=== PATIENT | female | born 1945 | race Caucasian/White ===

== ENCOUNTER 2024-04-20 15:21 | Inpatient (IN) | payer MEDICARE, SELFPAY ==
[2024-04-20] VITALS (17 sets, daily range): BP systolic 96–120; BP diastolic 48–82; PULSE 83–97; RESP 19–32; TEMP 36.6–37.1; O2SAT 93–100; BMI 29.2
--- NOTE | ~2024-04-20 | CT_ITS ---
CT chest abdomen pelvis wo con Ordering provider: Hiro English MD History: . sepsis . Comparison: None. Technique: CT chest without IV contrast. CT abdomen and pelvis without oral and IV contrast. Radiation reduction technique utilized. The DLP is 1474.4 mGy FINDINGS: The study is limited due to lack of IV contrast. CHEST: --VISUALIZED THORACIC INLET: Normal as visualized. --MEDIASTINUM: Aorta/coronary arteries: Mild atheromatous disease. Posterior bulges seen in the descending aorta pro ximal portion suggestive of bone aneurysm which measures 2.6 cm x 1.5x 3.3 cm. Heart/other: The heart is not enlarged. Trace of pericardial effusion. Lymph nodes: No mediastinal or hilar adenopathy. --LUNGS: Dependent atelectatic changes. Underlying emphysematous changes. No pulmonary nodules or mas ses. No infiltrates or effusions. No pneumothorax. --MUSCULOSKELETAL: Soft tissues: The superficial soft tissues are normal. Bones: Age appropriate degenerative changes of the spine. ABDOMEN/PELVIS: --MUSCULOSKELETAL: Bones: Age appropriate degenerative changes of the spine. Superficial soft tissues: The superficial soft tissues are normal. --UPPER ABDOMINAL ORGANS: Liver: Rounded hypodense area in the left lobe of the liver which may be a mass. Further evaluation a dvised. This area measures 3.9 x 4.3 x 5 cm. An abscess is less likely although cannot be excluded. M inimal fat stranding is seen around the area. Gallbladder: Cholelithiasis. No cholecystitis. Spleen: Normal. Stomach/duodenum: Slightly thickened wall of the stomach. Pancreas: Normal. Adrenals: Normal. Kidneys: Normal. --PELVIC ORGANS: The bladder is normal. No bladder stones. Uterus is normal. --BOWEL AND MESENTERY: Colon: Diverticulosis. Thickening in the area of the sigmoid colon is seen with fat stranding in the area. Sigmoidoscopy is advised. No evidence of appendicitis. Small Bowel: Normal. No obstruction. Peritoneum/mesentery: No free air or free fluid. No mesenteric lymphadenopathy. --RETROPERITONEUM: Mild atheromatous disease of the abdominal aorta. No retroperitoneal lymphadenop athy. IMPRESSION: CHEST: 1. 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 Further evaluation advised. 2. No acute cardiopulmonary pathology seen. ABDOMEN/PELVIS: 1. Thickened area in the sigmoid colon with surrounding fat stranding. The differential includes a m ass or diverticulitis. Sigmoidoscopy is advised. 2. Rounded hypodense area in the left lobe of the liver. This may be a mass and this likely an absce ss. Surrounding fat stranding is seen in the area. 3. Cholelithiasis. Reviewed, dictated and finalized at location A. IMPRESSION: CHEST: 1. 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 Further eval uation advised. 2. No acute cardiopulmonary pathology seen. ABDOMEN/PELVIS: 1. Thickened area in the sigmoid colon with surrounding fat stranding. The dif ferential includes a mass or diverticulitis. Sigmoidoscopy is advised. 2. Rounded hypodense area in the left lobe of the liver. This may be a mass an d this likely an abscess. Surrounding fat stranding is seen in the area. 3. Cholelithiasis.
--- NOTE | ~2024-04-20 | CT_ITS ---
EXAMINATION: CTA chest PE abdomen pel DATE: 04/28/2024 10:50 INDICATION: Shortness of breath TECHNIQUE: Computed tomography angiography (CTA) of the chest was performed with 100 mL Omnipaque-350 intravenous contrast timed to evaluate the pulmonary arteries. Coronal maximum intensity projection 3D-reconstructions were created by the technologist. Automated exposure control and iterative reconst ruction technique were employed. Exam dose: 1241.47 mGy-cm total exam DLP. COMPARISON: 04/26/2024 portable AP chest FINDINGS: The pulmonary arteries are moderately opacified without apparent embolism. There is extensive thoracic aortic and great vessel calcification as well as coronary artery calcific ation. No thoracic aortic aneurysm or dissection. No hilar or mediastinal mass lesion or lymphadenopathy. The adrenal glands are unremarkable. Discoid atelectasis or scarring at the lung bases. Lungs otherwise are clear of infiltrate or consoli dation. Prominent degenerative disc disease at C5-6 and C6-7. Diffuse idiopathic skeletal hyperostosis of the thoracic spine. IMPRESSION: No detected pulmonary emboli Reviewed, dictated and finalized at [facility]. Reviewed, dictated and finalized at location A.
--- NOTE | ~2024-04-20 | US_ITS ---
RIGHT UPPER QUADRANT ABDOMINAL ULTRASOUND (Doppler ultrasound interrogation techniques used as needed for this exam.) Ordering provider: Alycia Roth PA-C History: . elevated LFTs . Comparison: None. FINDINGS: PANCREAS: Normal echotexture and size. PORTAL VEIN: Hepatopedal flow demonstrated. LIVER: Homogeneous echotexture. Measures 16 cm. Left lateral complex mass measuring 6.4 x 4.4 x 4.6 c m. flow is noted peripherally. BILIARY DUCTS: No intra or extrahepatic biliary dilation. Common bile duct measures 4 mm in diameter which is normal for patient's age. GALLBLADDER: Small stones. No Sludge, gallbladder wall thickening or pericholecystic fluid. Negative sonographic Broussard's sign. Hypoechoic foci of the anterior wall are noted measuring 0.5 cm. FREE FLUID: None visualized within the upper abdomen. The aorta and inferior vena cava are normal. IMPRESSION: Heterogenous echogenicity of the liver suggestive of cirrhosis with a complex mass in the left latera l lobe. Further evaluation advised. Small stones with highly suggestive polyp in the anterior wall. Otherwise, normal right upper quadran t ultrasound. Reviewed, dictated and finalized at location A. IMPRESSION: Heterogenous echogenicity of the liver suggestive of cirrhosis with a complex m ass in the left lateral lobe. Further evaluation advised. Small stones with highly suggestive polyp in the anterior wall. Otherwise, norm al right upper quadrant ultrasound.
--- NOTE | ~2024-04-20 | XR_ITS ---
EXAMINATION: XR chest 2V 04/20/2024 16:03 INDICATION: Weakness PROCEDURE: AP and lateral views of the chest COMPARISON: No prior studies for comparison. FINDINGS: Right basilar atelectasis. Mildly elevated left diaphragm. The cardiomediastinal silhouette is within normal limits. There are no pleural effusions. There is no pneumothorax suspected. IMPRESSION: 1: NO ACUTE CARDIOPULMONARY DISEASE. Reviewed, dictated and finalized at location [facility].
--- NOTE | ~2024-04-20 | XR_ITS ---
EXAMINATION: XR chest 1V portable DATE: 04/22/2024 11:25 INDICATION: Shortness of breath TECHNIQUE: frontal view of the chest was obtained. COMPARISON: Chest radiograph dated 04/20/2024 FINDINGS: Unchanged elevation the left hemidiaphragm. Skinfold projects over the upper chest. No focal airspace opacities, pulmonary edema, pleural effusion or pneumothorax. Heart size is normal. Atherosclerotic aorta. Mild scattered degenerative skeletal changes in the spine and both shoulders.. IMPRESSION: 1. Unchanged elevation of the left hemidiaphragm. No other acute cardiopulmonary disease. Reviewed, dictated and finalized at location A. IMPRESSION: 1. Unchanged elevation of the left hemidiaphragm. No other acute cardiopulmonar y disease.
--- NOTE | ~2024-04-20 | XR_ITS ---
EXAMINATION: XR chest 1V portable DATE: 04/26/2024 06:17 INDICATION: Hypoxia. TECHNIQUE: A single frontal view of the chest was obtained. COMPARISON: Chest single view 04/22/2024, chest CT 04/20/2024 FINDINGS: There is a diffuse interstitial pattern in the lungs, consistent with mild pulmonary edema. There is a small left pleural effusion. No pneumothorax. The heart size is normal. IMPRESSION: 1. Mild pulmonary edema. 2. Small left pleural effusion. Reviewed, dictated and finalized at location A.
--- NOTE | ~2024-04-20 | CT_ITS ---
CT brain wo con Ordering provider: Hiro English MD History: 78 years Female with . head injury . Comparison: None. Technique: CT of the head without contrast. Radiation reduction technique utilized. DLP 605.3mGy. FINDINGS: BRAIN PARENCHYMA AND CSF SPACES: Mild leukoaraiosis and diffuse cortical atrophy. Mild atheromatous d isease. Hypodensity in the left internal capsule anterior limb is noted which may indicate an old in farct.. No midline shift, mass effect or hemorrhage. The brain parenchyma and CSF spaces are otherwi se normal. VISUALIZED PARANASAL SINUSES: Normal. MASTOIDS: Normal. BONES: Normal. SOFT TISSUES: Visualized nasopharynx is normal. Superficial soft tissues are normal. IMPRESSION: No acute intracranial hemorrhage. 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 MRI evaluation is advised. Reviewed, dictated and finalized at location A. IMPRESSION: No acute intracranial hemorrhage. Hypodensity in the left internal capsule ante rior limb which may be old infarct. MRI evaluation is advised.
--- NOTE | ~2024-04-20 | MR_ITS ---
EXAMINATION: MR brain/brain stem wo/w con DATE: 04/22/2024 07:48 INDICATION: Weakness. Assess for stroke. TECHNIQUE: Magnetic resonance imaging (MRI) of the brain and brainstem was performed without intraven ous contrast. Sequences included sagittal and axial T1-weighted SE, axial diffusion-weighted FS SE, a xial T2*-weighted GRE, axial T2-weighted FLAIR, and axial T2-weighted FSE. Postcontrast axial and cor onal T1-weighted SE was obtained. Apparent diffusion coefficient (ADC) maps were created. COMPARISON: CT dated 04/20/2024 FINDINGS: There are no areas of restricted diffusion to suggest acute infarction. No intracranial hemorrhage or abnormal intracranial mass lesion. There are scattered areas of nonspecific increased T2-weighted si gnal intensity in the cerebral white matter, predominantly involving the deep and periventricular whi te matter. There are no intraparenchymal signal abnormalities seen on the other pulse sequences. The ventricles are symmetric and normal in size. There are no abnormal extra-axial fluid collections. [place] w voids are seen in the cerebral arteries on the T2-weighted sequences consistent with their expected patency. Left vertebral artery is dominant. Visualized orbits and soft tissues are unremarkable. The re are no areas of abnormal enhancement on the post contrast images. IMPRESSION: 1. No acute intracranial process. 2. Nonspecific mild scattered white matter T2 hyperintensity which is within normal limits for age an d likely sequela of chronic small vessel ischemic disease. Reviewed, dictated and finalized at location A. IMPRESSION: 1. No acute intracranial process. 2. Nonspecific mild scattered white matter T2 hyperintensity which is within no rmal limits for age and likely sequela of chronic small vessel ischemic disease .
--- NOTE | ~2024-04-20 | MR_ITS ---
EXAMINATION: MR abdomen wo/w con DATE: 04/23/2024 09:57 INDICATION: Liver mass. TECHNIQUE: Magnetic resonance imaging (MRI) of the abdomen was performed without and with 20 mL Multi Aditya intravenous contrast. COMPARISON: Abdomen ultrasound 04/21/2024, CT 04/20/2024 FINDINGS: The liver demonstrates surface nodularity, consistent with cirrhosis. In the left hepatic lobe, there is a 5.1 cm cystic mass with hyperenhancing capsule and thick septa without washout. There are cysts in the liver measuring up to 10 mm. There are gallstones in the gallbladder, which is normal in size . The pancreas, spleen, and adrenal glands, and kidneys are normal. There are no dilated loops of bow el. There are scattered diverticula in the sigmoid colon. There is fat stranding around the sigmoid c olon with local free gas. IMPRESSION: 1. 5.1 cm cystic mass in left hepatic lobe, consistent with abscess or less likely neoplasm. 2. Cirrhosis of the liver. 3. Sigmoid diverticulitis with perforation. Reviewed, dictated and finalized at location E. IMPRESSION: 1. 5.1 cm cystic mass in left hepatic lobe, consistent with abscess or less lik lei neoplasm. 2. Cirrhosis of the liver. 3. Sigmoid diverticulitis with perforation.
--- NOTE | 2024-04-20 15:30 | ECG_ITS ---
Test Date: 2024-04-20 15:34:27 Measurements Intervals [place] Rate: 93 P: 0 [place]: 0 QRS: -32 QRSD: 118 T: 48 QT: 352 QTc: 438 Interpretive Statements Sinus rhythm MARKED LEFT AXIS DEVIATION [QRS AXIS < -30] INCOMPLETE RIGHT BUNDLE BRANCH BLOCK [90+ ms QRS DURATION, TERMINAL R IN V1/V2, 40+ ms S IN I/aVL/V4/V5/V6] No previous ECG available for comparison Electronically Signed On 04-21-2024 15:52:51 CDT by Royal Brandon M.D.
--- NOTE | 2024-04-20 16:13 | ED_ITS ---
HPI - General Adult General Chief complaint: Weakness Stated complaint: hypotensive, weakness Time Seen by Provider: 04/20/24 15:49 History of Present Illness HPI narrative: Patient is a 78-year-old female who presents ER with weakness. She sat up on the edge of the bed this morning when she got lightheaded. When she tried to stand up she felt ground striking her head on the ground. She did not lose consciousness. She reports she has been having a cough over last couple days. No urinary frequency urgency or dysuria. No known sick contacts. No additional complaints. Related Data Home Medications Medication Instructions Recorded Confirmed aspirin 81 mg tablet 81 mg PO DAILY 04/20/24 04/20/24 lorazepam 1 mg tablet 1 mg PO HS 04/20/24 04/20/24 telmisartan 40 mg tablet (Micardis) 40 mg PO DAILY 04/20/24 04/20/24 Allergies Allergy/AdvReac Type Severity Reaction Status Date / Time No Known Allergies Allergy Verified 04/20/24 22:03 Review of Systems Review of Systems: All systems reviewed & are unremarkable except as noted in HPI and below Constitutional: Constitutional: Reports chills, Reports fatigue, Denies fever(s) and Reports weakness ENT: Reports system reviewed and no additional complaints, except as documented Cardiovascular: Cardiovascular: Reports no additional cardiovascular complaints Respiratory: Respiratory: Reports cough, Denies dyspnea and Denies wheezing Gastrointestinal: Gastrointestinal: Reports no additional gastrointestinal complaints Genitourinary: Genitourinary: Reports no additional female genitourinary complaints Neurologic: Denies syncope, Denies headache(s), Denies focal weakness and Denies numbness [facility] Past Medical History Medical History (Updated 04/21/24 @ 10:37 by Hiro English MD) Anxiety Diverticulitis Hypertension Osteoarthritis Psoriasis Surgical History Surgical History (Updated 04/21/24 @ 00:01 by Alycia Roth PA-C) History of appendectomy Family History Family History Other No problems noted. Mother Congestive cardiac failure Social History Social History (Updated 04/21/24 @ 00:01 by Alycia Roth PA-C) Social History: Surrogate medical decision maker: Maribell Ramirez, daughter. Code status: Do not resuscitate. Smoking packs per day: 0.5 Smoking cigarettes per day: 10.0 Years smoked: 50 Smoking pack-years: 25.00 Smoking status: Former smoker Substance use: former Do You Feel Safe in your Home?: Yes Lack of Transportation: No Lack of Food: Never True Current Housing: I Have Housing Concerned About Future Housing: No Difficulty Paying Gas/Electric Bills: No Difficulty Paying for Meds: No Currently Unemployed: No Education: High School Diploma/GED Difficulty w/ Childcare or Family Care: No Spiritual care concerns: No Exam Narrative: GENERAL: Fatigue-appearing, well-nourished, and in no acute distress. HEAD: Normocephalic, atraumatic. ENT: Mucous membranes moist. CHEST: Clear to auscultation. No respiratory distress. HEART: Regular rate and rhythm. Normal peripheral pulses. ABDOMEN: Soft, nontender, nondistended. EXTREMITIES: Normal range of motion. No edema. SKIN: Warm, dry, no rash. NEURO: Alert and oriented x3. PSYCH: Normal mood and affect. Course Course Emergency Course: Discussed lab results with the patient. Patient receiving 30 milliliter/kilogram bolus due to high suspicion of sepsis. Patient reports she is a DNR. No source found on x-ray or urinalysis. CT with them/pelvis/ chest ordered. Admit to hospitalist service. Vital Signs Vital signs: Vital Signs Temperature 98.8 F 04/20/24 15:15 Pulse Rate 97 04/20/24 15:15 Respiratory Rate 24 H 04/20/24 15:15 Blood Pressure 109/82 04/20/24 15:15 Pulse Oximetry 94 04/20/24 15:15 Oxygen Delivery Room Air 04/20/24 15:15 Temperature 97.6 F 04/21/24 06:00 Pulse Rate 85 04/21/24 06:00 Respiratory Rate 16 04/21/24 06:00 Blood Pressure 110/63 04/21/24 06:00 Pulse Oximetry 94 04/21/24 06:00 Oxygen Delivery Room Air 04/20/24 22:10 Medical Decision Making Vital Signs Vital Signs: Vital Signs Temperature 98.8 F 04/20/24 15:15 Pulse Rate 97 04/20/24 15:15 Respiratory Rate 24 H 04/20/24 15:15 Blood Pressure 109/82 04/20/24 15:15 Pulse Oximetry 94 04/20/24 15:15 Oxygen Delivery Room Air 04/20/24 15:15 Temperature 97.6 F 04/21/24 06:00 Pulse Rate 85 04/21/24 06:00 Respiratory Rate 16 04/21/24 06:00 Blood Pressure 110/63 04/21/24 06:00 Pulse Oximetry 94 04/21/24 06:00 Oxygen Delivery Room Air 04/20/24 22:10 Lab Data 04/21/24 06:03 04/21/24 06:03 Labs: Lab Results 04/20/24 04/20/24 04/20/24 Range/Units 16:18 16:39 17:24 WBC 20.4 H (4.5-10.0) K/mm3 RBC 3.82 L (4.2-5.4) M/mm3 Hgb 11.5 L (12.0-15.0) g/dL Hct 35.5 L (37.0-47.0) % MCV 92.9 (80-100) fl MCH 30.1 (26-34) pg MCHC 32.4 (32-36) g/dl RDW 15.4 H (11.5-14.5) % Plt Count 322 (150-375) k/mm3 MPV 9.8 (7.4-10.4) fl Immature Gran % (Auto) Not Reportable Neut % (Auto) Not Reportable Lymph % (Auto) Not Reportable [place] % (Auto) Not Reportable Eos % (Auto) Not Reportable Baso % (Auto) Not Reportable Lymph # (Auto) Not Reportable [place] # (Auto) Not Reportable Eos # (Auto) Not Reportable Baso # (Auto) Not Reportable Abs Immat Gran (auto) Not Reportable Absolute Neuts (auto) Not Reportable Absolute Nucleated RBC Not Reportable Total Counted 100 Neutrophils % (Manual) 83 H (46-73) % Band Neutrophils % 1 (0-6) % Lymphocytes % (Manual) 9.0 L (18-44) % Monocytes % (Manual) 7 (3-9) % Nucleated RBC % Not Reportable Abs Neuts (Manual) 17.13 H (1.7-7.2) K/mm3 Abs Lymphs (Manual) 1.83 (1.1-4.5) K/mm3 Abs Monocytes (Manual) 1.42 H (0.1-0.90) K/mm3 Platelet Estimate Adequate (Adequate) Anisocytosis 1+ Schistocytes None seen Sodium 136 L (137-145) mmol/L Potassium 3.7 (3.4-5.0) mmol/L Chloride 100 (98-107) mmol/L Carbon Dioxide 29 (22-30) mmol/L Anion Gap 7 (4-12) mmol/L BUN 55 H (7-17) mg/dL Creatinine 2.00 H (0.7-1.0) mg/dL Estim Creat Clear Calc 22 ml/min Estimated GFR 24 L (59 - ) Glucose 118 H (65-110) mg/dL Calcium 8.7 (8.4-10.2) mg/dL Total Bilirubin 2.6 H (0.2-1.3) mg/dL AST 56 H (14-36) U/L ALT 27 (6-35) U/L Alkaline Phosphatase 124 (38-126) U/L Total Protein 8.0 (6.3-8.2) g/dL Albumin 3.8 (3.5-5.1) g/dL Urine Color Dark yellow (Yellow) Urine Appearance Cloudy H (Clear) Urine pH 5.0 (5.0-9.0) Ur Specific [place] 1.020 (1.001-1.035) Urine Protein 1+ H (Negative) mg/dL Urine Glucose (UA) Negative (Negative) mg/dL Urine Ketones Negative (Negative) mg/dL Ur Blood (Man) Negative (Negative) Urine Nitrate Negative (Negative) Urine Bilirubin 1+ H (Negative) Urine Urobilinogen 1.0 (<2.0) mg/dL Leukocyte Esterase Rfl Trace H (Negative) ELIANE/UL Urine RBC 3-5 H (0-2) /hpf Urine WBC 0-5 (0-3) /hpf Ur Squamous Epith Cells Occasional (Few) /hpf Urine Bacteria None seen /hpf Urine Casts 11-20 Hyaline Casts Present (None) /lpf Influenza A (RT-PCR) Negative (Negative) Influenza B (RT-PCR) Negative (Negative) RSV (RT-PCR) Negative (Negative) SARS-CoV-2 RNA (RT-PCR) Negative (Negative) Imaging Data Radiologist's impression: ITS Impressions Chest X-Ray 04/20/24 16:06 IMPRESSION: 1: NO ACUTE CARDIOPULMONARY DISEASE. Head CT 04/20/24 16:35 IMPRESSION: No acute intracranial hemorrhage. 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 MRI evaluation is advised. ECG Data EKG #1: ECG completion date: 04/20/24 ECG completion time: 15:34 EKG Interpretation: normal rate (93), sinus rhythm, RBBB, normal QT and left axis Discharge Plan Discharge Clinical Impression: Sepsis, Acute kidney injury Patient Disposition: Still a Patient Condition: Stable
[2024-04-20] MEDS: SODIUM CHLORIDE 0.9% IV 1,000 ML 999 ML IV CONT ×2 (16:22→16:23)
[2024-04-20] MEDS: Please add drug allergy info to patient profile. 1 EACH XX (16:23)
[2024-04-20 16:24] LABS: Hematocrit 35.5 % (37.0-47.0); Hemoglobin 11.5 g/dL (12.0-15.0); Mean Corpuscular HGB Conc 32.4 g/dl (32-36); Mean Corpuscular Hemoglobin 30.1 pg (26-34); Mean Corpuscular Volume 92.9 fl (80-100); Mean Platelet Volume 9.8 fl (7.4-10.4); Platelet Count Result 322 k/mm3 (150-375); Red Blood Count 3.82 M/mm3 (4.2-5.4); Red Cell Distribution Width 15.4 % (11.5-14.5); White Blood Count 20.4 K/mm3 (4.5-10.0)
[2024-04-20 16:36] LABS: Alanine Aminotransferase 27 U/L (6-35); Albumin Level 3.8 g/dL (3.5-5.1); Alkaline Phosphatase 124 U/L (38-126); Anion Gap 7 mmol/L (4-12); Aspartate Amino Transferase 56 U/L (14-36); Bilirubin,Total 2.6 mg/dL (0.2-1.3); Blood Urea Nitrogen 55 mg/dL (7-17); Calcium 8.7 mg/dL (8.4-10.2); Carbon Dioxide 29 mmol/L (22-30); Chloride 100 mmol/L (98-107); Estimated CRCL calculation 22 ml/min; Estimated Glomerular Filt Rate 24; Glucose 118 mg/dL (65-110); Potassium 3.7 mmol/L (3.4-5.0); Sodium 136 mmol/L (137-145)
[2024-04-20 16:53] LABS: Band Neutrophils Percent 1 % (0-6); Lymphocytes Absolute Manual 1.83 K/mm3 (1.1-4.5); Monocytes Absolute Manual 1.42 K/mm3 (0.1-0.90); Monocytes Percent Manual 7 % (3-9); Neutrophils Absolute Manual 17.13 K/mm3 (1.7-7.2); Neutrophils Percent Manual 83 % (46-73); Platelet Estimate Adequate (Adequate); Schistocytes None Seen; Total Cells Counted 100
[2024-04-20 16:54] LABS: Anisocytosis 1+
[2024-04-20 17:21] LABS: Influenza A QL RT-PCR Negative (Negative); Influenza B QL RT-PCR Negative (Negative); RSV RNA, RT-PCR Negative (Negative); SARS-CoV-2 RNA PCR Negative (Negative)
[2024-04-20 17:58] LABS: Appearance Urine Cloudy (Clear); Bacteria Urine None Seen /hpf; Bilirubin Urine 1+ (Negative); Blood Urine Negative (Negative); Color Urine Dark Yellow (Yellow); Glucose Urine UA Negative (Negative); Hyaline Casts Urine Present /lpf; Ketones Urine Negative (Negative); Leukocyte Esterase Ur Trace LEU/UL (Negative); Nitrate Urine Negative (Negative); Protein Urine 1+ mg/dL (Negative); Squamous Epithelial Cell Urine Occasional /hpf (Few); WBC Urine 0-5 /hpf (0-3)
[2024-04-20 17:59] LABS: Add Urine Microscopic? YES
[2024-04-20] MEDS: SODIUM CHLORIDE 0.9% IV 300 ML 999 ML IV CONT (18:57)
[2024-04-20 19:16] LABS: Lactic Acid Reflex 1.5 mmol/L (0.7-2.0)
--- NOTE | 2024-04-20 19:24 | PC.NURSE ---
Report received from RONDA Arzate. Assumed care of patient at this time.
--- NOTE | 2024-04-20 20:14 | PC.NURSE ---
Patient given turkey sandwich and water upon request. Patient and her family updated on waiting for room number. Call light within reach.
--- NOTE | 2024-04-20 21:32 | PC.NURSE ---
Patient had incontinent bowel movement. Patient cleaned up and changed. Patient tolerated well.
--- NOTE | 2024-04-20 21:47 | ADMGEN ---
This patient, Vero Mcknight, was admitted to [facility] Surg Room 314-02. Patient/family oriented to hospital policies and general routines including ID bracelet, bed and alarms, visiting hours, pain management, procedures, bathroom and other care routines, personal items, smoking policy, room service/diet, and visiting hours. Information on how to activate the Rapid Response Team has been discussed. Patient/Family are encouraged to report perceived risks to care and to ask questions if they do not understand what they are told or what they should do.
--- NOTE | 2024-04-20 22:04 | PC.NURSE ---
Spoke with sonNicolas and daughter Maribell in ER while awaiting room assignment. Contact information for farooq Vaughn is [phone]. She is to be primary contact. Son Nicolas Mcknight is secondary contact with phone [phone]. Also request patients primary physician receive information from hospitalization on discharge.
[2024-04-20] MEDS: SODIUM CHLORIDE 0.9% IV 1,000 ML 125 ML IV CONT (22:24)
[2024-04-20] MEDS: PIPERACILLN/TAZ 3.375GM/NS50ML 3.375 GM/50 ML BAG IVPB (22:24)
--- NOTE | 2024-04-20 23:49 | P.HP_ITS ---
H&P: HPI History of Present Illness Date/Time: 04/20/24 20:45 Chief Complaint: Weakness. Narrative: This is a pleasant 78-year-old female with history diverticulitis, arthritis, psoriasis, anxiety, and hypertension who presented to the emergency department via EMS from home for evaluation of weakness. The patient provides the following history. She has not been feeling well for a couple of days with chills, sweats, dry cough, poor appetite, nausea, and intermittent diarrhea. This morning she awoke and set the edge of the bed for a minute or 2 as usual before attempting to stand up. When she stood up she reports feeling extremely weak and lightheaded and she fell onto her side onto the carpet. There was no loss of consciousness or head trauma but she was not able to get herself up due to weakness. EMS was summoned and her blood pressures were reportedly soft on their arrival however have not been documented. She denies documented fever, headache, sinus congestion, sore throat, productive cough, shortness of breath, chest and pleuritic pain, vomiting, and dysuria. She has not noticed any blood or mucus in the stool. She lives at home with son and [id number] and neither of them have been sick. In the ED: She was afebrile on arrival. Blood pressures have been as low as 96/58 but are stable after receiving 2300 mL normal saline. Labs were significant for a WBC count of 20.4, hemoglobin 11.5, sodium 136, BUN 55, creatinine 2.00, lactic acid 1.5, total bilirubin 2.6, AST 56. She tested negative for influenza, RSV, and COVID. Head CT showed no acute intracranial findings but did note a hypodensity in the left internal capsule the anterior limb which may be old infarct. CT of the chest, abdomen, and pelvis showed a descending aortic aneurysm, cholelithiasis, hypodense area in the left lobe of the liver which may be a mass, and secondary in the sigmoid colon with surrounding fat stranding with a differential diagnosis to include mass or diverticulitis. She was given a dose of ceftriaxone and has been started on Zosyn for possible diverticulitis. Patient reports being hospitalized at [facility] in January with diverticulitis though the symptoms are not necessarily similar. She has never had a colonoscopy and she is not keen on having 1. She has lost about 40 lb in the last 3 months unintentionally. No family history of colon cancer. Review of Systems Review of Systems: 12 systems were reviewed and are negativ e except for as per HPI. [facility] Past Medical History Medical History (Updated 04/21/24 @ 00:06 by Alycia Roth PA-C) Anxiety Diverticulitis Hypertension Osteoarthritis Psoriasis Surgical History Surgical History (Updated 04/21/24 @ 00:01 by Alycia Roth PA-C) History of appendectomy Family History Family History Other No problems noted. Mother Congestive cardiac failure Social History Social History (Updated 04/21/24 @ 00:01 by Alycia Roth PA-C) Social History: Surrogate medical decision maker: Maribell Ramirez, daughter. Code status: Do not resuscitate. Smoking packs per day: 0.5 Smoking cigarettes per day: 10.0 Years smoked: 50 Smoking pack-years: 25.00 Smoking status: Former smoker Substance use: former Do You Feel Safe in your Home?: Yes Lack of Transportation: No Lack of Food: Never True Current Housing: I Have Housing Concerned About Future Housing: No Difficulty Paying Gas/Electric Bills: No Difficulty Paying for Meds: No Currently Unemployed: No Education: High School Diploma/GED Difficulty w/ Childcare or Family Care: No Spiritual care concerns: No Meds Home Medications and Allergies Home Medications Medication Instructions Recorded Confirmed Type aspirin 81 mg tablet 81 mg PO DAILY 04/20/24 04/20/24 History lorazepam 1 mg tablet 1 mg PO HS 04/20/24 04/20/24 History telmisartan 40 mg tablet (Micardis) 40 mg PO DAILY 04/20/24 04/20/24 History Allergies Allergy/AdvReac Type Severity Reaction Status Date / Time No Known Allergies Allergy Verified 04/20/24 22:03 Vital Signs Vital Signs - 24 hr 04/20/24 15:15 04/20/24 17:27 04/20/24 19:08 Temperature 98.8 F Pulse Rate 97 86 84 Respiratory Rate 24 H 27 H 29 H Blood Pressure 109/82 120/48 L 96/58 L Pulse Oximetry 94 96 94 Oxygen Delivery Room Air 04/20/24 19:01 04/20/24 19:03 04/20/24 19:15 Temperature Pulse Rate 84 84 87 Respiratory Rate 19 28 H 28 H Blood Pressure Pulse Oximetry 93 95 95 Oxygen Delivery 04/20/24 19:30 04/20/24 19:45 04/20/24 20:00 Temperature Pulse Rate 84 84 83 Respiratory Rate 26 H 28 H 28 H Blood Pressure Pulse Oximetry 95 96 96 Oxygen Delivery 04/20/24 20:15 04/20/24 20:30 04/20/24 20:45 Temperature Pulse Rate 85 86 89 Respiratory Rate 25 H 32 H 26 H Blood Pressure Pulse Oximetry 95 93 93 Oxygen Delivery 04/20/24 21:00 04/20/24 21:15 04/20/24 21:22 Temperature Pulse Rate 91 89 91 Respiratory Rate 32 H 28 H 24 H Blood Pressure Pulse Oximetry 96 93 94 Oxygen Delivery 04/20/24 22:10 04/20/24 22:00 Temperature 97.8 F Pulse Rate 89 89 Respiratory Rate 20 20 Blood Pressure 108/49 L Pulse Oximetry 100 100 Oxygen Delivery Room Air Exam Narrative: General: Moderately ill-appearing female in the semi-Evans position in bed. Weight: 90 kg. BMI: 29.3. HEENT: PERRL, EOMI. Sclera anicteric. Tacky mucous membranes. Oropharynx is clear. Neck: Supple. No JVD. Respiratory: Mild tachypnea though she is speaking in full sentences and appears in no distress. Lung sounds are a bit diminished with faint wheezes. Occasional dry cough. Cardiovascular: Regular rate and rhythm with S1-S2. Systolic murmur at the upper sternal border. Gastrointestinal: Abdomen is soft and nondistended with positive bowel sounds. Moderate tenderness to palpation throughout the lower abdomen. No guarding or rebound tenderness. Skin: Warm and dry. Extremities: No cyanosis or clubbing. Trace pretibial edema bilaterally. Radial and pedal pulses intact. Neurological: Alert. Cranial nerves 2-12 are grossly intact. No gross focal deficits to casual conversation. Psychiatric: Pleasant and cooperative with normal mood and affect. Judgment and insight intact. She is in good spirits. H&P: Results Labs Labs: Short CBC 04/20/24 Range/Units 16:18 WBC 20.4 H (4.5-10.0) K/mm3 Hgb 11.5 L (12.0-15.0) g/dL Hct 35.5 L (37.0-47.0) % Plt Count 322 (150-375) k/mm3 BMP 04/20/24 16:18 Sodium 136 L Potassium 3.7 Chloride 100 Carbon Dioxide 29 BUN 55 H Creatinine 2.00 H Glucose 118 H Calcium 8.7 Liver Function 04/20/24 Range/Units 16:18 Total Bilirubin 2.6 H (0.2-1.3) mg/dL AST 56 H (14-36) U/L ALT 27 (6-35) U/L Alkaline Phosphatase 124 (38-126) U/L Albumin 3.8 (3.5-5.1) g/dL Urine 04/20/24 Range/Units 17:24 Urine Color Dark yellow (Yellow) Urine Appearance Cloudy H (Clear) Urine pH 5.0 (5.0-9.0) Ur Specific [place] 1.020 (1.001-1.035) Urine Protein 1+ H (Negative) mg/dL Urine Glucose (UA) Negative (Negative) mg/dL Impressions Chest X-Ray 04/20/24 16:06 IMPRESSION: 1: NO ACUTE CARDIOPULMONARY DISEASE. Head CT 04/20/24 16:35 IMPRESSION: No acute intracranial hemorrhage. 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 MRI evaluation is advised. Chest/Abdomen/Pelvis CT 04/20/24 19:20 IMPRESSION: CHEST: 1. 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 Further evaluation advised. 2. No acute cardiopulmonary pathology seen. ABDOMEN/PELVIS: 1. Thickened area in the sigmoid colon with surrounding fat stranding. The differential includes a mass or diverticulitis. Sigmoidoscopy is advised. 2. Rounded hypodense area in the left lobe of the liver. This may be a mass and this likely an abscess. Surrounding fat stranding is seen in the area. 3. Cholelithiasis. Assessment and Plan Assessment and plan (1) Sepsis: Code(s): A41.9 - Sepsis, unspecified organism Status: Acute (2) Diverticulitis: Code(s): K57.92 - Diverticulitis of intestine, part unspecified, without perforation or abscess without bleeding Status: Acute (3) Acute kidney injury: Code(s): N17.9 - Acute kidney failure, unspecified Status: Acute (4) Lesion of left lobe of liver: Code(s): K76.9 - Liver disease, unspecified Status: Acute (5) Cholelithiasis: Code(s): K80.20 - Calculus of gallbladder without cholecystitis without obstruction Status: Acute (6) Normocytic anemia: Code(s): D64.9 - Anemia, unspecified Status: Acute (7) Descending aortic aneurysm: Code(s): I71.9 - Aortic aneurysm of unspecified site, without rupture Status: Acute (8) Hypertension: Code(s): I10 - Essential (primary) hypertension Status: Acute Plan The patient presented to the emergency department for evaluation of weakness and near syncope as detailed in HPI. Labs, imaging, EKG, and all reports were personally reviewed. She meets sepsis criteria on arrival with hypotension (responsive to fluid), acute kidney injury, and leukocytosis in the setting of suspected infection. Blood cultures have been obtained. Source of infection could be diverticulitis (fat stranding noted around the sigmoid colon with diverticulosis however abdominal exam is equivocal), liver abscess given hypodensity in the left lobe of the liver on CT, versus other. She has cholelithiasis but no findings of cholecystitis were noted on imaging and right upper quadrant exam is benign. Continue empiric Zosyn. Blood cultures have been obtained. At this time she has a presumed acute kidney injury and cannot receive IV contrast. Repeat renal function in a.m. and if there is improvement a CT of the abdomen with contrast would be appropriate or could consider MRI to further characterize this area. This could be an abscess given suspected GI infection however cannot rule out malignancy; there is thickening of the sigmoid colon and she has had a 40 lb weight loss. As above, she is not keen on a colonoscopy but may consider a sigmoidoscopy. Kidney injury is likely due to a combination of hypoperfusion from hypotension, hypovolemia from poor oral intake, possible ATN from sepsis, in addition to ARB use. All medications will be renally dosed and nephrotoxic agents will be avoided. Continue judicious IV fluid rehydration overnight. If no improvement with IV fluids alone, a further workup can be pursued. Monitor I/O and daily weights. Check iron studies as well as B12, folate, and stool for occult blood for evaluation of anemia. Antihypertensives currently on hold. She will need to be followed as an outpatient for the descending aortic aneurysm noted on CT scan. The rest of her home medications will be reviewed and resumed as appropriate. Findings and treatment plan were discussed with the patient. Questions were solicited and answered to sati sfaction. The patient's medical management will be taken over by the hospitalist team in a.m. Quality VTE Prophylaxis VTE prophylaxis: pharmacologic ordered The patient has been admitted under observation status. Hospitalist MIPS Advance Care Plan I have confirmed that the patient's Advanced Care Plan is present, code status is documented, or surrogate decision maker is listed in patient medical record.: Yes Medication Reconciliation I have utilized all available resources to obtain, update and review the patients current medications (includes all prescriptions, OTC, herbals, cannabis, and nutritional supplements).: Yes
[2024-04-21 02:16] LABS: Iron 18 ug/dL (37-170)
[2024-04-21 02:26] LABS: Percent Iron Saturation 9 % (20-50); TOTAL IRON BINDING CAPACITY 191 ug/dL (261-462)
[2024-04-21 02:49] LABS: Thyroid Stimulating Hormone Reflex 0.983 uIU/mL (0.465-4.68)
[2024-04-21 04:32] LABS: Folic Acid 16.8 ng/mL (2.76->20)
[2024-04-21] MEDS: PIPERACILLIN/TAZ 2.25G/NS 50ML 2.25 GM/50 ML BAG IVPB ×4 (04:52→23:32)
[2024-04-21 06:00] VITALS: BP 110/63; PULSE 85; RESP 16; TEMP 36.4; O2SAT 94
[2024-04-21 07:11] LABS: Alanine Aminotransferase 24 U/L (6-35); Albumin Level 3.4 g/dL (3.5-5.1); Alkaline Phosphatase 133 U/L (38-126); Anion Gap 9 mmol/L (4-12); Aspartate Amino Transferase 62 U/L (14-36); Bilirubin,Total 1.3 mg/dL (0.2-1.3); Blood Urea Nitrogen 42 mg/dL (7-17); Calcium 8.1 mg/dL (8.4-10.2); Carbon Dioxide 23 mmol/L (22-30); Chloride 109 mmol/L (98-107); Estimated CRCL calculation 39 ml/min; Estimated Glomerular Filt Rate 40; Glucose 136 mg/dL (65-110); Magnesium 2.6 mg/dL (1.6-2.3); Potassium 3.5 mmol/L (3.4-5.0); Sodium 141 mmol/L (137-145)
[2024-04-21 07:12] LABS: Basophils Absolute Auto 0.1 K/mm3 (0.0-0.1); Basophils Percent Auto 0.3 % (0.2-1.2); Eosinophils Percent Auto 0.1 % (0-4.4); Hematocrit 35.8 % (37.0-47.0); Hemoglobin 11.1 g/dL (12.0-15.0); Immature Granulocyte Absolute 0.16 K/mm3 (0.00-0.031); Immature Granulocyte Percent A 0.8 % (0-0.5); Lymphocytes Absolute Auto 1.76 K/mm3 (0.9-3.2); Lymphocytes Percent Auto 9.3 % (18.3-44.2); Mean Corpuscular Hemoglobin 29.6 pg (26-34); Mean Corpuscular Volume 95.5 fl (80-100); Mean Platelet Volume 10.5 fl (7.4-10.4); Monocytes Percent Auto 10.6 % (2.6-8.5); Neutrophils Percent Auto 78.9 % (45.5-73.1); Platelet Count Result 317 k/mm3 (150-375); Red Blood Count 3.75 M/mm3 (4.2-5.4); Red Cell Distribution Width 15.3 % (11.5-14.5)
[2024-04-21] MEDS: HYDROcodone/acetaminophen (*CRX) 5-325 MG TABLET 1 TAB PO (08:17)
[2024-04-21] MEDS: ASPIRIN 81 MG CHEWABLE TABLET PO (08:17)
[2024-04-21] MEDS: ENOXAPARIN 40 MG/0.4 ML SYRINGE SUB-Q (08:18)
[2024-04-21] MEDS: SODIUM CHLORIDE 0.9% IV 1,000 ML 90 ML IV CONT ×2 (08:24→20:38)
--- NOTE | 2024-04-21 13:36 | PM.IMPN ---
Progress Note: A&P Assessment and Plan (1) Diverticulitis: Code(s): K57.92 - Diverticulitis of intestine, part unspecified, without perforation or abscess without bleeding Status: Acute Assessment and Plan: CT of the abdomen/pelvis/chest negative for any acute cardiopulmonary disease, showed thickened area in the sigmoid colon with surrounding fat stranding which could be a mass or diverticulitis, rounded hypodense area in the left lobe of the liver. Ultrasound of the abdomen is still pending Started on Zosyn and Rocephin GI consult (2) Acute kidney injury: Code(s): N17.9 - Acute kidney failure, unspecified Status: Acute Assessment and Plan: Initial creatinine 2.0 now down to 1.3 Unsure of patient's baseline Continue to trend (3) Lesion of left lobe of liver: Code(s): K76.9 - Liver disease, unspecified Status: Acute Assessment and Plan: CT of the abdomen/pelvis/chest showing rounded hypodense area in the left lobe of the liver Ultrasound of the abdomen is still pending GI consulted (4) Cholelithiasis: Code(s): K80.20 - Calculus of gallbladder without cholecystitis without obstruction Status: Acute Assessment and Plan: Noted on CT of the abdomen/pelvis/chest (5) Normocytic anemia: Code(s): D64.9 - Anemia, unspecified Status: Acute Assessment and Plan: Hemoglobin 11.5, iron 18, total iron binding capacity 191, ferritin 337 (6) Descending aortic aneurysm: Code(s): I71.9 - Aortic aneurysm of unspecified site, without rupture Status: Acute Assessment and Plan: Noted on CT, will need follow-up on an outpatient basis Time Spent With Patient Time with patient: Greater than 35 minutes Subjective Date/time seen: 04/21/24 13:36 Interval history: This is a 78-year-old female who came in on 04/20/2024 weakness. Workup in the hospital included chest x-ray which was negative. 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 Chest abdomen pelvis CT shown descending aortic aneurysm which measures 1.5x 2.7x 3.3 cm, thickened area in the sigmoid colon with surrounding fat stranding, rounded hypodense area in the left lobe of the liver that may represent a or an abscess, cholelithiasis. Initial labs shown a white blood cell count of 20.4, hemoglobin 11.5, sodium 136, creatinine 2.0, EGFR 24, iron 18, total iron binding capacity 191, ferritin 337, total bili 2.6, AST 56, vitamin B12 897, folate 16.8, TSH 0.983. UA was obtained which showed 1+ urine protein, +urine bili, trace leukocytes, 3 to urine RBC. Respiratory panel was negative for influenza a and B, RSV, COVID. Blood cultures were obtained and are pending. Patient was given 2 L of normal saline, and started on Rocephin and Zosyn while in the ED. On examination today patient is alert and oriented x3. Patient denies and fever, chills, nausea, vomiting, diarrhea, abdominal pain, or shortness of breath. MRI of the brain and brain stem ordered. GI consulted. Ultrasound of abdomen pending. Review of Systems Review of Systems: 12 systems were reviewed and are negative except for as per HPI. All systems reviewed & are unremarkable except as noted in HPI and below Constitutional: Constitutional: Reports as per HPI and Reports no additional constitutional complaints Eyes: Eyes: Reports as per HPI and Reports no additional eye complaints ENT: Reports system reviewed and no additional complaints, except as documented and Reports as per HPI Cardiovascular: Cardiovascular: Reports as per HPI and Reports no additional cardiovascular complaints Respiratory: Respiratory: Reports as per HPI and Reports no additional respiratory complaints Gastrointestinal: Gastrointestinal: Reports as per HPI and Reports no additional gastrointestinal complaints Genitourinary: Genitourinary: Reports no additional female genitourinary complaints and Reports as per HPI Musculoskeletal: Musculoskeletal: Reports no additional musculoskeletal complaints and Reports as per HPI Integumentary/Breasts: Skin/Breast: Reports system reviewed and no additional complaints, except as docu and Reports as per HPI Neurologic: Reports system reviewed and no additional complaints, except as documented and Reports as per HPI Psychiatric: Psychiatric: Reports no additional psychiatric complaints and Reports as per HPI Exam Narrative: General: In no acute distress, well nourished Head: atraumatic, no encephalopathy Eyes: EOMI, PERRLA, sclera clear ENT: moist mucous membranes, nasal passages clear Neck: supple, no JVD, no adenopathy, trachea midline Cardiac: Normal S1 and S2. Murmur noted, No gallops or friction rubs, peripheral pulses intact. Respiratory: Lungs clear to auscultation, no adventitious lung sounds, currently on room air Gastrointestinal: soft, non-distended, non-tender, normoactive bowel sounds. : voiding without difficulty. Extremities: moves all extremities well, no edema, good ROM, strength 5/5 Skin: clean, dry, intact. No wounds or lesions. Neuro: Alert and oriented x4, cranial nerves intact, no neuro deficits. Psych: normal mood, normal affect, interactive Objective Data Vital Signs Vital Signs: Vital Signs - 24 hr 04/20/24 15:15 04/20/24 17:27 04/20/24 19:08 Temperature 98.8 F Pulse Rate 97 86 84 Respiratory Rate 24 H 27 H 29 H Blood Pressure 109/82 120/48 L 96/58 L Pulse Oximetry 94 96 94 Oxygen Delivery Room Air 04/20/24 19:01 04/20/24 19:03 04/20/24 19:15 Temperature Pulse Rate 84 84 87 Respiratory Rate 19 28 H 28 H Blood Pressure Pulse Oximetry 93 95 95 Oxygen Delivery 04/20/24 19:30 04/20/24 19:45 04/20/24 20:00 Temperature Pulse Rate 84 84 83 Respiratory Rate 26 H 28 H 28 H Blood Pressure Pulse Oximetry 95 96 96 Oxygen Delivery 04/20/24 20:15 04/20/24 20:30 04/20/24 20:45 Temperature Pulse Rate 85 86 89 Respiratory Rate 25 H 32 H 26 H Blood Pressure Pulse Oximetry 95 93 93 Oxygen Delivery 04/20/24 21:00 04/20/24 21:15 04/20/24 21:22 Temperature Pulse Rate 91 89 91 Respiratory Rate 32 H 28 H 24 H Blood Pressure Pulse Oximetry 96 93 94 Oxygen Delivery 04/20/24 22:10 04/20/24 22:00 04/21/24 06:00 Temperature 97.8 F 97.6 F Pulse Rate 89 89 85 Respiratory Rate 20 20 16 Blood Pressure 108/49 L 110/63 Pulse Oximetry 100 100 94 Oxygen Delivery Room Air 04/21/24 08:15 Temperature Pulse Rate Respiratory Rate Blood Pressure Pulse Oximetry Oxygen Delivery Room Air Intake/Output Intake/Output: Intake & Output 04/18/24 04/19/24 04/20/24 04/21/24 23:59 23:59 23:59 23:59 Intake Total 2350 1840.0 Output Total 400 0 Balance 1950 1840.0 Meds/Results Medications: Active Medications Generic Name Dose Route Start Last Admin Trade Name Freq PRN Reason Stop Dose Admin Acetaminophen 650 mg 04/20/24 18:33 Acetaminophen 325 Mg Tablet PO Q4H PRN Mild Pain (1-3) or Fever Hydrocodone Bitart/Acetaminophen 1 tab 04/20/24 18:33 04/21/24 08:17 Hydrocodone/Acetaminophen (*Crx) 5-325 Mg Tablet PO 1 tab Q4H PRN Administration Pain Rated 4-6 Aspirin 81 mg 04/21/24 09:00 04/21/24 08:17 Aspirin 81 Mg Chewable Tablet PO 81 mg DAILY FELIBERTO Administration Enoxaparin Sodium 40 mg 04/21/24 09:00 04/21/24 08:18 Enoxaparin 40 Mg/0.4 Ml Syringe SUB-Q 40 mg DAILY FELIBERTO Administration Sodium Chloride 1,000 mls @ 90 mls/hr 04/20/24 18:35 04/21/24 08:24 Normal Saline Iv IV CONT 90 mls/hr .Q11H7M FELIBERTO Administration Piperacillin Sod/Tazobactam Sod 2.25 gm in 50 mls @ 100 mls/hr 04/21/24 05:00 04/21/24 12:04 Zosyn 2.25 Gm/Ns 50 Ml IVPB 100 mls/hr Q6HR FELIBERTO Administration Lorazepam 1 mg 04/21/24 21:00 Lorazepam (*Crx) 1 Mg Tablet PO HS FELIBERTO Ondansetron HCl 4 mg 04/20/24 18:33 Ondansetron Inj 4 Mg/2 Ml Vial IV PUSH Q4H PRN Nausea Radiology Results: ITS Impressions Chest X-Ray 04/20/24 16:06 IMPRESSION: 1: NO ACUTE CARDIOPULMONARY DISEASE. Head CT 04/20/24 16:35 IMPRESSION: No acute intracranial hemorrhage. 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 MRI evaluation is advised. Chest/Abdomen/Pelvis CT 04/20/24 19:20 IMPRESSION: CHEST: 1. 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 Further evaluation advised. 2. No acute cardiopulmonary pathology seen. ABDOMEN/PELVIS: 1. Thickened area in the sigmoid colon with surrounding fat stranding. The differential includes a mass or diverticulitis. Sigmoidoscopy is advised. 2. Rounded hypodense area in the left lobe of the liver. This may be a mass and this likely an abscess. Surrounding fat stranding is seen in the area. 3. Cholelithiasis. Labs Labs: Laboratory Results - last 24 hr 04/20/24 04/20/24 04/20/24 16:18 16:39 17:24 WBC 20.4 H RBC 3.82 L Hgb 11.5 L Hct 35.5 L MCV 92.9 MCH 30.1 MCHC 32.4 RDW 15.4 H Plt Count 322 MPV 9.8 Immature Gran % (Auto) Not Reportable Neut % (Auto) Not Reportable Lymph % (Auto) Not Reportable [place] % (Auto) Not Reportable Eos % (Auto) Not Reportable Baso % (Auto) Not Reportable Lymph # (Auto) Not Reportable [place]do # (Auto) Not Reportable Eos # (Auto) Not Reportable Baso # (Auto) Not Reportable Abs Immat Gran (auto) Not Reportable Absolute Neuts (auto) Not Reportable Absolute Nucleated RBC Not Reportable Total Counted 100 Neutrophils % (Manual) 83 H Band Neutrophils % 1 Lymphocytes % (Manual) 9.0 L Monocytes % (Manual) 7 Nucleated RBC % Not Reportable Abs Neuts (Manual) 17.13 H Abs Lymphs (Manual) 1.83 Abs Monocytes (Manual) 1.42 H Platelet Estimate Adequate Anisocytosis 1+ Schistocytes None seen Sodium 136 L Potassium 3.7 Chloride 100 Carbon Dioxide 29 Anion Gap 7 BUN 55 H Creatinine 2.00 H Estim Creat Clear Calc 22 Estimated GFR 24 L Glucose 118 H Lactic Acid Calcium 8.7 Magnesium Iron TIBC % Saturation Ferritin Total Bilirubin 2.6 H AST 56 H ALT 27 Alkaline Phosphatase 124 Total Protein 8.0 Albumin 3.8 Vitamin B12 Folate TSH (Reflex) Urine Color Dark yellow Urine Appearance Cloudy H Urine pH 5.0 Ur Specific [place] 1.020 Urine Protein 1+ H Urine Glucose (UA) Negative Urine Ketones Negative Ur Blood (Man) Negative Urine Nitrate Negative Urine Bilirubin 1+ H Urine Urobilinogen 1.0 Leukocyte Esterase Rfl Trace H Urine RBC 3-5 H Urine WBC 0-5 Ur Squamous Epith Cells Occasional Urine Bacteria None seen Urine Casts 11-20 Hyaline Casts Present Influenza A (RT-PCR) Negative Influenza B (RT-PCR) Negative RSV (RT-PCR) Negative SARS-CoV-2 RNA (RT-PCR) Negative 04/20/24 04/21/24 04/21/24 18:54 00:58 00:59 WBC RBC Hgb Hct MCV MCH MCHC RDW Plt Count MPV Immature Gran % (Auto) Neut % (Auto) Lymph % (Auto) [place] % (Auto) Eos % (Auto) Baso % (Auto) Lymph # (Auto) [place] # (Auto) Eos # (Auto) Baso # (Auto) Abs Immat Gran (auto) Absolute Neuts (auto) Absolute Nucleated RBC Total Counted Neutrophils % (Manual) Band Neutrophils % Lymphocytes % (Manual) Monocytes % (Manual) Nucleated RBC % Abs Neuts (Manual) Abs Lymphs (Manual) Abs Monocytes (Manual) Platelet Estimate Anisocytosis Schistocytes Sodium Potassium Chloride Carbon Dioxide Anion Gap BUN Creatinine Estim Creat Clear Calc Estimated GFR Glucose Lactic Acid 1.5 Calcium Magnesium Iron 18 L TIBC 191 L % Saturation 9 L Ferritin 337.00 H Total Bilirubin AST ALT Alkaline Phosphatase Total Protein Albumin Vitamin B12 897.0 Folate 16.8 TSH (Reflex) 0.983 Urine Color Urine Appearance Urine pH Ur Specific [place] Urine Protein Urine Glucose (UA) Urine Ketones Ur Blood (Man) Urine Nitrate Urine Bilirubin Urine Urobilinogen Leukocyte Esterase Rfl Urine RBC Urine WBC Ur Squamous Epith Cells Urine Bacteria Urine Casts Hyaline Casts Influenza A (RT-PCR) Influenza B (RT-PCR) RSV (RT-PCR) SARS-CoV-2 RNA (RT-PCR) 04/21/24 06:03 WBC 19.0 H RBC 3.75 L Hgb 11.1 L Hct 35.8 L MCV 95.5 MCH 29.6 MCHC 31.0 L RDW 15.3 H Plt Count 317 MPV 10.5 H Immature Gran % (Auto) 0.8 H Neut % (Auto) 78.9 H Lymph % (Auto) 9.3 L Wal[place] % (Auto) 10.6 H Eos % (Auto) 0.1 Baso % (Auto) 0.3 Lymph # (Auto) 1.76 [place] # (Auto) 2.0 H Eos # (Auto) 0.0 Baso # (Auto) 0.1 Abs Immat Gran (auto) 0.16 H Absolute Neuts (auto) 15.0 H Absolute Nucleated RBC 0.000 Total Counted Neutrophils % (Manual) Band Neutrophils % Lymphocytes % (Manual) Monocytes % (Manual) Nucleated RBC % 0.0 Abs Neuts (Manual) Abs Lymphs (Manual) Abs Monocytes (Manual) Platelet Estimate Anisocytosis Schistocytes Sodium 141 Potassium 3.5 Chloride 109 H Carbon Dioxide 23 Anion Gap 9 BUN 42 H D Creatinine 1.30 H Estim Creat Clear Calc 39 Estimated GFR 40 L Glucose 136 H Lactic Acid Calcium 8.1 L Magnesium 2.6 H Iron TIBC % Saturation Ferritin Total Bilirubin 1.3 AST 62 H ALT 24 Alkaline Phosphatase 133 H Total Protein 7.0 Albumin 3.4 L Vitamin B12 Folate TSH (Reflex) Urine Color Urine Appearance Urine pH Ur Specific [place] Urine Protein Urine Glucose (UA) Urine Ketones Ur Blood (Man) Urine Nitrate Urine Bilirubin Urine Urobilinogen Leukocyte Esterase Rfl Urine RBC Urine WBC Ur Squamous Epith Cells Urine Bacteria Urine Casts Hyaline Casts Influenza A (RT-PCR) Influenza B (RT-PCR) RSV (RT-PCR) SARS-CoV-2 RNA (RT-PCR) Quality VTE Prophylaxis VTE prophylaxis: pharmacologic ordered Hospitalist [facility] Advance Care Plan I have confirmed that the patient's Advanced Care Plan is present, code status is documented, or surrogate decision maker is listed in patient medical record.: Yes Medication Reconciliation I have utilized all available resources to obtain, update and review the patients current medications (includes all prescriptions, OTC, herbals, cannabis, and nutritional supplements).: Yes
[2024-04-21 14:00] VITALS: BP 116/64; PULSE 80; RESP 16; TEMP 37; O2SAT 94
[2024-04-21 20:00] VITALS: BP 116/64; PULSE 80; RESP 16; TEMP 37; O2SAT 94
[2024-04-21] MEDS: LORazepam (*CRX) 1 MG TABLET PO (20:36)
[2024-04-21 20:52] VITALS: BP 98/52; PULSE 82; RESP 16; TEMP 37.1; O2SAT 95
[2024-04-22 06:00] VITALS: BP 99/66; PULSE 63; RESP 16; TEMP 36.9; O2SAT 92
[2024-04-22] MEDS: PIPERACILLIN/TAZ 2.25G/NS 50ML 2.25 GM/50 ML BAG IVPB ×3 (06:20→18:48)
[2024-04-22] MEDS: ENOXAPARIN 40 MG/0.4 ML SYRINGE SUB-Q (09:36)
[2024-04-22] MEDS: ASPIRIN 81 MG CHEWABLE TABLET PO (09:36)
--- NOTE | 2024-04-22 11:03 | P.PNIM_ITS ---
Progress Note: A&P Assessment and Plan (1) Diverticulitis: Code(s): K57.92 - Diverticulitis of intestine, part unspecified, without perforation or abscess without bleeding Status: Acute Assessment and Plan: 04/21/24: * CT of the abdomen/pelvis/chest negative for any acute cardiopulmonary disease, showed thickened area in the sigmoid colon with surrounding fat stranding which could be a mass or diverticulitis, rounded hypodense area in the left lobe of the liver. * Ultrasound of the abdomen is still pending * Started on Zosyn and Rocephin * GI consult 04/22/24: * Continue Zosyn * Ultrasound of the shown heterogenerous echogenicity of the liver suggestive of cirrhosis with a complex mass in the left lateral lobe, small stones with high suggestive polyp in the anterior wall. * GI consulted * Plan for MRI the abdomen * Additional hepatic labs pending (2) Acute kidney injury: Code(s): N17.9 - Acute kidney failure, unspecified Status: Acute Assessment and Plan: 04/21/24: * Initial creatinine 2.0 now down to 1.3 * Unsure of patient's baseline * Continue to trend 04/22/24: * Creatinine down to baseline 1.0 * Continue to trend (3) Lesion of left lobe of liver: Code(s): K76.9 - Liver disease, unspecified Status: Acute Assessment and Plan: 04/21/24: * CT of the abdomen/pelvis/chest showing rounded hypodense area in the left lobe of the liver * Ultrasound of the abdomen is still pending * GI consulted 04/22/24: * Ultrasound of the abdomen showing in is echogenicity of the liver suggestive of cirrhosis with a complex mass in the left lateral lobe couple small stones with highly suggestive polyp in the anterior wall * GI following * Plan for MRI of the liver * Hepatic workup pending (4) Cholelithiasis: Code(s): K80.20 - Calculus of gallbladder without cholecystitis without obstruction Status: Acute Assessment and Plan: 04/21/24: * Noted on CT of the abdomen/pelvis/chest 04/22/24: * No change (5) Normocytic anemia: Code(s): D64.9 - Anemia, unspecified Status: Acute Assessment and Plan: 04/21/24: * Hemoglobin 11.5, iron 18, total iron binding capacity 191, ferritin 337 04/22/24: * Hemoglobin 10.2 * Will start ferrous sulfate (6) Descending aortic aneurysm: Code(s): I71.9 - Aortic aneurysm of unspecified site, without rupture Status: Acute Assessment and Plan: 04/21/24: * Noted on CT, will need follow-up on an outpatient basis 04/22/24: * No change Time Spent With Patient Time with patient: 25 - 35 minutes Subjective Date/time seen: 04/22/24 11:03 Interval history: 04/21/24: This is a 78-year-old female who came in on 04/20/2024 weakness. Workup in the hospital included chest x-ray which was negative. 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 Chest abdomen pelvis CT shown descending aortic aneurysm which measures 1.5x 2.7x 3.3 cm, thickened area in the sigmoid colon with surrounding fat stranding, rounded hypodense area in the left lobe of the liver that may represent a or an abscess, cholelithiasis. Initial labs shown a white blood cell count of 20.4, hemoglobin 11.5, sodium 136, creatinine 2.0, EGFR 24, iron 18, total iron binding capacity 191, ferritin 337, total bili 2.6, AST 56, vitamin B12 897, folate 16.8, TSH 0.983. UA was obtained which showed 1+ urine protein, +urine bili, trace leukocytes, 3 to urine RBC. Respiratory panel was negative for influenza a and B, RSV, COVID. Blood cultures were obtained and are pending. Patient was given 2 L of normal saline, and started on Rocephin and Zosyn while in the ED. On examination today patient is alert and oriented x3. Patient denies and fever, chills, nausea, vomiting, diarrhea, abdominal pain, or shortness of breath. MRI of the brain and brain stem ordered. GI consulted. Ultrasound of abdomen pending. 04/22/24: Patient denies any new complaints today. Blood cultures are showing no growth on preliminary read. Labs today show white blood cell count of 14.1, hemoglobin 10.2, creatinine 1.0, EGFR 54, AST 51, ALT 23. MRI of the brain was negative for any acute intracranial process, showed age-related changes only. Abdomen ultrasound shown hetero generous echogenicity of the the liver suggestive of cirrhosis with a complex mass in the left lateral lobe, small stones with high suggestive polyp in the anterior wall. Plan for MRI of the abdomen per GI. Review of Systems Review of Systems: 12 systems were reviewed and are negativ e except for as per HPI. All systems reviewed & are unremarkable except as noted in HPI and below Constitutional: Constitutional: Reports as per HPI and Reports no additional constitutional complaints Eyes: Eyes: Reports as per HPI and Reports no additional eye complaints ENT: Reports system reviewed and no additional complaints, except as documented and Reports as per HPI Cardiovascular: Cardiovascular: Reports as per HPI and Reports no additional cardiovascular complaints Respiratory: Respiratory: Reports as per HPI and Reports no additional respiratory complaints Gastrointestinal: Gastrointestinal: Reports as per HPI and Reports no additional gastrointestinal complaints Genitourinary: Genitourinary: Reports no additional female genitourinary complaints and Reports as per HPI Musculoskeletal: Musculoskeletal: Reports no additional musculoskeletal complaints and Reports as per HPI Integumentary/Breasts: Skin/Breast: Reports system reviewed and no additional complaints, except as docu and Reports as per HPI Neurologic: Reports system reviewed and no additional complaints, except as documented and Reports as per HPI Psychiatric: Psychiatric: Reports no additional psychiatric complaints and Reports as per HPI Exam Narrative: General: In no acute distress, well nourished Head: atraumatic, no encephalopathy Eyes: EOMI, PERRLA, sclera clear ENT: moist mucous membranes, nasal passages clear Neck: supple, no JVD, no adenopathy, trachea midline Cardiac: Normal S1 and S2. Murmur noted, No gallops or friction rubs, peripheral pulses intact. Respiratory: Lungs clear to auscultation, no adventitious lung sounds, currently on room air Gastrointestinal: soft, non-distended, non-tender, normoactive bowel sounds. : voiding without difficulty. Extremities: moves all extremities well, no edema, good ROM, strength 5/5 Skin: clean, dry, intact. No wounds or lesions. Neuro: Alert and oriented x4, cranial nerves intact, no neuro deficits. Psych: normal mood, normal affect, interactive Objective Data Vital Signs Vital Signs: Vital Signs - 24 hr 04/21/24 14:00 04/21/24 20:00 04/21/24 20:00 Temperature 98.6 F 98.6 F Pulse Rate 80 80 80 Respiratory Rate 16 16 16 Blood Pressure 116/64 116/64 Pulse Oximetry 94 94 94 Oxygen Delivery Room Air 04/21/24 20:52 04/22/24 06:00 Temperature 98.8 F 98.5 F Pulse Rate 82 63 Respiratory Rate 16 16 Blood Pressure 98/52 L 99/66 L Pulse Oximetry 95 92 Oxygen Delivery Intake/Output Intake/Output: Intake & Output 04/19/24 04/20/24 04/21/24 04/22/24 23:59 23:59 23:59 23:59 Intake Total 2350 3730.0 436 Output Total 400 200 500 Balance 1950 3530.0 -64 Meds/Results Medications: Active Medications Generic Name Dose Route Start Last Admin Trade Name Freq PRN Reason Stop Dose Admin Acetaminophen 650 mg 04/20/24 18:33 Acetaminophen 325 Mg Tablet PO Q4H PRN Mild Pain (1-3) or Fever Hydrocodone Bitart/Acetaminophen 1 tab 04/20/24 18:33 04/21/24 08:17 Hydrocodone/Acetaminophen (*Crx) 5-325 Mg Tablet PO 1 tab Q4H PRN Administration Pain Rated 4-6 Aspirin 81 mg 04/21/24 09:00 04/22/24 09:36 Aspirin 81 Mg Chewable Tablet PO 81 mg DAILY FELIBERTO Administration Enoxaparin Sodium 40 mg 04/21/24 09:00 04/22/24 09:36 Enoxaparin 40 Mg/0.4 Ml Syringe SUB-Q 40 mg DAILY FELIBERTO Administration Sodium Chloride 1,000 mls @ 90 mls/hr 04/20/24 18:35 04/21/24 20:38 Normal Saline Iv IV CONT 90 mls/hr .Q11H7M FELIBERTO Administration Piperacillin Sod/Tazobactam Sod 2.25 gm in 50 mls @ 100 mls/hr 04/21/24 05:00 04/22/24 06:20 Zosyn 2.25 Gm/Ns 50 Ml IVPB 100 mls/hr Q6HR FELIBERTO Administration Lorazepam 1 mg 04/21/24 21:00 04/21/24 20:36 Lorazepam (*Crx) 1 Mg Tablet PO 1 mg HS FELIBERTO Administration Ondansetron HCl 4 mg 04/20/24 18:33 Ondansetron Inj 4 Mg/2 Ml Vial IV PUSH Q4H PRN Nausea Telmisartan 40 mg 04/23/24 09:00 Telmisartan 40 Mg Tablet PO DAILY FEILBERTO Radiology Results: ITS Impressions Chest X-Ray 04/20/24 16:06 IMPRESSION: 1: NO ACUTE CARDIOPULMONARY DISEASE. Head CT 04/20/24 16:35 IMPRESSION: No acute intracranial hemorrhage. 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 MRI evaluation is advised. Chest/Abdomen/Pelvis CT 04/20/24 19:20 IMPRESSION: CHEST: 1. 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 Further evaluation advised. 2. No acute cardiopulmonary pathology seen. ABDOMEN/PELVIS: 1. Thickened area in the sigmoid colon with surrounding fat stranding. The differential includes a mass or diverticulitis. Sigmoidoscopy is advised. 2. Rounded hypodense area in the left lobe of the liver. This may be a mass and this likely an abscess. Surrounding fat stranding is seen in the area. 3. Cholelithiasis. Abdomen Ultrasound 04/21/24 17:28 IMPRESSION: Heterogenous echogenicity of the liver suggestive of cirrhosis with a complex mass in the left lateral lobe. Further evaluation advised. Small stones with highly suggestive polyp in the anterior wall. Otherwise, normal right upper quadrant ultrasound. Brain MRI 04/22/24 08:04 IMPRESSION: 1. No acute intracranial process. 2. Nonspecific mild scattered white matter T2 hyperintensity which is within normal limits for age and likely sequela of chronic small vessel ischemic disease. Quality VTE Prophylaxis VTE prophylaxis: pharmacologic ordered Hospitalist MIPS Advance Care Plan I have confirmed that the patient's Advanced Care Plan is present, code status is documented, or surrogate decision maker is listed in patient medical record.: Yes Medication Reconciliation I have utilized all available resources to obtain, update and review the patients current medications (includes all prescriptions, OTC, herbals, cannabis, and nutritional supplements).: Yes
[2024-04-22 11:18] VITALS: BP 107/57; PULSE 82; RESP 18; TEMP 36.4; O2SAT 97
[2024-04-22 11:19] VITALS: BP 116/63; PULSE 81; O2SAT 98
[2024-04-22 11:21] LABS: Basophils Absolute Auto 0.1 K/mm3 (0.0-0.1); Basophils Percent Auto 0.4 % (0.2-1.2); Eosinophils Absolute Auto 0.1 K/mm3 (0-0.3); Eosinophils Percent Auto 0.7 % (0-4.4); Hematocrit 33.1 % (37.0-47.0); Hemoglobin 10.2 g/dL (12.0-15.0); Immature Granulocyte Absolute 0.12 K/mm3 (0.00-0.031); Immature Granulocyte Percent A 0.9 % (0-0.5); Lymphocytes Absolute Auto 1.22 K/mm3 (0.9-3.2); Lymphocytes Percent Auto 8.7 % (18.3-44.2); Mean Corpuscular HGB Conc 30.8 g/dl (32-36); Mean Corpuscular Hemoglobin 29.7 pg (26-34); Mean Corpuscular Volume 96.5 fl (80-100); Mean Platelet Volume 10.3 fl (7.4-10.4); Monocytes Absolute Auto 1.4 K/mm3 (0.1-0.6); Monocytes Percent Auto 9.6 % (2.6-8.5); Neutrophils Absolute Auto 11.2 K/mm3 (1.3-6.7); Neutrophils Percent Auto 79.7 % (45.5-73.1); Platelet Count Result 312 k/mm3 (150-375); Red Blood Count 3.43 M/mm3 (4.2-5.4); Red Cell Distribution Width 15.3 % (11.5-14.5); White Blood Count 14.1 K/mm3 (4.5-10.0)
[2024-04-22 11:32] LABS: Alanine Aminotransferase 23 U/L (6-35); Alkaline Phosphatase 116 U/L (38-126); Anion Gap 4 mmol/L (4-12); Aspartate Amino Transferase 51 U/L (14-36); Bilirubin,Total 0.9 mg/dL (0.2-1.3); Blood Urea Nitrogen 24 mg/dL (7-17); Calcium 8.4 mg/dL (8.4-10.2); Carbon Dioxide 27 mmol/L (22-30); Chloride 109 mmol/L (98-107); Estimated CRCL calculation 49 ml/min; Estimated Glomerular Filt Rate 54; Glucose 144 mg/dL (65-110); Potassium 3.6 mmol/L (3.4-5.0); Sodium 140 mmol/L (137-145)
--- NOTE | 2024-04-22 12:23 | P.CONGI_ITS ---
Assessment and Plan Assessment and plan (1) Sepsis: Code(s): A41.9 - Sepsis, unspecified organism Status: Acute Assessment and Plan: possible diverticulitis, started on abx and already feeling better (2) Diverticulitis: Code(s): K57.92 - Diverticulitis of intestine, part unspecified, without perforation or abscess without bleeding Status: Acute Assessment and Plan: most likely diverticulitis but can not rule out malignancy, she never had colonoscopy I recommend her to get a colonoscopy but she refuses, she says that has made up her mind and never will get a colonoscopy even if we think that she could have colon cancer (3) Lesion of left lobe of liver: Code(s): K76.9 - Liver disease, unspecified Status: Acute Assessment and Plan: will get AFP, CEA (tumor markers) noted that she may have cirrhosis- will get MRI abdomen to get a better look at lesion (4) Acute kidney injury: Code(s): N17.9 - Acute kidney failure, unspecified Status: Acute Assessment and Plan: treated and better (5) Cirrhosis: Code(s): K74.60 - Unspecified cirrhosis of liver Status: Acute Assessment and Plan: new diagnosis, denies previous liver disease, no alcohol use will complete work up GI Consult Note Consult date/time: 04/22/24 12:23 Reason for consult: diverticulitis, nausea, weight loss, liver lesion HPI: Vero Mcknight is a 78 year old female with history of psoriasis, anxiety, and hypertension who came to ER with. She says that last couple of days prior to admission was experiencing chills, sweats, poor appetite. Day of ad mission she was extremely weak after getting up, lightheaded and she fell onto her side onto the carpet, denies head trauma but she was not able to get herself up due to weakness. EMS on arrival noted low BP. She has been nauseous for over 2 months with poor appetite, no denies any abdominal pain but not feeling like eating and lost more than 30 lb. She never had scopes. ED evaluation WBC count of 20.4, hemoglobin 11.5, sodium 136, BUN 55, creatinine 2.00, lactic acid 1.5, total bilirubin 2.6, AST 56. She tested negative for influenza, RSV, and COVID. Head CT showed no acute intracranial findings but did note a hypodensity in the left internal capsule the anterior limb which may be old infarct. CT of the chest, abdomen, and pelvis showed a descending aortic aneurysm, cholelithiasis, hypodense area in the left lobe of the liver which may be a mass, and secondary in the sigmoid colon with surrounding fat stranding with a differential diagnosis to include mass or diverticulitis. Admitted with diagnosis of sepsis, possible diverticulitis, given abx. She is feeling better now. Denies change of bowel habits. Review of Systems Constitutional: Constitutional: Reports chills and Reports weakness Eyes: Eyes: Denies blurry vision ENT: Reports Normal hearing present Cardiovascular: Cardiovascular: Denies chest pain Respiratory: Respiratory: Denies cough Gastrointestinal: Gastrointestinal: Reports nausea Genitourinary: Genitourinary: Denies dysuria Musculoskeletal: Musculoskeletal: Denies neck pain Integumentary/Breasts: Skin/Breast: Denies rash Neurologic: Denies Abnormal speech present Psychiatric: Psychiatric: Denies behavioral changes [facility] Past Medical History Medical History (Updated 04/22/24 @ 12:32 by Skip Gillette MD) Anxiety Cirrhosis Diverticulitis Hypertension Osteoarthritis Psoriasis Surgical History Surgical History (Updated 04/21/24 @ 00:01 by Alycia Roth PA-C) History of appendectomy Family History Family History Other No problems noted. Mother Congestive cardiac failure Social History Social History (Updated 04/21/24 @ 00:01 by Alycia Roth PA-C) Social History: Surrogate medical decision maker: Maribell Ramirez, daughter. Code status: Do not resuscitate. Smoking packs per day: 0.5 Smoking cigarettes per day: 10.0 Years smoked: 50 Smoking pack-years: 25.00 Smoking status: Former smoker Substance use: former Do You Feel Safe in your Home?: Yes Lack of Transportation: No Lack of Food: Never True Current Housing: I Have Housing Concerned About Future Housing: No Difficulty Paying Gas/Electric Bills: No Difficulty Paying for Meds: No Currently Unemployed: No Education: High School Diploma/GED Difficulty w/ Childcare or Family Care: No Spiritual care concerns: No Meds Home Medications and Allergies Home Medications Medication Instructions Recorded Confirmed Type aspirin 81 mg tablet 81 mg PO DAILY 04/20/24 04/20/24 History lorazepam 1 mg tablet 1 mg PO HS 04/20/24 04/20/24 History telmisartan 40 mg tablet (Micardis) 40 mg PO DAILY 04/20/24 04/20/24 History Allergies Allergy/AdvReac Type Severity Reaction Status Date / Time No Known Allergies Allergy Verified 04/20/24 22:03 Vital Signs Vital Signs - 24 hr 04/21/24 14:00 04/21/24 20:00 04/21/24 20:00 Temperature 98.6 F 98.6 F Pulse Rate 80 80 80 Respiratory Rate 16 16 16 Blood Pressure 116/64 116/64 Pulse Oximetry 94 94 94 Oxygen Delivery Room Air 04/21/24 20:52 04/22/24 06:00 04/22/24 11:18 Temperature 98.8 F 98.5 F 97.6 F Pulse Rate 82 63 82 Respiratory Rate 16 16 18 Blood Pressure 98/52 L 99/66 L 107/57 L Pulse Oximetry 95 92 97 Oxygen Delivery 04/22/24 11:19 Temperature Pulse Rate 81 Respiratory Rate Blood Pressure 116/63 Pulse Oximetry 98 Oxygen Delivery Exam Const: General: comfortable and no acute distress HENMT: Face/Nose/Sinus: Normal nares present Eyes: General: appearance normal, both eyes and all related structures Neck: Neck: supple Resp: Auscultation: clear to auscultation bilaterally Cardio: Rate: regular rate Rhythm: regular rhythm GI: Inspection: non-distended GI Palp: Yes Soft to palpation and No Tenderness to palpation present (GI) Auscultation: normal bowel sounds Skin: General skin exam: normal color Neuro: Speech: normal speech Motor exam (neuro): 5/5 motor strength present throughout Extrem: General: normal to inspection Psych: Mental Status: mental status grossly normal Results Labs 04/22/24 11:02 04/22/24 11:02 Labs: Short CBC 04/22/24 Range/Units 11:02 WBC 14.1 H (4.5-10.0) K/mm3 Hgb 10.2 L (12.0-15.0) g/dL Hct 33.1 L (37.0-47.0) % Plt Count 312 (150-375) k/mm3 [facility] 04/22/24 11:02 Sodium 140 Potassium 3.6 Chloride 109 H Carbon Dioxide 27 BUN 24 H D Creatinine 1.00 Glucose 144 H Calcium 8.4 Liver Function 04/22/24 Range/Units 11:02 Total Bilirubin 0.9 (0.2-1.3) mg/dL AST 51 H (14-36) U/L ALT 23 (6-35) U/L Alkaline Phosphatase 116 (38-126) U/L Albumin 3.0 L (3.5-5.1) g/dL
[2024-04-22 14:00] VITALS: BP 122/62; PULSE 89; RESP 18; TEMP 36.5; O2SAT 97
[2024-04-22] MEDS: HYDROcodone/acetaminophen (*CRX) 5-325 MG TABLET 1 TAB PO (18:53)
[2024-04-22] MEDS: ONDANSETRON INJ 4 MG/2 ML VIAL IV PUSH (18:53)
[2024-04-22 20:04] LABS: IFOB Positive Control Positive; Immunochemical Fecal Occult Bl Positive (N)
[2024-04-22] MEDS: LORazepam (*CRX) 1 MG TABLET PO (20:45)
[2024-04-22 20:50] VITALS: RESP 16; O2SAT 90
[2024-04-22 21:53] VITALS: BP 119/64; PULSE 107; RESP 16; TEMP 36.6; O2SAT 90
[2024-04-22] MEDS: SODIUM CHLORIDE 0.9% IV 1,000 ML 90 ML IV CONT (22:23)
[2024-04-23] MEDS: PIPERACILLIN/TAZ 2.25G/NS 50ML 2.25 GM/50 ML BAG IVPB ×3 (00:08→12:42)
[2024-04-23 05:32] VITALS: BP 106/58; PULSE 76; RESP 16; TEMP 35.9; O2SAT 90
[2024-04-23 06:30] LABS: Basophils Absolute Auto 0.1 K/mm3 (0.0-0.1); Basophils Percent Auto 0.6 % (0.2-1.2); Eosinophils Absolute Auto 0.3 K/mm3 (0-0.3); Eosinophils Percent Auto 2.4 % (0-4.4); Hematocrit 35.4 % (37.0-47.0); Hemoglobin 9.9 g/dL (12.0-15.0); Immature Granulocyte Absolute 0.12 K/mm3 (0.00-0.031); Lymphocytes Absolute Auto 1.81 K/mm3 (0.9-3.2); Lymphocytes Percent Auto 15.6 % (18.3-44.2); Mean Corpuscular Hemoglobin 29.6 pg (26-34); Mean Platelet Volume 9.9 fl (7.4-10.4); Monocytes Absolute Auto 1.1 K/mm3 (0.1-0.6); Monocytes Percent Auto 9.6 % (2.6-8.5); Neutrophils Absolute Auto 8.2 K/mm3 (1.3-6.7); Neutrophils Percent Auto 70.8 % (45.5-73.1); Platelet Count Result 313 k/mm3 (150-375); Red Blood Count 3.34 M/mm3 (4.2-5.4); Red Cell Distribution Width 15.2 % (11.5-14.5); White Blood Count 11.6 K/mm3 (4.5-10.0)
[2024-04-23 06:44] LABS: Alanine Aminotransferase 24 U/L (6-35); Albumin Level 2.8 g/dL (3.5-5.1); Alkaline Phosphatase 123 U/L (38-126); Anion Gap 4 mmol/L (4-12); Aspartate Amino Transferase 50 U/L (14-36); Bilirubin,Total 0.8 mg/dL (0.2-1.3); Blood Urea Nitrogen 20 mg/dL (7-17); Calcium 8.4 mg/dL (8.4-10.2); Carbon Dioxide 24 mmol/L (22-30); Chloride 113 mmol/L (98-107); Estimated CRCL calculation 61 ml/min; Estimated Glomerular Filt Rate > 60; Glucose 90 mg/dL (65-110); Potassium 4.4 mmol/L (3.4-5.0); Sodium 141 mmol/L (137-145)
[2024-04-23 07:12] LABS: Carcinoembryonic Antigen 5.7 ng/mL (0.0-3.0)
[2024-04-23 07:21] LABS: Hypochromasia 1+; Macrocytosis 1+ (NORMAL); Platelet Estimate Adequate (Adequate); Schistocytes None Seen
[2024-04-23 07:35] LABS: Hepatitis B Surface Antigen Negative (Negative)
[2024-04-23 07:41] LABS: HAV RESULT Negative (Negative); Hepatitis B Core IgM Result Negative (Negative)
[2024-04-23 07:52] LABS: Hepatitis C Virus Antibody Negative (Negative)
[2024-04-23 08:00] VITALS: BP 109/60; PULSE 87; RESP 17; TEMP 36; O2SAT 99
[2024-04-23] MEDS: SODIUM CHLORIDE 0.9% IV 1,000 ML 90 ML IV CONT (09:30)
[2024-04-23] MEDS: ASPIRIN 81 MG CHEWABLE TABLET PO (10:20)
[2024-04-23] MEDS: FERROUS SULFATE 325 MG TABLET DR PO (10:21)
[2024-04-23] MEDS: TELMISARTAN 40 MG TABLET PO (10:21)
[2024-04-23] MEDS: ENOXAPARIN 40 MG/0.4 ML SYRINGE SUB-Q (10:24)
[2024-04-23 14:24] VITALS: BP 108/53; PULSE 80; RESP 17; TEMP 36.1; O2SAT 99
[2024-04-23 14:25] VITALS: BP 113/53; PULSE 85; RESP 17; TEMP 36.1; O2SAT 99
--- NOTE | 2024-04-23 15:38 | P.PNIM_ITS ---
Progress Note: A&P Assessment and Plan (1) Diverticulitis: Code(s): K57.92 - Diverticulitis of intestine, part unspecified, without perforation or abscess without bleeding Status: Acute Assessment and Plan: 04/21/24: * CT of the abdomen/pelvis/chest negative for any acute cardiopulmonary disease, showed thickened area in the sigmoid colon with surrounding fat stranding which could be a mass or diverticulitis, rounded hypodense area in the left lobe of the liver. * Ultrasound of the abdomen is still pending * Started on Zosyn and Rocephin * GI consult 04/22/24: * Continue Zosyn * Ultrasound of the shown heterogenerous echogenicity of the liver suggestive of cirrhosis with a complex mass in the left lateral lobe, small stones with high suggestive polyp in the anterior wall. * GI consulted * Plan for MRI the abdomen * Additional hepatic labs pending 04/23/24: * Continue with current treatment plan * MRI of the abdomen 5.1 cm cystic mass in left hepatic lobe, consistent with abscess or less likely neoplasm, cirrhosis of the liver, sigmoid diverticulitis with perforation * GI following (2) Acute kidney injury: Code(s): N17.9 - Acute kidney failure, unspecified Status: Acute Assessment and Plan: 04/21/24: * Initial creatinine 2.0 now down to 1.3 * Unsure of patient's baseline * Continue to trend 04/22/24: * Creatinine down to baseline 1.0 * Continue to trend 04/23/24: * resolved (3) Lesion of left lobe of liver: Code(s): K76.9 - Liver disease, unspecified Status: Acute Assessment and Plan: 04/21/24: * CT of the abdomen/pelvis/chest showing rounded hypodense area in the left lobe of the liver * Ultrasound of the abdomen is still pending * GI consulted 04/22/24: * Ultrasound of the abdomen showing in is echogenicity of the liver suggestive of cirrhosis with a complex mass in the left lateral lobe couple small stones with highly suggestive polyp in the anterior wall * GI following * Plan for MRI of the liver * Hepatic workup pending 04/23/24: * MRI of the abdomen showing 5.1 cm cystic mass in left hepatic lobe, consistent with abscess or less likely neoplasm, cirrhosis of the liver, sigmoid diverticulitis with perforation. * GI following (4) Cholelithiasis: Code(s): K80.20 - Calculus of gallbladder without cholecystitis without obstruction Status: Acute Assessment and Plan: 04/21/24: * Noted on CT of the abdomen/pelvis/chest 04/22/24: * No change (5) Normocytic anemia: Code(s): D64.9 - Anemia, unspecified Status: Acute Assessment and Plan: 04/21/24: * Hemoglobin 11.5, iron 18, total iron binding capacity 191, ferritin 337 04/22/24: * Hemoglobin 10.2 * Will start ferrous sulfate 04/23/24: * Hgb 9.9 * No change to current treatment plan (6) Descending aortic aneurysm: Code(s): I71.9 - Aortic aneurysm of unspecified site, without rupture Status: Acute Assessment and Plan: 04/21/24: * Noted on CT, will need follow-up on an outpatient basis 04/22/24: * No change Time Spent With Patient Time with patient: Greater than 35 minutes Subjective Date/time seen: 04/23/24 15:38 Interval history: 04/21/24: This is a 78-year-old female who came in on 04/20/2024 weakness. Workup in the hospital included chest x-ray which was negative. 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 Chest abdomen pelvis CT shown descending aortic aneurysm which measures 1.5x 2.7x 3.3 cm, thickened area in the sigmoid colon with surrounding fat stranding, rounded hypodense area in the left lobe of the liver that may represent a or an abscess, cholelithiasis. Initial labs shown a white blood cell count of 20.4, hemoglobin 11.5, sodium 136, creatinine 2.0, EGFR 24, iron 18, total iron binding capacity 191, ferritin 337, total bili 2.6, AST 56, vitamin B12 897, folate 16.8, TSH 0.983. UA was obtained which showed 1+ urine protein, +urine bili, trace leukocytes, 3 to urine RBC. Respiratory panel was negative for influenza a and B, RSV, COVID. Blood cultures were obtained and are pending. Patient was given 2 L of normal saline, and started on Rocephin and Zosyn while in the ED. On examination today patient is alert and oriented x3. Patient denies and fever, chills, nausea, vomiting, diarrhea, abdominal pain, or shortness of breath. MRI of the brain and brain stem ordered. GI consulted. Ultrasound of abdomen pending. 04/22/24: Patient denies any new complaints today. Blood cultures are showing no growth on preliminary read. Labs today show white blood cell count of 14.1, hemoglobin 10.2, creatinine 1.0, EGFR 54, AST 51, ALT 23. MRI of the brain was negative for any acute intracranial process, showed age-related changes only. Abdomen ultrasound shown hetero generous echogenicity of the the liver suggestive of cirrhosis with a complex mass in the left lateral lobe, small stones with high suggestive polyp in the anterior wall. Plan for MRI of the abdomen per GI. 04/23/24: Patient denies any new complaints today. Labs today revealed 11.6, Hgb 9.9, AST 50, Carcinoebryonic Ag 5.7, hepatitis panel negative. MRI of the abdomen showing 5.1 cm cystic mass in left hepatic lobe, consistent with abscess or neoplasm, cirrhosis of the liver, sigmoid diverticulitis with perforation. Continue antibiotics. GI following and will await recommendations Review of Systems Review of Systems: 12 systems were reviewed and are negativ e except for as per HPI. All systems reviewed & are unremarkable except as noted in HPI and below Constitutional: Constitutional: Reports as per HPI and Reports no additional constitutional complaints Eyes: Eyes: Reports as per HPI and Reports no additional eye complaints ENT: Reports system reviewed and no additional complaints, except as documented and Reports as per HPI Cardiovascular: Cardiovascular: Reports as per HPI and Reports no additional cardiovascular complaints Respiratory: Respiratory: Reports as per HPI and Reports no additional respiratory complaints Gastrointestinal: Gastrointestinal: Reports as per HPI and Reports no additional gastrointestinal complaints Genitourinary: Genitourinary: Reports no additional female genitourinary complaints and Reports as per HPI Musculoskeletal: Musculoskeletal: Reports no additional musculoskeletal complaints and Reports as per HPI Integumentary/Breasts: Skin/Breast: Reports system reviewed and no additional complaints, except as docu and Reports as per HPI Neurologic: Reports system reviewed and no additional complaints, except as documented and Reports as per HPI Psychiatric: Psychiatric: Reports no additional psychiatric complaints and Reports as per HPI Exam Narrative: General: In no acute distress, well nourished Head: atraumatic, no encephalopathy Eyes: EOMI, PERRLA, sclera clear ENT: moist mucous membranes, nasal passages clear Neck: supple, no JVD, no adenopathy, trachea midline Cardiac: Normal S1 and S2. Murmur noted, No gallops or friction rubs, peripheral pulses intact. Respiratory: Lungs clear to auscultation, no adventitious lung sounds, currently on room air Gastrointestinal: soft, non-distended, non-tender, normoactive bowel sounds. : voiding without difficulty. Extremities: moves all extremities well, no edema, good ROM, strength 5/5 Skin: clean, dry, intact. No wounds or lesions. Neuro: Alert and oriented x4, cranial nerves intact, no neuro deficits. Psych: normal mood, normal affect, interactive Objective Data Vital Signs Vital Signs: Vital Signs - 24 hr 04/22/24 21:53 04/22/24 20:50 04/23/24 05:32 Temperature 97.9 F 96.7 F L Pulse Rate 107 H 76 Respiratory Rate 16 16 16 Blood Pressure 119/64 106/58 L Pulse Oximetry 90 90 90 Oxygen Delivery Room Air 04/23/24 08:31 04/23/24 11:20 04/23/24 08:00 Temperature 96.8 F L Pulse Rate 87 Respiratory Rate 17 Blood Pressure 109/60 Pulse Oximetry 99 Oxygen Delivery Room Air Room Air 04/23/24 14:24 04/23/24 14:25 Temperature 96.9 F L 97.0 F L Pulse Rate 80 85 Respiratory Rate 17 17 Blood Pressure 108/53 L 113/53 L Pulse Oximetry 99 99 Oxygen Delivery Intake/Output Intake/Output: Intake & Output 04/20/24 04/21/24 04/22/24 04/23/24 23:59 23:59 23:59 23:59 Intake Total 2350 3730.0 3326 250 Output Total 363 532 4181 175 Balance 1950 3530.0 2126 75 Meds/Results Medications: Active Medications Generic Name Dose Route Start Last Admin Trade Name Freq PRN Reason Stop Dose Admin Acetaminophen 650 mg 04/20/24 18:33 Acetaminophen 325 Mg Tablet PO Q4H PRN Mild Pain (1-3) or Fever Hydrocodone Bitart/Acetaminophen 1 tab 04/20/24 18:33 04/22/24 18:53 Hydrocodone/Acetaminophen (*Crx) 5-325 Mg Tablet PO 1 tab Q4H PRN Administration Pain Rated 4-6 Aspirin 81 mg 04/21/24 09:00 04/23/24 10:20 Aspirin 81 Mg Chewable Tablet PO 81 mg DAILY FELIBERTO Administration Enoxaparin Sodium 40 mg 04/21/24 09:00 04/23/24 10:24 Enoxaparin 40 Mg/0.4 Ml Syringe SUB-Q 40 mg DAILY FELIBERTO Administration Ferrous Sulfate 325 mg 04/23/24 09:00 04/23/24 10:21 Ferrous Sulfate [address] PO 325 mg DAILY FELIEBRTO Administration Sodium Chloride 1,000 mls @ 90 mls/hr 04/20/24 18:35 04/22/24 22:23 Normal Saline Iv IV CONT 90 mls/hr .Q11H7M FELIBERTO Administration Piperacillin Sod/Tazobactam Sod 4.5 gm in 100 mls @ 200 mls/hr 04/23/24 18:00 Zosyn 4.5 Gm/Ns 100 Ml IVPB Q6HR FELIBERTO Lorazepam 1 mg 04/21/24 21:00 04/22/24 20:45 Lorazepam (*Crx) 1 Mg Tablet PO 1 mg HS FELIBERTO Administration Ondansetron HCl 4 mg 04/20/24 18:33 04/22/24 18:53 Ondansetron Inj 4 Mg/2 Ml Vial IV PUSH 4 mg Q4H PRN Administration Nausea Telmisartan 40 mg 04/23/24 09:00 04/23/24 10:21 Telmisartan 40 Mg Tablet PO 40 mg DAILY FELIBERTO Administration Radiology Results: ITS Impressions Head CT 04/20/24 16:35 IMPRESSION: No acute intracranial hemorrhage. Hypodensity in the left internal capsule a nterior limb which may be old infarct. MRI evaluation is advised. Chest/Abdomen/Pelvis CT 04/20/24 19:20 IMPRESSION: CHEST: 1. 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 Further evaluation advised. 2. No acute cardiopulmonary pathology seen. ABDOMEN/PELVIS: 1. Thickened area in the sigmoid colon with surrounding fat stranding. The differential includes a mass or diverticulitis. Sigmoidoscopy is advised. 2. Rounded hypodense area in the left lobe of the liver. This may be a mass and this likely an abscess. Surrounding fat stranding is seen in the area. 3. Cholelithiasis. Abdomen Ultrasound 04/21/24 17:28 IMPRESSION: Heterogenous echogenicity of the liver suggestive of cirrhosis with a complex mass in the left lateral lobe. Further evaluation advised. Small stones with highly suggestive polyp in the anterior wall. Otherwise, normal right upper quadrant ultrasound. Brain MRI 04/22/24 08:04 IMPRESSION: 1. No acute intracranial process. 2. Nonspecific mild scattered white matter T2 hyperintensity which is within normal limits for age and likely sequela of chronic small vessel ischemic disease. Chest X-Ray 04/22/24 11:53 IMPRESSION: 1. Unchanged elevation of the left hemidiaphragm. No other acute cardiopulmonary disease. Abdomen MRI 04/23/24 10:08 IMPRESSION: 1. 5.1 cm cystic mass in left hepatic lobe, consistent with abscess or less likely neoplasm. 2. Cirrhosis of the liver. 3. Sigmoid diverticulitis with perforation. Labs Labs: Laboratory Results - last 24 hr 04/22/24 04/23/24 04/23/24 18:52 06:05 06:06 WBC RBC Hgb Hct MCV MCH MCHC RDW Plt Count MPV Immature Gran % (Auto) Neut % (Auto) Lymph % (Auto) [place] % (Auto) Eos % (Auto) Baso % (Auto) Lymph # (Auto) [place] # (Auto) Eos # (Auto) Baso # (Auto) Abs Immat Gran (auto) Absolute Neuts (auto) Absolute Nucleated RBC Nucleated RBC % Platelet Estimate Hypochromasia Macrocytosis Schistocytes Sodium 141 Potassium 4.4 Chloride 113 H Carbon Dioxide 24 Anion Gap 4 BUN 20 H Creatinine 0.80 Estim Creat Clear Calc 61 Estimated GFR > 60 Glucose 90 Calcium 8.4 Total Bilirubin 0.8 AST 50 H ALT 24 Alkaline Phosphatase 123 Total Protein 6.0 L Albumin 2.8 L Carcinoembryonic Ag Stl Occult Blood (IFOB) Positive H Hepatitis A IgM Ab Negative Hep Bs Antigen Negative Hep B Core IgM Ab Negative Hepatitis C Ab Screen Negative 04/23/24 06:07 WBC 11.6 H RBC 3.34 L Hgb 9.9 L Hct 35.4 L MCV 106.0 H D MCH 29.6 MCHC 28.0 L RDW 15.2 H Plt Count 313 MPV 9.9 Immature Gran % (Auto) 1.0 H Neut % (Auto) 70.8 Lymph % (Auto) 15.6 L [place] % (Auto) 9.6 H Eos % (Auto) 2.4 Baso % (Auto) 0.6 Lymph # (Auto) 1.81 [place] # (Auto) 1.1 H Eos # (Auto) 0.3 Baso # (Auto) 0.1 Abs Immat Gran (auto) 0.12 H Absolute Neuts (auto) 8.2 H Absolute Nucleated RBC 0.000 Nucleated RBC % 0.0 Platelet Estimate Adequate Hypochromasia 1+ Macrocytosis 1+ Schistocytes None seen Sodium Potassium Chloride Carbon Dioxide Anion Gap BUN Creatinine Estim Creat Clear Calc Estimated GFR Glucose Calcium Total Bilirubin AST ALT Alkaline Phosphatase Total Protein Albumin Carcinoembryonic Ag 5.7 H Stl Occult Blood (IFOB) Hepatitis A IgM Ab Hep Bs Antigen Hep B Core IgM Ab Hepatitis C Ab Screen Quality VTE Prophylaxis VTE prophylaxis: pharmacologic ordered
--- NOTE | 2024-04-23 15:58 | PM.CNGS ---
Assessment and Plan Assessment and plan (1) Perforation of sigmoid colon due to diverticulitis: Code(s): K57.20 - Diverticulitis of large intestine with perforation and abscess without bleeding Status: Acute Assessment and Plan: Initial CT on admission showed diverticulitis versus sigmoid colon mass, no evidence of perforation. Abdominal MRI today showed diverticulitis with localized perforation. She is having no abdominal pain and her abdominal exam is completely benign. WBC trending down from 20,000 to 11,000. No indication for surgical management at this time. Continue IV antibiotics. Okay to continue a low fiber diet. Patient still refusing colonoscopy, discussed elevated CEA level and possibility of colon cancer with patient and she still refuses. She is going to have a conversation with her family regarding her wishes. (2) Liver abscess: Code(s): K75.0 - Abscess of liver Status: Acute Assessment and Plan: Abdominal MRI suggests abscess and less likely neoplasm. She is asymptomatic, abd exam benign. Continue IV antibiotics. May need an extended course of antibiotics to treat the liver abscess. (3) Cirrhosis: Code(s): K74.60 - Unspecified cirrhosis of liver Status: Acute Assessment and Plan: Increases risks for surgery. (4) Descending aortic aneurysm: Code(s): I71.9 - Aortic aneurysm of unspecified site, without rupture Status: Acute (5) Cholelithiasis: Code(s): K80.20 - Calculus of gallbladder without cholecystitis without obstruction Status: Acute Assessment and Plan: Incidentally noted on imaging. No evidence of cholecystitis. Asymptomatic. Continue to monitor. Plan I have discussed the patient's case and plan of care with Dr. Tillman. Thank you for allowing us to see the patient in consultation and we will continue to follow along with you. History of Present Illness Consult details Consult date: 04/23/24 Reason for consult: other (Perforated diverticulitis) Requesting physician: Skip Gillette MD Narrative: This is a 78-year-old woman with a history of diverticulitis, arthritis, psoriasis, anxiety, and hypertension who presented to the ER 3 days ago for evaluation of weakness. She had been reporting chills, sweats, dry cough, poor appetite, nausea, and intermittent diarrhea. Labs [place] [address], BUN 55, creatinine 2.0, lactic acid 1.5, total bilirubin 2.6, AST 56. CT scan of the chest, abdomen, and pelvis showed a descending aortic aneurysm, cholelithiasis, possible liver mass, wall thickening of the sigmoid colon with surrounding fat stranding consistent with mass or diverticulitis. She was admitted and started on renally dosed IV Zosyn. Her white blood cell count has been trending down to 11,000 today. Creatinine normalized. GI was consulted and ordered MRI of the abdomen to look at the liver lesion. Patient refusing colonoscopy. CEA ordered and slightly high at 5.7. Abdominal MRI today showed 5.1 cm cystic mass in the left hepatic lobe, consistent with abscess or less likely neoplasm, liver cirrhosis, and sigmoid diverticulitis with localized perforation. She is now seen on the medical floor. Review of Systems Review of Systems: All systems reviewed & are unremarkable except as noted in HPI and below PMFSH Past Medical History Medical History Anxiety Cirrhosis Diverticulitis Hypertension Osteoarthritis Psoriasis Surgical History Surgical History History of appendectomy Family History Family History Other No problems noted. Mother Congestive cardiac failure Social History Social History Social History: Surrogate medical decision maker: Maribell Ramirez, daughter. Code status: Do not resuscitate. Smoking packs per day: 0.5 Smoking cigarettes per day: 10.0 Years smoked: 50 Smoking pack-years: 25.00 Smoking status: Former smoker Substance use: former Do You Feel Safe in your Home?: Yes Lack of Transportation: No Lack of Food: Never True Current Housing: I Have Housing Concerned About Future Housing: No Difficulty Paying Gas/Electric Bills: No Difficulty Paying for Meds: No Currently Unemployed: No Education: High School Diploma/GED Difficulty w/ Childcare or Family Care: No Spiritual care concerns: No Meds Home Medications and Allergies Home Medications Medication Instructions Recorded Confirmed Type aspirin 81 mg tablet 81 mg PO DAILY 04/20/24 04/20/24 History lorazepam 1 mg tablet 1 mg PO HS 04/20/24 04/20/24 History telmisartan 40 mg tablet (Micardis) 40 mg PO DAILY 04/20/24 04/20/24 History Allergies Allergy/AdvReac Type Severity Reaction Status Date / Time No Known Allergies Allergy Verified 04/20/24 22:03 Vital Signs Vital Signs - 24 hr 04/22/24 21:53 04/22/24 20:50 04/23/24 05:32 Temperature 97.9 F 96.7 F L Pulse Rate 107 H 76 Respiratory Rate 16 16 16 Blood Pressure 119/64 106/58 L Pulse Oximetry 90 90 90 Oxygen Delivery Room Air 04/23/24 08:31 04/23/24 11:20 04/23/24 08:00 Temperature 96.8 F L Pulse Rate 87 Respiratory Rate 17 Blood Pressure 109/60 Pulse Oximetry 99 Oxygen Delivery Room Air Room Air 04/23/24 14:24 04/23/24 14:25 Temperature 96.9 F L 97.0 F L Pulse Rate 80 85 Respiratory Rate 17 17 Blood Pressure 108/53 L 113/53 L Pulse Oximetry 99 99 Oxygen Delivery Exam Const: General: comfortable and no acute distress Orientation/consciousness: patient oriented x3 HENMT: Head: normocephalic and atraumatic Ears: hearing grossly normal bilaterally Mouth: Yes moist mucous membranes Eyes: General: appearance normal, both eyes and all related structures Pupils: Equal, round and reactive pupils present Neck: Neck: normal visual inspection and full ROM Resp: Effort & Inspection: no respiratory distress Auscultation: clear to auscultation bilaterally Cardio: Rate: regular rate Rhythm: regular rhythm Heart sounds: S1 normal heart sound present and S2 normal heart sound present Peripheral pulses: Peripheral pulses 2+ throughout GI: Inspection: non-distended GI Palp: Yes Soft to palpation, No Tenderness to palpation present (GI), No Guarding due to palpation present (GI), Yes No hepatosplenomegaly present and No Rebound tenderness present Percussion: Yes normal to percussion Auscultation: normal bowel sounds Skin: General skin exam: normal color Neuro: General: moves all extremities and no focal motor deficits Speech: normal speech Motor exam (neuro): 5/5 motor strength present throughout Extrem: General: normal to inspection and no edema Psych: Mental Status: mental status grossly normal Attitude: cooperative Insight: Good insight present (Psych) Judgement: Good judgement present (Psych) Results Labs 04/23/24 06:07 04/23/24 06:05 Labs: Abnormal lab results 04/22/24 04/23/24 04/23/24 Range/Units 18:52 06:05 06:07 WBC 11.6 H (4.5-10.0) K/mm3 RBC 3.34 L (4.2-5.4) M/mm3 Hgb 9.9 L (12.0-15.0) g/dL Hct 35.4 L (37.0-47.0) % MCV 106.0 H D (80-100) fl MCHC 28.0 L (32-36) g/dl RDW 15.2 H (11.5-14.5) % Immature Gran % (Auto) 1.0 H (0-0.5) % Lymph % (Auto) 15.6 L (18.3-44.2) % [place] % (Auto) 9.6 H (2.6-8.5) % [place] # (Auto) 1.1 H (0.1-0.6) K/mm3 Abs Immat Gran (auto) 0.12 H (0.00-0.031) K/mm3 Absolute Neuts (auto) 8.2 H (1.3-6.7) K/mm3 Chloride 113 H (98-107) mmol/L BUN 20 H (7-17) mg/dL AST 50 H (14-36) U/L Total Protein 6.0 L (6.3-8.2) g/dL Albumin 2.8 L (3.5-5.1) g/dL Carcinoembryonic Ag 5.7 H (0.0-3.0) ng/mL Stl Occult Blood (IFOB) Positive H (N) Diabetes panel 04/23/24 Range/Units 06:05 Sodium 141 (137-145) mmol/L Potassium 4.4 (3.4-5.0) mmol/L Chloride 113 H (98-107) mmol/L Carbon Dioxide 24 (22-30) mmol/L BUN 20 H (7-17) mg/dL Creatinine 0.80 (0.7-1.0) mg/dL Glucose 90 (65-110) mg/dL Calcium 8.4 (8.4-10.2) mg/dL AST 50 H (14-36) U/L ALT 24 (6-35) U/L Alkaline Phosphatase 123 (38-126) U/L Total Protein 6.0 L (6.3-8.2) g/dL Albumin 2.8 L (3.5-5.1) g/dL Calcium panel 04/23/24 Range/Units 06:05 Calcium 8.4 (8.4-10.2) mg/dL Albumin 2.8 L (3.5-5.1) g/dL Pituitary panel 04/23/24 Range/Units 06:05 Sodium 141 (137-145) mmol/L Potassium 4.4 (3.4-5.0) mmol/L Chloride 113 H (98-107) mmol/L Carbon Dioxide 24 (22-30) mmol/L BUN 20 H (7-17) mg/dL Creatinine 0.80 (0.7-1.0) mg/dL Glucose 90 (65-110) mg/dL Calcium 8.4 (8.4-10.2) mg/dL Adrenal panel 04/23/24 Range/Units 06:05 Sodium 141 (137-145) mmol/L Potassium 4.4 (3.4-5.0) mmol/L Chloride 113 H (98-107) mmol/L Carbon Dioxide 24 (22-30) mmol/L BUN 20 H (7-17) mg/dL Creatinine 0.80 (0.7-1.0) mg/dL Glucose 90 (65-110) mg/dL Calcium 8.4 (8.4-10.2) mg/dL Total Bilirubin 0.8 (0.2-1.3) mg/dL AST 50 H (14-36) U/L ALT 24 (6-35) U/L Alkaline Phosphatase 123 (38-126) U/L Total Protein 6.0 L (6.3-8.2) g/dL Albumin 2.8 L (3.5-5.1) g/dL All other labs normal. Imaging Additional studies: ITS Impressions Chest X-Ray 04/20/24 16:06 IMPRESSION: 1: NO ACUTE CARDIOPULMONARY DISEASE. Head CT 04/20/24 16:35 IMPRESSION: No acute intracranial hemorrhage. 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 MRI evaluation is advised. Chest/Abdomen/Pelvis CT 04/20/24 19:20 IMPRESSION: CHEST: 1. 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 Further evaluation advised. 2. No acute cardiopulmonary pathology seen. ABDOMEN/PELVIS: 1. Thickened area in the sigmoid colon with surrounding fat stranding. The differential includes a mass or diverticulitis. Sigmoidoscopy is advised. 2. Rounded hypodense area in the left lobe of the liver. This may be a mass and this likely an abscess. Surrounding fat stranding is seen in the area. 3. Cholelithiasis. Abdomen Ultrasound 04/21/24 17:28 IMPRESSION: Heterogenous echogenicity of the liver suggestive of cirrhosis with a complex mass in the left lateral lobe. Further evaluation advised. Small stones with highly suggestive polyp in the anterior wall. Otherwise, normal right upper quadrant ultrasound. Brain MRI 04/22/24 08:04 IMPRESSION: 1. No acute intracranial process. 2. Nonspecific mild scattered white matter T2 hyperintensity which is within normal limits for age and likely sequela of chronic small vessel ischemic disease. Chest X-Ray 04/22/24 11:53 IMPRESSION: 1. Unchanged elevation of the left hemidiaphragm. No other acute cardiopulmonary disease. Abdomen MRI 04/23/24 10:08 IMPRESSION: 1. 5.1 cm cystic mass in left hepatic lobe, consistent with abscess or less likely neoplasm. 2. Cirrhosis of the liver. 3. Sigmoid diverticulitis with perforation.
--- NOTE | 2024-04-23 17:21 | WPDGIPROGNO ---
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 I told her that given size may need to ask IR if they can drain it but she still wants to think about it, will wait on her decision (2) Perforation of sigmoid colon due to diverticulitis: Code(s): K57.20 - Diverticulitis of large intestine with perforation and abscess without bleeding Status: Acute Assessment and Plan: MRI abdomen reviewed, surgery on board thus far is responding to iv abx she is also refusion colonoscopy- I recommend to get one in 4-6 weeks after resolution of active infection so we can rule out malignancy but she is against it (3) Cirrhosis: Code(s): K74.60 - Unspecified cirrhosis of liver Status: Acute Assessment and Plan: new diagnosis work up in progress (4) Acute kidney injury: Code(s): N17.9 - Acute kidney failure, unspecified Status: Acute (5) Normocytic anemia: Code(s): D64.9 - Anemia, unspecified Status: Acute (6) Sepsis: Code(s): A41.9 - Sepsis, unspecified organism Status: Acute Assessment and Plan: improved Subjective Date/time seen: 04/23/24 17:21 Interval history: no abdominal pain, she is feeling better today Review of Systems Review of Systems: All systems reviewed & are unremarkable except as noted in HPI and below Exam Const: General: comfortable and no acute distress Orientation/consciousness: patient oriented x3 HENMT: Head: normocephalic and atraumatic Ears: hearing grossly normal bilaterally Eyes: General: appearance normal, both eyes and all related structures Neck: Neck: normal visual inspection and full ROM Resp: Effort & Inspection: no respiratory distress Auscultation: clear to auscultation bilaterally Cardio: Rate: regular rate Rhythm: regular rhythm GI: Inspection: non-distended GI Palp: Yes Soft to palpation, No Tenderness to palpation present (GI), No Guarding due to palpation present (GI), Yes No hepatosplenomegaly present and No Rebound tenderness present Auscultation: normal bowel sounds Skin: General skin exam: normal color Neuro: General: moves all extremities and no focal motor deficits Speech: normal speech Motor exam (neuro): 5/5 motor strength present throughout Extrem: General: normal to inspection and no edema Psych: Mental Status: mental status grossly normal Attitude: cooperative Insight: Good insight present (Psych) Judgement: Good judgement present (Psych) Objective Data Vital Signs Vital Signs: Vital Signs - 24 hr 04/22/24 21:53 04/22/24 20:50 04/23/24 05:32 Temperature 97.9 F 96.7 F L Pulse Rate 107 H 76 Respiratory Rate 16 16 16 Blood Pressure 119/64 106/58 L Pulse Oximetry 90 90 90 Oxygen Delivery Room Air 04/23/24 08:31 04/23/24 11:20 04/23/24 08:00 Temperature 96.8 F L Pulse Rate 87 Respiratory Rate 17 Blood Pressure 109/60 Pulse Oximetry 99 Oxygen Delivery Room Air Room Air 04/23/24 14:24 04/23/24 14:25 Temperature 96.9 F L 97.0 F L Pulse Rate 80 85 Respiratory Rate 17 17 Blood Pressure 108/53 L 113/53 L Pulse Oximetry 99 99 Oxygen Delivery Intake/Output Intake/Output: Intake & Output 04/20/24 04/21/24 04/22/24 04/23/24 23:59 23:59 23:59 23:59 Intake Total 2350 3730.0 3326 610 Output Total 034 977 4994 175 Balance 1950 3530.0 2126 435 Meds/Results Medications: Active Medications Generic Name Dose Route Start Last Admin Trade Name Freq PRN Reason Stop Dose Admin Acetaminophen 650 mg 04/20/24 18:33 Acetaminophen 325 Mg Tablet PO Q4H PRN Mild Pain (1-3) or Fever Hydrocodone Bitart/Acetaminophen 1 tab 04/20/24 18:33 04/22/24 18:53 Hydrocodone/Acetaminophen (*Crx) 5-325 Mg Tablet PO 1 tab Q4H PRN Administration Pain Rated 4-6 Aspirin 81 mg 04/21/24 09:00 04/23/24 10:20 Aspirin 81 Mg Chewable Tablet PO 81 mg DAILY FELIBERTO Administration Enoxaparin Sodium 40 mg 04/21/24 09:00 04/23/24 10:24 Enoxaparin 40 Mg/0.4 Ml Syringe SUB-Q 40 mg DAILY FELIBERTO Administration Ferrous Sulfate 325 mg 04/23/24 09:00 04/23/24 10:21 Ferrous Sulfate [address] PO 325 mg DAILY FELIBERTO Administration Sodium Chloride 1,000 mls @ 90 mls/hr 04/20/24 18:35 04/22/24 22:23 Normal Saline Iv IV CONT 90 mls/hr .Q11H7M FELIBERTO Administration Piperacillin Sod/Tazobactam Sod 4.5 gm in 100 mls @ 200 mls/hr 04/23/24 18:00 Zosyn 4.5 Gm/Ns 100 Ml IVPB Q6HR FELIBERTO Lorazepam 1 mg 04/21/24 21:00 04/22/24 20:45 Lorazepam (*Crx) 1 Mg Tablet PO 1 mg HS FELIBERTO Administration Ondansetron HCl 4 mg 04/20/24 18:33 04/22/24 18:53 Ondansetron Inj 4 Mg/2 Ml Vial IV PUSH 4 mg Q4H PRN Administration Nausea Telmisartan 40 mg 04/23/24 09:00 04/23/24 10:21 Telmisartan 40 Mg Tablet PO 40 mg DAILY FELIBERTO Administration Radiology Results: ITS Impressions Head CT 04/20/24 16:35 IMPRESSION: No acute intracranial hemorrhage. 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 MRI evaluation is advised. Chest/Abdomen/Pelvis CT 04/20/24 19:20 IMPRESSION: CHEST: 1. 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 Further evaluation advised. 2. No acute cardiopulmonary pathology seen. ABDOMEN/PELVIS: 1. Thickened area in the sigmoid colon with surrounding fat stranding. The differential includes a mass or diverticulitis. Sigmoidoscopy is advised. 2. Rounded hypodense area in the left lobe of the liver. This may be a mass and this likely an abscess. Surrounding fat stranding is seen in the area. 3. Cholelithiasis. Abdomen Ultrasound 04/21/24 17:28 IMPRESSION: Heterogenous echogenicity of the liver suggestive of cirrhosis with a complex mass in the left lateral lobe. Further evaluation advised. Small stones with highly suggestive polyp in the anterior wall. Otherwise, normal right upper quadrant ultrasound. Brain MRI 04/22/24 08:04 IMPRESSION: 1. No acute intracranial process. 2. Nonspecific mild scattered white matter T2 hyperintensity which is within normal limits for age and likely sequela of chronic small vessel ischemic disease. Chest X-Ray 04/22/24 11:53 IMPRESSION: 1. Unchanged elevation of the left hemidiaphragm. No other acute cardiopulmonary disease. Abdomen MRI 04/23/24 10:08 IMPRESSION: 1. 5.1 cm cystic mass in left hepatic lobe, consistent with abscess or less likely neoplasm. 2. Cirrhosis of the liver. 3. Sigmoid diverticulitis with perforation. Labs Labs: Laboratory Results - last 24 hr 04/22/24 04/23/24 04/23/24 18:52 06:05 06:06 WBC RBC Hgb Hct MCV MCH MCHC RDW Plt Count MPV Immature Gran % (Auto) Neut % (Auto) Lymph % (Auto) [place] % (Auto) Eos % (Auto) Baso % (Auto) Lymph # (Auto) [place] # (Auto) Eos # (Auto) Baso # (Auto) Abs Immat Gran (auto) Absolute Neuts (auto) Absolute Nucleated RBC Nucleated RBC % Platelet Estimate Hypochromasia Macrocytosis Schistocytes Sodium 141 Potassium 4.4 Chloride 113 H Carbon Dioxide 24 Anion Gap 4 BUN 20 H Creatinine 0.80 Estim Creat Clear Calc 61 Estimated GFR > 60 Glucose 90 Calcium 8.4 Total Bilirubin 0.8 AST 50 H ALT 24 Alkaline Phosphatase 123 Total Protein 6.0 L Albumin 2.8 L Carcinoembryonic Ag Stl Occult Blood (IFOB) Positive H Hepatitis A IgM Ab Negative Hep Bs Antigen Negative Hep B Core IgM Ab Negative Hepatitis C Ab Screen Negative 04/23/24 06:07 WBC 11.6 H RBC 3.34 L Hgb 9.9 L Hct 35.4 L MCV 106.0 H D MCH 29.6 MCHC 28.0 L RDW 15.2 H Plt Count 313 MPV 9.9 Immature Gran % (Auto) 1.0 H Neut % (Auto) 70.8 Lymph % (Auto) 15.6 L [place] % (Auto) 9.6 H Eos % (Auto) 2.4 Baso % (Auto) 0.6 Lymph # (Auto) 1.81 [place] # (Auto) 1.1 H Eos # (Auto) 0.3 Baso # (Auto) 0.1 Abs Immat Gran (auto) 0.12 H Absolute Neuts (auto) 8.2 H Absolute Nucleated RBC 0.000 Nucleated RBC % 0.0 Platelet Estimate Adequate Hypochromasia 1+ Macrocytosis 1+ Schistocytes None seen Sodium Potassium Chloride Carbon Dioxide Anion Gap BUN Creatinine Estim Creat Clear Calc Estimated GFR Glucose Calcium Total Bilirubin AST ALT Alkaline Phosphatase Total Protein Albumin Carcinoembryonic Ag 5.7 H Stl Occult Blood (IFOB) Hepatitis A IgM Ab Hep Bs Antigen Hep B Core IgM Ab Hepatitis C Ab Screen
[2024-04-23] MEDS: PIPERACILLIN/TAZ 4.5G/NS 100ML 4.5 GM/100 ML BAG IVPB ×2 (17:24→23:18)
[2024-04-23] MEDS: HYDROcodone/acetaminophen (*CRX) 5-325 MG TABLET 1 TAB PO (17:26)
[2024-04-23 20:00] VITALS: PULSE 85; RESP 17; O2SAT 99
[2024-04-23] MEDS: LORazepam (*CRX) 1 MG TABLET PO (20:47)
[2024-04-23 21:53] VITALS: BP 108/56; PULSE 74; RESP 14; TEMP 37.1; O2SAT 92
[2024-04-24] VITALS (7 sets, daily range): BP systolic 110–157; BP diastolic 59–79; PULSE 72–85; RESP 14–22; TEMP 36.1–36.8; O2SAT 94–98
[2024-04-24] MEDS: SODIUM CHLORIDE 0.9% IV 1,000 ML 90 ML IV CONT (05:48)
[2024-04-24] MEDS: PIPERACILLIN/TAZ 4.5G/NS 100ML 4.5 GM/100 ML BAG IVPB ×2 (05:50→12:16)
[2024-04-24] MEDS: HYDROcodone/acetaminophen (*CRX) 5-325 MG TABLET 1 TAB PO ×2 (05:51→13:25)
[2024-04-24 06:37] LABS: Basophils Absolute Auto 0.1 K/mm3 (0.0-0.1); Basophils Percent Auto 0.7 % (0.2-1.2); Eosinophils Absolute Auto 0.4 K/mm3 (0-0.3); Eosinophils Percent Auto 3.3 % (0-4.4); Hematocrit 33.2 % (37.0-47.0); Hemoglobin 10.1 g/dL (12.0-15.0); Immature Granulocyte Absolute 0.15 K/mm3 (0.00-0.031); Immature Granulocyte Percent A 1.2 % (0-0.5); Lymphocytes Absolute Auto 1.87 K/mm3 (0.9-3.2); Lymphocytes Percent Auto 15.4 % (18.3-44.2); Mean Corpuscular HGB Conc 30.4 g/dl (32-36); Mean Corpuscular Hemoglobin 29.7 pg (26-34); Mean Corpuscular Volume 97.6 fl (80-100); Mean Platelet Volume 9.8 fl (7.4-10.4); Monocytes Absolute Auto 1.2 K/mm3 (0.1-0.6); Monocytes Percent Auto 9.9 % (2.6-8.5); Neutrophils Absolute Auto 8.4 K/mm3 (1.3-6.7); Neutrophils Percent Auto 69.5 % (45.5-73.1); Platelet Count Result 323 k/mm3 (150-375); Red Cell Distribution Width 15.1 % (11.5-14.5); White Blood Count 12.1 K/mm3 (4.5-10.0)
[2024-04-24 07:05] LABS: Alanine Aminotransferase 24 U/L (6-35); Albumin Level 2.9 g/dL (3.5-5.1); Alkaline Phosphatase 127 U/L (38-126); Anion Gap 4 mmol/L (4-12); Aspartate Amino Transferase 51 U/L (14-36); Bilirubin,Total 0.8 mg/dL (0.2-1.3); Blood Urea Nitrogen 14 mg/dL (7-17); Calcium 8.6 mg/dL (8.4-10.2); Carbon Dioxide 25 mmol/L (22-30); Chloride 112 mmol/L (98-107); Estimated CRCL calculation 62 ml/min; Estimated Glomerular Filt Rate > 60; Glucose 83 mg/dL (65-110); Sodium 141 mmol/L (137-145)
[2024-04-24] MEDS: ENOXAPARIN 40 MG/0.4 ML SYRINGE SUB-Q (08:41)
--- NOTE | 2024-04-24 09:49 | PM.PNGS ---
Progress Note: A&P Assessment and Plan (1) Perforation of sigmoid colon due to diverticulitis: Code(s): K57.20 - Diverticulitis of large intestine with perforation and abscess without bleeding Status: Acute Assessment and Plan: Clinically improving with antibiotics. No abdominal pain, abd exam benign. Will advance her diet to low fiber. Continue antibiotics (2) Liver abscess: Code(s): K75.0 - Abscess of liver Status: Acute Assessment and Plan: Asymptomatic, abd exam benign Continue antibiotics. May eventually need an extended course of oral antibiotics on discharge. (3) Cirrhosis: Code(s): K74.60 - Unspecified cirrhosis of liver Status: Acute Plan I have discussed the patient's case and plan of care with Dr. Tillman. Subjective Subjective Date/Time Seen: 04/24/24 09:49 Interval history: No changes overnight. Patient is hungry and wishes to eat. She is currently NPO after GI backed off her diet. Still not having any abdominal pain, nausea, or vomiting. She had a bowel movement yesterday evening that was normal. No bloody stools. No other complaints at this time. Exam Const: General: comfortable and no acute distress Orientation/consciousness: patient oriented x3 GI: Inspection: non-distended GI Palp: Yes Soft to palpation, No Tenderness to palpation present (GI), No Guarding due to palpation present (GI) and No Rebound tenderness present Auscultation: normal bowel sounds Objective Data Vital Signs Vital Signs: Vital Signs - 24 hr 04/23/24 11:20 04/23/24 14:24 04/23/24 14:25 Temperature 96.9 F L 97.0 F L Pulse Rate 80 85 Respiratory Rate 17 17 Blood Pressure 108/53 L 113/53 L Pulse Oximetry 99 99 Oxygen Delivery Room Air Fraction of Inspired Oxygen 04/23/24 20:00 04/23/24 21:53 04/24/24 04:59 Temperature 98.7 F 98.2 F Pulse Rate 85 74 77 Respiratory Rate 17 14 14 Blood Pressure 108/56 L 110/59 L Pulse Oximetry 99 92 94 Oxygen Delivery Room Air Fraction of Inspired Oxygen 04/24/24 08:17 04/24/24 08:00 04/24/24 08:33 Temperature 97.1 F L Pulse Rate 72 Respiratory Rate 22 H Blood Pressure 112/61 111/66 Pulse Oximetry 95 94 Oxygen Delivery Room Air Fraction of Inspired Oxygen 04/24/24 08:33 Temperature Pulse Rate Respiratory Rate Blood Pressure 119/67 Pulse Oximetry Oxygen Delivery Fraction of Inspired Oxygen Intake/Output Intake/Output: Intake & Output 04/21/24 04/22/24 04/23/24 04/24/24 23:59 23:59 23:59 23:59 Intake Total 3730.0 3326 2860 275 Output Total 200 1200 175 300 Balance 3530.0 2126 2685 -25 Meds/Results Medications: Active Medications Generic Name Dose Route Start Last Admin Trade Name Freq PRN Reason Stop Dose Admin Acetaminophen 650 mg 04/20/24 18:33 Acetaminophen 325 Mg Tablet PO Q4H PRN Mild Pain (1-3) or Fever Hydrocodone Bitart/Acetaminophen 1 tab 04/20/24 18:33 04/24/24 05:51 Hydrocodone/Acetaminophen (*Crx) 5-325 Mg Tablet PO 1 tab Q4H PRN Administration Pain Rated 4-6 Aspirin 81 mg 04/21/24 09:00 04/23/24 10:20 Aspirin 81 Mg Chewable Tablet PO 81 mg DAILY FELIBERTO Administration Enoxaparin Sodium 40 mg 04/21/24 09:00 04/24/24 08:41 Enoxaparin 40 Mg/0.4 Ml Syringe SUB-Q 40 mg DAILY FELIBERTO Administration Ferrous Sulfate 325 mg 04/23/24 09:00 04/23/24 10:21 Ferrous Sulfate [address] PO 325 mg DAILY FELIBERTO Administration Sodium Chloride 1,000 mls @ 90 mls/hr 04/20/24 18:35 04/24/24 05:48 Normal Saline Iv IV CONT 90 mls/hr .Q11H7M FELIBERTO Administration Piperacillin Sod/Tazobactam Sod 4.5 gm in 100 mls @ 200 mls/hr 04/23/24 18:00 04/24/24 05:50 Zosyn 4.5 Gm/Ns 100 Ml IVPB 200 mls/hr Q6HR FELIBERTO Administration Lorazepam 1 mg 04/21/24 21:00 04/23/24 20:47 Lorazepam (*Crx) 1 Mg Tablet PO 1 mg HS FELIBERTO Administration Ondansetron HCl 4 mg 04/20/24 18:33 04/22/24 18:53 Ondansetron Inj 4 Mg/2 Ml Vial IV PUSH 4 mg Q4H PRN Administration Nausea Telmisartan 40 mg 04/23/24 09:00 04/23/24 10:21 Telmisartan 40 Mg Tablet PO 40 mg DAILY FELIBERTO Administration Radiology Results: ITS Impressions Head CT 04/20/24 16:35 IMPRESSION: No acute intracranial hemorrhage. 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 MRI evaluation is advised. Chest/Abdomen/Pelvis CT 04/20/24 19:20 IMPRESSION: CHEST: 1. 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 Further evaluation advised. 2. No acute cardiopulmonary pathology seen. ABDOMEN/PELVIS: 1. Thickened area in the sigmoid colon with surrounding fat stranding. The differential includes a mass or diverticulitis. Sigmoidoscopy is advised. 2. Rounded hypodense area in the left lobe of the liver. This may be a mass and this likely an abscess. Surrounding fat stranding is seen in the area. 3. Cholelithiasis. Abdomen Ultrasound 04/21/24 17:28 IMPRESSION: Heterogenous echogenicity of the liver suggestive of cirrhosis with a complex mass in the left lateral lobe. Further evaluation advised. Small stones with highly suggestive polyp in the anterior wall. Otherwise, normal right upper quadrant ultrasound. Brain MRI 04/22/24 08:04 IMPRESSION: 1. No acute intracranial process. 2. Nonspecific mild scattered white matter T2 hyperintensity which is within normal limits for age and likely sequela of chronic small vessel ischemic disease. Chest X-Ray 04/22/24 11:53 IMPRESSION: 1. Unchanged elevation of the left hemidiaphragm. No other acute cardiopulmonary disease. Abdomen MRI 04/23/24 10:08 IMPRESSION: 1. 5.1 cm cystic mass in left hepatic lobe, consistent with abscess or less likely neoplasm. 2. Cirrhosis of the liver. 3. Sigmoid diverticulitis with perforation. Labs Labs: Laboratory Results - last 24 hr 04/24/24 06:23 WBC 12.1 H RBC 3.40 L Hgb 10.1 L Hct 33.2 L MCV 97.6 D MCH 29.7 MCHC 30.4 L RDW 15.1 H Plt Count 323 MPV 9.8 Immature Gran % (Auto) 1.2 H Neut % (Auto) 69.5 Lymph % (Auto) 15.4 L [place] % (Auto) 9.9 H Eos % (Auto) 3.3 Baso % (Auto) 0.7 Lymph # (Auto) 1.87 [place] # (Auto) 1.2 H Eos # (Auto) 0.4 H Baso # (Auto) 0.1 Abs Immat Gran (auto) 0.15 H Absolute Neuts (auto) 8.4 H Absolute Nucleated RBC 0.000 Nucleated RBC % 0.0 Sodium 141 Potassium 4.0 Chloride 112 H Carbon Dioxide 25 Anion Gap 4 BUN 14 D Creatinine 0.80 Estim Creat Clear Calc 62 Estimated GFR > 60 Glucose 83 Calcium 8.6 Total Bilirubin 0.8 AST 51 H ALT 24 Alkaline Phosphatase 127 H Total Protein 6.0 L Albumin 2.9 L
--- NOTE | 2024-04-24 14:50 | PCPTNOTE ---
PT attempted to see patient 2x today. Patient declined PT in A.M. stating she would like to eat before activity. Patient declined PT this afternoon stating she was feeling very tired after sitting up in the chair for several hours. PT will continue to follow per plan of care.
--- NOTE | 2024-04-24 15:24 | P.PNIM_ITS ---
Progress Note: A&P Assessment and Plan (1) Diverticulitis: Code(s): K57.92 - Diverticulitis of intestine, part unspecified, without perforation or abscess without bleeding Status: Acute Assessment and Plan: 04/21/24: * CT of the abdomen/pelvis/chest negative for any acute cardiopulmonary disease, showed thickened area in the sigmoid colon with surrounding fat stranding which could be a mass or diverticulitis, rounded hypodense area in the left lobe of the liver. * Ultrasound of the abdomen is still pending * Started on Zosyn and Rocephin * GI consult 04/22/24: * Continue Zosyn * Ultrasound of the shown heterogenerous echogenicity of the liver suggestive of cirrhosis with a complex mass in the left lateral lobe, small stones with high suggestive polyp in the anterior wall. * GI consulted * Plan for MRI the abdomen * Additional hepatic labs pending 04/23/24: * Continue with current treatment plan * MRI of the abdomen 5.1 cm cystic mass in left hepatic lobe, consistent with abscess or less likely neoplasm, cirrhosis of the liver, sigmoid diverticulitis with perforation * GI following 04/24/24: * Continue current treatment plan (2) Acute kidney injury: Code(s): N17.9 - Acute kidney failure, unspecified Status: Acute Assessment and Plan: 04/21/24: * Initial creatinine 2.0 now down to 1.3 * Unsure of patient's baseline * Continue to trend 04/22/24: * Creatinine down to baseline 1.0 * Continue to trend 04/23/24: * resolved (3) Lesion of left lobe of liver: Code(s): K76.9 - Liver disease, unspecified Status: Acute Assessment and Plan: 04/21/24: * CT of the abdomen/pelvis/chest showing rounded hypodense area in the left lobe of the liver * Ultrasound of the abdomen is still pending * GI consulted 04/22/24: * Ultrasound of the abdomen showing in is echogenicity of the liver suggestive of cirrhosis with a complex mass in the left lateral lobe couple small stones with highly suggestive polyp in the anterior wall * GI following * Plan for MRI of the liver * Hepatic workup pending 04/23/24: * MRI of the abdomen showing 5.1 cm cystic mass in left hepatic lobe, consistent with abscess or less likely neoplasm, cirrhosis of the liver, sigmoid diverticulitis with perforation. * GI following 04/24/24: * general surgery seen patient today and is recommending nonsurgical treatment with long course of antibiotic * will switch Zosyn to Augmentin and Flagyl p.o. today. We could not do Cipro due to her Aortic aneurysm. * General surgery recommends 5-6 weeks of antibiotics for both the liver abscess and diverticulitis. * GI following (4) Cholelithiasis: Code(s): K80.20 - Calculus of gallbladder without cholecystitis without obstruction Status: Acute Assessment and Plan: 04/21/24: * Noted on CT of the abdomen/pelvis/chest 04/22/24: * No change (5) Normocytic anemia: Code(s): D64.9 - Anemia, unspecified Status: Acute Assessment and Plan: 04/21/24: * Hemoglobin 11.5, iron 18, total iron binding capacity 191, ferritin 337 04/22/24: * Hemoglobin 10.2 * Will start ferrous sulfate 04/23/24: * Hgb 9.9 * No change to current treatment plan 04/24/24: * essentially stable * no change to current treatment plan (6) Descending aortic aneurysm: Code(s): I71.9 - Aortic aneurysm of unspecified site, without rupture Status: Acute Assessment and Plan: 04/21/24: * Noted on CT, will need follow-up on an outpatient basis 04/22/24: * No change Time Spent With Patient Time with patient: 25 - 35 minutes Subjective Date/time seen: 04/24/24 15:24 Interval history: 04/21/24: This is a 78-year-old female who came in on 04/20/2024 weakness. Workup in the hospital included chest x-ray which was negative. 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 Chest abdomen pelvis CT shown descending aortic aneurysm which measures 1.5x 2.7x 3.3 cm, thickened area in the sigmoid colon with surrounding fat stranding, rounded hypodense area in the left lobe of the liver that may represent a or an abscess, cholelithiasis. Initial labs shown a white blood cell count of 20.4, hemoglobin 11.5, sodium 136, creatinine 2.0, EGFR 24, iron 18, total iron binding capacity 191, ferritin 337, total bili 2.6, AST 56, vitamin B12 897, folate 16.8, TSH 0.983. UA was obtained which showed 1+ urine protein, +urine bili, trace leukocytes, 3 to urine RBC. Respiratory panel was negative for influenza a and B, RSV, COVID. Blood cultures were obtained and are pending. Patient was given 2 L of normal saline, and started on Rocephin and Zosyn while in the ED. On examination today patient is alert and oriented x3. Patient denies and fever, chills, nausea, vomiting, diarrhea, abdominal pain, or shortness of breath. MRI of the brain and brain stem ordered. GI consulted. Ultrasound of abdomen pending. 04/22/24: Patient denies any new complaints today. Blood cultures are showing no growth on preliminary read. Labs today show white blood cell count of 14.1, hemoglobin 10.2, creatinine 1.0, EGFR 54, AST 51, ALT 23. MRI of the brain was negative for any acute intracranial process, showed age-related changes only. Abdomen ultrasound shown hetero generous echogenicity of the the liver suggestive of cirrhosis with a complex mass in the left lateral lobe, small stones with high suggestive polyp in the anterior wall. Plan for MRI of the abdomen per GI. 04/23/24: Patient denies any new complaints today. Labs today revealed 11.6, Hgb 9.9, AST 50, Carcinoebryonic Ag 5.7, hepatitis panel negative. MRI of the abdomen showing 5.1 cm cystic mass in left hepatic lobe, consistent with abscess or neoplasm, cirrhosis of the liver, sigmoid diverticulitis with perforation. Continue antibiotics. GI following and will await recommendations. 04/24/24: Patient denies any new complaints today. labs today show a white blood cell count of 12.1, hemoglobin 10.1, AST 51, alk-phos 127, albumin 2.9. General surgery seen patient today and is recommending treatment with antibiotics for right now as she is improving and her abdominal exam is negative. General surgery suggests 5-6 week course of antibiotics. Review of Systems Review of Systems: 12 systems were reviewed and are negativ e except for as per HPI. All systems reviewed & are unremarkable except as noted in HPI and below Constitutional: Constitutional: Reports as per HPI and Reports no additional constitutional complaints Eyes: Eyes: Reports as per HPI and Reports no additional eye complaints ENT: Reports system reviewed and no additional complaints, except as documented and Reports as per HPI Cardiovascular: Cardiovascular: Reports as per HPI and Reports no additional cardiovascular complaints Respiratory: Respiratory: Reports as per HPI and Reports no additional respiratory complaints Gastrointestinal: Gastrointestinal: Reports as per HPI and Reports no additional gastrointestinal complaints Genitourinary: Genitourinary: Reports no additional female genitourinary complaints and Reports as per HPI Musculoskeletal: Musculoskeletal: Reports no additional musculoskeletal complaints and Reports as per HPI Integumentary/Breasts: Skin/Breast: Reports system reviewed and no additional complaints, except as docu and Reports as per HPI Neurologic: Reports system reviewed and no additional complaints, except as documented and Reports as per HPI Psychiatric: Psychiatric: Reports no additional psychiatric complaints and Reports as per HPI Exam Narrative: General: In no acute distress, well nourished Head: atraumatic, no encephalopathy Eyes: EOMI, PERRLA, sclera clear ENT: moist mucous membranes, nasal passages clear Neck: supple, no JVD, no adenopathy, trachea midline Cardiac: Normal S1 and S2. Murmur noted, No gallops or friction rubs, peripheral pulses intact. Respiratory: Lungs clear to auscultation, no adventitious lung sounds, currently on room air Gastrointestinal: soft, non-distended, non-tender, normoactive bowel sounds. : voiding without difficulty. Extremities: moves all extremities well, no edema, good ROM, strength 5/5 Skin: clean, dry, intact. No wounds or lesions. Neuro: Alert and oriented x4, cranial nerves intact, no neuro deficits. Psych: normal mood, normal affect, interactive Objective Data Vital Signs Vital Signs: Vital Signs - 24 hr 04/23/24 20:00 04/23/24 21:53 04/24/24 04:59 Temperature 98.7 F 98.2 F Pulse Rate 85 74 77 Respiratory Rate 17 14 14 Blood Pressure 108/56 L 110/59 L Pulse Oximetry 99 92 94 Oxygen Delivery Room Air Fraction of Inspired Oxygen 04/24/24 08:17 04/24/24 08:00 04/24/24 08:33 Temperature 97.1 F L Pulse Rate 72 Respiratory Rate 22 H Blood Pressure 112/61 111/66 Pulse Oximetry 95 94 Oxygen Delivery Room Air Fraction of Inspired Oxygen 04/24/24 08:33 04/24/24 08:30 04/24/24 13:48 Temperature 96.9 F L Pulse Rate 85 Respiratory Rate 20 Blood Pressure 119/67 126/60 Pulse Oximetry 98 Oxygen Delivery Room Air Fraction of Inspired Oxygen 21 Intake/Output Intake/Output: Intake & Output 04/21/24 04/22/24 04/23/24 04/24/24 23:59 23:59 23:59 23:59 Intake Total 3730.0 3326 2860 375 Output Total 200 1200 175 300 Balance 3530.0 2126 2685 75 Meds/Results Medications: Active Medications Generic Name Dose Route Start Last Admin Trade Name Freq PRN Reason Stop Dose Admin Acetaminophen 650 mg 04/20/24 18:33 Acetaminophen 325 Mg Tablet PO Q4H PRN Mild Pain (1-3) or Fever Hydrocodone Bitart/Acetaminophen 1 tab 04/20/24 18:33 04/24/24 13:25 Hydrocodone/Acetaminophen (*Crx) 5-325 Mg Tablet PO 1 tab Q4H PRN Administration Pain Rated 4-6 Aspirin 81 mg 04/21/24 09:00 04/24/24 10:00 Aspirin 81 Mg Chewable Tablet PO Not Given DAILY FELIBERTO Enoxaparin Sodium 40 mg 04/21/24 09:00 04/24/24 08:41 Enoxaparin 40 Mg/0.4 Ml Syringe SUB-Q 40 mg DAILY FELIBERTO Administration Ferrous Sulfate 325 mg 04/23/24 09:00 04/24/24 10:00 Ferrous Sulfate [address] PO Not Given DAILY FELIBERTO Sodium Chloride 1,000 mls @ 90 mls/hr 04/20/24 18:35 04/24/24 05:48 Normal Saline Iv IV CONT 90 mls/hr .Q11H7M FELIBERTO Administration Piperacillin Sod/Tazobactam Sod 4.5 gm in 100 mls @ 200 mls/hr 04/23/24 18:00 04/24/24 12:16 Zosyn 4.5 Gm/Ns 100 Ml IVPB 200 mls/hr Q6HR FELIBERTO Administration Lorazepam 1 mg 04/21/24 21:00 04/23/24 20:47 Lorazepam (*Crx) 1 Mg Tablet PO 1 mg HS FELIBERTO Administration Ondansetron HCl 4 mg 04/20/24 18:33 04/22/24 18:53 Ondansetron Inj 4 Mg/2 Ml Vial IV PUSH 4 mg Q4H PRN Administration Nausea Telmisartan 40 mg 04/23/24 09:00 04/24/24 10:01 Telmisartan 40 Mg Tablet PO Not Given DAILY FELIBERTO Radiology Results: ITS Impressions Head CT 04/20/24 16:35 IMPRESSION: No acute intracranial hemorrhage. 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 MRI evaluation is advised. Chest/Abdomen/Pelvis CT 04/20/24 19:20 IMPRESSION: CHEST: 1. 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 Further evaluation advised. 2. No acute cardiopulmonary pathology seen. ABDOMEN/PELVIS: 1. Thickened area in the sigmoid colon with surrounding fat stranding. The differential includes a mass or diverticulitis. Sigmoidoscopy is advised. 2. Rounded hypodense area in the left lobe of the liver. This may be a mass and this likely an abscess. Surrounding fat stranding is seen in the area. 3. Cholelithiasis. Abdomen Ultrasound 04/21/24 17:28 IMPRESSION: Heterogenous echogenicity of the liver suggestive of cirrhosis with a complex mass in the left lateral lobe. Further evaluation advised. Small stones with highly suggestive polyp in the anterior wall. Otherwise, normal right upper quadrant ultrasound. Brain MRI 04/22/24 08:04 IMPRESSION: 1. No acute intracranial process. 2. Nonspecific mild scattered white matter T2 hyperintensity which is within normal limits for age and likely sequela of chronic small vessel ischemic disease. Chest X-Ray 04/22/24 11:53 IMPRESSION: 1. Unchanged elevation of the left hemidiaphragm. No other acute cardiopulmonary disease. Abdomen MRI 04/23/24 10:08 IMPRESSION: 1. 5.1 cm cystic mass in left hepatic lobe, consistent with abscess or less likely neoplasm. 2. Cirrhosis of the liver. 3. Sigmoid diverticulitis with perforation. Labs Labs: Laboratory Results - last 24 hr 04/24/24 06:23 WBC 12.1 H RBC 3.40 L Hgb 10.1 L Hct 33.2 L MCV 97.6 D MCH 29.7 MCHC 30.4 L RDW 15.1 H Plt Count 323 MPV 9.8 Immature Gran % (Auto) 1.2 H Neut % (Auto) 69.5 Lymph % (Auto) 15.4 L [place] % (Auto) 9.9 H Eos % (Auto) 3.3 Baso % (Auto) 0.7 Lymph # (Auto) 1.87 [place] # (Auto) 1.2 H Eos # (Auto) 0.4 H Baso # (Auto) 0.1 Abs Immat Gran (auto) 0.15 H Absolute Neuts (auto) 8.4 H Absolute Nucleated RBC 0.000 Nucleated RBC % 0.0 Sodium 141 Potassium 4.0 Chloride 112 H Carbon Dioxide 25 Anion Gap 4 BUN 14 D Creatinine 0.80 Estim Creat Clear Calc 62 Estimated GFR > 60 Glucose 83 Calcium 8.6 Total Bilirubin 0.8 AST 51 H ALT 24 Alkaline Phosphatase 127 H Total Protein 6.0 L Albumin 2.9 L Quality VTE Prophylaxis VTE prophylaxis: pharmacologic ordered Hospitalist [facility] Advance Care Plan I have confirmed that the patient's Advanced Care Plan is present, code status is documented, or surrogate decision maker is listed in patient medical record.: Yes Medication Reconciliation I have utilized all available resources to obtain, update and review the patients current medications (includes all prescriptions, OTC, herbals, cannabis, and nutritional supplements).: Yes
--- NOTE | 2024-04-24 17:40 | WPDGIPROGNO ---
Progress Note: A&P Assessment and Plan (1) Liver abscess: Code(s): K75.0 - Abscess of liver Status: Acute Assessment and Plan: on iv abx and she is responding, no more pain and tolerating diet without any problem will need 4 weeks of abx, patient does not want IR to attempt drain of liver abscess I recommend to repeat MRI liver in 4 weeks to document healing of both diverticulitis and abscess she is still refusing colonoscopy as outpatient (2) Perforation of sigmoid colon due to diverticulitis: Code(s): K57.20 - Diverticulitis of large intestine with perforation and abscess without bleeding Status: Acute Assessment and Plan: surgery on board and diet was advanced, still no pain and doing well thus far is responding to iv abx she is also refusion colonoscopy- I recommend to get one in 4-6 weeks after resolution of active infection so we can rule out malignancy but she is against it (3) Cirrhosis: Code(s): K74.60 - Unspecified cirrhosis of liver Status: Acute Assessment and Plan: new diagnosis work up in progress (4) Acute kidney injury: Code(s): N17.9 - Acute kidney failure, unspecified Status: Acute (5) Normocytic anemia: Code(s): D64.9 - Anemia, unspecified Status: Acute (6) Sepsis: Code(s): A41.9 - Sepsis, unspecified organism Status: Acute Assessment and Plan: improved Subjective Date/time seen: 04/24/24 17:40 Interval history: no pain and actually doing much better, also she started eating again without any problem. Review of Systems Review of Systems: All systems reviewed & are unremarkable except as noted in HPI and below Exam Const: General: comfortable and no acute distress Orientation/consciousness: patient oriented x3 HENMT: Face/Nose/Sinus: Normal nares present Eyes: Sclera: sclerae normal Neck: Neck: supple Resp: Effort & Inspection: normal respiratory effort Cardio: Rate: regular rate GI: Inspection: non-distended GI Palp: Yes Soft to palpation, No Tenderness to palpation present (GI), No Guarding due to palpation present (GI) and No Rebound tenderness present Auscultation: normal bowel sounds Skin: General skin exam: normal color Neuro: Speech: normal speech Motor exam (neuro): 5/5 motor strength present throughout Extrem: General: normal to inspection Psych: Mental Status: mental status grossly normal Objective Data Vital Signs Vital Signs: Vital Signs - 24 hr 04/23/24 20:00 04/23/24 21:53 04/24/24 04:59 Temperature 98.7 F 98.2 F Pulse Rate 85 74 77 Respiratory Rate 17 14 14 Blood Pressure 108/56 L 110/59 L Pulse Oximetry 99 92 94 Oxygen Delivery Room Air Fraction of Inspired Oxygen 04/24/24 08:17 04/24/24 08:00 04/24/24 08:33 Temperature 97.1 F L Pulse Rate 72 Respiratory Rate 22 H Blood Pressure 112/61 111/66 Pulse Oximetry 95 94 Oxygen Delivery Room Air Fraction of Inspired Oxygen 21 04/24/24 08:33 04/24/24 08:30 04/24/24 13:48 Temperature 96.9 F L Pulse Rate 85 Respiratory Rate 20 Blood Pressure 119/67 126/60 Pulse Oximetry 98 Oxygen Delivery Room Air Fraction of Inspired Oxygen 21 Intake/Output Intake/Output: Intake & Output 04/21/24 04/22/24 04/23/24 04/24/24 23:59 23:59 23:59 23:59 Intake Total 3730.0 3326 2860 1261 Output Total 200 1200 175 300 Balance 3530.0 2126 2685 961 Meds/Results Medications: Active Medications Generic Name Dose Route Start Last Admin Trade Name Freq PRN Reason Stop Dose Admin Acetaminophen 650 mg 04/20/24 18:33 Acetaminophen 325 Mg Tablet PO Q4H PRN Mild Pain (1-3) or Fever Hydrocodone Bitart/Acetaminophen 1 tab 04/20/24 18:33 04/24/24 13:25 Hydrocodone/Acetaminophen (*Crx) 5-325 Mg Tablet PO 1 tab Q4H PRN Administration Pain Rated 4-6 Amoxicillin/Clavulanate Potassium 1 tablet 04/24/24 21:00 Amoxicillin/Clavulanate K 875-125 Mg Tab PO Q12HR [facility] Aspirin 81 mg 04/21/24 09:00 04/24/24 10:00 Aspirin 81 Mg Chewable Tablet PO Not Given DAILY FELIBERTO Enoxaparin Sodium 40 mg 04/21/24 09:00 04/24/24 08:41 Enoxaparin 40 Mg/0.4 Ml Syringe SUB-Q 40 mg DAILY FELIBERTO Administration Ferrous Sulfate 325 mg 04/23/24 09:00 04/24/24 10:00 Ferrous Sulfate [address] PO Not Given DAILY FELIBERTO Lorazepam 1 mg 04/21/24 21:00 04/23/24 20:47 Lorazepam (*Crx) 1 Mg Tablet PO 1 mg HS FELIBERTO Administration Metronidazole 500 mg 04/24/24 22:00 Metronidazole 500 Mg Tablet PO Q8HR FELIBERTO Ondansetron HCl 4 mg 04/20/24 18:33 04/22/24 18:53 Ondansetron Inj 4 Mg/2 Ml Vial IV PUSH 4 mg Q4H PRN Administration Nausea Telmisartan 40 mg 04/23/24 09:00 04/24/24 10:01 Telmisartan 40 Mg Tablet PO Not Given DAILY [facility] Radiology Results: ITS Impressions Head CT 04/20/24 16:35 IMPRESSION: No acute intracranial hemorrhage. 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 MRI evaluation is advised. Chest/Abdomen/Pelvis CT 04/20/24 19:20 IMPRESSION: CHEST: 1. 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 Further evaluation advised. 2. No acute cardiopulmonary pathology seen. ABDOMEN/PELVIS: 1. Thickened area in the sigmoid colon with surrounding fat stranding. The differential includes a mass or diverticulitis. Sigmoidoscopy is advised. 2. Rounded hypodense area in the left lobe of the liver. This may be a mass and this likely an abscess. Surrounding fat stranding is seen in the area. 3. Cholelithiasis. Abdomen Ultrasound 04/21/24 17:28 IMPRESSION: Heterogenous echogenicity of the liver suggestive of cirrhosis with a complex mass in the left lateral lobe. Further evaluation advised. Small stones with highly suggestive polyp in the anterior wall. Otherwise, normal right upper quadrant ultrasound. Brain MRI 04/22/24 08:04 IMPRESSION: 1. No acute intracranial process. 2. Nonspecific mild scattered white matter T2 hyperintensity which is within normal limits for age and likely sequela of chronic small vessel ischemic disease. Chest X-Ray 04/22/24 11:53 IMPRESSION: 1. Unchanged elevation of the left hemidiaphragm. No other acute cardiopulmonary disease. Abdomen MRI 04/23/24 10:08 IMPRESSION: 1. 5.1 cm cystic mass in left hepatic lobe, consistent with abscess or less likely neoplasm. 2. Cirrhosis of the liver. 3. Sigmoid diverticulitis with perforation. Labs Labs: Laboratory Results - last 24 hr 04/24/24 06:23 WBC 12.1 H RBC 3.40 L Hgb 10.1 L Hct 33.2 L MCV 97.6 D MCH 29.7 MCHC 30.4 L RDW 15.1 H Plt Count 323 MPV 9.8 Immature Gran % (Auto) 1.2 H Neut % (Auto) 69.5 Lymph % (Auto) 15.4 L [place] % (Auto) 9.9 H Eos % (Auto) 3.3 Baso % (Auto) 0.7 Lymph # (Auto) 1.87 [place] # (Auto) 1.2 H Eos # (Auto) 0.4 H Baso # (Auto) 0.1 Abs Immat Gran (auto) 0.15 H Absolute Neuts (auto) 8.4 H Absolute Nucleated RBC 0.000 Nucleated RBC % 0.0 Sodium 141 Potassium 4.0 Chloride 112 H Carbon Dioxide 25 Anion Gap 4 BUN 14 D Creatinine 0.80 Estim Creat Clear Calc 62 Estimated GFR > 60 Glucose 83 Calcium 8.6 Total Bilirubin 0.8 AST 51 H ALT 24 Alkaline Phosphatase 127 H Total Protein 6.0 L Albumin 2.9 L
[2024-04-24] MEDS: metroNIDAZOLE 500 MG TABLET PO (21:12)
[2024-04-24] MEDS: AMOXICILLIN/CLAVULANATE K 875-125 MG TAB 1 TABLET PO (21:12)
[2024-04-24] MEDS: LORazepam (*CRX) 1 MG TABLET PO (21:12)
[2024-04-25] MEDS: metroNIDAZOLE 500 MG TABLET PO ×3 (05:22→21:34)
[2024-04-25 06:00] VITALS: BP 113/56; PULSE 83; RESP 15; TEMP 36.7; O2SAT 94
[2024-04-25 06:19] LABS: Basophils Absolute Auto 0.1 K/mm3 (0.0-0.1); Basophils Percent Auto 0.4 % (0.2-1.2); Eosinophils Absolute Auto 0.1 K/mm3 (0-0.3); Eosinophils Percent Auto 0.9 % (0-4.4); Hematocrit 31.2 % (37.0-47.0); Hemoglobin 9.5 g/dL (12.0-15.0); Immature Granulocyte Absolute 0.18 K/mm3 (0.00-0.031); Immature Granulocyte Percent A 1.4 % (0-0.5); Lymphocytes Absolute Auto 1.76 K/mm3 (0.9-3.2); Mean Corpuscular HGB Conc 30.4 g/dl (32-36); Mean Corpuscular Hemoglobin 29.4 pg (26-34); Mean Corpuscular Volume 96.6 fl (80-100); Mean Platelet Volume 9.6 fl (7.4-10.4); Monocytes Absolute Auto 1.3 K/mm3 (0.1-0.6); Monocytes Percent Auto 10.1 % (2.6-8.5); Neutrophils Absolute Auto 9.2 K/mm3 (1.3-6.7); Neutrophils Percent Auto 73.2 % (45.5-73.1); Platelet Count Result 357 k/mm3 (150-375); Red Blood Count 3.23 M/mm3 (4.2-5.4); Red Cell Distribution Width 15.3 % (11.5-14.5); White Blood Count 12.5 K/mm3 (4.5-10.0)
[2024-04-25 06:35] LABS: Alanine Aminotransferase 22 U/L (6-35); Albumin Level 2.7 g/dL (3.5-5.1); Alkaline Phosphatase 136 U/L (38-126); Anion Gap 5 mmol/L (4-12); Aspartate Amino Transferase 41 U/L (14-36); Bilirubin,Total 0.7 mg/dL (0.2-1.3); Blood Urea Nitrogen 11 mg/dL (7-17); Calcium 8.5 mg/dL (8.4-10.2); Carbon Dioxide 25 mmol/L (22-30); Chloride 109 mmol/L (98-107); Estimated CRCL calculation 70 ml/min; Estimated Glomerular Filt Rate > 60; Glucose 122 mg/dL (65-110); Potassium 3.7 mmol/L (3.4-5.0); Sodium 139 mmol/L (137-145)
--- NOTE | 2024-04-25 08:26 | P.PNGS_ITS ---
Progress Note: A&P Assessment and Plan (1) Liver abscess: Code(s): K75.0 - Abscess of liver Status: Acute Assessment and Plan: exam benign, no acute surgical intervention at this point, cont abx x 4 wks, ok to dc on low fiber diet and abx, f/u 2 wks, repeat imaging after completion of abx course (2) Perforation of sigmoid colon due to diverticulitis: Code(s): K57.20 - Diverticulitis of large intestine with perforation and abscess without bleeding Status: Acute Assessment and Plan: see above Subjective Subjective Date/Time Seen: 04/25/24 08:26 Interval history: resting comfortably this am, keisha low fiber diet, no c/o Review of Systems Review of Systems: All systems reviewed & are unremarkable except as noted in HPI and below Exam Const: General: cooperative, comfortable and no acute distress Resp: Auscultation: clear to auscultation bilaterally Cardio: Rate: regular rate Rhythm: regular rhythm GI: Inspection: normal to inspection and non-distended GI Palp: No abdominal tenderness and Yes Soft to palpation Objective Data Vital Signs Vital Signs: Vital Signs - 24 hr 04/24/24 08:33 04/24/24 08:33 04/24/24 08:30 Temperature Pulse Rate Respiratory Rate Blood Pressure 111/66 119/67 Pulse Oximetry Oxygen Delivery Room Air Fraction of Inspired Oxygen 04/24/24 13:48 04/24/24 20:00 04/24/24 22:00 Temperature 36.1 C L 36.8 C Pulse Rate 85 85 85 Respiratory Rate 20 20 15 Blood Pressure 126/60 157/79 H Pulse Oximetry 98 98 98 Oxygen Delivery Room Air Fraction of Inspired Oxygen 04/25/24 06:00 Temperature 36.7 C Pulse Rate 83 Respiratory Rate 15 Blood Pressure 113/56 L Pulse Oximetry 94 Oxygen Delivery Fraction of Inspired Oxygen Intake/Output Intake/Output: Intake & Output 04/22/24 04/23/24 04/24/24 04/25/24 23:59 23:59 23:59 23:59 Intake Total 3326 2860 1261 175 Output Total 1200 175 300 150 Balance 4454 5650 961 25 Meds/Results Medications: Active Medications Generic Name Dose Route Start Last Admin Trade Name Freq PRN Reason Stop Dose Admin Acetaminophen 650 mg 04/20/24 18:33 Acetaminophen 325 Mg Tablet PO Q4H PRN Mild Pain (1-3) or Fever Hydrocodone Bitart/Acetaminophen 1 tab 04/20/24 18:33 04/24/24 13:25 Hydrocodone/Acetaminophen (*Crx) 5-325 Mg Tablet PO 1 tab Q4H PRN Administration Pain Rated 4-6 Amoxicillin/Clavulanate Potassium 1 tablet 04/24/24 21:00 04/24/24 21:12 Amoxicillin/Clavulanate K 875-125 Mg Tab PO 1 tablet Q12HR FELIBERTO Administration Aspirin 81 mg 04/21/24 09:00 04/24/24 10:00 Aspirin 81 Mg Chewable Tablet PO Not Given DAILY FELIBERTO Enoxaparin Sodium 40 mg 04/21/24 09:00 04/24/24 08:41 Enoxaparin 40 Mg/0.4 Ml Syringe SUB-Q 40 mg DAILY FELIBERTO Administration Ferrous Sulfate 325 mg 04/23/24 09:00 04/24/24 10:00 Ferrous Sulfate [address] PO Not Given DAILY [facility] Lorazepam 1 mg 04/21/24 21:00 04/24/24 21:12 Lorazepam (*Crx) 1 Mg Tablet PO 1 mg HS FELIBERTO Administration Metronidazole 500 mg 04/24/24 22:00 04/25/24 05:22 Metronidazole 500 Mg Tablet PO 500 mg Q8HR FELIBERTO Administration Ondansetron HCl 4 mg 04/20/24 18:33 04/22/24 18:53 Ondansetron Inj 4 Mg/2 Ml Vial IV PUSH 4 mg Q4H PRN Administration Nausea Telmisartan 40 mg 04/23/24 09:00 04/24/24 10:01 Telmisartan 40 Mg Tablet PO Not Given DAILY [facility] Radiology Results: ITS Impressions Head CT 04/20/24 16:35 IMPRESSION: No acute intracranial hemorrhage. 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 MRI evaluation is advised. Chest/Abdomen/Pelvis CT 04/20/24 19:20 IMPRESSION: CHEST: 1. 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 Further evaluation advised. 2. No acute cardiopulmonary pathology seen. ABDOMEN/PELVIS: 1. Thickened area in the sigmoid colon with surrounding fat stranding. The differential includes a mass or diverticulitis. Sigmoidoscopy is advised. 2. Rounded hypodense area in the left lobe of the liver. This may be a mass and this likely an abscess. Surrounding fat stranding is seen in the area. 3. Cholelithiasis. Abdomen Ultrasound 04/21/24 17:28 IMPRESSION: Heterogenous echogenicity of the liver suggestive of cirrhosis with a complex mass in the left lateral lobe. Further evaluation advised. Small stones with highly suggestive polyp in the anterior wall. Otherwise, normal right upper quadrant ultrasound. Brain MRI 04/22/24 08:04 IMPRESSION: 1. No acute intracranial process. 2. Nonspecific mild scattered white matter T2 hyperintensity which is within normal limits for age and likely sequela of chronic small vessel ischemic disease. Chest X-Ray 04/22/24 11:53 IMPRESSION: 1. Unchanged elevation of the left hemidiaphragm. No other acute cardiopulmonary disease. Abdomen MRI 04/23/24 10:08 IMPRESSION: 1. 5.1 cm cystic mass in left hepatic lobe, consistent with abscess or less likely neoplasm. 2. Cirrhosis of the liver. 3. Sigmoid diverticulitis with perforation. Labs Labs: Laboratory Results - last 24 hr 04/25/24 06:05 WBC 12.5 H RBC 3.23 L Hgb 9.5 L Hct 31.2 L MCV 96.6 MCH 29.4 MCHC 30.4 L RDW 15.3 H Plt Count 357 MPV 9.6 Immature Gran % (Auto) 1.4 H Neut % (Auto) 73.2 H Lymph % (Auto) 14.0 L [place] % (Auto) 10.1 H Eos % (Auto) 0.9 Baso % (Auto) 0.4 Lymph # (Auto) 1.76 [place] # (Auto) 1.3 H Eos # (Auto) 0.1 Baso # (Auto) 0.1 Abs Immat Gran (auto) 0.18 H Absolute Neuts (auto) 9.2 H Absolute Nucleated RBC 0.000 Nucleated RBC % 0.0 Sodium 139 Potassium 3.7 Chloride 109 H Carbon Dioxide 25 Anion Gap 5 BUN 11 Creatinine 0.70 Estim Creat Clear Calc 70 Estimated GFR > 60 Glucose 122 H Calcium 8.5 Total Bilirubin 0.7 AST 41 H ALT 22 Alkaline Phosphatase 136 H Total Protein 6.0 L Albumin 2.7 L
[2024-04-25] MEDS: TELMISARTAN 40 MG TABLET PO (09:32)
[2024-04-25] MEDS: ASPIRIN 81 MG CHEWABLE TABLET PO (09:32)
[2024-04-25] MEDS: FERROUS SULFATE 325 MG TABLET DR PO (09:32)
[2024-04-25] MEDS: AMOXICILLIN/CLAVULANATE K 875-125 MG TAB 1 TABLET PO ×2 (09:32→21:34)
--- NOTE | 2024-04-25 10:15 | PCPTNOTE ---
Patient refused PT at this time stating I am too tired at the moment. Maybe I can do it later. Educated patient on the importance of participating in PT to improve strength and endurance. PT will continue to follow per plan of care.
[2024-04-25 10:39] LABS: Ceruloplasmin 42 mg/dL (14-48)
[2024-04-25 11:23] LABS: Alpha Fetoprotein Tumor Marker 1.1 ng/mL
[2024-04-25] MEDS: ENOXAPARIN 40 MG/0.4 ML SYRINGE SUB-Q (12:00)
[2024-04-25 14:00] VITALS: BP 118/63; PULSE 79; RESP 14; TEMP 36.5; O2SAT 95
[2024-04-25 14:05] VITALS: BP 127/64
--- NOTE | 2024-04-25 14:08 | P.PNIM_ITS ---
Progress Note: A&P Assessment and Plan (1) Diverticulitis: Code(s): K57.92 - Diverticulitis of intestine, part unspecified, without perforation or abscess without bleeding Status: Acute Assessment and Plan: 04/21/24: * CT of the abdomen/pelvis/chest negative for any acute cardiopulmonary disease, showed thickened area in the sigmoid colon with surrounding fat stranding which could be a mass or diverticulitis, rounded hypodense area in the left lobe of the liver. * Ultrasound of the abdomen is still pending * Started on Zosyn and Rocephin * GI consult 04/22/24: * Continue Zosyn * Ultrasound of the shown heterogenerous echogenicity of the liver suggestive of cirrhosis with a complex mass in the left lateral lobe, small stones with high suggestive polyp in the anterior wall. * GI consulted * Plan for MRI the abdomen * Additional hepatic labs pending 04/23/24: * Continue with current treatment plan * MRI of the abdomen 5.1 cm cystic mass in left hepatic lobe, consistent with abscess or less likely neoplasm, cirrhosis of the liver, sigmoid diverticulitis with perforation * GI following 04/24/24: * Continue current treatment plan 04/25: Patient cleared by surgery for discharge, remains hospitalized due to dyspnea with labored breathing. Will leave with 4 weeks of oral antibiotics, hopefully tomorrow. (2) Acute kidney injury: Code(s): N17.9 - Acute kidney failure, unspecified Status: Acute Assessment and Plan: 04/21/24: * Initial creatinine 2.0 now down to 1.3 * Unsure of patient's baseline * Continue to trend 04/22/24: * Creatinine down to baseline 1.0 * Continue to trend 04/23/24: * resolved (3) Lesion of left lobe of liver: Code(s): K76.9 - Liver disease, unspecified Status: Acute Assessment and Plan: 04/21/24: * CT of the abdomen/pelvis/chest showing rounded hypodense area in the left lobe of the liver * Ultrasound of the abdomen is still pending * GI consulted 04/22/24: * Ultrasound of the abdomen showing in is echogenicity of the liver suggestive of cirrhosis with a complex mass in the left lateral lobe couple small stones with highly suggestive polyp in the anterior wall * GI following * Plan for MRI of the liver * Hepatic workup pending 04/23/24: * MRI of the abdomen showing 5.1 cm cystic mass in left hepatic lobe, consistent with abscess or less likely neoplasm, cirrhosis of the liver, sigmoid diverticulitis with perforation. * GI following 04/24/24: * general surgery seen patient today and is recommending nonsurgical treatment with long course of antibiotic * will switch Zosyn to Augmentin and Flagyl p.o. today. We could not do Cipro due to her Aortic aneurysm. * General surgery recommends 5-6 weeks of antibiotics for both the liver abscess and diverticulitis. * GI following 04/25: Patient cleared by surgery for discharge, remains hospitalized due to dyspnea with labored breathing. Will leave with 4 weeks of oral antibiotics, hopefully tomorrow. (4) Cholelithiasis: Code(s): K80.20 - Calculus of gallbladder without cholecystitis without obstruction Status: Acute Assessment and Plan: 04/21/24: * Noted on CT of the abdomen/pelvis/chest 04/22/24: * No change (5) Normocytic anemia: Code(s): D64.9 - Anemia, unspecified Status: Acute Assessment and Plan: 04/21/24: * Hemoglobin 11.5, iron 18, total iron binding capacity 191, ferritin 337 04/22/24: * Hemoglobin 10.2 * Will start ferrous sulfate 04/23/24: * Hgb 9.9 * No change to current treatment plan 04/24/24: * essentially stable * no change to current treatment plan (6) Descending aortic aneurysm: Code(s): I71.9 - Aortic aneurysm of unspecified site, without rupture Status: Acute Assessment and Plan: 04/21/24: * Noted on CT, will need follow-up on an outpatient basis 04/22/24: * No change Time Spent With Patient Time with patient: Greater than 35 minutes Subjective Date/time seen: 04/25/24 14:08 Interval history: Patient is tolerating a diet well. She had a significant coughing fit earlier today and feels a little dyspneic. Lungs are clear but she is using some accessory muscles with mildly labored breathing on room air. Saturations are normal. Recent chest x-ray is normal. No fevers. Nontender abdomen. Loose stools with incontinence. Review of Systems Review of Systems: All systems reviewed & are unremarkable except as noted in HPI and below Exam Narrative: General: Mild labored breathing, awake alert Head: atraumatic, no encephalopathy Eyes: EOMI, PERRLA, sclera clear ENT: moist mucous membranes, nasal passages clear Neck: supple, no JVD, no adenopathy, trachea midline Cardiac: Normal S1 and S2. Murmur noted, No gallops or friction rubs, peripheral pulses intact. Respiratory: Lungs clear to auscultation, no adventitious lung sounds, currently on room air Gastrointestinal: soft, non-distended, non-tender, normoactive bowel sounds. Extremities: moves all extremities well, no edema, good ROM, strength 5/5 Skin: clean, dry, intact. No wounds or lesions. Neuro: Alert and oriented x4, cranial nerves intact, no neuro deficits. Psych: normal mood, normal affect, interactive Objective Data Vital Signs Vital Signs: Vital Signs - 24 hr 04/24/24 20:00 04/24/24 22:00 04/25/24 06:00 Temperature 36.8 C 36.7 C Pulse Rate 85 85 83 Respiratory Rate 20 15 15 Blood Pressure 157/79 H 113/56 L Pulse Oximetry 98 98 94 Oxygen Delivery Room Air Fraction of Inspired Oxygen 21 Intake/Output Intake/Output: Intake & Output 04/22/24 04/23/24 04/24/24 04/25/24 23:59 23:59 23:59 23:59 Intake Total 3326 2860 1261 651 Output Total 1200 175 300 150 Balance 2126 2685 961 501 Meds/Results Medications: Active Medications Generic Name Dose Route Start Last Admin Trade Name Freq PRN Reason Stop Dose Admin Acetaminophen 650 mg 04/20/24 18:33 Acetaminophen 325 Mg Tablet PO Q4H PRN Mild Pain (1-3) or Fever Hydrocodone Bitart/Acetaminophen 1 tab 04/20/24 18:33 04/24/24 13:25 Hydrocodone/Acetaminophen (*Crx) 5-325 Mg Tablet PO 1 tab Q4H PRN Administration Pain Rated 4-6 Amoxicillin/Clavulanate Potassium 1 tablet 04/24/24 21:00 04/25/24 09:32 Amoxicillin/Clavulanate K 875-125 Mg Tab PO 1 tablet Q12HR FELIBERTO Administration Aspirin 81 mg 04/21/24 09:00 04/25/24 09:32 Aspirin 81 Mg Chewable Tablet PO 81 mg DAILY FELIBERTO Administration Enoxaparin Sodium 40 mg 04/21/24 09:00 04/24/24 08:41 Enoxaparin 40 Mg/0.4 Ml Syringe SUB-Q 40 mg DAILY FELIBERTO Administration Ferrous Sulfate 325 mg 04/23/24 09:00 04/25/24 09:32 Ferrous Sulfate [address] PO 325 mg DAILY FELIBERTO Administration Lorazepam 1 mg 04/21/24 21:00 04/24/24 21:12 Lorazepam (*Crx) 1 Mg Tablet PO 1 mg HS FELIBERTO Administration Metronidazole 500 mg 04/24/24 22:00 04/25/24 05:22 Metronidazole 500 Mg Tablet PO 500 mg Q8HR FELIBERTO Administration Ondansetron HCl 4 mg 04/20/24 18:33 04/22/24 18:53 Ondansetron Inj 4 Mg/2 Ml Vial IV PUSH 4 mg Q4H PRN Administration Nausea Telmisartan 40 mg 04/23/24 09:00 04/25/24 09:32 Telmisartan 40 Mg Tablet PO 40 mg DAILY FELIBERTO Administration Radiology Results: ITS Impressions Head CT 04/20/24 16:35 IMPRESSION: No acute intracranial hemorrhage. 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 MRI evaluation is advised. Chest/Abdomen/Pelvis CT 04/20/24 19:20 IMPRESSION: CHEST: 1. 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 Further evaluation advised. 2. No acute cardiopulmonary pathology seen. ABDOMEN/PELVIS: 1. Thickened area in the sigmoid colon with surrounding fat stranding. The differential includes a mass or diverticulitis. Sigmoidoscopy is advised. 2. Rounded hypodense area in the left lobe of the liver. This may be a mass and this likely an abscess. Surrounding fat stranding is seen in the area. 3. Cholelithiasis. Abdomen Ultrasound 04/21/24 17:28 IMPRESSION: Heterogenous echogenicity of the liver suggestive of cirrhosis with a complex mass in the left lateral lobe. Further evaluation advised. Small stones with highly suggestive polyp in the anterior wall. Otherwise, normal right upper quadrant ultrasound. Brain MRI 04/22/24 08:04 IMPRESSION: 1. No acute intracranial process. 2. Nonspecific mild scattered white matter T2 hyperintensity which is within normal limits for age and likely sequela of chronic small vessel ischemic disease. Chest X-Ray 04/22/24 11:53 IMPRESSION: 1. Unchanged elevation of the left hemidiaphragm. No other acute cardiopulmonary disease. Abdomen MRI 04/23/24 10:08 IMPRESSION: 1. 5.1 cm cystic mass in left hepatic lobe, consistent with abscess or less likely neoplasm. 2. Cirrhosis of the liver. 3. Sigmoid diverticulitis with perforation. Labs Labs: Laboratory Results - last 24 hr 04/23/24 04/25/24 06:07 06:05 WBC 12.5 H RBC 3.23 L Hgb 9.5 L Hct 31.2 L MCV 96.6 MCH 29.4 MCHC 30.4 L RDW 15.3 H Plt Count 357 MPV 9.6 Immature Gran % (Auto) 1.4 H Neut % (Auto) 73.2 H Lymph % (Auto) 14.0 L [place] % (Auto) 10.1 H Eos % (Auto) 0.9 Baso % (Auto) 0.4 Lymph # (Auto) 1.76 [place] # (Auto) 1.3 H Eos # (Auto) 0.1 Baso # (Auto) 0.1 Abs Immat Gran (auto) 0.18 H Absolute Neuts (auto) 9.2 H Absolute Nucleated RBC 0.000 Nucleated RBC % 0.0 Sodium 139 Potassium 3.7 Chloride 109 H Carbon Dioxide 25 Anion Gap 5 BUN 11 Creatinine 0.70 Estim Creat Clear Calc 70 Estimated GFR > 60 Glucose 122 H Calcium 8.5 Total Bilirubin 0.7 AST 41 H ALT 22 Alkaline Phosphatase 136 H Total Protein 6.0 L Albumin 2.7 L Ceruloplasmin 42 Alpha Fetoprotein 1.1 Pulse Oximetry SpO2 results: 94-98% on room air Attestation: I personally reviewed and interpreted this pulse oximetry as follows: Interpretation: No need for supplemental oxygenation at this time Quality VTE Prophylaxis VTE prophylaxis: pharmacologic ordered Hospitalist [facility] Advance Care Plan I have confirmed that the patient's Advanced Care Plan is present, code status is documented, or surrogate decision maker is listed in patient medical record.: Yes Medication Reconciliation I have utilized all available resources to obtain, update and review the patients current medications (includes all prescriptions, OTC, herbals, cannabis, and nutritional supplements).: Yes
[2024-04-25 14:10] VITALS: BP 126/58
--- NOTE | 2024-04-25 14:54 | PCPTNOTE ---
Patient refused treatment this session stating she was still too tired and just wants to get a good rest and sleep. PT will continue to follow patient per plan of care.
--- NOTE | 2024-04-25 18:41 | P.PNGI_ITS ---
Progress Note: A&P Assessment and Plan (1) Liver abscess: Code(s): K75.0 - Abscess of liver Status: Acute Assessment and Plan: on iv abx and she is responding, no more pain and tolerating diet without any problem will need at least 4 weeks of abx, patient does not want IR to attempt drain of liver abscess I recommend to repeat MRI liver in 4 weeks to document healing of both diverticulitis and abscess she is still refusing colonoscopy as outpatient will follow as needed (2) Perforation of sigmoid colon due to diverticulitis: Code(s): K57.20 - Diverticulitis of large intestine with perforation and abscess without bleeding Status: Acute Assessment and Plan: surgery on board and diet was advanced, still no pain and doing well thus far is responding to iv abx she is also refusion colonoscopy- I recommend to get one in 4-6 weeks after resolution of active infection so we can rule out malignancy but she is against it (3) Cirrhosis: Code(s): K74.60 - Unspecified cirrhosis of liver Status: Acute Assessment and Plan: new diagnosis work up in progress she can follow-up in office after discharge (4) Normocytic anemia: Code(s): D64.9 - Anemia, unspecified Status: Acute (5) Sepsis: Code(s): A41.9 - Sepsis, unspecified organism Status: Acute Assessment and Plan: improved Subjective Date/time seen: 04/25/24 18:41 Interval history: no pain and eating Review of Systems Review of Systems: All systems reviewed & are unremarkable except as noted in HPI and below Exam Const: General: comfortable and no acute distress Orientation/consciousness: patient oriented x3 HENMT: Face/Nose/Sinus: Normal nares present Eyes: Sclera: sclerae normal Neck: Neck: supple Resp: Effort & Inspection: normal respiratory effort Cardio: Rate: regular rate GI: Inspection: non-distended GI Palp: Yes Soft to palpation, No Tenderness to palpation present (GI), No Guarding due to palpation present (GI) and No Rebound tenderness present Auscultation: normal bowel sounds Skin: General skin exam: normal color Neuro: Speech: normal speech Motor exam (neuro): 5/5 motor strength present throughout Extrem: General: normal to inspection Psych: Mental Status: mental status grossly normal Objective Data Vital Signs Vital Signs: Vital Signs - 24 hr 04/24/24 20:00 04/24/24 22:00 04/25/24 06:00 Temperature 98.3 F 98.1 F Pulse Rate 85 85 83 Respiratory Rate 20 15 15 Blood Pressure 157/79 H 113/56 L Pulse Oximetry 98 98 94 Oxygen Delivery Room Air Fraction of Inspired Oxygen 21 04/25/24 14:00 04/25/24 14:00 04/25/24 14:05 Temperature 97.7 F Pulse Rate 79 Respiratory Rate 14 Blood Pressure 118/63 118/63 127/64 Pulse Oximetry 95 Oxygen Delivery Fraction of Inspired Oxygen 04/25/24 14:10 04/25/24 08:00 Temperature Pulse Rate Respiratory Rate Blood Pressure 126/58 L Pulse Oximetry Oxygen Delivery Room Air Fraction of Inspired Oxygen 21 Intake/Output Intake/Output: Intake & Output 04/22/24 04/23/24 04/24/24 04/25/24 23:59 23:59 23:59 23:59 Intake Total 3326 2860 1261 771 Output Total 1200 175 300 450 Balance 2126 2685 961 321 Meds/Results Medications: Active Medications Generic Name Dose Route Start Last Admin Trade Name Freq PRN Reason Stop Dose Admin Acetaminophen 650 mg 04/20/24 18:33 Acetaminophen 325 Mg Tablet PO Q4H PRN Mild Pain (1-3) or Fever Hydrocodone Bitart/Acetaminophen 1 tab 04/20/24 18:33 04/24/24 13:25 Hydrocodone/Acetaminophen (*Crx) 5-325 Mg Tablet PO 1 tab Q4H PRN Administration Pain Rated 4-6 Amoxicillin/Clavulanate Potassium 1 tablet 04/24/24 21:00 04/25/24 09:32 Amoxicillin/Clavulanate K 875-125 Mg Tab PO 1 tablet Q12HR FELIBERTO Administration Aspirin 81 mg 04/21/24 09:00 04/25/24 09:32 Aspirin 81 Mg Chewable Tablet PO 81 mg DAILY FELIBERTO Administration Enoxaparin Sodium 40 mg 04/21/24 09:00 04/25/24 12:00 Enoxaparin 40 Mg/0.4 Ml Syringe SUB-Q 40 mg DAILY FELIBERTO Administration Ferrous Sulfate 325 mg 04/23/24 09:00 04/25/24 09:32 Ferrous Sulfate [address] PO 325 mg DAILY FELIBERTO Administration Lorazepam 1 mg 04/21/24 21:00 04/24/24 21:12 Lorazepam (*Crx) 1 Mg Tablet PO 1 mg HS FELIBERTO Administration Metronidazole 500 mg 04/24/24 22:00 04/25/24 15:24 Metronidazole 500 Mg Tablet PO 500 mg Q8HR FELIBERTO Administration Ondansetron HCl 4 mg 04/20/24 18:33 04/22/24 18:53 Ondansetron Inj 4 Mg/2 Ml Vial IV PUSH 4 mg Q4H PRN Administration Nausea Telmisartan 40 mg 04/23/24 09:00 04/25/24 09:32 Telmisartan 40 Mg Tablet PO 40 mg DAILY FELIBERTO Administration Radiology Results: ITS Impressions Head CT 04/20/24 16:35 IMPRESSION: No acute intracranial hemorrhage. 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 MRI evaluation is advised. Chest/Abdomen/Pelvis CT 04/20/24 19:20 IMPRESSION: CHEST: 1. 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 Further evaluation advised. 2. No acute cardiopulmonary pathology seen. ABDOMEN/PELVIS: 1. Thickened area in the sigmoid colon with surrounding fat stranding. The differential includes a mass or diverticulitis. Sigmoidoscopy is advised. 2. Rounded hypodense area in the left lobe of the liver. This may be a mass and this likely an abscess. Surrounding fat stranding is seen in the area. 3. Cholelithiasis. Abdomen Ultrasound 04/21/24 17:28 IMPRESSION: Heterogenous echogenicity of the liver suggestive of cirrhosis with a complex mass in the left lateral lobe. Further evaluation advised. Small stones with highly suggestive polyp in the anterior wall. Otherwise, normal right upper quadrant ultrasound. Brain MRI 04/22/24 08:04 IMPRESSION: 1. No acute intracranial process. 2. Nonspecific mild scattered white matter T2 hyperintensity which is within normal limits for age and likely sequela of chronic small vessel ischemic disease. Chest X-Ray 04/22/24 11:53 IMPRESSION: 1. Unchanged elevation of the left hemidiaphragm. No other acute cardiopulmonary disease. Abdomen MRI 04/23/24 10:08 IMPRESSION: 1. 5.1 cm cystic mass in left hepatic lobe, consistent with abscess or less likely neoplasm. 2. Cirrhosis of the liver. 3. Sigmoid diverticulitis with perforation. Labs Labs: Laboratory Results - last 24 hr 04/23/24 04/25/24 06:07 06:05 WBC 12.5 H RBC 3.23 L Hgb 9.5 L Hct 31.2 L MCV 96.6 MCH 29.4 MCHC 30.4 L RDW 15.3 H Plt Count 357 MPV 9.6 Immature Gran % (Auto) 1.4 H Neut % (Auto) 73.2 H Lymph % (Auto) 14.0 L [place] % (Auto) 10.1 H Eos % (Auto) 0.9 Baso % (Auto) 0.4 Lymph # (Auto) 1.76 [place] # (Auto) 1.3 H Eos # (Auto) 0.1 Baso # (Auto) 0.1 Abs Immat Gran (auto) 0.18 H Absolute Neuts (auto) 9.2 H Absolute Nucleated RBC 0.000 Nucleated RBC % 0.0 Sodium 139 Potassium 3.7 Chloride 109 H Carbon Dioxide 25 Anion Gap 5 BUN 11 Creatinine 0.70 Estim Creat Clear Calc 70 Estimated GFR > 60 Glucose 122 H Calcium 8.5 Total Bilirubin 0.7 AST 41 H ALT 22 Alkaline Phosphatase 136 H Total Protein 6.0 L Albumin 2.7 L Ceruloplasmin 42 Alpha Fetoprotein 1.1
[2024-04-25 20:06] VITALS: BP 133/61; PULSE 90; RESP 20; TEMP 37.6; O2SAT 96
[2024-04-25] MEDS: LORazepam (*CRX) 1 MG TABLET PO (21:34)
[2024-04-26] VITALS (14 sets, daily range): BP systolic 106–116; BP diastolic 56–62; PULSE 67–122; RESP 18–26; TEMP 36.2–37.5; O2SAT 88–97
--- NOTE | 2024-04-26 | ECHO_ITS ---
Patient Info Name: Vero Mcknight Age: 78 years : 1945 Gender: Female Ht: 69 in Wt: 208 lbs BSA: 2.17 m2 HR: 95 bpm BP: 109 / 57 mmHg Heart Rhythm: Atrial Fibrillation Technical Quality: Fair Exam Date: 04/26/2024 8:32 AM Exam Location: Echo Lab Patient Status: Inpatient Admit Date: 04/22/2024 Staff Ordering Physician: Lynn Patel DO Cloth Baler: Skylar Ma RDCS Attending Provider: Frida Bui APRN Referring Physician: Amanda HERNANDEZ; Exam Type: CA echo doppler color flow Study Info Indications - murmur, hypoxia Complete two-dimensional, color flow and Doppler transthoracic echocardiogram is performed. Summary 1. Complete two-dimensional, color flow and Doppler transthoracic echocardiogram is performed. 2. Left ventricular chamber dimension is normal. 3. Left ventricular systolic function is hyperdynamic, estimated at >70%. 4. The left ventricular diastolic function is abnormal. 5. E/e' 13 is mildly elevated. 6. Atrial fibrillation. 7. Left atrial chamber dimension is moderately enlarged. 8. There is severe aortic valve sclerosis. 9. There is moderate aortic valve stenosis with a peak velocity of 307 cm/s, mean gradient of 18 mmHg, and aortic valve area of 1.0 cm2. 10. The mitral valve has severely calcified annulus. 11. No pulmonary hypertension, estimated pulmonary arterial systolic pressure is 35 mmHg. Left Ventricle E/e' 13 is mildly elevated. Atrial fibrillation. Left ventricular chamber dimension is normal. Left ventricular systolic function is hyperdynamic, estimated at >70%. The left ventricular diastolic function is abnormal. Right Ventricle Right ventricular systolic function is normal and with normal TAPSE 1.9 cm. Right ventricular chamber dimension is normal. Left Atria Left atrial chamber dimension is moderately enlarged. Right Atria Right atrial chamber dimension is normal. Aortic Valve The aortic valve is trileaflet. There is severe aortic valve sclerosis. There is moderate aortic valve stenosis with a peak velocity of 307 cm/s, mean gradient of 18 mmHg, and aortic valve area of 1.0 cm2. There is no aortic valve regurgitation. Pulmonic Valve There is no pulmonic regurgitation. Mitral Valve The mitral valve has severely calcified annulus. There is no mitral valve stenosis. There is no mitral valve regurgitation. Tricuspid Valve There is no tricuspid valve regurgitation. No pulmonary hypertension, estimated pulmonary arterial systolic pressure is 35 mmHg. Pericardium/Pleural There is no pericardial effusion. Inferior Vena Cava Normal inferior vena cava with >50% collapse upon inspiration consistent with normal right atrial pressure, 5 mmHg. Aorta The aortic root size at the sinus of Valsalva is normal. Left Ventricular Outflow Tract Name Value Normal LVOT 2D LVOT Diameter 2.0 cm LVOT Doppler LVOT Peak Gradient 3 mmHg LVOT Mean Gradient 2 mmHg LVOT VTI 17 cm LVOT VTI/AV VTI Ratio 0.3 LVOT Stroke Volume 55 ml LVOT CO 5.1 l/min LVOT CI 2.4 l/min/m2 Pulmonic Valve Name Value Normal RVOT Doppler RVOT Peak Gradient 2 mmHg PV Doppler PV Peak Gradient 9 mmHg Mitral Valve Name Value Normal MV Doppler MV Decel Emanuel 937 cm/s2 MV PHT 35 ms MV Area (PHT) 6.4 cm2 4.0-5.0 MV Diastolic Function MV E Peak Velocity 112 cm/s MV A Peak Velocity 3 cm/s MV E/A 35.6 MV Decel Time 119 ms MV Annular TDI MV E/e' (Septal) 14.9 <=8.0 MV E/e' (Lateral) 11.3 <=8.0 MV E/e' (Average) 13.1 Tricuspid Valve Name Value Normal TV Regurgitation Doppler TR Peak Velocity 276 cm/s TR Peak Gradient 28 mmHg Estimated PAP/RSVP RA Pressure 5 mmHg <=5 PA Systolic Pressure 35 mmHg <36 RV Systolic Pressure 35 mmHg <36 Aortic Valve Name Value Normal AV Doppler AV Peak Velocity 307 cm/s AV Peak Gradient 34 mmHg AV Mean Gradient 18 mmHg AV VTI 58 cm AV Area (Cont Eq VTI) 1.0 cm2 >=3.0 AV Area (Cont Eq Raul) 1.0 cm2 AV Regurgitation 2D LVOT Area 3.2 cm2 Ventricles Name Value Normal LV Dimensions 2D/MM LVOT Diameter 2.0 cm LV Fractional Shortening/Ejection Fraction 2D/MM LV Diastolic Volume (4C MOD) 31 ml LV EF (4C MOD) 54 % LV Diastolic Volume (2C MOD) 15 ml LV EF (2C MOD) 59 % LV Diastolic Volume (BP MOD) 21 ml 46-106 LV Diastolic Volume Index (BP MOD) 10 ml/m2 29-61 LV Systolic Volume (BP MOD) 10 ml 14-42 LV Systolic Volume Index (BP MOD) 5 ml/m2 8-24 LV EF (BP MOD) 54 % 54-74 LV Diastolic Length (4C) 6.3 cm LV Systolic Length (4C) 5.8 cm LV Stroke Volume (4C MOD) 16 ml Atria Name Value Normal LA Dimensions LA Volume (4C A-L) 82 ml LA Volume (BP A-L) 80 ml RA Dimensions RA Area (4C) 14.4 cm2 <=18.0 Report Signatures
--- NOTE | 2024-04-26 06:21 | P.PNCROSS_ITS ---
Event Note Event Note Event Note: Nursing staff called as patient acute development of shortness of breath and di fficulty breathing. Patient's pulse ox was in the upper 80s. She was placed on 2.5 L nasal cannula. On exam she had crackles at the bases bilaterally with mild tachypnea. He had 1 to 2+ pitting edema of the lower extremities up through the knees. Her abdomen was benign soft with normoactive bowel sounds. She had no evidence of JVD but did have a murmur heard best at left upper sternal border. She denies any known history of CHF. However she is approximately 8 L fluid positive since admission. Her supplemental IV fluids were discontinued yesterday. Stat chest x-ray personally reviewed and interpreted by myself with radiologic interpretation pending demonstrated pulmonary edema her may be a small effusion. The patient reports that she feels more comfortable on oxygen. I suspect the patient likely has some diastolic heart failure or heart failure due to valvular disease. Will obtain BNP with a.m. labs and will place patient on telemetry and check echocardiogram to further evaluate cardiac structure and function. 30 minute spent in critical care activities. Due to a high probability of clinically significant, life threatening deterioration, the patient required my highest level of preparedness to intervene emergently and I personally spent this critical care time directly and personally managing the patient. This critical care time included obtaining a history; examining the patient; pulse oximetry; ordering and review of studies; arranging urgent treatment with development of a management plan; evaluation of patient's response to treatment; frequent reassessment; and discussions with other providers. It was exclusive of separately billable procedures and treating other patients and teaching time. Please see Assessment and Plan section and the rest of the note for further information on patient assessment and treatment.
[2024-04-26] MEDS: metroNIDAZOLE 500 MG TABLET PO ×3 (06:50→20:33)
[2024-04-26 07:15] LABS: Basophils Absolute Auto 0.1 K/mm3 (0.0-0.1); Basophils Percent Auto 0.4 % (0.2-1.2); Eosinophils Absolute Auto 0.2 K/mm3 (0-0.3); Eosinophils Percent Auto 1.6 % (0-4.4); Hematocrit 30.5 % (37.0-47.0); Hemoglobin 9.6 g/dL (12.0-15.0); Immature Granulocyte Absolute 0.22 K/mm3 (0.00-0.031); Immature Granulocyte Percent A 1.7 % (0-0.5); Lymphocytes Absolute Auto 1.44 K/mm3 (0.9-3.2); Lymphocytes Percent Auto 11.2 % (18.3-44.2); Mean Corpuscular HGB Conc 31.5 g/dl (32-36); Mean Corpuscular Hemoglobin 29.6 pg (26-34); Mean Corpuscular Volume 94.1 fl (80-100); Mean Platelet Volume 9.5 fl (7.4-10.4); Monocytes Absolute Auto 1.1 K/mm3 (0.1-0.6); Monocytes Percent Auto 8.9 % (2.6-8.5); Neutrophils Absolute Auto 9.8 K/mm3 (1.3-6.7); Neutrophils Percent Auto 76.2 % (45.5-73.1); Platelet Count Result 354 k/mm3 (150-375); Red Blood Count 3.24 M/mm3 (4.2-5.4); White Blood Count 12.8 K/mm3 (4.5-10.0)
[2024-04-26 07:32] LABS: Alanine Aminotransferase 17 U/L (6-35); Albumin Level 2.6 g/dL (3.5-5.1); Alkaline Phosphatase 138 U/L (38-126); Anion Gap 2 mmol/L (4-12); Aspartate Amino Transferase 39 U/L (14-36); Bilirubin,Total 0.5 mg/dL (0.2-1.3); Blood Urea Nitrogen 8 mg/dL (7-17); Calcium 8.1 mg/dL (8.4-10.2); Carbon Dioxide 30 mmol/L (22-30); Chloride 108 mmol/L (98-107); Estimated CRCL calculation 80 ml/min; Estimated Glomerular Filt Rate > 60; Glucose 101 mg/dL (65-110); Sodium 140 mmol/L (137-145)
[2024-04-26 07:35] LABS: NT Pro B Type Natriuretic Pept 6450 pg/mL (19.9-100)
--- NOTE | 2024-04-26 08:22 | P.PNIM_ITS ---
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 No prior history of CHF but patient appears to be fluid overloaded Will need discussion patient regarding anticoagulation RVR improved in the afternoon without specific treatment but remains atrial fibrillation in the 80s at 4:00 p.m.. 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 No prior history of CHF but patient appears to be fluid overloaded echocardiogram with hyperdynamic LVEF greater than 70%, grade 1 diastolic dysfunction with E/e' 13 (3) Perforation of sigmoid colon due to diverticulitis: Code(s): K57.20 - Diverticulitis of large intestine with perforation and abscess without bleeding Status: Acute Assessment and Plan: 04/26: on oral antibiotics which will need to be continued for 4 weeks after discharge (4) Lesion of left lobe of liver: Code(s): K76.9 - Liver disease, unspecified Status: Acute Assessment and Plan: 04/21/24: * CT of the abdomen/pelvis/chest showing rounded hypodense area in the left lobe of the liver * Ultrasound of the abdomen is still pending * GI consulted 04/22/24: * Ultrasound of the abdomen showing in is echogenicity of the liver suggestive of cirrhosis with a complex mass in the left lateral lobe couple small stones with highly suggestive polyp in the anterior wall * GI following * Plan for MRI of the liver * Hepatic workup pending 04/23/24: * MRI of the abdomen showing 5.1 cm cystic mass in left hepatic lobe, consistent with abscess or less likely neoplasm, cirrhosis of the liver, sigmoid diverticulitis with perforation. * GI following 04/24/24: * general surgery seen patient today and is recommending nonsurgical treatment with long course of antibiotic * will switch Zosyn to Augmentin and Flagyl p.o. today. We could not do Cipro due to her Aortic aneurysm. * General surgery recommends 5-6 weeks of antibiotics for both the liver abscess and diverticulitis. * GI following 04/25: Patient cleared by surgery for discharge, remains hospitalized due to dyspnea with labored breathing. Will leave with 4 weeks of oral antibiotics, hopefully tomorrow. 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 No prior history of CHF but patient appears to be fluid overloaded (5) Normocytic anemia: Code(s): D64.9 - Anemia, unspecified Status: Acute Assessment and Plan: 04/21/24: * Hemoglobin 11.5, iron 18, total iron binding capacity 191, ferritin 337 04/22/24: * Hemoglobin 10.2 * Will start ferrous sulfate 04/23/24: * Hgb 9.9 * No change to current treatment plan 04/24/24: * essentially stable * no change to current treatment plan (6) Descending aortic aneurysm: Code(s): I71.9 - Aortic aneurysm of unspecified site, without rupture Status: Acute Assessment and Plan: 04/21/24: * Noted on CT, will need follow-up on an outpatient basis 04/22/24: * No change (7) Acute kidney injury: Code(s): N17.9 - Acute kidney failure, unspecified Status: Resolved Assessment and Plan: 04/21/24: * Initial creatinine 2.0 now down to 1.3 * Unsure of patient's baseline * Continue to trend 04/22/24: * Creatinine down to baseline 1.0 * Continue to trend 04/23/24: * resolved Time Spent With Patient Time with patient: Greater than 35 minutes Subjective Date/time seen: 04/26/24 08:22 Interval history: Patient had worsened dyspnea this upon awakening, desaturation noted. Chest x- ray obtained showing pulmonary edema small pleural effusion. Overnight provider evaluated patient and initiated IV Lasix, ordered echocardiogram, place patient on telemetry monitoring. Dyspnea and work of breathing improved slightly with supplemental oxygen IV Lasix. No history of CHF or atrial fibrillation. Confirmed patient's code status is DNR. No nausea or vomiting. No abdominal pain/tenderness. Decreased urine output reported. Review of Systems Review of Systems: All systems reviewed & are unremarkable except as noted in HPI and below Exam Narrative: GENERAL: Awake alert mild to moderate respiratory distress on supplemental oxygen by nasal cannu HEAD: Normocephalic, atraumatic. ENT:? Mucous membranes moist. CHEST: crackles and rales noted, some accessory muscle use mild tachypnea noted HEART: tachycardic rate with irregularly irregular rhythm. ? Normal peripheral pulses. atrial fibrillation with rapid ventricular response rate of 124 on telemetry monitoring per my interpretation ABDOMEN: Soft, nontender, nondistended. EXTREMITIES: Normal range of motion. 2+ lower extremity SKIN: Warm dry normal color NEURO: Alert and oriented x3. PSYCH: Normal mood and affect Objective Data Vital Signs Vital Signs: Vital Signs - 24 hr 04/25/24 14:00 04/25/24 14:00 04/25/24 14:05 Temperature 36.5 C Pulse Rate 79 Respiratory Rate 14 Blood Pressure 118/63 118/63 127/64 Pulse Oximetry 95 Oxygen Delivery Oxygen Flow Rate 04/25/24 14:10 04/25/24 20:06 04/25/24 20:00 Temperature 37.6 C H Pulse Rate 90 Respiratory Rate 20 Blood Pressure 126/58 L 133/61 Pulse Oximetry 96 Oxygen Delivery Room Air Oxygen Flow Rate 04/26/24 04:45 04/26/24 04:46 04/26/24 05:48 Temperature 37.5 C Pulse Rate 87 95 Respiratory Rate 26 H 20 Blood Pressure 109/57 L Pulse Oximetry 89 L 88 L 95 Oxygen Delivery Nasal Cannula Nasal Cannula Oxygen Flow Rate 2 2.5 Intake/Output Intake/Output: Intake & Output 04/23/24 04/24/24 04/25/24 04/26/24 23:59 23:59 23:59 23:59 Intake Total 2860 1261 771 200 Output Total 175 300 450 300 Balance 2685 961 321 -100 Meds/Results Medications: Active Medications Generic Name Dose Route Start Last Admin Trade Name Freq PRN Reason Stop Dose Admin Acetaminophen 650 mg 04/20/24 18:33 Acetaminophen 325 Mg Tablet PO Q4H PRN Mild Pain (1-3) or Fever Hydrocodone Bitart/Acetaminophen 1 tab 04/20/24 18:33 04/24/24 13:25 Hydrocodone/Acetaminophen (*Crx) 5-325 Mg Tablet PO 1 tab Q4H PRN Administration Pain Rated 4-6 Amoxicillin/Clavulanate Potassium 1 tablet 04/24/24 21:00 04/25/24 21:34 Amoxicillin/Clavulanate K 875-125 Mg Tab PO 1 tablet Q12HR FELIBERTO Administration Aspirin 81 mg 04/21/24 09:00 04/25/24 09:32 Aspirin 81 Mg Chewable Tablet PO 81 mg DAILY FELIBERTO Administration Enoxaparin Sodium 40 mg 04/21/24 09:00 04/25/24 12:00 Enoxaparin 40 Mg/0.4 Ml Syringe SUB-Q 40 mg DAILY FELIBERTO Administration Ferrous Sulfate 325 mg 04/23/24 09:00 04/25/24 09:32 Ferrous Sulfate [address] PO 325 mg DAILY FELIBERTO Administration Lorazepam 1 mg 04/21/24 21:00 04/25/24 21:34 Lorazepam (*Crx) 1 Mg Tablet PO 1 mg HS FELIBERTO Administration Metronidazole 500 mg 04/24/24 22:00 04/26/24 06:50 Metronidazole 500 Mg Tablet PO 500 mg Q8HR FELIBERTO Administration Ondansetron HCl 4 mg 04/20/24 18:33 04/22/24 18:53 Ondansetron Inj 4 Mg/2 Ml Vial IV PUSH 4 mg Q4H PRN Administration Nausea Perflutren Lipid Microsphere 0 ml 04/26/24 07:10 Perflutren Lipid Microspheres 1.5 Ml Vial Diluted To 10 Ml Total Volume IV PUSH 04/29/24 07:11 ONCE PRN adequate visualization Protocol Telmisartan 40 mg 04/23/24 09:00 04/25/24 09:32 Telmisartan 40 Mg Tablet PO 40 mg DAILY FELIBERTO Administration Radiology Results: ITS Impressions Head CT 04/20/24 16:35 IMPRESSION: No acute intracranial hemorrhage. Hypodensity in the left internal capsule ante rior limb which may be old infarct. MRI evaluation is advised. Chest/Abdomen/Pelvis CT 04/20/24 19:20 IMPRESSION: CHEST: 1. 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 Further evaluation advised. 2. No acute cardiopulmonary pathology seen. ABDOMEN/PELVIS: 1. Thickened area in the sigmoid colon with surrounding fat stranding. The differential includes a mass or diverticulitis. Sigmoidoscopy is advised. 2. Rounded hypodense area in the left lobe of the liver. This may be a mass and this likely an abscess. Surrounding fat stranding is seen in the area. 3. Cholelithiasis. Abdomen Ultrasound 04/21/24 17:28 IMPRESSION: Heterogenous echogenicity of the liver suggestive of cirrhosis with a complex mass in the left lateral lobe. Further evaluation advised. Small stones with highly suggestive polyp in the anterior wall. Otherwise, normal right upper quadrant ultrasound. Brain MRI 04/22/24 08:04 IMPRESSION: 1. No acute intracranial process. 2. Nonspecific mild scattered white matter T2 hyperintensity which is within normal limits for age and likely sequela of chronic small vessel ischemic disease. Abdomen MRI 04/23/24 10:08 IMPRESSION: 1. 5.1 cm cystic mass in left hepatic lobe, consistent with abscess or less likely neoplasm. 2. Cirrhosis of the liver. 3. Sigmoid diverticulitis with perforation. Chest X-Ray 04/26/24 06:31 IMPRESSION: 1. Mild pulmonary edema. 2. Small left pleural effusion. Labs Labs: Laboratory Results - last 24 hr 04/23/24 04/26/24 06:07 06:46 WBC 12.8 H RBC 3.24 L Hgb 9.6 L Hct 30.5 L MCV 94.1 MCH 29.6 MCHC 31.5 L RDW 15.0 H Plt Count 354 MPV 9.5 Immature Gran % (Auto) 1.7 H Neut % (Auto) 76.2 H Lymph % (Auto) 11.2 L Liberty % (Auto) 8.9 H Eos % (Auto) 1.6 Baso % (Auto) 0.4 Lymph # (Auto) 1.44 [place] # (Auto) 1.1 H Eos # (Auto) 0.2 Baso # (Auto) 0.1 Abs Immat Gran (auto) 0.22 H Absolute Neuts (auto) 9.8 H Absolute Nucleated RBC 0.000 Nucleated RBC % 0.0 Sodium 140 Potassium 3.0 L Chloride 108 H Carbon Dioxide 30 Anion Gap 2 L BUN 8 Creatinine 0.60 L Estim Creat Clear Calc 80 Estimated GFR > 60 Glucose 101 Calcium 8.1 L Total Bilirubin 0.5 AST 39 H ALT 17 Alkaline Phosphatase 138 H NT-Pro-B Natriuret Pep 6450 H Total Protein 6.0 L Albumin 2.6 L Ceruloplasmin 42 Alpha Fetoprotein 1.1 Imaging Radiologist's impression: Exam Type: CA echo doppler color flow Study Info Indications - murmur, hypoxia Complete two-dimensional, color flow and Doppler transthoracic echocardiogram is performed. Summary 1. Complete two-dimensional, color flow and Doppler transthoracic echocardiogram is performed. 2. Left ventricular chamber dimension is normal. 3. Left ventricular systolic function is hyperdynamic, estimated at >70%. 4. The left ventricular diastolic function is abnormal. 5. E/e' 13 is mildly elevated. 6. Atrial fibrillation. 7. Left atrial chamber dimension is moderately enlarged. 8. There is severe aortic valve sclerosis. 9. There is moderate aortic valve stenosis with a peak velocity of 307 cm/s, mean gradient of 18 mmHg, and aortic valve area of 1.0 cm2. 10. The mitral valve has severely calcified annulus. 11. No pulmonary hypertension, estimated pulmonary arterial systolic pressure is 35 mmHg. Left Ventricle E/e' 13 is mildly elevated. Atrial fibrillation. Left ventricular chamber dimension is normal. Left ventricular systolic function is hyperdynamic, estimated at >70%. The left ventricular diastolic function is abnormal. Right Ventricle Right ventricular systolic function is normal and with normal TAPSE 1.9 cm. Right ventricular chamber dimension is normal. Left Atria Left atrial chamber dimension is moderately enlarged. Right Atria Right atrial chamber dimension is normal. Aortic Valve The aortic valve is trileaflet. There is severe aortic valve sclerosis. There is moderate aortic valve stenosis with a peak velocity of 307 cm/s, mean gradient of 18 mmHg, and aortic valve area of 1.0 cm2. There is no aortic valve regurgitation. Pulmonic Valve There is no pulmonic regurgitation. Mitral Valve The mitral valve has severely calcified annulus. There is no mitral valve stenosis. There is no mitral valve regurgitation. Tricuspid Valve There is no tricuspid valve regurgitation. No pulmonary hypertension, estimated pulmonary arterial systolic pressure is 35 mmHg. Pericardium/Pleural There is no pericardial effusion. Inferior Vena Cava Normal inferior vena cava with >50% collapse upon inspiration consistent with normal right atrial pressure, 5 mmHg. Aorta The aortic root size at the sinus of Valsalva is normal. Pulse Oximetry SpO2 results: 88% on room air, 96-97% 3 liters/minute Attestation: I personally reviewed and interpreted this pulse oximetry as follows: Interpretation: titrate as tolerated but patient continues to need supplemental oxygen at this time Quality VTE Prophylaxis VTE prophylaxis: pharmacologic ordered Hospitalist MIPS Advance Care Plan I have confirmed that the patient's Advanced Care Plan is present, code status is documented, or surrogate decision maker is listed in patient medical record.: Yes Medication Reconciliation I have utilized all available resources to obtain, update and review the patients current medications (includes all prescriptions, OTC, herbals, cannabis, and nutritional supplements).: Yes
[2024-04-26] MEDS: FUROSEMIDE INJ 40 MG/4 ML VIAL IV PUSH (08:25)
[2024-04-26] MEDS: AMOXICILLIN/CLAVULANATE K 875-125 MG TAB 1 TABLET PO ×2 (08:30→20:33)
[2024-04-26] MEDS: TELMISARTAN 40 MG TABLET PO (08:30)
[2024-04-26] MEDS: ASPIRIN 81 MG CHEWABLE TABLET PO (08:30)
[2024-04-26] MEDS: FERROUS SULFATE 325 MG TABLET DR PO (08:30)
--- NOTE | 2024-04-26 08:33 | PM.PNGS ---
Progress Note: A&P Assessment and Plan (1) Perforation of sigmoid colon due to diverticulitis: Code(s): K57.20 - Diverticulitis of large intestine with perforation and abscess without bleeding Status: Acute Assessment and Plan: exam benign, cont low fiber diet and abx, will need extended course of abx given liver abscess c repeat imaging once completed, no acute surgical issues, will s/o, call c ?s, issues, f/u as outpt after abx and imaging (2) Liver abscess: Code(s): K75.0 - Abscess of liver Status: Acute Assessment and Plan: see above Subjective Subjective Date/Time Seen: 04/26/24 08:33 Interval history: worsening dyspnea overnight likely secondary to fluid overload, no abd pain, keisha diet Review of Systems Review of Systems: All systems reviewed & are unremarkable except as noted in HPI and below Exam Const: General: cooperative, comfortable, no acute distress and ill appearing Resp: Auscultation: crackles and diminished lung sounds Cardio: Rate: regular rate Rhythm: regular rhythm GI: Inspection: normal to inspection and non-distended GI Palp: No abdominal tenderness and Yes Soft to palpation Objective Data Vital Signs Vital Signs: Vital Signs - 24 hr 04/25/24 14:00 04/25/24 14:00 04/25/24 14:05 Temperature 36.5 C Pulse Rate 79 Respiratory Rate 14 Blood Pressure 118/63 118/63 127/64 Pulse Oximetry 95 Oxygen Delivery Oxygen Flow Rate 04/25/24 14:10 04/25/24 20:06 04/25/24 20:00 Temperature 37.6 C H Pulse Rate 90 Respiratory Rate 20 Blood Pressure 126/58 L 133/61 Pulse Oximetry 96 Oxygen Delivery Room Air Oxygen Flow Rate 04/26/24 04:45 04/26/24 04:46 04/26/24 05:48 Temperature 37.5 C Pulse Rate 87 95 Respiratory Rate 26 H 20 Blood Pressure 109/57 L Pulse Oximetry 89 L 88 L 95 Oxygen Delivery Nasal Cannula Nasal Cannula Oxygen Flow Rate 2 2.5 Intake/Output Intake/Output: Intake & Output 04/23/24 04/24/24 04/25/24 04/26/24 23:59 23:59 23:59 23:59 Intake Total 2860 1261 771 200 Output Total 175 300 450 300 Balance 2685 961 321 -100 Meds/Results Medications: Active Medications Generic Name Dose Route Start Last Admin Trade Name Freq PRN Reason Stop Dose Admin Acetaminophen 650 mg 04/20/24 18:33 Acetaminophen 325 Mg Tablet PO Q4H PRN Mild Pain (1-3) or Fever Hydrocodone Bitart/Acetaminophen 1 tab 04/20/24 18:33 04/24/24 13:25 Hydrocodone/Acetaminophen (*Crx) 5-325 Mg Tablet PO 1 tab Q4H PRN Administration Pain Rated 4-6 Amoxicillin/Clavulanate Potassium 1 tablet 04/24/24 21:00 04/26/24 08:30 Amoxicillin/Clavulanate K 875-125 Mg Tab PO 1 tablet Q12HR FELIBERTO Administration Aspirin 81 mg 04/21/24 09:00 04/26/24 08:30 Aspirin 81 Mg Chewable Tablet PO 81 mg DAILY FELIBERTO Administration Enoxaparin Sodium 40 mg 04/21/24 09:00 04/25/24 12:00 Enoxaparin 40 Mg/0.4 Ml Syringe SUB-Q 40 mg DAILY FELIBERTO Administration Ferrous Sulfate 325 mg 04/23/24 09:00 04/26/24 08:30 Ferrous Sulfate [address] PO 325 mg DAILY FELIBERTO Administration Lorazepam 1 mg 04/21/24 21:00 04/25/24 21:34 Lorazepam (*Crx) 1 Mg Tablet PO 1 mg HS FELIBERTO Administration Metronidazole 500 mg 04/24/24 22:00 04/26/24 06:50 Metronidazole 500 Mg Tablet PO 500 mg Q8HR FELIBERTO Administration Ondansetron HCl 4 mg 04/20/24 18:33 04/22/24 18:53 Ondansetron Inj 4 Mg/2 Ml Vial IV PUSH 4 mg Q4H PRN Administration Nausea Perflutren Lipid Microsphere 0 ml 04/26/24 07:10 Perflutren Lipid Microspheres 1.5 Ml Vial Diluted To 10 Ml Total Volume IV PUSH 04/29/24 07:11 ONCE PRN adequate visualization Protocol Telmisartan 40 mg 04/23/24 09:00 04/26/24 08:30 Telmisartan 40 Mg Tablet PO 40 mg DAILY FELIBERTO Administration Radiology Results: ITS Impressions Head CT 04/20/24 16:35 IMPRESSION: No acute intracranial hemorrhage. 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 MRI evaluation is advised. Chest/Abdomen/Pelvis CT 04/20/24 19:20 IMPRESSION: CHEST: 1. 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 Further evaluation advised. 2. No acute cardiopulmonary pathology seen. ABDOMEN/PELVIS: 1. Thickened area in the sigmoid colon with surrounding fat stranding. The differential includes a mass or diverticulitis. Sigmoidoscopy is advised. 2. Rounded hypodense area in the left lobe of the liver. This may be a mass and this likely an abscess. Surrounding fat stranding is seen in the area. 3. Cholelithiasis. Abdomen Ultrasound 04/21/24 17:28 IMPRESSION: Heterogenous echogenicity of the liver suggestive of cirrhosis with a complex mass in the left lateral lobe. Further evaluation advised. Small stones with highly suggestive polyp in the anterior wall. Otherwise, normal right upper quadrant ultrasound. Brain MRI 04/22/24 08:04 IMPRESSION: 1. No acute intracranial process. 2. Nonspecific mild scattered white matter T2 hyperintensity which is within normal limits for age and likely sequela of chronic small vessel ischemic disease. Abdomen MRI 04/23/24 10:08 IMPRESSION: 1. 5.1 cm cystic mass in left hepatic lobe, consistent with abscess or less likely neoplasm. 2. Cirrhosis of the liver. 3. Sigmoid diverticulitis with perforation. Chest X-Ray 04/26/24 06:31 IMPRESSION: 1. Mild pulmonary edema. 2. Small left pleural effusion. Labs Labs: Laboratory Results - last 24 hr 04/23/24 04/26/24 06:07 06:46 WBC 12.8 H RBC 3.24 L Hgb 9.6 L Hct 30.5 L MCV 94.1 MCH 29.6 MCHC 31.5 L RDW 15.0 H Plt Count 354 MPV 9.5 Immature Gran % (Auto) 1.7 H Neut % (Auto) 76.2 H Lymph % (Auto) 11.2 L [place] % (Auto) 8.9 H Eos % (Auto) 1.6 Baso % (Auto) 0.4 Lymph # (Auto) 1.44 [place] # (Auto) 1.1 H Eos # (Auto) 0.2 Baso # (Auto) 0.1 Abs Immat Gran (auto) 0.22 H Absolute Neuts (auto) 9.8 H Absolute Nucleated RBC 0.000 Nucleated RBC % 0.0 Sodium 140 Potassium 3.0 L Chloride 108 H Carbon Dioxide 30 Anion Gap 2 L BUN 8 Creatinine 0.60 L Estim Creat Clear Calc 80 Estimated GFR > 60 Glucose 101 Calcium 8.1 L Total Bilirubin 0.5 AST 39 H ALT 17 Alkaline Phosphatase 138 H NT-Pro-B Natriuret Pep 6450 H Total Protein 6.0 L Albumin 2.6 L Ceruloplasmin 42 Alpha Fetoprotein 1.1
[2024-04-26] MEDS: ENOXAPARIN 40 MG/0.4 ML SYRINGE SUB-Q (08:35)
--- NOTE | 2024-04-26 08:35 | PCPTNOTE ---
Attempted to see patient for Physical Therapy this AM, however RN stated that patient is having an ECHO right now.
[2024-04-26] MEDS: POTASSIUM CHLORIDE 20 MEQ ER TABLET 60 MEQ PO (08:36)
[2024-04-26] MEDS: POTASSIUM CHLORIDE 20 MEQ ER TABLET 40 MEQ PO (17:23)
[2024-04-26] MEDS: FUROSEMIDE INJ 40 MG/4 ML VIAL 20 MG IV PUSH (17:24)
[2024-04-26] MEDS: LORazepam (*CRX) 1 MG TABLET PO (20:33)
[2024-04-27] VITALS (12 sets, daily range): BP systolic 110–137; BP diastolic 51–75; PULSE 80–130; RESP 18–20; TEMP 35.6–36.6; O2SAT 93–95
[2024-04-27] MEDS: metroNIDAZOLE 500 MG TABLET PO ×3 (06:10→21:19)
[2024-04-27 06:33] LABS: Basophils Absolute Auto 0.1 K/mm3 (0.0-0.1); Basophils Percent Auto 0.5 % (0.2-1.2); Eosinophils Absolute Auto 0.3 K/mm3 (0-0.3); Eosinophils Percent Auto 2.6 % (0-4.4); Hematocrit 33.6 % (37.0-47.0); Hemoglobin 10.3 g/dL (12.0-15.0); Immature Granulocyte Absolute 0.16 K/mm3 (0.00-0.031); Immature Granulocyte Percent A 1.3 % (0-0.5); Lymphocytes Absolute Auto 1.53 K/mm3 (0.9-3.2); Lymphocytes Percent Auto 12.3 % (18.3-44.2); Mean Corpuscular HGB Conc 30.7 g/dl (32-36); Mean Corpuscular Volume 94.6 fl (80-100); Mean Platelet Volume 9.4 fl (7.4-10.4); Monocytes Absolute Auto 1.1 K/mm3 (0.1-0.6); Monocytes Percent Auto 9.2 % (2.6-8.5); Neutrophils Absolute Auto 9.2 K/mm3 (1.3-6.7); Neutrophils Percent Auto 74.1 % (45.5-73.1); Platelet Count Result 396 k/mm3 (150-375); Red Blood Count 3.55 M/mm3 (4.2-5.4); Red Cell Distribution Width 15.1 % (11.5-14.5); White Blood Count 12.4 K/mm3 (4.5-10.0)
[2024-04-27 06:38] LABS: Alanine Aminotransferase 17 U/L (6-35); Albumin Level 2.9 g/dL (3.5-5.1); Alkaline Phosphatase 129 U/L (38-126); Anion Gap 1 mmol/L (4-12); Aspartate Amino Transferase 31 U/L (14-36); Bilirubin,Total 0.7 mg/dL (0.2-1.3); Blood Urea Nitrogen 10 mg/dL (7-17); Calcium 8.7 mg/dL (8.4-10.2); Carbon Dioxide 36 mmol/L (22-30); Chloride 104 mmol/L (98-107); Estimated CRCL calculation 69 ml/min; Estimated Glomerular Filt Rate > 60; Glucose 91 mg/dL (65-110); Potassium 3.7 mmol/L (3.4-5.0); Sodium 141 mmol/L (137-145)
[2024-04-27] MEDS: FERROUS SULFATE 325 MG TABLET DR PO (08:19)
[2024-04-27] MEDS: ASPIRIN 81 MG CHEWABLE TABLET PO (08:19)
[2024-04-27] MEDS: AMOXICILLIN/CLAVULANATE K 875-125 MG TAB 1 TABLET PO ×2 (08:19→21:19)
[2024-04-27] MEDS: TELMISARTAN 40 MG TABLET PO (08:19)
[2024-04-27] MEDS: ENOXAPARIN 40 MG/0.4 ML SYRINGE SUB-Q (08:20)
[2024-04-27] MEDS: FUROSEMIDE INJ 40 MG/4 ML VIAL IV PUSH (08:20)
--- NOTE | 2024-04-27 11:06 | PM.IMPN ---
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 No prior history of CHF but patient appears to be fluid overloaded Will need discussion patient regarding anticoagulation RVR improved in the afternoon without specific treatment but remains atrial fibrillation in the 80s at 4:00 p.m. 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 No prior history of CHF but patient appears to be fluid overloaded echocardiogram with hyperdynamic LVEF greater than 70%, grade 1 diastolic dysfunction with E/e' 13 04/27: improving respiratory function with diuresis scheduled cardiology follow-up with [facility] Cardiology on May 24 (3) Perforation of sigmoid colon due to diverticulitis: Code(s): K57.20 - Diverticulitis of large intestine with perforation and abscess without bleeding Status: Acute Assessment and Plan: 04/26: on oral antibiotics which will need to be continued for 4 weeks after discharge (4) Lesion of left lobe of liver: Code(s): K76.9 - Liver disease, unspecified Status: Acute Assessment and Plan: 04/21/24: CT of the abdomen/pelvis/chest showing rounded hypodense area in the left lobe of the liver Ultrasound of the abdomen is still pending GI consulted 04/22/24: Ultrasound of the abdomen showing in is echogenicity of the liver suggestive of cirrhosis with a complex mass in the left lateral lobe couple small stones with highly suggestive polyp in the anterior wall GI following Plan for MRI of the liver Hepatic workup pending 04/23/24: MRI of the abdomen showing 5.1 cm cystic mass in left hepatic lobe, consistent with abscess or less likely neoplasm, cirrhosis of the liver, sigmoid diverticulitis with perforation. GI following 04/24/24: general surgery seen patient today and is recommending nonsurgical treatment with long course of antibiotic will switch Zosyn to Augmentin and Flagyl p.o. today. We could not do Cipro due to her Aortic aneurysm. General surgery recommends 5-6 weeks of antibiotics for both the liver abscess and diverticulitis. GI following 04/25: Patient cleared by surgery for discharge, remains hospitalized due to dyspnea with labored breathing. Will leave with 4 weeks of oral antibiotics, hopefully tomorrow. 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 No prior history of CHF but patient appears to be fluid overloaded (5) Normocytic anemia: Code(s): D64.9 - Anemia, unspecified Status: Acute Assessment and Plan: 04/21/24: Hemoglobin 11.5, iron 18, total iron binding capacity 191, ferritin 337 04/22/24: Hemoglobin 10.2 Will start ferrous sulfate 04/23/24: Hgb 9.9 No change to current treatment plan 04/24/24: essentially stable no change to current treatment plan (6) Descending aortic aneurysm: Code(s): I71.9 - Aortic aneurysm of unspecified site, without rupture Status: Acute Assessment and Plan: 04/21/24: Noted on CT, will need follow-up on an outpatient basis 04/22/24: No change (7) Acute kidney injury: Code(s): N17.9 - Acute kidney failure, unspecified Status: Resolved Assessment and Plan: 04/21/24: Initial creatinine 2.0 now down to 1.3 Unsure of patient's baseline Continue to trend 04/22/24: Creatinine down to baseline 1.0 Continue to trend 04/23/24: resolved Time Spent With Patient Time: 45 minutes spent at bedside educating on risks and benefits anticoagulation in the setting of atrial fibrillation, explaining congestive heart failure. An additional 25 minutes spent arranging follow-up with [facility] Cardiology and approximately 15 minutes documenting care. Time with patient: Greater than 35 minutes Subjective Date/time seen: 04/27/24 11:06 Interval history: Patient reports that she is breathing easier today. She has been receiving IV diuresis since yesterday. Patient denies fever chills. She denies abdominal pain. She still has a few scattered crackles and mild tachypnea times. She has also experienced AFib with rapid ventricular response. Will initiate diltiazem for rate control. Discussed patient's high risk for blood clots will initiate Eliquis after explaining risks and benefits of such. Chads Vasc score 5. Patient wants to establish with cardiology at this facility for follow-up. I spoke with Dr. Cardozo and an appointment is now scheduled for May 24 3:45 p.m. and patient be notified appointment. Discussed that patient may be better served SNF/swing bed upon discharge and she is adamantly refusing. She wants to go home with home health. Will continue diuresis and re-evaluate tomorrow for stability. Expect discharge in 1-2 days. Review of Systems Review of Systems: All systems reviewed & are unremarkable except as noted in HPI and below Exam Narrative: GENERAL: Awake alert mild tachypnea nonlabored respirations on room air HEAD: Normocephalic, atraumatic. ENT:? Mucous membranes moist. CHEST: scattered basilar crackles, no accessory muscle use mild tachypnea HEART: tachycardic rate with irregularly irregular rhythm. ? Normal peripheral pulses. atrial fibrillation with rapid ventricular response rate of 130 on telemetry monitoring per my interpretation, heart rates documented as 80 earlier in the day and later in the afternoon ABDOMEN: Soft, nontender, nondistended. EXTREMITIES: Normal range of motion. 1-2+ lower extremity edema SKIN: Warm dry normal color NEURO: Alert and oriented x3. PSYCH: Normal mood and affect Objective Data Vital Signs Vital Signs: Vital Signs - 24 hr 04/26/24 14:00 04/26/24 12:00 04/26/24 14:00 Temperature 36.2 C L Pulse Rate 88 122 H Respiratory Rate 18 Blood Pressure 115/62 Pulse Oximetry 96 96 Oxygen Delivery Nasal Cannula Oxygen Flow Rate 2 Fraction of Inspired Oxygen 04/26/24 16:00 04/26/24 17:45 04/26/24 18:10 Temperature Pulse Rate 88 Respiratory Rate Blood Pressure Pulse Oximetry 97 97 Oxygen Delivery Nasal Cannula Room Air Oxygen Flow Rate 1 Fraction of Inspired Oxygen 04/26/24 19:43 04/26/24 21:10 04/26/24 21:29 Temperature 36.3 C L Pulse Rate 88 79 Respiratory Rate 18 26 H Blood Pressure 106/58 L Pulse Oximetry 97 94 94 Oxygen Delivery Room Air Room Air Oxygen Flow Rate Fraction of Inspired Oxygen 04/26/24 20:00 04/27/24 00:00 04/27/24 04:25 Temperature 35.9 C L Pulse Rate 74 83 81 Respiratory Rate 20 Blood Pressure 123/63 Pulse Oximetry 93 Oxygen Delivery Oxygen Flow Rate Fraction of Inspired Oxygen 04/27/24 04:00 04/27/24 08:00 04/27/24 08:16 Temperature 35.6 C L Pulse Rate 80 82 Respiratory Rate 18 Blood Pressure 133/75 133/64 Pulse Oximetry 94 Oxygen Delivery Oxygen Flow Rate Fraction of Inspired Oxygen 04/27/24 08:16 04/27/24 09:51 Temperature Pulse Rate 81 Respiratory Rate Blood Pressure 137/73 Pulse Oximetry Oxygen Delivery Oxygen Flow Rate Fraction of Inspired Oxygen Intake/Output Intake/Output: Intake & Output 04/24/24 04/25/24 04/26/24 04/27/24 23:59 23:59 23:59 23:59 Intake Total 1261 771 674 320 Output Total 857 663 3456 1650 Balance [facility] [phone] Meds/Results Medications: Active Medications Generic Name Dose Route Start Last Admin Trade Name Freq PRN Reason Stop Dose Admin Acetaminophen 650 mg 04/20/24 18:33 Acetaminophen 325 Mg Tablet PO Q4H PRN Mild Pain (1-3) or Fever Hydrocodone Bitart/Acetaminophen 1 tab 04/20/24 18:33 04/24/24 13:25 Hydrocodone/Acetaminophen (*Crx) 5-325 Mg Tablet PO 1 tab Q4H PRN Administration Pain Rated 4-6 Amoxicillin/Clavulanate Potassium 1 tablet 04/24/24 21:00 04/27/24 08:19 Amoxicillin/Clavulanate K 875-125 Mg Tab PO 1 tablet Q12HR FELIBERTO Administration Apixaban 5 mg 04/27/24 11:00 Apixaban 5 Mg Tablet PO Q12HR FELIBERTO Aspirin 81 mg 04/21/24 09:00 04/27/24 08:19 Aspirin 81 Mg Chewable Tablet PO 81 mg DAILY FELIBERTO Administration Diltiazem HCl 30 mg 04/27/24 12:00 Diltiazem Hcl 30 Mg Tablet PO Q6HR [facility] Ferrous Sulfate 325 mg 04/23/24 09:00 04/27/24 08:19 Ferrous Sulfate [address] PO 325 mg DAILY FELIBERTO Administration Furosemide 40 mg 04/27/24 09:00 04/27/24 08:20 Furosemide Inj 40 Mg/4 Ml Vial IV PUSH 40 mg DAILY FELIBERTO Administration Lorazepam 1 mg 04/21/24 21:00 04/26/24 20:33 Lorazepam (*Crx) 1 Mg Tablet PO 1 mg HS FELIBERTO Administration Metronidazole 500 mg 04/24/24 22:00 04/27/24 06:10 Metronidazole 500 Mg Tablet PO 500 mg Q8HR FELIBERTO Administration Ondansetron HCl 4 mg 04/20/24 18:33 04/22/24 18:53 Ondansetron Inj 4 Mg/2 Ml Vial IV PUSH 4 mg Q4H PRN Administration Nausea Perflutren Lipid Microsphere 0 ml 04/26/24 07:10 Perflutren Lipid Microspheres 1.5 Ml Vial Diluted To 10 Ml Total Volume IV PUSH 04/29/24 07:11 ONCE PRN adequate visualization Protocol Telmisartan 40 mg 04/23/24 09:00 04/27/24 08:19 Telmisartan 40 Mg Tablet PO 40 mg DAILY FELIBERTO Administration Radiology Results: ITS Impressions Head CT 04/20/24 16:35 IMPRESSION: No acute intracranial hemorrhage. 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 MRI evaluation is advised. Chest/Abdomen/Pelvis CT 04/20/24 19:20 IMPRESSION: CHEST: 1. 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 Further evaluation advised. 2. No acute cardiopulmonary pathology seen. ABDOMEN/PELVIS: 1. Thickened area in the sigmoid colon with surrounding fat stranding. The differential includes a mass or diverticulitis. Sigmoidoscopy is advised. 2. Rounded hypodense area in the left lobe of the liver. This may be a mass and this likely an abscess. Surrounding fat stranding is seen in the area. 3. Cholelithiasis. Abdomen Ultrasound 04/21/24 17:28 IMPRESSION: Heterogenous echogenicity of the liver suggestive of cirrhosis with a complex mass in the left lateral lobe. Further evaluation advised. Small stones with highly suggestive polyp in the anterior wall. Otherwise, normal right upper quadrant ultrasound. Brain MRI 04/22/24 08:04 IMPRESSION: 1. No acute intracranial process. 2. Nonspecific mild scattered white matter T2 hyperintensity which is within normal limits for age and likely sequela of chronic small vessel ischemic disease. Abdomen MRI 04/23/24 10:08 IMPRESSION: 1. 5.1 cm cystic mass in left hepatic lobe, consistent with abscess or less likely neoplasm. 2. Cirrhosis of the liver. 3. Sigmoid diverticulitis with perforation. Chest X-Ray 04/26/24 06:31 IMPRESSION: 1. Mild pulmonary edema. 2. Small left pleural effusion. Labs Labs: Laboratory Results - last 24 hr 04/27/24 05:57 WBC 12.4 H RBC 3.55 L Hgb 10.3 L Hct 33.6 L MCV 94.6 MCH 29.0 MCHC 30.7 L RDW 15.1 H Plt Count 396 H MPV 9.4 Immature Gran % (Auto) 1.3 H Neut % (Auto) 74.1 H Lymph % (Auto) 12.3 L [place] % (Auto) 9.2 H Eos % (Auto) 2.6 Baso % (Auto) 0.5 Lymph # (Auto) 1.53 [place] # (Auto) 1.1 H Eos # (Auto) 0.3 Baso # (Auto) 0.1 Abs Immat Gran (auto) 0.16 H Absolute Neuts (auto) 9.2 H Absolute Nucleated RBC 0.000 Nucleated RBC % 0.0 Sodium 141 Potassium 3.7 Chloride 104 Carbon Dioxide 36 H Anion Gap 1 L BUN 10 Creatinine 0.70 Estim Creat Clear Calc 69 Estimated GFR > 60 Glucose 91 Calcium 8.7 Total Bilirubin 0.7 AST 31 ALT 17 Alkaline Phosphatase 129 H Total Protein 6.0 L Albumin 2.9 L Pulse Oximetry SpO2 results: 93-95% room air Attestation: I personally reviewed and interpreted this pulse oximetry as follows: Interpretation: no need for supplemental oxygenation at this time Quality VTE Prophylaxis VTE prophylaxis: pharmacologic ordered Hospitalist [facility] Advance Care Plan I have confirmed that the patient's Advanced Care Plan is present, code status is documented, or surrogate decision maker is listed in patient medical record.: Yes Medication Reconciliation I have utilized all available resources to obtain, update and review the patients current medications (includes all prescriptions, OTC, herbals, cannabis, and nutritional supplements).: Yes
[2024-04-27] MEDS: APIXABAN 5 MG TABLET PO ×2 (11:17→21:19)
[2024-04-27] MEDS: dilTIAZem HCL 30 MG TABLET PO ×3 (11:17→23:52)
[2024-04-27] MEDS: POTASSIUM CHLORIDE 20 MEQ ER TABLET 40 MEQ PO (11:18)
[2024-04-27 11:27] LABS: Magnesium 1.8 mg/dL (1.6-2.3)
[2024-04-27] MEDS: MAGNESIUM SULF 2 GM/WATER 50ML 2 GM/50 ML BAG IVPB (11:47)
--- NOTE | 2024-04-27 14:47 | PCPTNOTE ---
Pt respectfully decline PT today stating I'M not up for it today I was up before daylight . AKS
[2024-04-27] MEDS: LORazepam (*CRX) 1 MG TABLET PO (21:19)
[2024-04-28] VITALS (9 sets, daily range): BP systolic 114–125; BP diastolic 54–65; PULSE 74–86; RESP 18–20; TEMP 36.4–36.8; O2SAT 91–95
[2024-04-28 05:38] LABS: Basophils Absolute Auto 0.1 K/mm3 (0.0-0.1); Basophils Percent Auto 0.4 % (0.2-1.2); Eosinophils Absolute Auto 0.3 K/mm3 (0-0.3); Eosinophils Percent Auto 2.2 % (0-4.4); Hematocrit 34.8 % (37.0-47.0); Immature Granulocyte Absolute 0.19 K/mm3 (0.00-0.031); Immature Granulocyte Percent A 1.3 % (0-0.5); Lymphocytes Absolute Auto 2.46 K/mm3 (0.9-3.2); Lymphocytes Percent Auto 17.5 % (18.3-44.2); Mean Corpuscular HGB Conc 31.6 g/dl (32-36); Mean Corpuscular Hemoglobin 29.3 pg (26-34); Mean Corpuscular Volume 92.6 fl (80-100); Mean Platelet Volume 9.4 fl (7.4-10.4); Monocytes Absolute Auto 1.2 K/mm3 (0.1-0.6); Monocytes Percent Auto 8.4 % (2.6-8.5); Neutrophils Absolute Auto 9.9 K/mm3 (1.3-6.7); Neutrophils Percent Auto 70.2 % (45.5-73.1); Nucleated Red Blood Cells Perc 0.1 % (0.0-0.2); Platelet Count Result 444 k/mm3 (150-375); Red Blood Count 3.76 M/mm3 (4.2-5.4); Red Cell Distribution Width 15.4 % (11.5-14.5); White Blood Count 14.1 K/mm3 (4.5-10.0)
[2024-04-28 05:47] LABS: Alanine Aminotransferase 15 U/L (6-35); Alkaline Phosphatase 142 U/L (38-126); Anion Gap 2 mmol/L (4-12); Aspartate Amino Transferase 28 U/L (14-36); Bilirubin,Total 0.6 mg/dL (0.2-1.3); Blood Urea Nitrogen 13 mg/dL (7-17); Calcium 8.8 mg/dL (8.4-10.2); Carbon Dioxide 36 mmol/L (22-30); Chloride 101 mmol/L (98-107); Estimated CRCL calculation 69 ml/min; Estimated Glomerular Filt Rate > 60; Glucose 111 mg/dL (65-110); Sodium 139 mmol/L (137-145)
[2024-04-28] MEDS: dilTIAZem HCL 30 MG TABLET PO (06:09)
[2024-04-28] MEDS: metroNIDAZOLE 500 MG TABLET PO ×3 (06:09→21:17)
[2024-04-28 06:11] LABS: Atypical Lymphocytes Present; Platelet Estimate Increased (Adequate); Schistocytes None Seen
[2024-04-28] MEDS: APIXABAN 5 MG TABLET PO ×2 (08:45→21:16)
[2024-04-28] MEDS: AMOXICILLIN/CLAVULANATE K 875-125 MG TAB 1 TABLET PO ×2 (08:45→21:17)
[2024-04-28] MEDS: FERROUS SULFATE 325 MG TABLET DR PO (08:45)
[2024-04-28] MEDS: FUROSEMIDE INJ 40 MG/4 ML VIAL IV PUSH (08:45)
[2024-04-28] MEDS: TELMISARTAN 40 MG TABLET PO (08:45)
[2024-04-28] MEDS: ASPIRIN 81 MG CHEWABLE TABLET PO (08:45)
[2024-04-28] MEDS: dilTIAZem HCL CD 120 MG CAP.24HR PO (09:32)
--- NOTE | 2024-04-28 10:08 | P.PNIM_ITS ---
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 No prior history of CHF but patient appears to be fluid overloaded Will need discussion patient regarding anticoagulation RVR improved in the afternoon without specific treatment but remains atrial fibrillation in the 80s at 4:00 p.m. 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 No prior history of CHF but patient appears to be fluid overloaded echocardiogram with hyperdynamic LVEF greater than 70%, grade 1 diastolic dysfunction with E/e' 13 04/27: improving respiratory function with diuresis scheduled cardiology follow-up with [facility] Cardiology on May 2404/28: Diuretics effective, will change to oral (3) Perforation of sigmoid colon due to diverticulitis: Code(s): K57.20 - Diverticulitis of large intestine with perforation and abscess without bleeding Status: Acute Assessment and Plan: 04/26: on oral antibiotics which will need to be continued for 4 weeks after discharge (4) Lesion of left lobe of liver: Code(s): K76.9 - Liver disease, unspecified Status: Acute Assessment and Plan: 04/21/24: * CT of the abdomen/pelvis/chest showing rounded hypodense area in the left lobe of the liver * Ultrasound of the abdomen is still pending * GI consulted 04/22/24: * Ultrasound of the abdomen showing in is echogenicity of the liver suggestive of cirrhosis with a complex mass in the left lateral lobe couple small stones with highly suggestive polyp in the anterior wall * GI following * Plan for MRI of the liver * Hepatic workup pending 04/23/24: * MRI of the abdomen showing 5.1 cm cystic mass in left hepatic lobe, consistent with abscess or less likely neoplasm, cirrhosis of the liver, sigmoid diverticulitis with perforation. * GI following 04/24/24: * general surgery seen patient today and is recommending nonsurgical treatment with long course of antibiotic * will switch Zosyn to Augmentin and Flagyl p.o. today. We could not do Cipro due to her Aortic aneurysm. * General surgery recommends 5-6 weeks of antibiotics for both the liver abscess and diverticulitis. * GI following 04/25: Patient cleared by surgery for discharge, remains hospitalized due to dyspnea with labored breathing. Will leave with 4 weeks of oral antibiotics, hopefully tomorrow. 04/26: feed management advisor patient had labored breathing and desaturation and atrial fibrillation with rapid ventricular response. No prior history of CHF but patient appears to be fluid overloaded (5) Normocytic anemia: Code(s): D64.9 - Anemia, unspecified Status: Acute Assessment and Plan: 04/21/24: * Hemoglobin 11.5, iron 18, total iron binding capacity 191, ferritin 337 04/22/24: * Hemoglobin 10.2 * Will start ferrous sulfate 04/23/24: * Hgb 9.9 * No change to current treatment plan 04/24/24: * essentially stable * no change to current treatment plan (6) Descending aortic aneurysm: Code(s): I71.9 - Aortic aneurysm of unspecified site, without rupture Status: Acute Assessment and Plan: 04/21/24: * Noted on CT, will need follow-up on an outpatient basis 04/22/24: * No change (7) Acute kidney injury: Code(s): N17.9 - Acute kidney failure, unspecified Status: Resolved Assessment and Plan: 04/21/24: * Initial creatinine 2.0 now down to 1.3 * Unsure of patient's baseline * Continue to trend 04/22/24: * Creatinine down to baseline 1.0 * Continue to trend 04/23/24: * resolved Time Spent With Patient Time with patient: Greater than 35 minutes Subjective Date/time seen: 04/28/24 10:08 Interval history: WBC slightly rising. Ordered CT chest/abd/pelvis to r/o PE and check on diverticulitis/liver lesion. Radiology report only reports on CTA chest, no read on abd/pelvis portion. Additionally, unable to pull up images to compare myself. Patient feels much improved. She is not dyspneic, no fever/chills, no abd pain, no nausea/vomiting. Leg swelling and lung crackles vastly improved. Review of Systems Review of Systems: All systems reviewed & are unremarkable except as noted in HPI and below Exam Narrative: GENERAL: Awake alert, nonlabored respirations on room air HEAD: Normocephalic, atraumatic. ENT:? Mucous membranes moist. CHEST: clear to auscultation, no accessory muscle use HEART: regular rate, regular rhythm. ? Normal peripheral pulses. sinus rate 84 on telemetry monitoring per my interpretation ABDOMEN: Soft, nontender, nondistended. EXTREMITIES: Normal range of motion. 1-2+ lower extremity edema SKIN: Warm dry normal color NEURO: Alert and oriented x3. PSYCH: Normal mood and affect Objective Data Vital Signs Vital Signs: Vital Signs - 24 hr 04/27/24 13:54 04/27/24 13:00 04/27/24 17:00 Temperature 35.6 C L Pulse Rate 90 130 H 90 Respiratory Rate 18 Blood Pressure 110/59 L Pulse Oximetry 95 04/27/24 16:00 04/27/24 22:00 04/27/24 21:00 Temperature 36.6 C Pulse Rate 84 84 89 Respiratory Rate 20 Blood Pressure 121/51 L Pulse Oximetry 93 04/28/24 01:00 04/28/24 05:00 04/28/24 06:00 Temperature 36.8 C Pulse Rate 80 77 77 Respiratory Rate 20 Blood Pressure 125/65 Pulse Oximetry 91 Intake/Output Intake/Output: Intake & Output 04/25/24 04/26/24 04/27/24 04/28/24 23:59 23:59 23:59 23:59 Intake Total 771 674 680 980 Output Total 111 1850 5206 3136 Balance 321 -2376 -970 -170 Meds/Results Medications: Active Medications Generic Name Dose Route Start Last Admin Trade Name Freq PRN Reason Stop Dose Admin Acetaminophen 650 mg 04/20/24 18:33 Acetaminophen 325 Mg Tablet PO Q4H PRN Mild Pain (1-3) or Fever Hydrocodone Bitart/Acetaminophen 1 tab 04/20/24 18:33 04/24/24 13:25 Hydrocodone/Acetaminophen (*Crx) 5-325 Mg Tablet PO 1 tab Q4H PRN Administration Pain Rated 4-6 Amoxicillin/Clavulanate Potassium 1 tablet 04/24/24 21:00 04/28/24 08:45 Amoxicillin/Clavulanate K 875-125 Mg Tab PO 1 tablet Q12HR FELIBERTO Administration Apixaban 5 mg 04/27/24 11:00 04/28/24 08:45 Apixaban 5 Mg Tablet PO 5 mg Q12HR FELIBERTO Administration Aspirin 81 mg 04/21/24 09:00 04/28/24 08:45 Aspirin 81 Mg Chewable Tablet PO 81 mg DAILY FELIBERTO Administration Diltiazem HCl 120 mg 04/28/24 09:00 04/28/24 09:32 Diltiazem Hcl Cd 120 Mg Cap.24hr PO 120 mg QAM FELIBERTO Administration Ferrous Sulfate 325 mg 04/23/24 09:00 04/28/24 08:45 Ferrous Sulfate [address] PO 325 mg DAILY FELIBERTO Administration Furosemide 40 mg 04/27/24 09:00 04/28/24 08:45 Furosemide Inj 40 Mg/4 Ml Vial IV PUSH 40 mg DAILY FELIBERTO Administration Lorazepam 1 mg 04/21/24 21:00 04/27/24 21:19 Lorazepam (*Crx) 1 Mg Tablet PO 1 mg HS FELIBERTO Administration Metronidazole 500 mg 04/24/24 22:00 04/28/24 06:09 Metronidazole 500 Mg Tablet PO 500 mg Q8HR FELIBERTO Administration Ondansetron HCl 4 mg 04/20/24 18:33 04/22/24 18:53 Ondansetron Inj 4 Mg/2 Ml Vial IV PUSH 4 mg Q4H PRN Administration Nausea Telmisartan 40 mg 04/23/24 09:00 04/28/24 08:45 Telmisartan 40 Mg Tablet PO 40 mg DAILY FELIBERTO Administration Radiology Results: ITS Impressions Head CT 04/20/24 16:35 IMPRESSION: No acute intracranial hemorrhage. 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 MRI evaluation is advised. Chest/Abdomen/Pelvis CT 04/20/24 19:20 IMPRESSION: CHEST: 1. 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 Further evaluation advised. 2. No acute cardiopulmonary pathology seen. ABDOMEN/PELVIS: 1. Thickened area in the sigmoid colon with surrounding fat stranding. The differential includes a mass or diverticulitis. Sigmoidoscopy is advised. 2. Rounded hypodense area in the left lobe of the liver. This may be a mass and this likely an abscess. Surrounding fat stranding is seen in the area. 3. Cholelithiasis. Abdomen Ultrasound 04/21/24 17:28 IMPRESSION: Heterogenous echogenicity of the liver suggestive of cirrhosis with a complex mass in the left lateral lobe. Further evaluation advised. Small stones with highly suggestive polyp in the anterior wall. Otherwise, normal right upper quadrant ultrasound. Brain MRI 04/22/24 08:04 IMPRESSION: 1. No acute intracranial process. 2. Nonspecific mild scattered white matter T2 hyperintensity which is within normal limits for age and likely sequela of chronic small vessel ischemic disease. Abdomen MRI 04/23/24 10:08 IMPRESSION: 1. 5.1 cm cystic mass in left hepatic lobe, consistent with abscess or less likely neoplasm. 2. Cirrhosis of the liver. 3. Sigmoid diverticulitis with perforation. Chest X-Ray 04/26/24 06:31 IMPRESSION: 1. Mild pulmonary edema. 2. Small left pleural effusion. Labs Labs: Laboratory Results - last 24 hr 04/27/24 04/28/24 05:57 05:18 WBC 14.1 H RBC 3.76 L Hgb 11.0 L Hct 34.8 L MCV 92.6 MCH 29.3 MCHC 31.6 L RDW 15.4 H Plt Count 444 H MPV 9.4 Immature Gran % (Auto) 1.3 H Neut % (Auto) 70.2 Lymph % (Auto) 17.5 L Mobile % (Auto) 8.4 Eos % (Auto) 2.2 Baso % (Auto) 0.4 Lymph # (Auto) 2.46 Mobile # (Auto) 1.2 H Eos # (Auto) 0.3 Baso # (Auto) 0.1 Abs Immat Gran (auto) 0.19 H Absolute Neuts (auto) 9.9 H Absolute Nucleated RBC 0.020 H Nucleated RBC % 0.1 Atypical Lymphocytes Present Platelet Estimate Increased Schistocytes None seen Sodium 139 Potassium 4.0 Chloride 101 Carbon Dioxide 36 H Anion Gap 2 L BUN 13 Creatinine 0.70 Estim Creat Clear Calc 69 Estimated GFR > 60 Glucose 111 H Calcium 8.8 Magnesium 1.8 2.0 Total Bilirubin 0.6 AST 28 ALT 15 Alkaline Phosphatase 142 H Total Protein 7.0 Albumin 3.0 L Imaging Radiologist's impression: EXAMINATION: CTA chest PE abdomen pel DATE: 04/28/2024 10:50 INDICATION: Shortness of breath TECHNIQUE: Computed tomography angiography (CTA) of the chest was performed with 100 mL Omnipaque-350 intravenous contrast timed to evaluate the pulmonary arteries. Coronal maximum intensity projection 3D-reconstructions were created by the technologist. Automated exposure control and iterative reconstruction technique were employed. Exam dose: 1241.47 mGy-cm total exam DLP. COMPARISON: 04/26/2024 portable AP chest FINDINGS: The pulmonary arteries are moderately opacified without apparent embolism. There is extensive thoracic aortic and great vessel calcification as well as coronary artery calcification. No thoracic aortic aneurysm or dissection. No hilar or mediastinal mass lesion or lymphadenopathy. The adrenal glands are unremarkable. Discoid atelectasis or scarring at the lung bases. Lungs otherwise are clear of infiltrate or consolidation. Prominent degenerative disc disease at C5-6 and C6-7. Diffuse idiopathic skeletal hyperostosis of the thoracic spine. IMPRESSION: No detected pulmonary emboli Reviewed, dictated and finalized at [facility]. Reviewed, dictated and finalized at [facility]. Pulse Oximetry SpO2 results: 91-95% on room air Attestation: I personally reviewed and interpreted this pulse oximetry as follows: Interpretation: no need for supplemental oxygenation at this time Quality VTE Prophylaxis VTE prophylaxis: pharmacologic ordered Hospitalist MIPS Advance Care Plan I have confirmed that the patient's Advanced Care Plan is present, code status is documented, or surrogate decision maker is listed in patient medical record.: Yes Medication Reconciliation I have utilized all available resources to obtain, update and review the patients current medications (includes all prescriptions, OTC, herbals, cannabis, and nutritional supplements).: Yes
[2024-04-28] MEDS: LORazepam (*CRX) 1 MG TABLET PO (21:17)
[2024-04-29] VITALS: PULSE 75
[2024-04-29 04:00] VITALS: PULSE 77
[2024-04-29 04:50] VITALS: BP 109/65; PULSE 75; RESP 18; TEMP 36.5; O2SAT 91
[2024-04-29] MEDS: metroNIDAZOLE 500 MG TABLET PO ×2 (05:53→13:17)
[2024-04-29 06:16] LABS: Basophils Absolute Auto 0.1 K/mm3 (0.0-0.1); Basophils Percent Auto 0.6 % (0.2-1.2); Eosinophils Absolute Auto 0.4 K/mm3 (0-0.3); Eosinophils Percent Auto 2.6 % (0-4.4); Hematocrit 35.7 % (37.0-47.0); Hemoglobin 11.1 g/dL (12.0-15.0); Immature Granulocyte Absolute 0.23 K/mm3 (0.00-0.031); Immature Granulocyte Percent A 1.7 % (0-0.5); Lymphocytes Percent Auto 19.4 % (18.3-44.2); Mean Corpuscular HGB Conc 31.1 g/dl (32-36); Mean Corpuscular Hemoglobin 29.1 pg (26-34); Mean Corpuscular Volume 93.5 fl (80-100); Mean Platelet Volume 9.5 fl (7.4-10.4); Monocytes Absolute Auto 1.2 K/mm3 (0.1-0.6); Monocytes Percent Auto 8.8 % (2.6-8.5); Neutrophils Absolute Auto 9.3 K/mm3 (1.3-6.7); Neutrophils Percent Auto 66.9 % (45.5-73.1); Platelet Count Result 449 k/mm3 (150-375); Red Blood Count 3.82 M/mm3 (4.2-5.4); Red Cell Distribution Width 15.8 % (11.5-14.5); White Blood Count 13.9 K/mm3 (4.5-10.0)
[2024-04-29 07:32] LABS: Alanine Aminotransferase 13 U/L (6-35); Albumin Level 3.1 g/dL (3.5-5.1); Alkaline Phosphatase 128 U/L (38-126); Anion Gap 4 mmol/L (4-12); Aspartate Amino Transferase 27 U/L (14-36); Bilirubin,Total 0.6 mg/dL (0.2-1.3); Blood Urea Nitrogen 14 mg/dL (7-17); Calcium 8.9 mg/dL (8.4-10.2); Carbon Dioxide 34 mmol/L (22-30); Chloride 100 mmol/L (98-107); Estimated CRCL calculation 60 ml/min; Estimated Glomerular Filt Rate > 60; Glucose 103 mg/dL (65-110); Potassium 3.5 mmol/L (3.4-5.0); Sodium 138 mmol/L (137-145)
[2024-04-29 08:00] VITALS: PULSE 77
[2024-04-29] MEDS: AMOXICILLIN/CLAVULANATE K 875-125 MG TAB 1 TABLET PO (08:34)
[2024-04-29] MEDS: FERROUS SULFATE 325 MG TABLET DR PO (08:34)
[2024-04-29] MEDS: TELMISARTAN 40 MG TABLET PO (08:34)
[2024-04-29] MEDS: FUROSEMIDE INJ 40 MG/4 ML VIAL IV PUSH (08:34)
[2024-04-29] MEDS: APIXABAN 5 MG TABLET PO (08:34)
[2024-04-29] MEDS: ASPIRIN 81 MG CHEWABLE TABLET PO (08:34)
[2024-04-29] MEDS: dilTIAZem HCL CD 120 MG CAP.24HR PO (08:34)
[2024-04-29 12:00] VITALS: PULSE 89
--- NOTE | 2024-04-29 13:25 | P.DS_ITS ---
DS: Admitting Diagnosis Discharge Date 04/29/2024 Admitting Diagnosis Sepsis, diverticulitis, LUCRETIA, lesion of left lobe of liver, cholelithiasis, normocytic anemia, descending aortic aneurysm, HTN DS: Discharge Diagnosis Discharge Diagnosis (1) Paroxysmal atrial fibrillation with RVR: Code(s): I48.0 - Paroxysmal atrial fibrillation Status: Acute (2) Acute heart failure with preserved ejection fraction (HFpEF): Code(s): I50.31 - Acute diastolic (congestive) heart failure Status: Acute (3) Perforation of sigmoid colon due to diverticulitis: Code(s): K57.20 - Diverticulitis of large intestine with perforation and abscess without bleeding Status: Acute (4) Lesion of left lobe of liver: Code(s): K76.9 - Liver disease, unspecified Status: Acute (5) Normocytic anemia: Code(s): D64.9 - Anemia, unspecified Status: Acute (6) Descending aortic aneurysm: Code(s): I71.9 - Aortic aneurysm of unspecified site, without rupture Status: Acute (7) Acute kidney injury: Code(s): N17.9 - Acute kidney failure, unspecified Status: Resolved DS: Summary Hospital Course Hospital Course: This is a 78 year old female patient admitted with diverticulitis and sepsis as well as liver lesion thought to be an abscess. Patient declined drainage of abscess or biopsy of lesion. She was evaluated by surgery and non-surgical approach deemed favorable. Due to abscess without source control, patient will need extended ABX coverage. Prior to discharge patient noted to have developed paroxysmal atrial fibrillation and new onset HFpEF. She was started on an ticoagulation and diuretics which were continued upon discharge. Patient would have benefited from SNF but would only agree to home health for PT/OT. Status at Discharge Cognitive/behavioral status at discharge: Awake, alert, oriented and pleasant Functional status at discharge: uses cane/walker Overall status at discharge: patient is progressing back to baseline Time Spent with Patient Time attestation: Total time spent providing and/or coordinating discharge services: 50 minutes Time spent: Greater than 30 minutes Exam Narrative: GENERAL: Awake alert, nonlabored respirations on room air HEAD: Normocephalic, atraumatic. ENT:? Mucous membranes moist. CHEST: clear to auscultation, no accessory muscle use HEART: regular rate, regular rhythm. ? Normal peripheral pulses. ABDOMEN: Soft, nontender, nondistended. EXTREMITIES: Normal range of motion. 1-2+ lower extremity edema SKIN: Warm dry normal color NEURO: Alert and oriented x3. PSYCH: Normal mood and affect DS: Data Data Completed and Pending Labs on day of discharge: Labs from last 24 hours 04/29/24 05:36 WBC 13.9 H RBC 3.82 L Hgb 11.1 L Hct 35.7 L MCV 93.5 MCH 29.1 MCHC 31.1 L RDW 15.8 H Plt Count 449 H MPV 9.5 Immature Gran % (Auto) 1.7 H Neut % (Auto) 66.9 Lymph % (Auto) 19.4 Gilchrist % (Auto) 8.8 H Eos % (Auto) 2.6 Baso % (Auto) 0.6 Lymph # (Auto) 2.70 Gilchrist # (Auto) 1.2 H Eos # (Auto) 0.4 H Baso # (Auto) 0.1 Abs Immat Gran (auto) 0.23 H Absolute Neuts (auto) 9.3 H Absolute Nucleated RBC 0.000 Nucleated RBC % 0.0 Sodium 138 Potassium 3.5 Chloride 100 Carbon Dioxide 34 H Anion Gap 4 BUN 14 Creatinine 0.80 Estim Creat Clear Calc 60 Estimated GFR > 60 Glucose 103 Calcium 8.9 Magnesium 2.0 Total Bilirubin 0.6 AST 27 ALT 13 Alkaline Phosphatase 128 H Total Protein 7.0 Albumin 3.1 L Discharge Plan Discharge Attending physician on discharge: Rafal Butcher Consulting providers: Skip Gillette; Aysha Tillman; Royal Iglesias; Moy Quevedo; Melo Ribera; Clarence Will; Alycia Roth Rafe M.; Logan Storey; Lynn Patel; Reyes White V.; Angela Jansen Discharging Clinician: Logan Santana Anticipated Discharge Date/Time: 04/29/24 13:03 Patient Disposition: Home Health Service Activity: as tolerated Diet: low sodium and low fiber Discharge Instructions: Care Coordination: [facility] [phone] has been arranged for physical and occupational therapy. They will call you regarding your first visit. Low salt diet, low fiber diet. Start new medications: Eliquis, diltiazem, iron, furosemide, and antibiotics Make surgery follow up in 4-6 weeks--you will need to schedule this appointment. Get MRI repeated in 4 weeks after finishing antibiotic prescriptions, an order for this is in the discharge packet. Cardiology appointment scheduled on May 24 at 3:45 pm at [facility] Cardiology on first floor of [facility] Building, Hospital Entrance 1. Patient Instructions: Antibiotic Form, Apixaban (By mouth), Pain Management in Older Adults (DC), Low Fiber Diet (DC), Low-Sodium Diet (DC) Stand Alone Forms: General Discharge Information Follow-up/Referrals: Aysha Tillman MD [Physician] - 6 Weeks Yordan Cardozo MD [Physician] - 05/24/24 3:45 pm Discharge Medications: New diltiazem HCl 120 mg Capsule,Extended Release 24 Hr 120 mg PO QAM Qty: 30 0RF ferrous sulfate 325 mg (65 mg iron) Tablet,Delayed Release (Dr/Ec) 325 mg PO DAILY Qty: 30 0RF metronidazole 500 mg Tablet 500 mg PO Q8HR 28 Days Qty: 84 0RF amoxicillin-pot clavulanate 875-125 mg tablet 1 tablet PO Q12H 28 Days Qty: 56 0RF Eliquis 5 mg tablet 5 mg PO Q12H Qty: 60 0RF furosemide 40 mg tablet 40 mg PO DAILY Qty: 30 0RF Continued aspirin 81 mg Tablet 81 mg PO DAILY lorazepam 1 mg tablet 1 mg PO HS Changed telmisartan [Micardis] 40 mg Tablet 20 mg PO DAILY Qty: 30 0RF Other Ambulatory Orders: MR abdomen wo/w con (Routine) Timeframe: 4 Weeks Location: Determined by Patient Ordered By: Logan Santana Date of admission: 04/22/24 13:17 Primary Care Provider: Debra,Aleksandr Admitting Provider: Abimael Goldman Attending physician on admission: Frida Bui Condition: Improved Quality VTE Prophylaxis VTE prophylaxis: pharmacologic ordered Hospitalist MIPS Heart Failure (Exclusion) Patient has history of Heart Transplant or Left Ventricular Assistive Device?: No IF YES, STOP HERE Heart Failure (Qualifier) Patient has current or prior documentation of LVEF less than or equal to 40%, or mod/servere depressed LVSF?: No IF NO, STOP HERE
[2024-04-29 14:00] VITALS: BP 104/71; PULSE 88; RESP 18; TEMP 36.3; O2SAT 94
[2024-04-30 08:08] LABS: Actin Antibody (IgG) <20 U (<20)
[2024-05-01 09:08] LABS: Mitochondrial (M2) Ab (IgG) <20.0 U
[2024-05-01 22:59] LABS: LKM 1 Antibody <=20.0 U (<=20.0)
--- NOTE | 2024-05-07 10:22 | PC.NURSE ---
Received call from pt. stating she can't take the metronidazole. It makes her very sick. I spoke to STAN Villalpando and he said she can take just the Augmentin. Returned call to pt to stop Metronidazole and to cont Augmentin. Pt states thanks and understanding.
== END 2024-04-29 16:09 | disposition home health service (06) | DRG 391 ==
LOC: ANHED 17:00 → ANH3MEDSUR 21:11
PROVIDERS: Internal Medicine; Internal Medicine Gastroenterology; Nurse Practitioner; Physician Assistant; Admitting Provider Internal Medicine; Emergency Provider Emergency Medicine; PCP Internal Medicine; Visit Provider Nurse Practitioner Acute Care
DX: K57.20 Diverticulitis of large intestine with perforation and abscess without bleeding (principal); I50.31 Acute diastolic (congestive) heart failure; K75.0 Abscess of liver; N17.0 Acute kidney failure with tubular necrosis; I48.0 Paroxysmal atrial fibrillation; K80.20 Calculus of gallbladder without cholecystitis without obstruction; M19.90 Unspecified osteoarthritis, unspecified site; I10 Essential (primary) hypertension; L40.9 Psoriasis, unspecified; F41.9 Anxiety disorder, unspecified; K74.60 Unspecified cirrhosis of liver; D64.9 Anemia, unspecified; I71.9 Aortic aneurysm of unspecified site, without rupture; Z66 Do not resuscitate; Z90.49 Acquired absence of other specified parts of digestive tract; Z87.891 Personal history of nicotine dependence
CPT/HCPCS: 36415; 70450; 70553; 71045; 71046; 71250; 71275; 74176; 74177; 74183; 76705; 80053; 80074; 81001; 82104; 82105; 82274; 82378; 82390; 82607; 82728; 82746; 83520; 83540; 83550; 83605; 83735; 83880; 84443; 85025; 86364; 86376; 87040; 87637; 93005; 93306; 96374; 96375; 97110; 97161; 97165; 97530; 97535; 99285; A9270; A9577; G0378; J0696; J1650; J1940; J2405; J2543; J3475; J7030; J7040; Q9967

== ENCOUNTER 2024-06-01 14:56 | Outpatient (CLI) | payer MEDICARE, SELFPAY ==
--- NOTE | ~2024-06-01 | MR_ITS ---
EXAMINATION: MR abdomen wo/w con DATE: 06/01/2024 16:04 INDICATION: Abscess of liver. TECHNIQUE: Magnetic resonance imaging (MRI) of the abdomen was performed without and with 17 mL Multi Aditya intravenous contrast. COMPARISON: Abdomen MRI 04/23/2024, CT 04/28/2024 FINDINGS: The liver demonstrates surface nodularity, consistent with cirrhosis. In the left hepatic lobe, there is a 2.5 cm mass of mildly increased T2-weighted signal intensity with decrease in size from 5.1 cm on 04/23/24. There are cysts in the liver measuring up to 12 mm. There is cystic thickening of the wal l of the fundus of the gallbladder, consistent with adenomyomatosis. Cholelithiasis is noted. The spl een is normal. There is pancreas divisum. There is a 5 mm cystic lesion of the pancreas, likely benig n. There is a diverticulum of the second portion of the duodenum. The adrenal glands and kidneys are normal. There is diverticulosis of the colon. There is wall thickening of the sigmoid colon. There is fat stranding around the sigmoid colon. There are no dilated loops of bowel. There are no pathologic ally enlarged lymph nodes. There is no free intraperitoneal fluid. There is a portacaval shunt from t he splenic vein to a left pelvic pain. IMPRESSION: 1. 2.5 cm mass of left hepatic lobe with decrease in size from 5.1 cm on 04/23/2024, consistent with f ocal infectious hepatitis with resolved abscess. 2. Partially visualized sigmoid diverticulitis. 3. Cirrhosis of the liver with portal venous hypertension. Reviewed, dictated and finalized at [facility]. IMPRESSION: 1. 2.5 cm mass of left hepatic lobe with decrease in size from 5.1 cm on 024, consistent with focal infectious hepatitis with resolved abscess. 2. Partially visualized sigmoid diverticulitis. 3. Cirrhosis of the liver with portal venous hypertension.
== END 2024-06-01 14:57 | disposition home or self-care (01) ==
PROVIDERS: PCP Internal Medicine; Visit Provider Nurse Practitioner
DX: K75.0 Abscess of liver (principal); K57.20 Diverticulitis of large intestine with perforation and abscess without bleeding; K74.60 Unspecified cirrhosis of liver; K76.6 Portal hypertension
CPT/HCPCS: 74183; A9577

== ENCOUNTER 2024-08-17 02:34 | Inpatient (IN) | payer MEDICARE, SELFPAY ==
[2024-08-17] VITALS (24 sets, daily range): BP systolic 85–118; BP diastolic 42–65; PULSE 66–101; RESP 15–20; TEMP 36.4–36.9; O2SAT 89–100; BMI 27.0
--- NOTE | ~2024-08-17 | MR_ITS ---
EXAMINATION: MR thoracic spine wo con DATE: 08/19/2024 15:50 INDICATION: New onset of back pain TECHNIQUE: Magnetic resonance imaging (MRI) of the thoracic spine was performed without intravenous c ontrast. COMPARISON: CTPA abdomen pelvis 04/28/2024 FINDINGS: Mild motion artifact present. Vertebral body hemangioma in T8. The cord is normal in signal and calib er. No suspicious focal or diffuse marrow signal. Conus terminates at T12-L1. No significant scoliosi s. Exaggerated thoracic kyphosis. Vertebral bodies are aligned. Vertebral body heights are maintained . Multilevel mild loss of disc height and hydration. Multilevel marginal osteophytosis including mult iple small anterolateral bridging osteophytes in the mid and lower thoracic spine. Mild facet arthrop athy at C2-3, T10-11 and T11-12. IMPRESSION: Multilevel mild degenerative disc disease. Multilevel facet arthropathy. No severe central canal or n eural foraminal narrowing. Reviewed, dictated and finalized at location K. IMPRESSION: Multilevel mild degenerative disc disease. Multilevel facet arthropathy. No sev ere central canal or neural foraminal narrowing.
--- NOTE | ~2024-08-17 | CT_ITS ---
CT angiogram of the abdomen/pelvis and lower extremities Clinical history left lower extremity pain, history of aneurysm TECHNIQUE: Following intravenous administration of 100 cc of Omnipaque 350 contrast material, axial i maging of the abdomen, pelvis, and lower extremities was performed. 3-D reconstructed images were per formed. Dose reduction technique was used on this scan by utilizing automated exposure control and it erative reconstruction technique. The dose-length product (DLP) was 1512.35 mGy-cm. COMPARISON: 04/28/2024 Findings: There is atelectatic change at the right lung base. There is elevation/eventration of left hemidiaphragm. There is a nodular contour of the liver without focal mass or biliary dilatation. Gallstones are pres ent. Spleen, pancreas, adrenal glands, and kidneys are unremarkable. There are atherosclerotic calcif ications of aorta, without douglas aortic aneurysm. There are also atherosclerotic calcifications of th e iliac vessels. No lymphadenopathy. There is mild wall thickening of sigmoid colon with underlying diverticular disease and mild pericolo ramesh inflammatory change. There is a decreased extraluminal collection, compatible with chronic absces s or chronic contained perforation, measuring approximately 3 cm in maximum diameter (axial image 119 for example). No bowel obstruction. Tiny fat-containing umbilical hernia present. Urinary bladder unremarkable. No adnexal mass evident. No ascites. Left common femoral artery, superficial femoral artery, profunda femoral artery, and popliteal artery are patent. There is mild atherosclerotic calcification of the left external iliac/common femoral ar alejo. No large vessel occlusion or significant stenosis of these vessels is present. Left popliteal t rifurcation is unremarkable. Left posterior tibial, anterior tibial, and peroneal arteries are patent , without significant atherosclerotic change. No evidence of occlusion or definite focal stenosis in these vessels. No distinct soft tissue abnormality seen in the left lower extremity. Right common femoral artery, superficial femoral artery, profunda femoral artery, and popliteal arter y are patent. No large vessel occlusion or stenosis of these vessels. Right popliteal trifurcation is unremarkable. Right posterior tibial, anterior tibial, and peroneal arteries are patent, without occ lusion or focal high-grade stenosis identified. No distinct soft tissue abnormality seen in the right lower extremity. IMPRESSION: No aortic aneurysm. Atherosclerotic calcifications of the aorta and iliac vessels are present. No large vessel occlusion or significant stenosis in the lower extremity arterial vasculature. Minima l atherosclerotic calcifications. Mild acute sigmoid diverticulitis with 3 cm chronic pericolonic abscess or contained perforation, whi ch is decreased in size from prior exam. Reviewed, dictated and finalized at location M. IMPRESSION: No aortic aneurysm. Atherosclerotic calcifications of the aorta and iliac vesse ls are present. No large vessel occlusion or significant stenosis in the lower extremity arteri al vasculature. Minimal atherosclerotic calcifications. Mild acute sigmoid diverticulitis with 3 cm chronic pericolonic abscess or cont ained perforation, which is decreased in size from prior exam.
--- NOTE | ~2024-08-17 | MR_ITS ---
EXAMINATION: MR cervical spine wo con DATE: 08/19/2024 15:50 INDICATION: New onset back pain TECHNIQUE: Magnetic resonance imaging (MRI) of the cervical spine was performed without intravenous c ontrast. Sequences included sagittal T2-weighted FSE, sagittal T2-weighted FS FSE, sagittal T1-weight ed FSE, axial MERGE, and axial T2-weighted FSE. COMPARISON: None FINDINGS: Craniocervical association and atlantoaxial joint are intact. Normal alignment. Moderate de generative change at the atlantodental interval. Chronic mild multilevel height loss and anterior wed ge deformity. Disc space narrowing and loss of hydration at all levels. Mild T2 hyperintensity in the cord spanning C2-3 through C6-7. Normal cervicomedulary junction. The following disc levels are spec ifically discussed: C2-C3: The disc does not extend beyond the endplate margin. There is mild uncovertebral joint osteoar thritis. There is mild right and moderate left facet joint osteoarthritis. There is no neural foramin al stenosis. There is mild central canal stenosis. C3-C4: The disc does not extend beyond the endplate margin. There is mild bilateral uncovertebral kati nt osteoarthritis. There is mild bilateral facet joint osteoarthritis. There is mild right and modera te left neural foraminal stenosis. There is mild central canal stenosis. C4-C5: Mild diffuse bulge. There is moderate bilateral uncovertebral joint osteoarthritis. There is m oderate bilateral facet joint osteoarthritis. There is moderate bilateral neural foraminal stenosis. There is moderate central canal stenosis. C5-C6: Mild diffuse bulge. There is moderate bilateral uncovertebral joint osteoarthritis. There is m ild right and moderate left facet joint osteoarthritis. There is mild bilateral neural foraminal sten osis. There is mild central canal stenosis. C6-C7: Moderate diffuse bulge. There is severe right and moderate left uncovertebral joint osteoarthr itis. There is moderate bilateral facet joint osteoarthritis. There is severe right and moderate left neural foraminal stenosis. There is mild central canal stenosis. C7-T1: The disc does not extend beyond the endplate margin. There is no uncovertebral joint osteoarth ritis. There is mild bilateral facet joint osteoarthritis. There is no neural foraminal stenosis. The re is no central canal stenosis. IMPRESSION: Multilevel degenerative disc disease, severe at C3-4 through C6-7. Moderate central canal stenosis at C4-5 secondary to degenerative disc, uncovertebral joint, and face t changes. Lesser degrees of canal stenosis present at multiple additional levels. Mild cord hyperintensity spanning C2-3 through C6-7, likely representing mild compressive myelopathy. Severe right neural foraminal narrowing at C6-7 secondary to degenerative changes. Lesser degrees of neural foraminal narrowing present at multiple additional levels. Reviewed, dictated and finalized at location K. IMPRESSION: Multilevel degenerative disc disease, severe at C3-4 through C6-7. Moderate central canal stenosis at C4-5 secondary to degenerative disc, uncover tebral joint, and facet changes. Lesser degrees of canal stenosis present at mu ltiple additional levels. Mild cord hyperintensity spanning C2-3 through C6-7, likely representing mild c ompressive myelopathy. Severe right neural foraminal narrowing at C6-7 secondary to degenerative carter es. Lesser degrees of neural foraminal narrowing present at multiple additional levels.
--- NOTE | ~2024-08-17 | MR_ITS ---
EXAMINATION: MR lumbar spine wo/w con DATE: 08/19/2024 15:47 INDICATION: New onset of back pain . TECHNIQUE: Magnetic resonance imaging (MRI) of the lumbar spine was performed with 8 mL MultiHance in travenous contrast. Sequences included sagittal T2-weighted FSE, sagittal T2-weighted FS FSE, sagitta l T1-weighted FSE, and axial T2-weighted FSE. Postcontrast sequences included sagittal and axial T1 F SE fat sat. COMPARISON: CTA abdomen aorta runoff 08/17/2024; CTPA abdomen pelvis 04/28/2024 FINDINGS: The last fully formed and hydrated disc is designated L5-S1. Mild endplate edema and enhanc ement, disc space enhancement, and early erosive appearing changes in the anterolateral aspect of the L4 inferior endplate and L5 superior endplate. Mild abnormal enhancement extends along the left para spinal soft tissues at this level into and along the left psoas muscle, which is contiguous with the sigmoid pericolonic abscess/abscesses anterior to the left psoas in the most inferior images. Conus t erminates at T12-L1. Multilevel loss of disc height and hydration, most pronounced at L4-5 and L5-S1. The following disc levels are specifically discussed: T11-T12: Mild bulge. There is no facet joint osteoarthritis. There is no neural foraminal stenosis. T here is no central canal stenosis. T12-L1: The disc does not extend beyond the endplate margin. There is mild facet joint osteoarthritis . There is no neural foraminal stenosis. There is no central canal stenosis. L1-L2: The disc does not extend beyond the endplate margin. There is mild facet joint osteoarthritis. There is no neural foraminal stenosis. There is no central canal stenosis. L2-L3: Mild diffuse bulge. There is severe facet joint osteoarthritis. There is no neural foraminal s tenosis. There is no central canal stenosis. L3-L4: Moderate diffuse bulge. There is severe facet joint osteoarthritis. There is mild bilateral ne ural foraminal stenosis. There is mild central canal stenosis. L4-L5: Moderate diffuse bulge. Posterior disc rent. 6 mm left foraminal protrusion. There is moderate facet joint osteoarthritis. There is moderate left and mild right neural foraminal stenosis. There i s moderate central canal stenosis. L5-S1: Moderate diffuse bulge. Posterior disc rent. There is moderate bilateral facet joint osteoarth ritis. There is moderate bilateral neural foraminal stenosis. There is no central canal stenosis. IMPRESSION: Findings concerning for early discitis/osteomyelitis involving L4-5, probably originating originating in the sigmoid pericolonic abscess/abscesses and tracking along the left psoas muscle. Psoas phlegmo n is suspected. No definite psoas abscess. Multilevel degenerative disc disease, severe at L4-5 and L5-S1. 6 mm left foraminal L4-5 disc protrusion. Multilevel facet arthropathy, severe at L2-3 and L3-4. Moderate central canal stenosis at L4-5 secondary to degenerative disc facet and ligamentum flavum ch anges. Moderate left L4-5 and bilateral L5-S1 neural foraminal narrowing. Results relating to the possibility of osteomyelitis/discitis reported telephonically to Ema olivera RN by Dr. Cadena at 7:57 PM on 08/19/2024. Reviewed, dictated and finalized at location K. IMPRESSION: Findings concerning for early discitis/osteomyelitis involving L4-5, probably o riginating originating in the sigmoid pericolonic abscess/abscesses and trackin g along the left psoas muscle. Psoas phlegmon is suspected. No definite psoas a bscess. Multilevel degenerative disc disease, severe at L4-5 and L5-S1. 6 mm left foraminal L4-5 disc protrusion. Multilevel facet arthropathy, severe at L2-3 and L3-4. Moderate central canal stenosis at L4-5 secondary to degenerative disc facet an claudine segura
--- NOTE | 2024-08-17 03:07 | ED.BACK ---
HPI - Back Pain/Injury General Chief Complaint: Back Pain/Injury <Robbie Broderick MD - Last Filed: 08/17/24 07:00> Stated Complaint: LL Back pain to L leg, hx sciatica <Robbie Broderick MD - Last Filed: 08/17/24 07:00> Time Seen by Provider: 08/17/24 02:41 <Robbie Broderick MD - Last Filed: 08/17/24 07:00> History of Present Illness HPI Narrative: 78-year-old female with a past medical history significant for paroxysmal AFib, have path, recent admission to the hospital for perforated diverticulitis. She has a known AAA. Presents to the emergency room today with a chief complaint of sciatica. She states that she is having left-sided low back pain radiating down the back of her leg and going all way to her toes. She states it feels similar to her sciatic pain she has been having difficulty ambulating over last few days. She denies any trauma, injuries or illnesses. She states that she woke up and had pain in her left back going down the left leg. Denies any abdominal pain, chest pain, nausea, vomiting, weakness or fatigue. No falls or recent trauma. She is presenting with her son who provides collateral formation. Patient has been doing well since her recent hospitalization and complete her antibiotic course and is recovering nicely from her diverticulitis. Has yet to follow up outpatient with PCP. <Robbie Broderick MD - Last Filed: 08/17/24 07:00> Related Data Home Medications: Home Medications Medication Instructions Recorded Confirmed aspirin 81 mg tablet 81 mg PO DAILY 04/20/24 04/20/24 lorazepam 1 mg tablet 1 mg PO HS 04/20/24 04/20/24 <Robbie Broderick MD - Last Filed: 08/17/24 07:00> Allergies/Adverse Reactions: Allergies Allergy/AdvReac Type Severity Reaction Status Date / Time No Known Allergies Allergy Verified 04/20/24 22:03 <Robbie Broderick MD - Last Filed: 08/17/24 07:00> Review of Systems Review of Systems: As reviewed above in HPI <Robbie Broderick MD - Last Filed: 08/17/24 07:00> PMFSH Past Medical History Medical History: Medical History Anxiety Cirrhosis Diverticulitis Hypertension Osteoarthritis Psoriasis <Robbie Broderick MD - Last Filed: 08/17/24 07:00> Surgical History Surgical History: Surgical History History of appendectomy <Robbie Broderick MD - Last Filed: 08/17/24 07:00> Family History Family History: Family History Other No problems noted. Mother Congestive cardiac failure <Robbie Broderick MD - Last Filed: 08/17/24 07:00> Social History Social History: Social History Social History: Surrogate medical decision maker: Maribell Ramirez, daughter. Code status: Do not resuscitate. Smoking packs per day: 0.5 Smoking cigarettes per day: 10.0 Years smoked: 50 Smoking pack-years: 25.00 Smoking status: Former smoker Substance use: former Do You Feel Safe in your Home?: Yes Lack of Transportation: No Lack of Food: Never True Current Housing: I Have Housing Concerned About Future Housing: No Difficulty Paying Gas/Electric Bills: No Difficulty Paying for Meds: No Currently Unemployed: No Education: High School Diploma/GED Difficulty w/ Childcare or Family Care: No Spiritual care concerns: No <Robbie Broderick MD - Last Filed: 08/17/24 07:00> Exam Narrative: GENERAL: [Well-appearing, well-nourished, and in no acute distress.] HEAD: [Normocephalic, atraumatic.] EYES: [PERRLA and EOMI.] ENT: Nares clear, no rhinorrhea or epistaxis. Mucous membranes moist. NECK: Supple. CHEST: [Clear to auscultation. No respiratory distress.] HEART
[2024-08-17 03:19] LABS: Basophils Percent Auto 0.2 % (0.2-1.2); Eosinophils Percent Auto 0.1 % (0-4.4); Hematocrit 24.6 % (37.0-47.0); Hemoglobin 7.4 g/dL (12.0-15.0); Immature Granulocyte Absolute 0.05 K/mm3 (0.00-0.031); Immature Granulocyte Percent A 0.6 % (0-0.5); Lymphocytes Absolute Auto 1.08 K/mm3 (0.9-3.2); Mean Corpuscular HGB Conc 30.1 g/dl (32-36); Mean Corpuscular Hemoglobin 30.2 pg (26-34); Mean Corpuscular Volume 100.4 fl (80-100); Monocytes Absolute Auto 0.9 K/mm3 (0.1-0.6); Monocytes Percent Auto 9.9 % (2.6-8.5); Neutrophils Percent Auto 77.2 % (45.5-73.1); Platelet Count Result 314 k/mm3 (150-375); Red Blood Count 2.45 M/mm3 (4.2-5.4); Red Cell Distribution Width 14.1 % (11.5-14.5)
[2024-08-17] MEDS: LACTATED RINGERS 1,000 ML 999 ML IV CONT ×2 (03:21→05:47)
[2024-08-17] MEDS: HYDROmorphone HCL INJ (*CRX) 1 MG/ML SYR IV PUSH (03:22)
[2024-08-17 03:28] LABS: Alanine Aminotransferase 14 U/L (6-35); Albumin Level 3.3 g/dL (3.5-5.1); Alkaline Phosphatase 95 U/L (38-126); Anion Gap 6 mmol/L (4-12); Aspartate Amino Transferase 28 U/L (14-36); Bilirubin,Total 0.5 mg/dL (0.2-1.3); Blood Urea Nitrogen 36 mg/dL (7-17); Calcium 8.5 mg/dL (8.4-10.2); Carbon Dioxide 30 mmol/L (22-30); Chloride 103 mmol/L (98-107); Estimated CRCL calculation 27 ml/min; Estimated Glomerular Filt Rate 31; Glucose 134 mg/dL (65-110); Potassium 4.1 mmol/L (3.4-5.0); Sodium 139 mmol/L (137-145)
[2024-08-17 03:30] LABS: Partial Thromboplastin Time 38.3 Seconds (22.3-36.8); Prothrombin Time 22.9 Seconds (11.1-14.7)
[2024-08-17] MEDS: MORPHINE SULFATE (*CRX) 4 MG/ML INJ 2 MG IV PUSH (08:27)
--- NOTE | 2024-08-17 08:35 | PC.NURSE ---
PT DECLINES SECOND SET OF BLOOD CULTURES. DR MCWILLIAMS AWARE AND AGREES.
[2024-08-17] MEDS: PIPERACILLN/TAZ 3.375GM/NS50ML 3.375 GM/50 ML BAG IVPB (08:40)
[2024-08-17 08:53] LABS: Lactic Acid Reflex 1.1 mmol/L (0.7-2.0)
--- NOTE | 2024-08-17 09:20 | PC.NURSE ---
received report from RONDA Nettles at [id number]
--- NOTE | 2024-08-17 09:57 | ADMGEN ---
This patient, Vero Mcknight, was admitted to IMU Room 201-01 @ 0922. Patient/family oriented to hospital policies and general routines including ID bracelet, bed and alarms, visiting hours, pain management, procedures, bathroom and other care routines, personal items, smoking policy, room service/diet, and visiting hours. Information on how to activate the Rapid Response Team has been discussed. Patient/Family are encouraged to report perceived risks to care and to ask questions if they do not understand what they are told or what they should do.
--- NOTE | 2024-08-17 13:05 | PM.IMHP ---
H&P: HPI History of Present Illness Date/Time: 08/17/24 13:30 Chief Complaint: Left lower back pain. Narrative: This is a pleasant 78-year-old female with history of perforated diverticulitis, hypertension, paroxysmal atrial fibrillation on Eliquis, diastolic dysfunction, aortic valve stenosis, chronic anemia, cirrhosis, sciatica, arthritis, psoriasis, and anxiety who presented to the emergency department via EMS from home for evaluation of left lower back pain. She was admitted to the hospital in mid April with sigmoid diverticulitis with perforation for which she completed an extended course of antibiotics and reports feeling pretty well in that regard. Over the last 3 days she has developed pain in the left lower back radiating into the hip and at times down the left leg. This pain is exactly like that she experiences with sciatica. Due to ongoing pain she came in today for evaluation. She was found to have a drop in hemoglobin with further questioning admits to intermittent episodes of blood in her stool though she cannot say whether not they are dark stools or bright red blood. She denies fever, chills, sweats, chest pain, pleuritic pain, shortness of breath, abdominal pain, nausea, vomiting, diarrhea, and constipation. She also denies falls, near falls, lower extremity numbness, saddle anesthesia, urine retention, and bowel incontinence. In the ED: Blood pressures have been as low as 85/55. She has been afebrile since arrival. Labs were significant for a WBC count 9.0, hemoglobin 7.4, hematocrit 24.6%, INR 2.0, PT 22.9, PTT 38.3, BUN 36, creatinine 1.60. Aorta with runoff CTA showed no evidence of aortic aneurysm, significant stenosis, or large vessel occlusion but did show mild acute sigmoid diverticulitis with 3 cm chronic pericolonic abscess or contained perforation which has decreased in size from prior exam. She received 2 L lactated Ringer's with improvement her blood pressures and she is being admitted in this setting. While on the floor she reiterated her DNR/DNI status. She is needing opioids to control her pain and we discussed that her blood pressure could drop even farther with these medications and were not recommended. She understands that her condition may deteriorate and she reiterates that she does not want heroic measures such as central line, visual pressures, intubation, CPR, or even surgery. Depending on her course would consider palliative care. Review of Systems Review of Systems: 12 systems were reviewed and are negative except for as per HPI. [facility] Past Medical History Medical History Anxiety Chronic anticoagulation Cirrhosis Diastolic dysfunction Diverticulitis Hypertension Osteoarthritis Paroxysmal atrial fibrillation Psoriasis Surgical History Surgical History History of appendectomy Family History Family History Other No problems noted. Mother Congestive cardiac failure Social History Social History Social History: Surrogate medical decision maker: Maribell Ramirez, daughter. Code status: Do not resuscitate. Smoking packs per day: 0.5 Smoking cigarettes per day: 10.0 Years smoked: 50 Smoking pack-years: 25.00 Smoking status: Never smoker Alcohol intake: never Substance use: never Substance use type: does not use Do You Feel Safe in your Home?: Yes Lack of Transportation: No Lack of Food: Never True Current Housing: I Do Not Have Housing Concerned About Future Housing: No Difficulty Paying Gas/Electric Bills: No Difficulty Paying for Meds: No Currently Unemployed: No Education: High School Diploma/GED Difficulty w/ Childcare or Family Care: No Spiritual care concerns: No Meds Home Medications and Allergies Home
[2024-08-17 14:16] LABS: Hematocrit 24.8 % (37.0-47.0); Hemoglobin 7.7 g/dL (12.0-15.0)
--- NOTE | 2024-08-17 14:49 | WPDGICN ---
Assessment and Plan Assessment and plan (1) Left low back pain: Code(s): M54.50 - Low back pain, unspecified Status: Acute (2) History of diverticulitis: Code(s): Z87.19 - Personal history of other diseases of the digestive system Status: Acute (3) Anemia: Code(s): D64.9 - Anemia, unspecified Status: Acute Plan The patient has chronic sciatica, which is currently her main complaint. She also has significant anemia, which has not been fully investigated. The patient has adamantly refused endoscopic procedures and has stated clearly that she does not want intravenous central lines, intubation, or invasive procedures. Her recent CT scan of the abdomen shows residual diverticulitis with a resolving small abscess, but she is currently afebrile and her abdominal exam is nontender. These findings may indicate improvement from her previous acute event, and antibiotic treatment may not be necessary at this time. We are willing to re-evaluate the patient if she changes her mind or, in consultation with her family, agrees to undergo endoscopic studies to investigate her severe anemial GI Consult Note Consult date/time: 08/17/24 14:49 Reason for consult: back pain HPI: This is a 78-year-old patient with a past history significant for atrial fibrillation, and recently admitted to hospital for a complicated diverticulitis after which she did well with conservative treatment. Her main complaint is sciatica for which she decided to go to the emergency room today. This pain has been limiting her physical activity and ambulation. She denies abdominal pain, nausea, vomiting or diarrhea. During her ER visit she was noticed to have anemia, with a hemoglobin of 7.4 and her blood pressure was 95/65 mmHg. She received intravenous fluids in the emergency room after she was stabilized and subsequently admitted. Of note, in April this year an abdominal MRI from 04/28/2023 for showed a cirrhotic liver with evidence of portal hypertension and a possible mass compatible with liver abscess which was decreased in size compared to previous examination. This was presumably due to a complicated diverticulitis. Review of Systems Review of Systems: All systems reviewed & are unremarkable except as noted in HPI and below Cardiovascular: Cardiovascular: Reports as per HPI and Reports no additional cardiovascular complaints Respiratory: Respiratory: Reports no additional respiratory complaints Gastrointestinal: Gastrointestinal: Reports no additional gastrointestinal complaints, Denies abdominal pain, Denies melena and Denies bloating PMFSH Past Medical History Medical History (Updated 08/17/24 @ 15:01 by Jose Mena MD) Anxiety Chronic anticoagulation Cirrhosis Diastolic dysfunction Diverticulitis Hypertension Osteoarthritis Paroxysmal atrial fibrillation Psoriasis Surgical History Surgical History History of appendectomy Family History Family History Other No problems noted. Mother Congestive cardiac failure Social History Social History Social History: Surrogate medical decision maker: Maribell Ramirez, daughter. Code status: Do not resuscitate. Smoking packs per day: 0.5 Smoking cigarettes per day: 10.0 Years smoked: 50 Smoking pack-years: 25.00 Smoking status: Never smoker Alcohol intake: never Substance use: never Substance use type: does not use Do You Feel Safe in your Home?: Yes Lack of Transportation: No Lack of Food: Never True Current Housing: I Do Not Have Housing Concerned About Future Housing: No Difficulty Paying Gas/Electric Bills: No Difficulty Paying for Meds: No Currently Unemployed: No Education: High School Diploma/GED Difficulty w/ Childcare or Family Care:
[2024-08-17] MEDS: SODIUM CHLORIDE 0.9% IV 1,000 ML 80 ML IV CONT (14:52)
[2024-08-17] MEDS: PIPERACILLIN/TAZ 2.25G/NS 50ML 2.25 GM/50 ML BAG IVPB ×2 (14:53→20:20)
[2024-08-17] MEDS: HYDROmorphone HCL INJ (*CRX) 1 MG/ML SYR 0.5 MG IV PUSH ×2 (18:08→21:36)
[2024-08-17] MEDS: LORazepam (*CRX) 1 MG TABLET PO (20:20)
[2024-08-18] VITALS (19 sets, daily range): BP systolic 91–125; BP diastolic 42–65; PULSE 73–101; RESP 16–18; TEMP 36.7–37.3; O2SAT 96–100
[2024-08-18] MEDS: HYDROmorphone HCL INJ (*CRX) 1 MG/ML SYR 0.5 MG IV PUSH ×3 (01:53→17:43)
[2024-08-18] MEDS: PIPERACILLIN/TAZ 2.25G/NS 50ML 2.25 GM/50 ML BAG IVPB ×3 (03:22→20:30)
[2024-08-18] MEDS: SODIUM CHLORIDE 0.9% IV 1,000 ML 80 ML IV CONT ×2 (04:31→17:39)
[2024-08-18 04:37] LABS: Hematocrit 24.9 % (37.0-47.0); Hemoglobin 7.6 g/dL (12.0-15.0); Mean Corpuscular HGB Conc 30.5 g/dl (32-36); Mean Corpuscular Volume 98.4 fl (80-100); Mean Platelet Volume 9.2 fl (7.4-10.4); Platelet Count Result 278 k/mm3 (150-375); Red Blood Count 2.53 M/mm3 (4.2-5.4); Red Cell Distribution Width 15.5 % (11.5-14.5); White Blood Count 10.5 K/mm3 (4.5-10.0)
[2024-08-18 04:53] LABS: Anion Gap 3 mmol/L (4-12); Blood Urea Nitrogen 19 mg/dL (7-17); Calcium 8.4 mg/dL (8.4-10.2); Carbon Dioxide 30 mmol/L (22-30); Chloride 106 mmol/L (98-107); Estimated CRCL calculation 36 ml/min; Estimated Glomerular Filt Rate 43; Glucose 91 mg/dL (65-110); Magnesium 2.3 mg/dL (1.6-2.3); Potassium 4.9 mmol/L (3.4-5.0); Sodium 139 mmol/L (137-145)
[2024-08-18 04:54] LABS: INR 1.4; Prothrombin Time 17.4 Seconds (11.1-14.7)
--- NOTE | 2024-08-18 12:49 | PM.CNGS ---
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 The patient reports this is very typical of her sciatic pain. The patient had been admitted in the past for complicated diverticulitis with abscess and imaging in the emergency department does show continued diverticulitis with smaller abscess this time. Of note, the patient denies any abdominal pain. She reports that she has been tolerating a diet and having largely normal bowel function. Review of Systems Review of Systems: All systems reviewed & are unremarkable except as noted in HPI and below PMFSH Past Medical History Medical History Anxiety Chronic anticoagulation Cirrhosis Diastolic dysfunction Diverticulitis Hypertension Osteoarthritis Paroxysmal atrial fibrillation Psoriasis Surgical History Surgical History History of appendectomy Family History Family History Other No problems noted. Mother Congestive cardiac failure Social History Social History Social History: Surrogate medical decision maker: Maribell Ramirez, daughter. Code status: Do not resuscitate. Smoking packs per day: 0.5 Smoking cigarettes per day: 10.0 Years smoked: 50 Smoking pack-years: 25.00 Smoking status: Never smoker Alcohol intake: never Substance use: never Substance use type: does not use Do You Feel Safe in your Home?: Yes Lack of Transportation: No Lack of Food: Never True Current Housing: I Do Not Have Housing Concerned About Future Housing: No Difficulty Paying Gas/Electric Bills: No Difficulty Paying for Meds: No Currently Unemployed: No Education: High School Diploma/GED Difficulty w/ Childcare or Family Care: No Spiritual care concerns: No Meds Home Medications and Allergies Home Medications Medication Instructions Recorded Confirmed Type aspirin 81 mg tablet 81 mg PO DAILY 04/20/24 08/17/24 History lorazepam 1 mg tablet 1 mg PO HS 04/20/24 08/17/24 History diltiazem HCl 120 mg capsule,24 120 mg PO QAM #30 caps 04/29/24 08/17/24 Rx hr,extended release furosemide 40 mg tablet 40 mg PO DAILY #30 tabs 04/29/24 08/17/24 Rx telmisartan 40 mg tablet (Micardis) 20 mg PO DAILY #30 tabs 04/29/24 08/17/24 Rx apixaban 5 mg tablet (Eliquis) 5 mg PO BID 08/17/24 08/17/24 History atorvastatin 40 mg tablet 40 mg PO DAILY 08/17/24 08/17/24 History diclofenac sodium 75 mg 75 mg PO DAILY 08/17/24 08/17/24 History tablet,delayed release Allergies Allergy/AdvReac Type Severity Reaction Status Date / Time No Known Allergies Allergy Verified 04/20/24 22:03 Vital Signs Vital Signs - 24 hr 08/17/24 14:00 08/17/24 15:48 08/17/24 16:00 Temperature 36.4 C Pulse Rate 85 74 74 Respiratory Rate 18 Blood Pressure 104/54 L Pulse Oximetry 98 Oxygen Delivery Fraction of Inspired Oxygen 08/17
--- NOTE | 2024-08-18 14:26 | PM.IMPN ---
Progress Note: A&P Assessment and Plan (1) Left sided sciatica: Code(s): M54.32 - Sciatica, left side Status: Acute (2) Acute on chronic anemia: Code(s): D64.9 - Anemia, unspecified Status: Acute (3) Diverticulitis: Code(s): K57.92 - Diverticulitis of intestine, part unspecified, without perforation or abscess without bleeding Status: Acute (4) Blood in stool: Code(s): K92.1 - Melena Status: Acute (5) Diastolic dysfunction: Code(s): I51.89 - Other ill-defined heart diseases Status: Acute (6) Paroxysmal atrial fibrillation: Code(s): I48.0 - Paroxysmal atrial fibrillation Status: Acute (7) Chronic anticoagulation: Code(s): Z79.01 - senior care (current) use of anticoagulants Status: Acute Plan The patient presented to the emergency department for evaluation of left low back pain radiating into the hip as detailed in HPI. Labs, imaging, EKG, and all reports were personally reviewed. CT scan continues to show evidence of diverticulitis with either perforation or contained abscess and she was started on Zosyn in the ED which will be continued pending surgery input. However her pain seems to be stemming from sciatica. Analgesics are available as needed; avoid NSAIDs given worsening anemia. She will need physical therapy once feeling better. Hemoglobin dropped is presumably due to GI loss given reports of intermittent blood in stool. Hold apixaban and consult GI for recommendations however patient may decline. Her home medications will be reviewed and resumed as appropriate. Findings and treatment plan were discussed with the patient. Questions were solicited and answered to satisfaction. The patient's medical management will be taken over by the hospitalist team in a.m. 08/18: -CT scan shows evidence of diverticulitis with a perforation or contained abscess. -continue Zosyn -as per GI the diverticulitis has been in resolving and suggest antibiotic may not be necessary at this time. -surgery has been consulted. Currently medical management. Okay to resume anticoagulation. -encouraged to low-fiber diet and out of bed Subjective Date/time seen: 08/18/24 14:26 Interval history: Patient does not want any aggressive treatment or measures but okay with continuing the antibiotic. Review of Systems Review of Systems: 12 systems were reviewed and are negative except for as per HPI. Exam Narrative: General: Chronically ill-appearing female supine in bed in moderate pain. Weight: 82.1 kg. BMI: 27.1 HEENT: PERRL, EOMI. Sclera anicteric. Tacky mucous membranes. Delete that. Neck: Supple. Respiratory: Respirations are nonlabored and she is speaking in full sentences. Lungs are clear to auscultation. Cardiovascular: Regular rate and rhythm with S1-S2. Systolic murmur at the upper sternal border. Gastrointestinal: Abdomen is soft and nondistended with positive bowel sounds. Very mild tenderness to deep palpation the left lower quadrant. No guarding or rebound tenderness. No CVA tenderness. Musculoskeletal: Tenderness to palpation over the paraspinous muscles in the left lumbar region which she states reproduces pain down the left glute and into the thigh. She has difficulties lifting the leg off of the bed due to significant reproducible pain. Strength seems to be intact and comparable to that of the right leg. Extremities: No cyanosis, clubbing, or significant edema. Radial and pedal pulses intact. Neurological: Alert. Cranial nerves 2-12 are grossly intact. No gross focal deficits to casual conversation. Psychiatric: Pleasant and cooperative with normal mood and affect. Judgment and insight intact. Objective Data Vital Signs Vital Signs: Vital Signs - 24 hr 08/17/24 15:48 08/17/24 16:00 08/17/24 16:00 Temperature 97.6 F Pulse Rate 74 74 73 Respiratory Rate 18 Blood Pressure 104/54 L Pulse Oximetry 98 Oxygen Delivery [facility]
[2024-08-18] MEDS: APIXABAN 5 MG TABLET PO (17:39)
[2024-08-18] MEDS: LORazepam (*CRX) 1 MG TABLET PO (20:29)
[2024-08-19] VITALS (15 sets, daily range): BP systolic 100–135; BP diastolic 52–71; PULSE 72–91; RESP 16–24; TEMP 36.7–37; O2SAT 94–100
[2024-08-19] MEDS: PIPERACILLIN/TAZ 2.25G/NS 50ML 2.25 GM/50 ML BAG IVPB ×4 (03:00→20:37)
[2024-08-19 05:25] LABS: Hemoglobin 8.2 g/dL (12.0-15.0); Mean Corpuscular HGB Conc 30.4 g/dl (32-36); Mean Corpuscular Hemoglobin 29.7 pg (26-34); Mean Corpuscular Volume 97.8 fl (80-100); Mean Platelet Volume 9.5 fl (7.4-10.4); Platelet Count Result 307 k/mm3 (150-375); Red Blood Count 2.76 M/mm3 (4.2-5.4); Red Cell Distribution Width 14.8 % (11.5-14.5); White Blood Count 8.9 K/mm3 (4.5-10.0)
[2024-08-19 05:54] LABS: Alanine Aminotransferase 13 U/L (6-35); Albumin Level 2.8 g/dL (3.5-5.1); Alkaline Phosphatase 95 U/L (38-126); Anion Gap 7 mmol/L (4-12); Aspartate Amino Transferase 28 U/L (14-36); Bilirubin,Total 0.7 mg/dL (0.2-1.3); Blood Urea Nitrogen 13 mg/dL (7-17); Calcium 8.4 mg/dL (8.4-10.2); Carbon Dioxide 25 mmol/L (22-30); Chloride 105 mmol/L (98-107); Estimated CRCL calculation 49 ml/min; Estimated Glomerular Filt Rate 54; Glucose 88 mg/dL (65-110); Potassium 4.1 mmol/L (3.4-5.0); Sodium 137 mmol/L (137-145)
[2024-08-19] MEDS: SODIUM CHLORIDE 0.9% IV 1,000 ML 80 ML IV CONT ×2 (07:23→20:40)
[2024-08-19] MEDS: HYDROmorphone HCL INJ (*CRX) 1 MG/ML SYR 0.5 MG IV PUSH ×3 (09:23→20:40)
[2024-08-19] MEDS: APIXABAN 5 MG TABLET PO ×2 (09:24→20:37)
[2024-08-19] MEDS: dilTIAZem HCL CD 120 MG CAP.24HR PO (09:24)
--- NOTE | 2024-08-19 09:35 | PM.PNGS ---
Progress Note: A&P Assessment and Plan (1) Diverticulitis of intestine with abscess: Code(s): K57.80 - Diverticulitis of intestine, part unspecified, with perforation and abscess without bleeding Status: Acute Assessment and Plan: exam benign, cont diet and abx, no acute surgical issues, will s/o, call c ?s, issues Subjective Subjective Date/Time Seen: 08/19/24 09:35 Interval history: still c back pain, no abd pain, keisha diet, +bowel fxn Review of Systems Review of Systems: All systems reviewed & are unremarkable except as noted in HPI and below Exam Const: General: cooperative, comfortable and no acute distress Resp: Auscultation: diminished lung sounds Cardio: Rate: regular rate Rhythm: regular rhythm GI: Inspection: normal to inspection and non-distended GI Palp: Yes abdominal tenderness, Yes Soft to palpation, No Guarding due to palpation present (GI) and No Rigid due to palpation Objective Data Vital Signs Vital Signs: Vital Signs - 24 hr 08/18/24 10:00 08/18/24 11:29 08/18/24 12:00 Temperature 36.8 C Pulse Rate 88 95 101 H Respiratory Rate 16 Blood Pressure 113/55 L Pulse Oximetry 100 Oxygen Delivery 08/18/24 15:39 08/18/24 15:47 08/18/24 14:00 Temperature 36.8 C Pulse Rate 87 88 Respiratory Rate 16 Blood Pressure 96/42 L 99/47 L Pulse Oximetry 97 Oxygen Delivery 08/18/24 16:00 08/18/24 18:00 08/18/24 19:02 Temperature 37.3 C Pulse Rate 88 82 83 Respiratory Rate 16 Blood Pressure 91/49 L Pulse Oximetry 96 Oxygen Delivery 08/18/24 19:02 08/18/24 20:00 08/18/24 20:00 Temperature Pulse Rate 75 Respiratory Rate Blood Pressure 96/51 L Pulse Oximetry Oxygen Delivery Room Air 08/18/24 22:00 08/18/24 23:51 08/19/24 00:00 Temperature 36.8 C Pulse Rate 76 80 75 Respiratory Rate 18 Blood Pressure 119/56 L Pulse Oximetry 97 Oxygen Delivery 08/19/24 00:00 08/19/24 02:00 08/19/24 04:00 Temperature 36.8 C Pulse Rate 76 79 Respiratory Rate 18 Blood Pressure 132/68 Pulse Oximetry 99 Oxygen Delivery Room Air 08/19/24 04:00 08/19/24 04:00 08/19/24 06:00 Temperature Pulse Rate 80 76 Respiratory Rate Blood Pressure Pulse Oximetry Oxygen Delivery Room Air 08/19/24 07:53 Temperature 36.9 C Pulse Rate 79 Respiratory Rate 24 H Blood Pressure 135/65 Pulse Oximetry 98 Oxygen Delivery Intake/Output Intake/Output: Intake & Output 08/16/24 08/17/24 08/18/24 08/19/24 23:59 23:59 23:59 23:59 Intake Total 2890 3330 1460 Output Total 1050 1325 450 Balance 1840 2005 1010 Meds/Results Medications: Active Medications Generic Name Dose Route Start Last Admin Trade Name Freq PRN Reason Stop Dose Admin Apixaban 5 mg 08/18/24 17:00 08/19/24 09:24 Apixaban 5 Mg Tablet PO 5 mg BID FELIBERTO Administration Diltiazem HCl 120 mg 08/19/24 09:00 08/19/24 09:24 Diltiazem Hcl Cd 120 Mg Cap.24hr PO 120 mg QAM FELIBERTO Administration Hydromorphone HCl 0.5 mg 08/17/24 14:28 08/19/24 09:23 Hydromorphone Hcl Inj (*Crx) 1 Mg/Ml Syr IV PUSH 0.5 mg Q3H PRN Administration Pain Rated 7-10 Sodium Chloride 1,000 mls @ 80 mls/hr 08/17/24 14:30 08/19/24 07:23 Normal Saline Iv IV CONT 80 mls/hr .[id number] FELIBERTO Administration Piperacillin Sod/Tazobactam Sod 2.25 gm in 50 mls @ 100 mls/hr 08/17/24 21:00 08/19/24 09:24 Zosyn 2.25 Gm/Ns 50 Ml IVPB 100 mls/hr Q6H FELIBERTO Administration Lorazepam 1 mg 08/17/24 21:00 08/18/24 20:29 Lorazepam (*Crx) 1 Mg Tablet PO 1 mg HS FELIBERTO Administration Radiology Results: ITS Impressions Aorta w/Runoff CTA 08/17/24 07:56 IMPRESSION: No aortic aneurysm. Atherosclerotic calcifications of the aorta and iliac vessels are present. No large vessel occlusion or significant stenosis in the lower extremity arterial vasculature. Minimal atherosclerotic calcifications. Mild acute
--- NOTE | 2024-08-19 10:09 | PM.IMPN ---
Progress Note: A&P Assessment and Plan (1) Left sided sciatica: Code(s): M54.32 - Sciatica, left side Status: Acute (2) Acute on chronic anemia: Code(s): D64.9 - Anemia, unspecified Status: Acute (3) Diverticulitis: Code(s): K57.92 - Diverticulitis of intestine, part unspecified, without perforation or abscess without bleeding Status: Acute (4) Blood in stool: Code(s): K92.1 - Melena Status: Acute (5) Diastolic dysfunction: Code(s): I51.89 - Other ill-defined heart diseases Status: Acute (6) Paroxysmal atrial fibrillation: Code(s): I48.0 - Paroxysmal atrial fibrillation Status: Acute (7) Chronic anticoagulation: Code(s): Z79.01 - group home (current) use of anticoagulants Status: Acute Plan The patient presented to the emergency department for evaluation of left low back pain radiating into the hip as detailed in HPI. Labs, imaging, EKG, and all reports were personally reviewed. CT scan continues to show evidence of diverticulitis with either perforation or contained abscess and she was started on Zosyn in the ED which will be continued pending surgery input. However her pain seems to be stemming from sciatica. Analgesics are available as needed; avoid NSAIDs given worsening anemia. She will need physical therapy once feeling better. Hemoglobin dropped is presumably due to GI loss given reports of intermittent blood in stool. Hold apixaban and consult GI for recommendations however patient may decline. Her home medications will be reviewed and resumed as appropriate. Findings and treatment plan were discussed with the patient. Questions were solicited and answered to satisfaction. The patient's medical management will be taken over by the hospitalist team in a.m. 08/19: -CT scan shows evidence of diverticulitis with a perforation or contained abscess. -continue Zosyn -as per GI the diverticulitis has been in resolving and suggest antibiotic may not be necessary at this time. -surgery has been consulted. Currently medical management. Okay to resume anticoagulation. -Complains of new onset of back pain prior to admission to the hospital -No fall reported -Order MRI spine. -encouraged to low-fiber diet and out of bed Subjective Date/time seen: 08/19/24 10:09 Interval history: In regards to diverticulitis of the intestine with perforation and abscess without bleeding no surgical intervention, managed by antibiotic. Project Management Advisor suggest it is a resolving small abscess with her currently afebrile and normal exam nontender an suggest no necessary of antibiotic. In regards to anemia patient does not want any acute intervention including endoscopy. Patient complains of new onset of back pain prior to admission to the hospital. Ordered MRI of spine. Spoke with the daughter who was concerned about the back pain and updated all the current events. Review of Systems Review of Systems: 12 systems were reviewed and are negative except for as per HPI. All systems reviewed & are unremarkable except as noted in HPI and below Cardiovascular: Cardiovascular: Reports as per HPI and Reports no additional cardiovascular complaints Respiratory: Respiratory: Reports no additional respiratory complaints Gastrointestinal: Gastrointestinal: Reports no additional gastrointestinal complaints, Denies abdominal pain, Denies melena and Denies bloating Exam Narrative: General: Chronically ill-appearing female supine in bed in moderate pain. Weight: 82.1 kg. BMI: 27.1 HEENT: PERRL, EOMI. Sclera anicteric. Tacky mucous membranes. Delete that. Neck: Supple. Respiratory: Respirations are nonlabored and she is speaking in full sentences. Lungs are clear to auscultation. Cardiovascular: Regular rate and rhythm with S1-S2. Systolic murmur at the upper sternal border. Gastrointestinal: Abdomen is soft and nondistended with positive bowel sounds. Very mild t
[2024-08-19] MEDS: LORazepam (*CRX) 1 MG TABLET PO (20:37)
[2024-08-19 20:50] LABS: Glucose Point of Care 117 mg/dl (65-105)
[2024-08-20] VITALS (15 sets, daily range): BP systolic 109–122; BP diastolic 47–62; PULSE 66–92; RESP 18; TEMP 36.7–36.9; O2SAT 96–100
[2024-08-20] MEDS: PIPERACILLIN/TAZ 2.25G/NS 50ML 2.25 GM/50 ML BAG IVPB (03:24)
[2024-08-20] MEDS: HYDROmorphone HCL INJ (*CRX) 1 MG/ML SYR 0.5 MG IV PUSH ×3 (03:33→20:39)
[2024-08-20 05:42] LABS: Hematocrit 23.7 % (37.0-47.0); Hemoglobin 7.3 g/dL (12.0-15.0); Mean Corpuscular HGB Conc 30.8 g/dl (32-36); Mean Corpuscular Hemoglobin 30.2 pg (26-34); Mean Corpuscular Volume 97.9 fl (80-100); Platelet Count Result 289 k/mm3 (150-375); Red Blood Count 2.42 M/mm3 (4.2-5.4); Red Cell Distribution Width 14.3 % (11.5-14.5)
[2024-08-20 05:53] LABS: Alanine Aminotransferase 12 U/L (6-35); Albumin Level 2.7 g/dL (3.5-5.1); Alkaline Phosphatase 83 U/L (38-126); Anion Gap 4 mmol/L (4-12); Aspartate Amino Transferase 32 U/L (14-36); Bilirubin,Total 0.5 mg/dL (0.2-1.3); Blood Urea Nitrogen 10 mg/dL (7-17); Calcium 8.5 mg/dL (8.4-10.2); Carbon Dioxide 25 mmol/L (22-30); Chloride 106 mmol/L (98-107); Estimated CRCL calculation 54 ml/min; Estimated Glomerular Filt Rate > 60; Glucose 87 mg/dL (65-110); Potassium 4.3 mmol/L (3.4-5.0); Sodium 135 mmol/L (137-145)
[2024-08-20] MEDS: SODIUM CHLORIDE 0.9% IV 1,000 ML 80 ML IV CONT (09:01)
[2024-08-20] MEDS: dilTIAZem HCL CD 120 MG CAP.24HR PO (09:01)
[2024-08-20] MEDS: PIPERACILLN/TAZ 3.375GM/NS50ML 3.375 GM/50 ML BAG IVPB ×2 (09:01→12:40)
[2024-08-20] MEDS: APIXABAN 5 MG TABLET PO (09:02)
--- NOTE | 2024-08-20 13:07 | PM.IMPN ---
Progress Note: A&P Assessment and Plan (1) Left sided sciatica: Code(s): M54.32 - Sciatica, left side Status: Acute (2) Acute on chronic anemia: Code(s): D64.9 - Anemia, unspecified Status: Acute (3) Diverticulitis: Code(s): K57.92 - Diverticulitis of intestine, part unspecified, without perforation or abscess without bleeding Status: Acute (4) Blood in stool: Code(s): K92.1 - Melena Status: Acute (5) Diastolic dysfunction: Code(s): I51.89 - Other ill-defined heart diseases Status: Acute (6) Paroxysmal atrial fibrillation: Code(s): I48.0 - Paroxysmal atrial fibrillation Status: Acute (7) Chronic anticoagulation: Code(s): Z79.01 - alf (current) use of anticoagulants Status: Acute Plan The patient presented to the emergency department for evaluation of left low back pain radiating into the hip. She was admitted to the hospital in mid April with sigmoid diverticulitis with perforation for which she completed an extended course of antibiotics. She denied any fever chills sweats chest pain shortness of breath abdominal pain nausea vomiting diarrhea constipation. She denies any lower extremity numbness or urinary complaints. In the ED blood pressure was low as 85/55 afebrile. WBC 9.0 hemoglobin was 7.4 INR 2 PTT 22.9 PTT 38.3 BUN 36 creatinine 1.6. Aorta with runoff CTA showed no evidence of aortic aneurysm significant stenosis or large vessel occlusion but did show mild acute sigmoid diverticulitis with 3 cm chronic pericolonic abscess or contained perforation which has decreased in size from prior exam. She received IV fluid resuscitation with improvement of the blood pressure and was admitted for further treatment. General surgery was consulted. She was started on IV antibiotics. She was pancultured on admission and blood culture turning positive for Streptococcus. Will adjust the antibiotic with switched to ceftriaxone 2 g IV daily along with metronidazole. Persistent back pain led to performing lumbar MRI which showed evidence of L4-L5 diskitis/osteomyelitis along with abscess along left psoas muscle. Discussed with general surgery. Will also consult Neurosurgery for further treatment., Anemia acute on chronic due to underlying infection no signs of any bleeding Diverticulitis as above Chronic anticoagulation with Eliquis which will be held Hypertension Paroxysmal atrial fibrillation on diltiazem Diastolic dysfunction Cirrhosis of liver Osteoarthritis Psoriasis Degenerative cervical disc disease DVT prophylaxis apixaban which will be held Code status do not resuscitate Subjective Date/time seen: 08/20/24 13:07 Interval history: Complains of back pain was about the same. Also reports lower extremity weakness. No urinary complaints. Pain is worse on the left side. Patient remains afebrile. Review of Systems Review of Systems: All systems reviewed & are unremarkable except as noted in HPI and below Exam Narrative: General: Chronically ill-appearing female supine in bed in no acute distress HEENT: PERRL, EOMI. Sclera anicteric. Tacky mucous membranes. Delete that. Neck: Supple. Respiratory: Respirations are nonlabored and she is speaking in full sentences. Lungs are clear to auscultation. Cardiovascular: Regular rate and rhythm with S1-S2. Systolic murmur at the upper sternal border. Gastrointestinal: Abdomen is soft and nondistended with positive bowel sounds. Very mild tenderness to deep palpation the left lower quadrant. No guarding or rebound tenderness. No CVA tenderness. Musculoskeletal: Tenderness to palpation over the paraspinous muscles in the left lumbar region which she states reproduces pain down the left glute and into the thigh. She has difficulties lifting the leg off of the bed due to pain. Strength seems to be intact and comparable to that of the right leg. Extremities: No cyanosis, clubbing, or sig
--- NOTE | 2024-08-20 14:02 | PM.PNGS ---
Progress Note: A&P Assessment and Plan (1) Diverticulitis of intestine with abscess: Code(s): K57.80 - Diverticulitis of intestine, part unspecified, with perforation and abscess without bleeding Status: Acute Assessment and Plan: abdominal exam continues to be benign, continue diet, continue IV antibiotics (2) Osteomyelitis: Code(s): M86.9 - Osteomyelitis, unspecified Status: Acute Assessment and Plan: phlegmon likely from diverticulitis tracking to lumbar spine, no obvious drainable collections at this time, await neurosurgery consultation, continue IV antibiotics, will review MRI with the radiologist Subjective Subjective Date/Time Seen: 08/20/24 14:02 Interval history: asked by medicine to see patient regarding MRI findings, pt reports she feels ok, no abd pain, keisha diet, still c significant L side lower back pain c radiation to her LLE Review of Systems Review of Systems: All systems reviewed & are unremarkable except as noted in HPI and below Exam Const: General: cooperative, comfortable, no acute distress and ill appearing Resp: Auscultation: diminished lung sounds Cardio: Rate: regular rate Rhythm: regular rhythm GI: Inspection: normal to inspection and non-distended GI Palp: Yes abdominal tenderness and Yes Soft to palpation Other: mild TTP LLQ Back/Spine/Pelvis: Other: L lower back pain, subtle fullness in L lower back, no fluctuance, no overlying skin changes, +TTP Objective Data Vital Signs Vital Signs: Vital Signs - 24 hr 08/19/24 16:00 08/19/24 16:00 08/19/24 18:00 Temperature 36.7 C Pulse Rate 88 86 78 Respiratory Rate 24 H Blood Pressure 128/66 Pulse Oximetry 98 Oxygen Delivery 08/19/24 20:35 08/19/24 20:00 08/19/24 20:00 Temperature 37.0 C Pulse Rate 82 72 Respiratory Rate 20 Blood Pressure 128/64 Pulse Oximetry 100 Oxygen Delivery Room Air 08/19/24 22:00 08/19/24 23:16 08/20/24 00:00 Temperature 36.9 C Pulse Rate 76 77 Respiratory Rate 20 Blood Pressure 100/52 L Pulse Oximetry 94 Oxygen Delivery Room Air 08/20/24 00:00 08/20/24 02:00 08/20/24 03:29 Temperature 36.9 C Pulse Rate 74 72 80 Respiratory Rate 18 Blood Pressure 109/47 L Pulse Oximetry 98 Oxygen Delivery 08/20/24 04:00 08/20/24 04:00 08/20/24 06:00 Temperature Pulse Rate 69 85 Respiratory Rate Blood Pressure Pulse Oximetry Oxygen Delivery Room Air 08/20/24 08:00 08/20/24 08:00 08/20/24 10:00 Temperature 36.7 C Pulse Rate 82 90 84 Respiratory Rate 18 Blood Pressure 122/62 Pulse Oximetry 98 Oxygen Delivery 08/20/24 12:00 08/20/24 12:00 Temperature 36.7 C Pulse Rate 88 92 Respiratory Rate 18 Blood Pressure 114/55 L Pulse Oximetry 98 Oxygen Delivery Intake/Output Intake/Output: Intake & Output 08/17/24 08/18/24 08/19/24 08/20/24 23:59 23:59 23:59 23:59 Intake Total 2890 3330 2760.0 1478 Output Total 1050 1325 1250 400 Balance 1840 2005 1510.0 1078 Meds/Results Medications: Active Medications Generic Name Dose Route Start Last Admin Trade Name Freq PRN Reason Stop Dose Admin Apixaban 5 mg 08/18/24 17:00 08/20/24 09:02 Apixaban 5 Mg Tablet PO 5 mg BID FELIBERTO Administration Diltiazem HCl 120 mg 08/19/24 09:00 08/20/24 09:01 Diltiazem Hcl Cd 120 Mg Cap.24hr PO 120 mg QAM FELIBERTO Administration Hydromorphone HCl 0.5 mg 08/17/24 14:28 08/20/24 09:02 Hydromorphone Hcl Inj (*Crx) 1 Mg/Ml Syr IV PUSH 0.5 mg Q3H PRN Administration Pain Rated 7-10 Piperacillin/Tazobactam/Dextrose 3.375 gm in 50 mls @ 100 mls/hr 08/20/24 08:25 08/20/24 13:36 Zosyn 3.375 Gm/Ns 50 Ml IVPB Infused Q6HR FELIBERTO Infusion Lorazepam 1 mg 08/17/24 21:00 08/19/24 20:37 Lorazepam (*Crx) 1 Mg Tablet PO 1 mg HS FELIBERTO Administration Radiology Results: ITS Impressions Aorta w/Runoff CTA 08/17/24 07:56 IMPRESSI
[2024-08-20] MEDS: cefTRIAXone 2 GM/NS 100 ML 2 GM/100 ML BAG IVPB (20:40)
[2024-08-20] MEDS: metroNIDAZOLE 500 MG TABLET PO (20:40)
[2024-08-20] MEDS: LORazepam (*CRX) 1 MG TABLET PO (20:40)
[2024-08-21] VITALS (14 sets, daily range): BP systolic 109–130; BP diastolic 48–62; PULSE 63–95; RESP 12–24; TEMP 36.7–36.9; O2SAT 97–99
[2024-08-21] MEDS: metroNIDAZOLE 500 MG TABLET PO ×3 (05:30→21:14)
[2024-08-21] MEDS: HYDROmorphone HCL INJ (*CRX) 1 MG/ML SYR 0.5 MG IV PUSH ×5 (05:34→21:15)
[2024-08-21 05:37] LABS: Basophils Absolute Auto 0.1 K/mm3 (0.0-0.1); Basophils Percent Auto 0.7 % (0.2-1.2); Eosinophils Absolute Auto 0.4 K/mm3 (0-0.3); Eosinophils Percent Auto 5.9 % (0-4.4); Hematocrit 25.7 % (37.0-47.0); Hemoglobin 7.6 g/dL (12.0-15.0); Immature Granulocyte Absolute 0.05 K/mm3 (0.00-0.031); Immature Granulocyte Percent A 0.7 % (0-0.5); Lymphocytes Absolute Auto 1.66 K/mm3 (0.9-3.2); Lymphocytes Percent Auto 23.9 % (18.3-44.2); Mean Corpuscular HGB Conc 29.6 g/dl (32-36); Mean Corpuscular Hemoglobin 28.7 pg (26-34); Mean Platelet Volume 9.4 fl (7.4-10.4); Monocytes Absolute Auto 0.8 K/mm3 (0.1-0.6); Monocytes Percent Auto 10.8 % (2.6-8.5); Platelet Count Result 333 k/mm3 (150-375); Red Blood Count 2.65 M/mm3 (4.2-5.4); Red Cell Distribution Width 14.1 % (11.5-14.5); White Blood Count 6.9 K/mm3 (4.5-10.0)
[2024-08-21 05:45] LABS: Alanine Aminotransferase 13 U/L (6-35); Albumin Level 2.8 g/dL (3.5-5.1); Alkaline Phosphatase 97 U/L (38-126); Anion Gap 5 mmol/L (4-12); Aspartate Amino Transferase 29 U/L (14-36); Bilirubin,Total 0.3 mg/dL (0.2-1.3); Blood Urea Nitrogen 11 mg/dL (7-17); Calcium 8.7 mg/dL (8.4-10.2); Carbon Dioxide 25 mmol/L (22-30); Chloride 106 mmol/L (98-107); Estimated CRCL calculation 54 ml/min; Estimated Glomerular Filt Rate > 60; Glucose 86 mg/dL (65-110); Magnesium 2.1 mg/dL (1.6-2.3); Potassium 3.9 mmol/L (3.4-5.0); Sodium 136 mmol/L (137-145)
[2024-08-21 06:00] LABS: Anisocytosis 1+; Hypochromasia 1+; Platelet Estimate Adequate (Adequate); Schistocytes None Seen
[2024-08-21] MEDS: dilTIAZem HCL CD 120 MG CAP.24HR PO (08:42)
--- NOTE | 2024-08-21 14:53 | PCPTNOTE ---
Attempted PT evaulation, pt adamantly refused stating I don't feel good. Therapist encouraged/educated pt on benefits of OOB activity, but pt continued to refuse. RN aware.
--- NOTE | 2024-08-21 16:21 | PM.PNGS ---
Progress Note: A&P Assessment and Plan (1) Diverticulitis of intestine with abscess: Code(s): K57.80 - Diverticulitis of intestine, part unspecified, with perforation and abscess without bleeding Status: Acute Assessment and Plan: exam cont to be benign, WBC normalized, keisha diet (2) Osteomyelitis: Code(s): M86.9 - Osteomyelitis, unspecified Status: Acute Assessment and Plan: will likely need 6 wks of IV abx, will d/w ID pharmacist, await NS input Subjective Subjective Date/Time Seen: 08/21/24 16:21 Interval history: feels better, L back pain sl improved Review of Systems Review of Systems: All systems reviewed & are unremarkable except as noted in HPI and below Exam Const: General: cooperative, comfortable, no acute distress and ill appearing Resp: Auscultation: clear to auscultation bilaterally Cardio: Rate: regular rate Rhythm: regular rhythm GI: Inspection: normal to inspection GI Palp: No abdominal tenderness and Yes Soft to palpation Back/Spine/Pelvis: Other: mild TTP L lower back Objective Data Vital Signs Vital Signs: Vital Signs - 24 hr 08/20/24 18:00 08/20/24 19:58 08/20/24 20:00 Temperature 36.7 C Pulse Rate 72 76 Respiratory Rate 18 Blood Pressure 120/62 Pulse Oximetry 96 Oxygen Delivery Room Air 08/20/24 20:00 08/20/24 22:00 08/20/24 23:13 Temperature 36.8 C Pulse Rate 78 66 67 Respiratory Rate 18 Blood Pressure 111/54 L Pulse Oximetry 100 Oxygen Delivery 08/21/24 00:00 08/21/24 00:00 08/21/24 02:00 Temperature Pulse Rate 65 63 Respiratory Rate Blood Pressure Pulse Oximetry Oxygen Delivery Room Air 08/21/24 04:00 08/21/24 04:51 08/21/24 04:00 Temperature 36.8 C Pulse Rate 76 70 Respiratory Rate 18 Blood Pressure 123/62 Pulse Oximetry 99 Oxygen Delivery Room Air 08/21/24 06:00 08/21/24 07:52 08/21/24 08:00 Temperature 36.7 C Pulse Rate 79 81 86 Respiratory Rate 12 Blood Pressure 130/61 Pulse Oximetry 97 Oxygen Delivery 08/21/24 10:00 08/21/24 08:00 08/21/24 11:32 Temperature 36.8 C Pulse Rate 85 85 Respiratory Rate 18 Blood Pressure 130/60 Pulse Oximetry 99 Oxygen Delivery Room Air 08/21/24 12:00 08/21/24 14:00 08/21/24 12:00 Temperature Pulse Rate 95 84 Respiratory Rate Blood Pressure Pulse Oximetry Oxygen Delivery Room Air Intake/Output Intake/Output: Intake & Output 08/18/24 08/19/24 08/20/24 08/21/24 23:59 23:59 23:59 23:59 Intake Total 3330 2760.0 3318 480 Output Total 1325 1250 600 500 Balance 2005 1510.0 2718 -20 Meds/Results Medications: Active Medications Generic Name Dose Route Start Last Admin Trade Name Freq PRN Reason Stop Dose Admin Apixaban 5 mg 08/18/24 17:00 08/20/24 09:02 Apixaban 5 Mg Tablet PO 5 mg BID FELIBERTO Administration Diltiazem HCl 120 mg 08/19/24 09:00 08/21/24 08:42 Diltiazem Hcl Cd 120 Mg Cap.24hr PO 120 mg QAM FELIBERTO Administration Hydromorphone HCl 0.5 mg 08/17/24 14:28 08/21/24 12:37 Hydromorphone Hcl Inj (*Crx) 1 Mg/Ml Syr IV PUSH 0.5 mg Q3H PRN Administration Pain Rated 7-10 Ceftriaxone Sodium 2 gm in 100 mls @ 200 mls/hr 08/20/24 21:00 08/20/24 21:10 Rocephin 2 Gm/Ns 100 Ml IVPB Infused Q24H FELIBERTO Infusion Lorazepam 1 mg 08/17/24 21:00 08/20/24 20:40 Lorazepam (*Crx) 1 Mg Tablet PO 1 mg HS FELIBERTO Administration Metronidazole 500 mg 08/20/24 22:00 08/21/24 15:23 Metronidazole 500 Mg Tablet PO 500 mg Q8HR FELIBERTO Administration Radiology Results: ITS Impressions Aorta w/Runoff CTA 08/17/24 07:56 IMPRESSION: No aortic aneurysm. Atherosclerotic calcifications of the aorta and iliac vessels are present. No large vessel occlusion or significant stenosis in the lower extremity arterial vasculature. Minimal atherosclerotic calcifications. Mild acute sigmoid diverticulitis with 3
--- NOTE | 2024-08-21 18:03 | PM.IMPN ---
Progress Note: A&P Assessment and Plan (1) Discitis of lumbar region: Code(s): M46.46 - Discitis, unspecified, lumbar region Status: Acute (2) Diverticulitis of intestine with abscess: Code(s): K57.80 - Diverticulitis of intestine, part unspecified, with perforation and abscess without bleeding Status: Acute Plan Diverticulitis L4-L5 diskitis Strep bacteremia -patient appears to have originally have sigmoid diverticulitis which may have progressed through the iliopsoas on left side leading to her back L4-L5 diskitis -appreciate General Surgeon consultation: Continue medical management -discussed case with neurosurgery consultation: Recommending IR guided biopsy sites for diskitis, no role for Neurosurgery with no easily drainable abscess. Imaging shows no definite psoas abscess -discussed case with IR: Recommend transfer to higher level of care for difficult biopsy of lumbar disc -patient has developed strep bacteremia, unclear if there is other organisms in the lumbar diskitis -antibiotics: On Rocephin, Flagyl -blood cultures positive on 08/17 with strep gallol ssp pasteuruanus, repeating blood cultures today -no leukocytosis, afebrile -pain control: P.r.n. Dilaudid Chronic conditions -chronic anemia: Hemoglobin stable at 7.6 -anxiety: P.r.n. Ativan -paroxysmal atrial fibrillation: Rate control with Diltiazem, anticoagulation Eliquis -hyperlipidemia: Atorvastatin, aspirin -arthritis: Diclofenac -peripheral edema: Lasix -essential hypertension: Diltiazem, telmisartan Diet: Heart healthy diet DVT prophylaxis: Eliquis held for biopsy Code status: DNR Disposition: Attempting transfer to higher level of care for lumbar disc biopsy Time Spent With Patient Time: 40 minutes Subjective Date/time seen: 08/21/24 18:03 Interval history: Patient seen and examined. She is doing well no new complaints. Repeating blood cultures today. Patient is on Rocephin and Flagyl. There was concern for diskitis on L4-L5 however no obvious abscess for neuro surgery to operate. Recommendation is for IR guided biopsy of L4-L5 for evaluation of diskitis. I discussed case with IR who was recommended transfer to tertiary care center considering the difficulty of the biopsy procedure. We will continue antibiotics now I will attempt transfer to higher level of care. Patient denies fever, chills, nausea vomiting, diarrhea. She endorses back pain which is consistent with her L4-L5 infection. Review of Systems Review of Systems: 10 point ROS complete, negative other than what is specified in HPI. Exam Narrative: - GENERAL: Pleasant elderly woman in no acute distress. Well-nourished. - EYES: EOMI. Anicteric. - HENT: Moist mucous membranes. - LUNGS: Clear to auscultation bilaterally, no wheezing, rhonchi, or rales. - CARDIOVASCULAR: Regular rate and rhythm. No murmur. No JVD. - ABDOMEN: Soft, non-tender and non-distended. No palpable masses. - EXTREMITIES: No edema. Peripheral pulses 2+. Non-tender. Tender back pain on manipulation in lumbar region - NEUROLOGIC: No focal neurological deficits. CN II-XII grossly intact. - PSYCHIATRIC: Awake, Alert and oriented x 3. Appropriate mood and affect. - SKIN: No rashes or lesions. Warm. - LYMPH: No cervical lymphadenopathy. Objective Data Vital Signs Vital Signs: Vital Signs - 24 hr 08/20/24 19:58 08/20/24 20:00 08/20/24 20:00 Temperature 36.7 C Pulse Rate 76 78 Respiratory Rate 18 Blood Pressure 120/62 Pulse Oximetry 96 Oxygen Delivery Room Air 08/20/24 22:00 08/20/24 23:13 08/21/24 00:00 Temperature 36.8 C Pulse Rate 66 67 Respiratory Rate 18 Blood Pressure 111/54 L Pulse Oximetry 100 Oxygen Delivery Room Air 08/21/24 00:00 08/21/24 02:00 08/21/24 04:00 Temperature Pulse Rate 65 63 Respiratory Rate Blood Pressure Pulse Oximetry Oxygen Delivery Room Air 08/21/24 04:51 08/21/24 04:00 08/21/24 06
[2024-08-21] MEDS: cefTRIAXone 2 GM/NS 100 ML 2 GM/100 ML BAG IVPB (21:14)
[2024-08-21] MEDS: LORazepam (*CRX) 1 MG TABLET PO (21:14)
[2024-08-22 00:27] VITALS: PULSE 80
[2024-08-22] MEDS: HYDROmorphone HCL INJ (*CRX) 1 MG/ML SYR 0.5 MG IV PUSH ×3 (01:54→23:56)
[2024-08-22 04:23] LABS: Hematocrit 25.3 % (37.0-47.0); Hemoglobin 7.8 g/dL (12.0-15.0); Mean Corpuscular HGB Conc 30.8 g/dl (32-36); Mean Corpuscular Hemoglobin 29.4 pg (26-34); Mean Corpuscular Volume 95.5 fl (80-100); Mean Platelet Volume 9.1 fl (7.4-10.4); Platelet Count Result 366 k/mm3 (150-375); Red Blood Count 2.65 M/mm3 (4.2-5.4); Red Cell Distribution Width 14.3 % (11.5-14.5)
[2024-08-22 04:28] LABS: Anion Gap 6 mmol/L (4-12); Blood Urea Nitrogen 13 mg/dL (7-17); Calcium 8.8 mg/dL (8.4-10.2); Carbon Dioxide 26 mmol/L (22-30); Chloride 104 mmol/L (98-107); Estimated CRCL calculation 53 ml/min; Estimated Glomerular Filt Rate > 60; Glucose 91 mg/dL (65-110); Magnesium 2.1 mg/dL (1.6-2.3); Potassium 3.9 mmol/L (3.4-5.0); Sodium 136 mmol/L (137-145)
[2024-08-22] MEDS: metroNIDAZOLE 500 MG TABLET PO ×3 (05:54→22:00)
[2024-08-22 08:00] VITALS: BP 119/57; PULSE 84; RESP 22; TEMP 36.8; O2SAT 95
[2024-08-22] MEDS: dilTIAZem HCL CD 120 MG CAP.24HR PO (09:05)
--- NOTE | 2024-08-22 09:33 | PCPTNOTE ---
Attempted PT evaluation, pt refused stating she is too dizzy and she is transferring to another hospital. RN aware. Will follow.
--- NOTE | 2024-08-22 09:35 | PM.IMPN ---
Progress Note: A&P Assessment and Plan (1) Discitis of lumbar region: Code(s): M46.46 - Discitis, unspecified, lumbar region Status: Acute (2) Osteomyelitis: Code(s): M86.9 - Osteomyelitis, unspecified Status: Acute (3) Diverticulitis of intestine with abscess: Code(s): K57.80 - Diverticulitis of intestine, part unspecified, with perforation and abscess without bleeding Status: Acute Plan Sigmoid diverticulitis L4-L5 discitis Strep bacteremia -patient appears to have originally have sigmoid diverticulitis which may have progressed through the iliopsoas on left side leading to her back L4-L5 discitis -appreciate General Surgeon consultation: Continue medical management -discussed case with neurosurgery consultation: Recommending IR guided biopsy sites for discitis, no role for Neurosurgery with no easily drainable abscess. Imaging shows no definite psoas abscess -discussed case with IR: Recommend transfer to higher level of care for difficult biopsy of lumbar disc -antibiotics: On Rocephin, Flagyl -patient has developed strep bacteremia, unclear if there is other organisms in the lumbar diskitis -blood cultures positive on 08/17 with strep gallol ssp pasteuruanus, repeating blood cultures 08/21 -if persistently bacteremic may need echocardiogram. heart murmer may be old? -no leukocytosis, afebrile -pain control: P.r.n. norco, dilaudid Chronic conditions -chronic anemia: Hemoglobin stable at 7.8 -anxiety: P.r.n. Ativan -paroxysmal atrial fibrillation: Rate control with Diltiazem, anticoagulation Eliquis -hyperlipidemia: Atorvastatin, aspirin -arthritis: Diclofenac -peripheral edema: Lasix -essential hypertension: Diltiazem, telmisartan Diet: Heart healthy diet DVT prophylaxis: Eliquis held for biopsy Code status: DNR Disposition: pending [facility] transfer Time Spent With Patient Time: 35 minutes Subjective Date/time seen: 08/22/24 09:35 Interval history: Patient seen and examined. She is to move no new complaints. Patient still has low back pain. We discussed transferring to higher level care for L4-L5 discitis biopsy which she is agreeable to. We have repeated blood cultures yesterday, continue antibiotics. Labs and vitals are stable. She is medical floor status. She does have a heart murmur, unclear if new, may need to have echocardiogram if persistent bacteremia. She denies fever, chills, nausea vomiting, diarrhea, chest pain, shortness her breath. She endorses low back pain. Review of Systems Review of Systems: 10 point ROS complete, negative other than what is specified in HPI. Exam Narrative: - GENERAL: Pleasant elderly woman in no acute distress. Well-nourished. - EYES: EOMI. Anicteric. - HENT: Moist mucous membranes. - LUNGS: Clear to auscultation bilaterally, no wheezing, rhonchi, or rales. - CARDIOVASCULAR: Regular rate rhythm, cardiac murmur present - ABDOMEN: Soft, non-tender and non-distended. No palpable masses. Tender low back on palpation lumbar region - EXTREMITIES: Peripheral pulses 2+. Non-tender. - NEUROLOGIC: No focal neurological deficits. CN II-XII grossly intact. - PSYCHIATRIC: Awake, Alert and oriented x 3. Appropriate mood and affect. - SKIN: No rashes or lesions. Warm. - LYMPH: No cervical lymphadenopathy. Objective Data Vital Signs Vital Signs: Vital Signs - 24 hr 08/21/24 10:00 08/21/24 11:32 08/21/24 12:00 Temperature 36.8 C Pulse Rate 85 85 95 Respiratory Rate 18 Blood Pressure 130/60 Pulse Oximetry 99 Oxygen Delivery 08/21/24 14:00 08/21/24 12:00 08/21/24 16:00 Temperature 36.9 C Pulse Rate 84 80 Respiratory Rate 24 H Blood Pressure 110/52 L Pulse Oximetry 97 Oxygen Delivery Room Air 08/21/24 16:00 08/21/24 18:00 08/21/24 16:00 Temperature Pulse Rate 80 82 Respiratory Rate Blood Pressure Pulse Oximetry Oxygen Delivery Room Air 08/21/24 19
--- NOTE | 2024-08-22 11:40 | PM.PNGS ---
Progress Note: A&P Assessment and Plan (1) Diverticulitis of intestine with abscess: Code(s): K57.80 - Diverticulitis of intestine, part unspecified, with perforation and abscess without bleeding Status: Acute Assessment and Plan: exam benign, cont low fiber diet, cont abx (2) Discitis of lumbar region: Code(s): M46.46 - Discitis, unspecified, lumbar region Status: Acute Assessment and Plan: will be transferred for IR bx, cont abx for now Subjective Subjective Date/Time Seen: 08/22/24 11:40 Interval history: no acute issues, keisha diet, +bowel fxn, no abd pain, still c L lower back pain Review of Systems Review of Systems: All systems reviewed & are unremarkable except as noted in HPI and below Exam Const: General: cooperative, comfortable, no acute distress and ill appearing Resp: Auscultation: clear to auscultation bilaterally Cardio: Rate: regular rate Rhythm: regular rhythm GI: Inspection: normal to inspection GI Palp: No abdominal tenderness and Yes Soft to palpation Back/Spine/Pelvis: Other: L lower back - +mod TTP, subtle fullness, no fluctuance Objective Data Vital Signs Vital Signs: Vital Signs - 24 hr 08/21/24 12:00 08/21/24 14:00 08/21/24 12:00 Temperature Pulse Rate 95 84 Respiratory Rate Blood Pressure Pulse Oximetry Oxygen Delivery Room Air 08/21/24 16:00 08/21/24 16:00 08/21/24 18:00 Temperature 36.9 C Pulse Rate 80 80 82 Respiratory Rate 24 H Blood Pressure 110/52 L Pulse Oximetry 97 Oxygen Delivery 08/21/24 16:00 08/21/24 19:47 08/21/24 20:00 Temperature 36.9 C Pulse Rate 87 Respiratory Rate 22 H Blood Pressure 109/48 L Pulse Oximetry 97 Oxygen Delivery Room Air Room Air 08/22/24 00:27 08/22/24 08:00 Temperature 36.8 C Pulse Rate 80 84 Respiratory Rate 22 H Blood Pressure 119/57 L Pulse Oximetry 95 Oxygen Delivery Intake/Output Intake/Output: Intake & Output 08/19/24 08/20/24 08/21/24 08/22/24 23:59 23:59 23:59 23:59 Intake Total 2760.0 3318 1060 942 Output Total 7562 949 2990 300 Balance 1510.0 2718 -140 642 Meds/Results Medications: Active Medications Generic Name Dose Route Start Last Admin Trade Name Freq PRN Reason Stop Dose Admin Hydrocodone Bitart/Acetaminophen 1 tab 08/22/24 09:42 Hydrocodone/Acetaminophen (*Crx) 5-325 Mg Tablet PO Q6H PRN Pain Rated 4-6 Hydrocodone Bitart/Acetaminophen 2 tab 08/22/24 09:42 Hydrocodone/Acetaminophen (*Crx) 5-325 Mg Tablet PO Q6H PRN Pain Rated 7-10 Diltiazem HCl 120 mg 08/19/24 09:00 08/22/24 09:05 Diltiazem Hcl Cd 120 Mg Cap.24hr PO 120 mg QAM FELIBERTO Administration Hydromorphone HCl 0.5 mg 08/17/24 14:28 08/22/24 09:08 Hydromorphone Hcl Inj (*Crx) 1 Mg/Ml Syr IV PUSH 0.5 mg Q3H PRN Administration Pain Rated 7-10 Ceftriaxone Sodium 2 gm in 100 mls @ 200 mls/hr 08/20/24 21:00 08/21/24 21:44 Rocephin 2 Gm/Ns 100 Ml IVPB Infused Q24H FELIBERTO Infusion Lorazepam 1 mg 08/17/24 21:00 08/21/24 21:14 Lorazepam (*Crx) 1 Mg Tablet PO 1 mg HS FELIBERTO Administration Metronidazole 500 mg 08/20/24 22:00 08/22/24 05:54 Metronidazole 500 Mg Tablet PO 500 mg Q8HR FELIBERTO Administration Radiology Results: ITS Impressions Aorta w/Runoff CTA 08/17/24 07:56 IMPRESSION: No aortic aneurysm. Atherosclerotic calcifications of the aorta and iliac vessels are present. No large vessel occlusion or significant stenosis in the lower extremity arterial vasculature. Minimal atherosclerotic calcifications. Mild acute sigmoid diverticulitis with 3 cm chronic pericolonic abscess or contained perforation, which is decreased in size from prior exam. Thoracic Spine MRI 08/19/24 18:18 IMPRESSION: Multilevel mild degenerative disc disease. Multilevel facet arthropathy. No severe central canal or neural foraminal narrowing. Cervical Spine
[2024-08-22 12:00] VITALS: BP 115/55; PULSE 92; RESP 24; TEMP 36.6; O2SAT 96
[2024-08-22] MEDS: polyethylene glycoL 3350 17 GM POWD.PACK PO (13:09)
[2024-08-22] MEDS: HYDROcodone/acetaminophen (*CRX) 5-325 MG TABLET 2 TAB PO ×2 (13:13→18:54)
--- NOTE | 2024-08-22 13:51 | PCOTNOTE ---
Attempted to see pt. for occupational therapy evaluation. Pt. declines to participate at this time due to pain.
[2024-08-22 16:00] VITALS: BP 121/55; PULSE 86; RESP 22; TEMP 36.6; O2SAT 97
--- NOTE | 2024-08-22 17:43 | PM.DS ---
DS: Admitting Diagnosis Discharge Date 08/22/24 Admitting Diagnosis lower back pain DS: Discharge Diagnosis Discharge Diagnosis (1) Discitis of lumbar region: Code(s): M46.46 - Discitis, unspecified, lumbar region Status: Acute (2) Osteomyelitis: Code(s): M86.9 - Osteomyelitis, unspecified Status: Acute (3) Diverticulitis of intestine with abscess: Code(s): K57.80 - Diverticulitis of intestine, part unspecified, with perforation and abscess without bleeding Status: Acute Plan Sigmoid diverticulitis L4-L5 discitis Strep bacteremia -patient appears to have originally have sigmoid diverticulitis which may have progressed through the iliopsoas on left side leading to her back L4-L5 discitis -appreciate General Surgeon consultation: Continue medical management -discussed case with neurosurgery consultation: Recommending IR guided biopsy sites for discitis, no role for Neurosurgery with no easily drainable abscess. Imaging shows no definite psoas abscess -discussed case with IR: Recommend transfer to higher level of care for difficult biopsy of lumbar disc -antibiotics: On Rocephin, Flagyl -patient has developed strep bacteremia, unclear if there is other organisms in the lumbar diskitis -blood cultures positive on 08/17 with strep gallol ssp pasteuruanus, repeating blood cultures 08/21 -if persistently bacteremic may need echocardiogram. heart murmer may be old? -no leukocytosis, afebrile -pain control: P.r.n. norco, dilaudid Chronic conditions -chronic anemia: Hemoglobin stable at 7.8 -anxiety: P.r.n. Ativan -paroxysmal atrial fibrillation: Rate control with Diltiazem, anticoagulation Eliquis -hyperlipidemia: Atorvastatin, aspirin -arthritis: Diclofenac -peripheral edema: Lasix -essential hypertension: Diltiazem, telmisartan Diet: Heart healthy diet DVT prophylaxis: Eliquis held for biopsy Code status: DNR Disposition: [facility] DS: Summary Hospital Course Reason for hospitalization: diverticulitis, discitis Hospital Course: Patient is a 78 y/o female with PMHx perforated diverticulitis, HTN, PAF, AV stenosis, arthritis, psoriasis who presents to the ED on 08/17 with low back pain worse on left side. Of note she was admitted mid April with sigmoid diverticulitis with perforation treated with medical management. Since that episode she was doing well but then developed low back pain over several days prior to admission. On work up she was found to have L4-L5 discitis and imaging was suspected sigmoid diverticulitis (mid sigmoid diverticulitis with 3cm chronic pericolonic abscess or contained perforation) has tracked along the left iliopsoas muscle and led to L4-L5 discitis. She was found to have strep bacteremia from blood cultures on 08/17. She has been managed with rocephin and flagyl. Throughout the hospitalization she was only febrile on admission and not since. Labs have been stable without leukocytosis. General surgery recommended medical management and neurosurgery evaluation for the suspected discitis and osteomyelitis. Neurosurgery stated with no large abscesss for him to operate, recommendation was for IR guided biopsy for discitis diagnosis. Our IR provider is not comfortable with the difficult procedure, recommendation is for transfer. I discussed case with hospitalist at [facility] who agreed to accept the patient for work up of discitis and higher level of care. She will need IR biopsy of L4-L5 disc as well as infectious disease consultation. Repeat blood cultures were obtained 08/21. On 08/22 the patient is medically stable for transfer to [facility] for further management of discitis and bacteremia. Her eliquis is for atrial fibrillation which has been held for several days for IR biopsy. While on the floor she reiterated her DNR/DNI status. She is needing opioids to control her pain and we discussed that her blood pressure could drop even farther with these medications and were not recommended. She understan
--- NOTE | 2024-08-22 18:46 | PC.NURSE ---
Report given to RONDA Woody at [facility] at 1730. Patient goint to room 2457. Family updated and patient aware.
[2024-08-22] MEDS: cefTRIAXone 2 GM/NS 100 ML 2 GM/100 ML BAG IVPB (20:19)
[2024-08-22] MEDS: SENNA/DOCUSATE SODIUM TABLET 1 TAB PO (20:19)
[2024-08-22] MEDS: LORazepam (*CRX) 1 MG TABLET PO (20:19)
[2024-08-22 20:29] VITALS: BP 102/46; PULSE 86; RESP 20; TEMP 36.7; O2SAT 95
== END 2024-08-22 23:59 | disposition short-term general hospital (02) | DRG 551 ==
LOC: ANHED 07:03 → ANHIMU 09:02
PROVIDERS: Internal Medicine; Physician Assistant; Student in an Organized Health Care Education/Training Program; Admitting Provider General Practice; Emergency Provider Emergency Medicine; PCP Internal Medicine; Visit Provider Student in an Organized Health Care Education/Training Program
DX: M46.46 Discitis, unspecified, lumbar region (principal); K65.1 Peritoneal abscess; R78.81 Bacteremia; K57.20 Diverticulitis of large intestine with perforation and abscess without bleeding; B95.4 Other streptococcus as the cause of diseases classified elsewhere; D64.9 Anemia, unspecified; E78.5 Hyperlipidemia, unspecified; F41.9 Anxiety disorder, unspecified; I35.0 Nonrheumatic aortic (valve) stenosis; I10 Essential (primary) hypertension; I48.0 Paroxysmal atrial fibrillation; K74.60 Unspecified cirrhosis of liver; L40.9 Psoriasis, unspecified; M19.90 Unspecified osteoarthritis, unspecified site; R01.1 Cardiac murmur, unspecified; Z66 Do not resuscitate; Z79.01 Long term (current) use of anticoagulants; Z87.19 Personal history of other diseases of the digestive system; Z79.82 Long term (current) use of aspirin; Z90.49 Acquired absence of other specified parts of digestive tract; Z87.891 Personal history of nicotine dependence
CPT/HCPCS: 36415; 36430; 72141; 72146; 72158; 75635; 80048; 80053; 82948; 83605; 83735; 85014; 85018; 85025; 85027; 85610; 85730; 86850; 86900; 86901; 86923; 87040; 87181; 96361; 96374; 96375; 99285; A9270; A9577; J0696; J1171; J2270; J2543; J7030; J7120; P9016; Q9967

== ENCOUNTER 2024-09-02 06:20 | Emergency (ER) | payer MEDICARE, SELFPAY ==
[2024-09-02] VITALS (9 sets, daily range): BP systolic 116–135; BP diastolic 63–75; PULSE 75–91; RESP 15–20; TEMP 36.4–36.6; O2SAT 93–96
[2024-09-02 07:28] LABS: Basophils Absolute Auto 0.1 K/mm3 (0.0-0.1); Basophils Percent Auto 1.1 % (0.2-1.2); Eosinophils Absolute Auto 0.2 K/mm3 (0-0.3); Eosinophils Percent Auto 3.5 % (0-4.4); Hematocrit 27.9 % (37.0-47.0); Hemoglobin 8.1 g/dL (12.0-15.0); Immature Granulocyte Absolute 0.05 K/mm3 (0.00-0.031); Immature Granulocyte Percent A 0.8 % (0-0.5); Lymphocytes Absolute Auto 1.51 K/mm3 (0.9-3.2); Lymphocytes Percent Auto 23.2 % (18.3-44.2); Mean Corpuscular Hemoglobin 27.6 pg (26-34); Mean Corpuscular Volume 94.9 fl (80-100); Mean Platelet Volume 8.5 fl (7.4-10.4); Monocytes Absolute Auto 0.9 K/mm3 (0.1-0.6); Monocytes Percent Auto 14.1 % (2.6-8.5); Neutrophils Absolute Auto 3.7 K/mm3 (1.3-6.7); Neutrophils Percent Auto 57.3 % (45.5-73.1); Platelet Count Result 456 k/mm3 (150-375); Red Blood Count 2.94 M/mm3 (4.2-5.4); Red Cell Distribution Width 17.1 % (11.5-14.5); White Blood Count 6.5 K/mm3 (4.5-10.0)
[2024-09-02] MEDS: MORPHINE SULFATE (*CRX) 4 MG/ML INJ IV PUSH (07:30)
[2024-09-02 07:50] LABS: INR 1.7; Prothrombin Time 20.9 Seconds (11.1-14.7)
[2024-09-02 07:51] LABS: Partial Thromboplastin Time 43.2 Seconds (22.3-36.8)
[2024-09-02 07:52] LABS: Anisocytosis 1+; Hypochromasia 1+; Platelet Estimate Increased (Adequate)
[2024-09-02 07:53] LABS: Alanine Aminotransferase 10 U/L (6-35); Alkaline Phosphatase 72 U/L (38-126); Anion Gap 4 mmol/L (4-12); Aspartate Amino Transferase 28 U/L (14-36); Bilirubin,Total 0.2 mg/dL (0.2-1.3); Blood Urea Nitrogen 9 mg/dL (7-17); Calcium 8.7 mg/dL (8.4-10.2); Carbon Dioxide 32 mmol/L (22-30); Chloride 103 mmol/L (98-107); Estimated CRCL calculation 68 ml/min; Estimated Glomerular Filt Rate > 60; Glucose 96 mg/dL (65-110); Potassium 3.7 mmol/L (3.4-5.0); Schistocytes None Seen; Sodium 139 mmol/L (137-145)
--- NOTE | 2024-09-02 08:07 | ED.GENADULT ---
HPI - General Adult General Chief complaint: Unspecified Stated complaint: all over pain since yest Time Seen by Provider: 09/02/24 07:00 History of Present Illness HPI narrative: Patient is 70-year-old female who presents ER with back pain and leg pain. Ongoing for months. It began when she was diagnosed with diskitis. She is unable to move her left leg which is chronic. She reports that she used to have her pain managed with Dilaudid but she no longer receives that. She would like her pain better controlled. She has been in group home at [facility]. She still receives IV antibiotic infusions through a PICC line in the right arm. No fevers or chills or sweats. No recent trauma. no significant change in her status, she is just overwhelmed and does not like being in pain. Related Data Home Medications Medication Instructions Recorded Confirmed aspirin 81 mg tablet 81 mg PO DAILY 04/20/24 08/17/24 lorazepam 1 mg tablet 1 mg PO HS 04/20/24 08/17/24 apixaban 5 mg tablet (Eliquis) 5 mg PO BID 08/17/24 08/17/24 atorvastatin 40 mg tablet 40 mg PO DAILY 08/17/24 08/17/24 diclofenac sodium 75 mg 75 mg PO DAILY 08/17/24 08/17/24 tablet,delayed release Allergies Allergy/AdvReac Type Severity Reaction Status Date / Time No Known Allergies Allergy Verified 09/02/24 06:28 Review of Systems Review of Systems: All systems reviewed & are unremarkable except as noted in HPI and below Constitutional: Constitutional: Reports no additional constitutional complaints ENT: Reports system reviewed and no additional complaints, except as documented Cardiovascular: Cardiovascular: Reports no additional cardiovascular complaints Respiratory: Respiratory: Reports no additional respiratory complaints Gastrointestinal: Gastrointestinal: Reports no additional gastrointestinal complaints Musculoskeletal: Musculoskeletal: Reports back pain, Denies myalgias, Reports muscle weakness, Reports radiating pain into limb and Denies stiffness FOR[facility]LY [facility] Past Medical History Medical History (Updated 09/02/24 @ 10:46 by Hiro English MD) AAA (abdominal aortic aneurysm) Anxiety Chronic anticoagulation Cirrhosis Diastolic dysfunction Discitis of lumbar region Diverticulitis Diverticulitis Hypertension Osteoarthritis Osteomyelitis Paroxysmal atrial fibrillation Psoriasis Surgical History Surgical History History of appendectomy Family History Family History Other No problems noted. Mother Congestive cardiac failure Social History Social History Social History: Surrogate medical decision maker: Maribell Ramirez, daughter. Code status: Do not resuscitate. Smoking packs per day: 0.5 Smoking cigarettes per day: 10.0 Years smoked: 50 Smoking pack-years: 25.00 Smoking status: Never smoker Alcohol intake: never Substance use: never Substance use type: does not use Do You Feel Safe in your Home?: Yes Lack of Transportation: No Lack of Food: Never True Current Housing: I Do Not Have Housing Concerned About Future Housing: No Difficulty Paying Gas/Electric Bills: No Difficulty Paying for Meds: No Currently Unemployed: No Education: High School Diploma/GED Difficulty w/ Childcare or Family Care: No Spiritual care concerns: No Exam Narrative: GENERAL: Well-appearing, well-nourished, and in no acute distress. HEAD: Normocephalic, atraumatic. ENT: Mucous membranes moist. NECK: Supple. CHEST: Clear to auscultation. No respiratory distress. HEART: Regular rate and rhythm. Normal peripheral pulses. ABDOMEN: Soft, nontender, nondistended. Back: No reproducible midline or paraspinal muscle tenderness the T/L-spine. EXTREMITIES: PICC line right upper extremity. Normal strength range of motion alarms. Lower extremity weakness with both feet wearing air boots to prevent pressure ulcers. SKIN: Warm, dry, no rash. NEURO: Alert and oriented x3. PSYCH: Normal mood and affect. Course Course Emergency Course: Patient resting comfortably. Received morphine here for pain. Lab work unremarkable. Patient receives oxycodone 5 mg PRN for pain at her facility. She also receives lorazepam for anxiety. It sounds like she has general frustration with her condition but that is unchanged and not currently worsening. No significant leukocytosis. Hemoglobin low but stable. Normal electrolytes and renal function. No urine infection. family on the phone and would like us to just keep the patient here because the patient does not like the group home. The nursing staff discussed that general displeasure with the group home is not an indication for admission to the hospital. Vital Signs Vital signs: Vital Signs Temperature 97.6 F 09/02/24 06:21 Pulse Rate 91 09/02/24 06:21 Respiratory Rate 20 09/02/24 06:21 Blood Pressure 133/75 09/02/24 06:21 Pulse Oximetry 95 09/02/24 06:21 Oxygen Delivery Room Air 09/02/24 06:21 Temperature 97.8 F 09/02/24 10:00 Pulse Rate 79 09/02/24 10:00 Respiratory Rate 17 09/02/24 10:00 Blood Pressure 128/70 09/02/24 10:00 Pulse Oximetry 95 09/02/24 10:00 Oxygen Delivery Room Air 09/02/24 06:21 Medical Decision Making Vital Signs Vital Signs: Vital Signs Temperature 97.6 F 09/02/24 06:21 Pulse Rate 91 09/02/24 06:21 Respiratory Rate 20 09/02/24 06:21 Blood Pressure 133/75 09/02/24 06:21 Pulse Oximetry 95 09/02/24 06:21 Oxygen Delivery Room Air 09/02/24 06:21 Temperature 97.8 F 09/02/24 10:00 Pulse Rate 79 09/02/24 10:00 Respiratory Rate 17 09/02/24 10:00 Blood Pressure 128/70 09/02/24 10:00 Pulse Oximetry 95 09/02/24 10:00 Oxygen Delivery Room Air 09/02/24 06:21 Lab Data 09/02/24 07:23 09/02/24 07:23 Labs: Lab Results 09/02/24 09/02/24 Range/Units 07:23 08:51 WBC 6.5 (4.5-10.0) K/mm3 RBC 2.94 L (4.2-5.4) M/mm3 Hgb 8.1 L (12.0-15.0) g/dL Hct 27.9 L (37.0-47.0) % MCV 94.9 (80-100) fl MCH 27.6 (26-34) pg MCHC 29.0 L (32-36) g/dl RDW 17.1 H (11.5-14.5) % Plt Count 456 H (150-375) k/mm3 MPV 8.5 (7.4-10.4) fl Immature Gran % (Auto) 0.8 H (0-0.5) % Neut % (Auto) 57.3 (45.5-73.1) % Lymph % (Auto) 23.2 (18.3-44.2) % [place] % (Auto) 14.1 H (2.6-8.5) % Eos % (Auto) 3.5 (0-4.4) % Baso % (Auto) 1.1 (0.2-1.2) % Lymph # (Auto) 1.51 (0.9-3.2) K/mm3 [place] # (Auto) 0.9 H (0.1-0.6) K/mm3 Eos # (Auto) 0.2 (0-0.3) K/mm3 Baso # (Auto) 0.1 (0.0-0.1) K/mm3 Abs Immat Gran (auto) 0.05 H (0.00-0.031) K/mm3 Absolute Neuts (auto) 3.7 (1.3-6.7) K/mm3 Absolute Nucleated RBC 0.000 (0.0-0.012) K/mm3 Nucleated RBC % 0.0 (0.0-0.2) % Platelet Estimate Increased (Adequate) Hypochromasia 1+ Anisocytosis 1+ Schistocytes None seen PT 20.9 H (11.1-14.7) Seconds INR 1.7 APTT 43.2 H (22.3-36.8) Seconds Sodium 139 (137-145) mmol/L Potassium 3.7 (3.4-5.0) mmol/L Chloride 103 (98-107) mmol/L Carbon Dioxide 32 H (22-30) mmol/L Anion Gap 4 (4-12) mmol/L BUN 9 (7-17) mg/dL Creatinine 0.70 (0.7-1.0) mg/dL Estim Creat Clear Calc 68 ml/min Estimated GFR > 60 (59 - ) Glucose 96 (65-110) mg/dL Calcium 8.7 (8.4-10.2) mg/dL Total Bilirubin 0.2 (0.2-1.3) mg/dL AST 28 (14-36) U/L ALT 10 (6-35) U/L Alkaline Phosphatase 72 (38-126) U/L Total Protein 7.0 (6.3-8.2) g/dL Albumin 3.0 L (3.5-5.1) g/dL Urine Color Yellow (Yellow) Urine Appearance Clear (Clear) Urine pH 7.5 (5.0-9.0) Ur Specific [place] 1.009 (1.001-1.035) Urine Protein Negative (Negative) mg/dL Urine Glucose (UA) Negative (Negative) mg/dL Urine Ketones Negative (Negative) mg/dL Ur Blood (Man) Negative (Negative) Urine Nitrate Negative (Negative) Urine Bilirubin Negative (Negative) Urine Urobilinogen 0.2 (<2.0) mg/dL Leukocyte Esterase Rfl Negative (Negative) LEIANE/UL Discharge Plan Discharge Clinical Impression: Back pain, Discitis Patient Disposition: Home, Self-Care Condition: Stable Additional Instructions: You have chronic back issues that are being treated at your nursing facility. If your unhappy with your facility you and your family can look into going to a different facility but it does not require admission to the hospital. Make sure you are being an active participant in any ongoing therapy that occurs. This will help you gain strength and hopefully help with your pain over the course of time. Prescriptions: No Action aspirin 81 mg Tablet 81 mg PO DAILY lorazepam 1 mg tablet 1 mg PO HS diltiazem HCl 120 mg Capsule,Extended Release 24 Hr 120 mg PO QAM Qty: 30 0RF telmisartan [Micardis] 40 mg Tablet 20 mg PO DAILY Qty: 30 0RF furosemide 40 mg tablet 40 mg PO DAILY Qty: 30 0RF atorvastatin 40 mg tablet 40 mg PO DAILY diclofenac sodium 75 mg tablet,delayed release (DR/EC) 75 mg PO DAILY Eliquis 5 mg tablet 5 mg PO BID Follow-up/Referrals: Debra,MD Aleksandr [Primary Care Provider] - 1 Week
[2024-09-02 08:58] LABS: Add Urine Microscopic? NO; Appearance Urine Clear (Clear); Bilirubin Urine Negative (Negative); Blood Urine Negative (Negative); Color Urine Yellow (Yellow); Glucose Urine UA Negative (Negative); Ketones Urine Negative (Negative); Leukocyte Esterase Ur Negative LEU/UL (Negative); Nitrate Urine Negative (Negative); Protein Urine Negative (Negative); Specific Grav Ur 1.009 (1.001-1.035); Urobilinogen Urine 0.2 mg/dL (<2.0); pH Urine 7.5 (5.0-9.0)
== END 2024-09-02 11:31 ==
PROVIDERS: Emergency Provider Emergency Medicine; PCP Internal Medicine
DX: M46.40 Discitis, unspecified, site unspecified (principal); Z79.82 Long term (current) use of aspirin; Z79.01 Long term (current) use of anticoagulants; I48.0 Paroxysmal atrial fibrillation; I10 Essential (primary) hypertension
CPT/HCPCS: 36415; 80053; 81003; 85025; 85610; 85730; 96374; 99284; J2270

== ENCOUNTER 2024-10-07 11:55 | Inpatient (IN) | payer MEDICARE, SELFPAY ==
[2024-10-07] VITALS (7 sets, daily range): BP systolic 103–119; BP diastolic 50–64; PULSE 72–82; RESP 12–20; TEMP 36.4–37; O2SAT 97–100
--- NOTE | ~2024-10-07 | US_ITS ---
EXAMINATION: US pelvic complete DATE: 10/08/2024 15:51 INDICATION: Thickened endometrial complex. TECHNIQUE: Multiple transabdominal sonographic images of the pelvis were obtained. COMPARISON: CT 10/07/2024 FINDINGS: The uterus measures 6.5 x 3.3 x 4.4 cm. There is no free fluid in the pelvis. The endometrial complex measures 15 mm in thickness. The ovaries are not visualized. IMPRESSION: 1. Thickened endometrial complex. The differential diagnosis includes endometrial hyperplasia, polyp, and carcinoma. Biopsy is recommended. Reviewed, dictated and finalized at location A. N'S SWIM COACH IMPRESSION: 1. Thickened endometrial complex. The differential diagnosis includes endometri al hyperplasia, polyp, and carcinoma. Biopsy is recommended.
--- NOTE | ~2024-10-07 | CT_ITS ---
EXAMINATION: CT abdomen pelvis w con DATE: 10/07/2024 14:01 INDICATION: Lower abdominal pain TECHNIQUE: Computed tomography (CT) of the abdomen and pelvis was performed with 100 mL Omnipaque-350 intravenous contrast. Automated exposure control and iterative reconstruction technique were employe d. The dose-length product was 640.47 mGy-cm. COMPARISON: None. FINDINGS: Lower thorax: 5 mm pulmonary nodule over the right diaphragmatic dome. Irregular pulmonary nodule in the right lower lobe, incompletely visualized, possibly larger than in the prior examination. Bilater al dependent atelectasis. Trace right and small left pleural effusions. Coronary artery, aortic valve , and mitral calcifications Liver: Nodular border. Simple right lobe subcentimeter hypodensity, likely cyst or hemangioma. Biliary/Gallbladder: Cholelithiasis. Distended gallbladder. No inflammatory change. No bile duct dila tion. Pancreas: Moderate atrophy. Spleen: Normal. Adrenals:No mass. Kidneys: No suspicious mass, obstructing stone, or hydronephrosis. GI tract: Uncomplicated duodenal diverticulum. No small bowel dilation. The rectum is dilated to 7.5 cm by formed stool. Mild perirectal fat stranding. Severe long segment wall thickening in the proxima l and mid sigmoid colon, with significant surrounding inflammatory change. Appendix not confidently v isualized. Diverticulosis without diverticulitis. Mesentery/Peritoneum: Rim-enhancing gas and fluid collection in the left lower quadrant mesentery adj acent to the abnormal sigmoid, multilobulated irregular shape measuring approximately 3.7 x 5.8 cm. L eft abdominal varices. Retroperitoneum: No mass. Atherosclerotic abdominal aortic and/or arterial calcifications. Pelvis: Partially distended urinary bladder, no wall thickening. Apparent endometrial thickening or f luid. Soft Tissues: Soft tissues and body wall unremarkable. Bones: No acute osseous finding. IMPRESSION: Possibly enlarging right lower lobe solitary pulmonary nodule, incompletely evaluated. Consider nonem ergent but timely outpatient, low-dose noncontrast CT of the chest. Small left and trace right pleural effusions. Cirrhosis with portal hypertension. Gallbladder hydrops without inflammatory change, may be secondary to fasting or obstruction. Correlat e with biliary labs. Severe long segment proximal and mid sigmoid colitis, may be secondary to infectious, inflammatory, o r ischemic etiology. 5.8 cm adjacent pericolonic abscess. Endometrial thickening versus endometrial fluid, recommend nonemergent outpatient transabdominal and transvaginal pelvic ultrasound. Fecal impaction. Reviewed, dictated and finalized at location K. RONMENTAL EPIDEMIOLOGIST IMPRESSION: Possibly enlarging right lower lobe solitary pulmonary nodule, incompletely gee luated. Consider nonemergent but timely outpatient, low-dose noncontrast CT of the chest. Small left and trace right pleural effusions. Cirrhosis with portal hypertension. Gallbladder hydrops without inflammatory change, may be secondary to fasting or obstruction. Correlate with biliary labs. Severe long segment proximal and mid sigmoid colitis, may be secondary to infec tious, inflammatory, or ischemic etiology. 5.8 cm adjacent pericolonic abscess. Endometrial thickening versus endometrial fluid, recommend nonemergent outpatie nt transabdominal and transvaginal pelvic ultrasound. Fecal impaction.
--- NOTE | ~2024-10-07 | XR_ITS ---
EXAMINATION: XR chest 1V portable DATE: 10/07/2024 12:25 INDICATION: Central line placement. TECHNIQUE: A single frontal view of the chest was obtained. COMPARISON: Chest single view 04/26/2024, CT chest 04/28/2024 FINDINGS: There is mild atelectasis at the lung bases. No pleural effusion or pneumothorax. The heart size is normal. A right upper extremity peripherally inserted central venous catheter (PICC) is seen with tip in the superior vena cava. IMPRESSION: 1. PICC tip in the superior vena cava. 2. Mild atelectasis at the lung bases. Reviewed, dictated and finalized at location A. [employer] PLANT SUPERVISOR
[2024-10-07 12:25] LABS: Basophils Absolute Auto 0.1 K/mm3 (0.0-0.1); Basophils Percent Auto 0.4 % (0.2-1.2); Eosinophils Absolute Auto 0.1 K/mm3 (0-0.3); Eosinophils Percent Auto 0.5 % (0-4.4); Hematocrit 34.6 % (37.0-47.0); Hemoglobin 10.7 g/dL (12.0-15.0); Immature Granulocyte Absolute 0.15 K/mm3 (0.00-0.031); Lymphocytes Absolute Auto 1.48 K/mm3 (0.9-3.2); Lymphocytes Percent Auto 9.9 % (18.3-44.2); Mean Corpuscular HGB Conc 30.9 g/dl (32-36); Mean Corpuscular Hemoglobin 27.4 pg (26-34); Mean Corpuscular Volume 88.7 fl (80-100); Mean Platelet Volume 8.9 fl (7.4-10.4); Monocytes Percent Auto 6.7 % (2.6-8.5); Neutrophils Absolute Auto 12.2 K/mm3 (1.3-6.7); Neutrophils Percent Auto 81.5 % (45.5-73.1); Platelet Count Result 323 k/mm3 (150-375); Red Cell Distribution Width 15.6 % (11.5-14.5)
[2024-10-07 12:34] LABS: Alanine Aminotransferase 9 U/L (6-35); Alkaline Phosphatase 127 U/L (38-126); Anion Gap 3 mmol/L (4-12); Aspartate Amino Transferase 25 U/L (14-36); Bilirubin,Total 0.9 mg/dL (0.2-1.3); Blood Urea Nitrogen 14 mg/dL (7-17); Calcium 8.6 mg/dL (8.4-10.2); Carbon Dioxide 31 mmol/L (22-30); Chloride 101 mmol/L (98-107); Estimated CRCL calculation 76 ml/min; Estimated Glomerular Filt Rate > 60; Glucose 116 mg/dL (65-110); Lipase 35 U/L (23-300); Potassium 3.6 mmol/L (3.4-5.0); Sodium 135 mmol/L (137-145)
[2024-10-07 12:52] LABS: Fractional Inspired Oxygen 28 %; HCO3 VBG 28.1 mEq/l (24.0-30.0); PCO2 VBG 46.8 mmHg (42.0-48.0); PO2 VBG 33.9 mmHg (35.0-45.0); pH VBG 7.396 (7.300-7.400)
[2024-10-07 12:54] LABS: Device NASAL CANNULA
[2024-10-07 13:06] LABS: Lactic Acid Reflex 0.9 mmol/L (0.7-2.0)
[2024-10-07 13:10] LABS: INR 1.8; Prothrombin Time 21.1 Seconds (11.1-14.7)
[2024-10-07 13:12] LABS: Partial Thromboplastin Time 40.3 Seconds (22.3-36.8)
[2024-10-07 13:15] LABS: Magnesium 1.8 mg/dL (1.6-2.3); Phosphorus 3.3 mg/dL (2.5-4.5)
[2024-10-07] MEDS: HYDROmorphone HCL INJ (*CRX) 1 MG/ML SYR 0.5 MG IV PUSH ×2 (13:17→16:17)
[2024-10-07] MEDS: SODIUM CHLORIDE 0.9% IV 2,500 ML 999 ML IV CONT (13:18)
--- NOTE | 2024-10-07 13:46 | ED.GENADULT ---
HPI - General Adult General Chief complaint: Abdominal Pain Stated complaint: ABD PAIN Time Seen by Provider: 10/07/24 12:32 History of Present Illness HPI narrative: This is a 79-year-old female presenting with abdominal pain. Two days ago she developed left lower quadrant abdominal pain. Pain is nonradiating, 10 out 10 intensity. She has a history of diverticulitis. She does not know when her last bowel movement was because she wears depends but she is still passing gas. No urinary symptoms. Denies fevers chills nausea or vomiting. Related Data Home Medications Medication Instructions Recorded Confirmed aspirin 81 mg tablet 81 mg PO DAILY 04/20/24 09/20/24 lorazepam 1 mg tablet 1 mg PO HS 04/20/24 09/20/24 apixaban 5 mg tablet (Eliquis) 5 mg PO BID 08/17/24 09/20/24 atorvastatin 40 mg tablet 40 mg PO DAILY 08/17/24 09/20/24 diclofenac sodium 75 mg 75 mg PO DAILY 08/17/24 09/20/24 tablet,delayed release Allergies Allergy/AdvReac Type Severity Reaction Status Date / Time No Known Allergies Allergy Verified 09/02/24 06:28 [facility] Past Medical History Medical History AAA (abdominal aortic aneurysm) Anxiety Chronic anticoagulation Cirrhosis Diastolic dysfunction Discitis of lumbar region Diverticulitis Diverticulitis Hypertension Osteoarthritis Osteomyelitis Paroxysmal atrial fibrillation Psoriasis Surgical History Surgical History History of appendectomy Family History Family History Other No problems noted. Mother Congestive cardiac failure Social History Social History Social History: Surrogate medical decision maker: Maribell Ramirez, daughter. Code status: Do not resuscitate. Smoking packs per day: 0.5 Smoking cigarettes per day: 10.0 Years smoked: 50 Smoking pack-years: 25.00 Smoking status: Never smoker Alcohol intake: never Substance use: never Substance use type: does not use Do You Feel Safe in your Home?: Yes Lack of Transportation: No Lack of Food: Never True Current Housing: I Do Not Have Housing Concerned About Future Housing: No Difficulty Paying Gas/Electric Bills: No Difficulty Paying for Meds: No Currently Unemployed: No Education: High School Diploma/GED Difficulty w/ Childcare or Family Care: No Spiritual care concerns: No Exam Narrative: APPEARANCE: Resting in bed in no distress Head: atraumatic. EYES: EOMI, NOSE: Atraumatic NECK: Trachea midline RESPIRATORY: No increased rate of breathing clear to auscultation CARDIOVASCULAR: RRR, ABDOMINAL: Tenderness and voluntary guarding in left lower quadrant. Rest the abdomen soft nontender MUSCULOSKELETAl: No obvious deformities NEURO: Alert. Moving 4/4 extremities SKIN:: Warm, dry. Normal color PSYCHIATRIC: Normal affect Course Vital Signs Vital signs: Vital Signs Temperature 98.3 F 10/07/24 11:59 Pulse Rate 82 10/07/24 11:59 Respiratory Rate 16 10/07/24 11:59 Blood Pressure 119/61 10/07/24 11:59 Pulse Oximetry 97 10/07/24 11:59 Oxygen Delivery Nasal Cannula 10/07/24 11:59 Oxygen Flow Rate 2 10/07/24 11:59 Temperature 98.6 F 10/07/24 14:07 Pulse Rate 77 10/07/24 14:07 Respiratory Rate 12 10/07/24 14:07 Blood Pressure 110/60 10/07/24 14:07 Pulse Oximetry 100 10/07/24 14:07 Oxygen Delivery Nasal Cannula 10/07/24 11:59 Oxygen Flow Rate 2 10/07/24 11:59 Medical Decision Making MDM Narrative Medical decision making narrative: -Course: 79-year-old female found with left lower quadrant pain. CT showed severe left-sided colitis with a 5.8 cm pericolonic abscess. Patient also found have urinary tract infection. White count is 15. Vital signs are stable. Patient started on Zosyn. given fluid resuscitation. General surgery was consulted. IR is would be available Tuesday. Patient admitted hospital for further management. -DDX includes but is not limited to: Diverticulitis, ruptured AAA, colitis, cystitis -Co-morbidities complicating care: History of diverticulitis, and aortic abdominal aneurysm hypertension COPD on home oxygen -Independent interpretation of studies: Labs imaging reviewed White count 15, lactic normal Urine indicative infection Viral swabs negative -Discussion of Management/Consultants: Sera Hogan -Interventions: Zosyn, fluids, Dilaudid -Shared decision making / Disposition: Admitted Vital Signs Vital Signs: Vital Signs Temperature 98.3 F 10/07/24 11:59 Pulse Rate 82 10/07/24 11:59 Respiratory Rate 16 10/07/24 11:59 Blood Pressure 119/61 10/07/24 11:59 Pulse Oximetry 97 10/07/24 11:59 Oxygen Delivery Nasal Cannula 10/07/24 11:59 Oxygen Flow Rate 2 10/07/24 11:59 Temperature 98.6 F 10/07/24 14:07 Pulse Rate 77 10/07/24 14:07 Respiratory Rate 12 10/07/24 14:07 Blood Pressure 110/60 10/07/24 14:07 Pulse Oximetry 100 10/07/24 14:07 Oxygen Delivery Nasal Cannula 10/07/24 11:59 Oxygen Flow Rate 2 10/07/24 11:59 Lab Data 10/07/24 12:19 10/07/24 12:19 Labs: Lab Results 10/07/24 10/07/24 10/07/24 Range/Units 12:19 12:50 13:48 WBC 15.0 H (4.5-10.0) K/mm3 RBC 3.90 L (4.2-5.4) M/mm3 Hgb 10.7 L (12.0-15.0) g/dL Hct 34.6 L (37.0-47.0) % MCV 88.7 (80-100) fl MCH 27.4 (26-34) pg MCHC 30.9 L (32-36) g/dl RDW 15.6 H (11.5-14.5) % Plt Count 323 (150-375) k/mm3 MPV 8.9 (7.4-10.4) fl Immature Gran % (Auto) 1.0 H (0-0.5) % Neut % (Auto) 81.5 H (45.5-73.1) % Lymph % (Auto) 9.9 L (18.3-44.2) % [place] % (Auto) 6.7 (2.6-8.5) % Eos % (Auto) 0.5 (0-4.4) % Baso % (Auto) 0.4 (0.2-1.2) % Lymph # (Auto) 1.48 (0.9-3.2) K/mm3 [place] # (Auto) 1.0 H (0.1-0.6) K/mm3 Eos # (Auto) 0.1 (0-0.3) K/mm3 Baso # (Auto) 0.1 (0.0-0.1) K/mm3 Abs Immat Gran (auto) 0.15 H (0.00-0.031) K/mm3 Absolute Neuts (auto) 12.2 H (1.3-6.7) K/mm3 Absolute Nucleated RBC 0.000 (0.0-0.012) K/mm3 Nucleated RBC % 0.0 (0.0-0.2) % PT 21.1 H (11.1-14.7) Seconds INR 1.8 APTT 40.3 H (22.3-36.8) Seconds Sodium 135 L (137-145) mmol/L Potassium 3.6 (3.4-5.0) mmol/L Chloride 101 (98-107) mmol/L Carbon Dioxide 31 H (22-30) mmol/L Anion Gap 3 L (4-12) mmol/L BUN 14 D (7-17) mg/dL Creatinine 0.60 L (0.7-1.0) mg/dL Estim Creat Clear Calc 76 ml/min Estimated GFR > 60 (59 - ) Glucose 116 H (65-110) mg/dL Lactic Acid 0.9 (0.7-2.0) mmol/L Calcium 8.6 (8.4-10.2) mg/dL Phosphorus 3.3 (2.5-4.5) mg/dL Magnesium 1.8 (1.6-2.3) mg/dL Total Bilirubin 0.9 (0.2-1.3) mg/dL AST 25 (14-36) U/L ALT 9 (6-35) U/L Alkaline Phosphatase 127 H (38-126) U/L Total Protein 6.0 L (6.3-8.2) g/dL Albumin 3.0 L (3.5-5.1) g/dL Lipase 35 (23-300) U/L Urine Color (Yellow) Urine Appearance (Clear) Urine pH (5.0-9.0) Ur Specific [place] (1.001-1.035) Urine Protein (Negative) mg/dL Urine Glucose (UA) (Negative) mg/dL Urine Ketones (Negative) mg/dL Ur Blood (Man) (Negative) Urine Nitrate (Negative) Urine Bilirubin (Negative) Urine Urobilinogen (<2.0) mg/dL Leukocyte Esterase Rfl (Negative) ELIANE/UL Urine RBC (0-2) /hpf Urine WBC (0-3) /hpf Ur Squamous Epith Cells (Few) /hpf Urine Bacteria /hpf Urine Casts Influenza A (RT-PCR) Negative (Negative) Influenza B (RT-PCR) Negative (Negative) RSV (RT-PCR) Negative (Negative) SARS-CoV-2 RNA (RT-PCR) Negative (Negative) 10/07/24 Range/Units 14:19 WBC (4.5-10.0) K/mm3 RBC (4.2-5.4) M/mm3 Hgb (12.0-15.0) g/dL Hct (37.0-47.0) % MCV (80-100) fl MCH (26-34) pg MCHC (32-36) g/dl RDW (11.5-14.5) % Plt Count (150-375) k/mm3 MPV (7.4-10.4) fl Immature Gran % (Auto) (0-0.5) % Neut % (Auto) (45.5-73.1) % Lymph % (Auto) (18.3-44.2) % [place] % (Auto) (2.6-8.5) % Eos % (Auto) (0-4.4) % Baso % (Auto) (0.2-1.2) % Lymph # (Auto) (0.9-3.2) K/mm3 [place] # (Auto) (0.1-0.6) K/mm3 Eos # (Auto) (0-0.3) K/mm3 Baso # (Auto) (0.0-0.1) K/mm3 Abs Immat Gran (auto) (0.00-0.031) K/mm3 Absolute Neuts (auto) (1.3-6.7) K/mm3 Absolute Nucleated RBC (0.0-0.012) K/mm3 Nucleated RBC % (0.0-0.2) % PT (11.1-14.7) Seconds INR APTT (22.3-36.8) Seconds Sodium (137-145) mmol/L Potassium (3.4-5.0) mmol/L Chloride (98-107) mmol/L Carbon Dioxide (22-30) mmol/L Anion Gap (4-12) mmol/L BUN (7-17) mg/dL Creatinine (0.7-1.0) mg/dL Estim Creat Clear Calc ml/min Estimated GFR (59 - ) Glucose (65-110) mg/dL Lactic Acid (0.7-2.0) mmol/L Calcium (8.4-10.2) mg/dL Phosphorus (2.5-4.5) mg/dL Magnesium (1.6-2.3) mg/dL Total Bilirubin (0.2-1.3) mg/dL AST (14-36) U/L ALT (6-35) U/L Alkaline Phosphatase (38-126) U/L Total Protein (6.3-8.2) g/dL Albumin (3.5-5.1) g/dL Lipase (23-300) U/L Urine Color Dark yellow (Yellow) Urine Appearance Cloudy H (Clear) Urine pH 5.0 (5.0-9.0) Ur Specific [place] 1.024 (1.001-1.035) Urine Protein 1+ H (Negative) mg/dL Urine Glucose (UA) Negative (Negative) mg/dL Urine Ketones Negative (Negative) mg/dL Ur Blood (Man) Negative (Negative) Urine Nitrate Negative (Negative) Urine Bilirubin 1+ H (Negative) Urine Urobilinogen 1.0 (<2.0) mg/dL Leukocyte Esterase Rfl 2+ H (Negative) ELIANE/UL Urine RBC 0-2 (0-2) /hpf Urine WBC >100 H (0-3) /hpf Ur Squamous Epith Cells None seen (Few) /hpf Urine Bacteria None seen /hpf Urine Casts 0-2 Influenza A (RT-PCR) (Negative) Influenza B (RT-PCR) (Negative) RSV (RT-PCR) (Negative) SARS-CoV-2 RNA (RT-PCR) (Negative) ABG Data ABG results: 10/07/24 12:45 VBG pH 7.396 VBG pCO2 46.8 VBG pO2 33.9 L VBG HCO3 28.1 O2 Delivery Device Nasal cannula O2 Liters/Min 2.0 FiO2 28 Critical Care Time Critical Care Time Critical Care Time: Yes Total Critical Care Time: 35 Discharge Plan Discharge Clinical Impression: Colitis, Abscess of sigmoid colon, Acute UTI Patient Disposition: Still a Patient Condition: Stable Prescriptions: No Action aspirin 81 mg Tablet 81 mg PO DAILY lorazepam 1 mg tablet 1 mg PO HS diltiazem HCl 120 mg Capsule,Extended Release 24 Hr 120 mg PO QAM Qty: 30 0RF telmisartan [Micardis] 40 mg Tablet 20 mg PO DAILY Qty: 30 0RF furosemide 40 mg tablet 40 mg PO DAILY Qty: 30 0RF atorvastatin 40 mg tablet 40 mg PO DAILY diclofenac sodium 75 mg tablet,delayed release (DR/EC) 75 mg PO DAILY Eliquis 5 mg tablet 5 mg PO BID Follow-up/Referrals: Debra,MD Aleksandr [Primary Care Provider] -
[2024-10-07 14:28] LABS: Influenza A QL RT-PCR Negative (Negative); Influenza B QL RT-PCR Negative (Negative); RSV RNA, RT-PCR Negative (Negative); SARS-CoV-2 RNA PCR Negative (Negative)
[2024-10-07 14:28] LABS: Add Urine Microscopic? YES; Appearance Urine Cloudy (Clear); Bacteria Urine None Seen /hpf; Bilirubin Urine 1+ (Negative); Blood Urine Negative (Negative); Color Urine Dark Yellow (Yellow); Glucose Urine UA Negative (Negative); Ketones Urine Negative (Negative); Leukocyte Esterase Ur 2+ LEU/UL (Negative); Nitrate Urine Negative (Negative); Non Pathogenic Casts 0-2; Protein Urine 1+ mg/dL (Negative); RBC Urine 0-2 /hpf (0-2); Specific Grav Ur 1.024 (1.001-1.035); Squamous Epithelial Cell Urine None Seen /hpf (Few); WBC Urine >100 /hpf (0-3)
--- NOTE | 2024-10-07 15:27 | ECG_ITS ---
Test Date: 2024-10-07 16:04:49 Measurements Intervals New Site Rate: 76 P: -27 TN: 147 QRS: -35 QRSD: 128 T: 65 QT: 399 QTc: 451 Interpretive Statements SINUS RHYTHM LEFT ANTERIOR FASCICULAR BLOCK RIGHT BUNDLE BRANCH BLOCK [120+ ms QRS DURATION, UPRIGHT V1, 40+ ms S IN I/aVL/V4/V5/V6] POSSIBLE SEPTAL MYOCARDIAL INFARCTION , PROBABLY OLD [30 ms Q WAVE IN V1/V2] ABNORMAL ECG Electronically Signed On 10-08-2024 08:55:41 [employer] [employer] by Yordan Cardozo M.D.
--- NOTE | 2024-10-07 15:50 | P.HP_ITS ---
H&P: HPI History of Present Illness Date/Time: 10/07/24 17:30 Chief Complaint: Abdominal pain. Narrative: This is a pleasant 79-year-old female with history of perforated diverticulitis, lumbar diskitis, hypertension, paroxysmal atrial fibrillation on Eliquis, diastolic dysfunction, aortic valve stenosis, chronic anemia, cirrhosis, sciatica, arthritis, psoriasis, and anxiety who presented to the emergency dep artment [facility] for [facility] of abdominal pain. The patient provides the following history. She is known to the hospitalist service from 2 admissions this year. She was initially hospitalized in mid April with sigmoid diverticulitis with perforation for which she completed extended course of antibiotics. She was again admitted in mid August with complaints of severe left lower back pain. Lumbar MRI showed evidence of L4-L5 diskitis/osteomyelitis and abscess along the left psoas muscle which was not easily drainable. She was transferred to [place] for difficult biopsy of the lumbar disc and infectious disease consult; she has been at [facility] for rehab since that time. The patient feels that she is getting more and more weak their and tells me that she spends most of her time in bed or in a wheelchair. She presents today with sharp and shooting left lower quadrant pain radiating throughout the lower abdomen associated with persistent nausea and 1 episode of nonbloody and nonbilious emesis. Her stools have been soft but not watery. She does not know if there has been blood or mucus in the stool as she has made to have her bowel movements in diapers and is cleaned up by staff. Today she was sent in for evaluation of lower abdominal pain, nausea, and vomiting for the last couple of days. She arrives today with a PICC line in place for which she has reportedly been receiving IV antibiotics for cystitis. She denies fever, chills, sweats, chest pain, shortness of breath, cough, back pain, vaginal bleeding, and dysuria. In the ED: She was afebrile on arrival with stable vital signs. Labs were significant for WBC count of 15.0, hemoglobin 10.7, platelet 323, INR 1.8, sodium 135, lactic acid 0.9, total protein 6.0, albumin 3.0. Urinalysis is p ositive for 2+ leukocyte esterase and greater than 100 WBCs with no bacteria seen on microscopy. Viral panel was negative. CT of the abdomen and pelvis showed a severe, long segment proximal and mid sigmoid colitis with a 5.8 cm adjacent pericolonic abscess, endometrial thickening versus endometrial fluid, fecal impaction, and possibly enlarging right lower lobe solitary pulmonary nodule. She was started on piperacillin/tazobactam and she is being admitted in this setting for further treatment and evaluation as well as surgery consultation. Review of Systems Review of Systems: 12 systems were reviewed and are negativ e except for as per HPI. [facility] Past Medical History Medical History (Updated 10/07/24 @ 21:21 by Alycia Roth PA-C) Anxiety Chronic anticoagulation Cirrhosis Diastolic dysfunction Discitis of lumbar region Diverticulitis Hypertension Osteoarthritis Osteomyelitis Paroxysmal atrial fibrillation Psoriasis Surgical History Surgical History History of appendectomy Family History Family History Other No problems noted. Mother Congestive cardiac failure Social History Social History (Updated 10/07/24 @ 21:21 by Alycia Roth PA-C) Social History: Surrogate medical decision maker: Maribell Ramirez, daughter. Code status: Modified code, no CPR. Smoking packs per day: 0.5 Smoking cigarettes per day: 10.0 Years smoked: 50 Smoking pack-years: 25.00 Smoking status: Former smoker Alcohol intake: former Substance use: never Substance use type: does not use Do You Feel Safe in your Home?: Yes Lack of Transportation: No Lack of Food: Never True Current Housing: Decline to Answer Concerned About Future Housing: Decline to Answer Difficulty Paying Gas/Electric Bills: Decline to Answer Difficulty Paying for Meds: Decline to Answer Currently Unemployed: Decline to Answer Education: Decline to Answer Difficulty w/ Childcare or Family Care: Decline to Answer Spiritual care concerns: No Meds Home Medications and Allergies Home Medications Medication Instructions Recorded Confirmed Type aspirin 81 mg tablet 81 mg PO DAILY 04/20/24 10/07/24 History lorazepam 1 mg tablet 0.5 mg PO BID PRN Anxiety 04/20/24 10/07/24 History apixaban 5 mg tablet (Eliquis) 5 mg PO BID 08/17/24 10/07/24 History benzonatate 100 mg capsule 100 mg PO TID PRN Cough 10/07/24 10/07/24 History docusate sodium 100 mg tablet 100 mg PO BID 10/07/24 10/07/24 History ferrous sulfate 325 mg (65 mg 325 mg PO DAILY 10/07/24 10/07/24 History iron) tablet folic acid 400 mcg tablet 0.4 mg PO DAILY 10/07/24 10/07/24 History heparin flush (porcine) 100 5 ml IV BID 10/07/24 10/07/24 History unit/mL in 0.9 % sodium chloride IV kit omeprazole 40 mg capsule,delayed 40 mg PO DAILY 10/07/24 10/07/24 History release ondansetron 4 mg disintegrating 4 mg PO Q8H PRN Nausea 10/07/24 10/07/24 History tablet oxycodone 10 mg tablet 10 mg PO Q4H PRN Pain 10/07/24 10/07/24 History sodium chloride 0.9 % (flush) 10 ml IV BID 10/07/24 10/07/24 History (Normal Saline Flush 0.9 % injection syringe) trazodone 50 mg tablet 50 mg PO HS 10/07/24 10/07/24 History Allergies Allergy/AdvReac Type Severity Reaction Status Date / Time No Known Allergies Allergy Verified 10/07/24 16:48 Vital Signs Vital Signs - 24 hr 10/07/24 11:59 10/07/24 14:07 Temperature 98.3 F 98.6 F Pulse Rate 82 77 Respiratory Rate 16 12 Blood Pressure 119/61 110/60 Pulse Oximetry 97 100 Oxygen Delivery Nasal Cannula Oxygen Flow Rate 2 Exam Narrative: General: Chronically ill-appearing female supine in bed in moderate pain. Weight: 86.3 kg. BMI: 28.1. HEENT: PERRL, EOMI. Sclera anicteric. Tacky mucous membranes. Neck: Supple. Respiratory: Respirations are nonlabored and she is speaking in full sentences. Lungs are clear to auscultation. Cardiovascular: Regular rate and rhythm with S1-S2. Systolic murmur at the upper sternal border. Gastrointestinal: Abdomen is soft and nondistended with positive bowel sounds. Very mild tenderness to deep palpation the left lower quadrant with voluntary guarding but no rebound tenderness. No CVA tenderness. Extremities: No cyanosis, clubbing, or significant edema. Radial and pedal pulses intact. Heel protectors in place. PICC in the right arm. Neurological: Alert. Cranial nerves 2-12 are grossly intact. No gross focal deficits to casual conversation. Psychiatric: Pleasant and cooperative with normal mood and affect. Judgment and insight intact. H&P: Results Labs Labs: Short CBC 10/07/24 Range/Units 12:19 WBC 15.0 H (4.5-10.0) K/mm3 Hgb 10.7 L (12.0-15.0) g/dL Hct 34.6 L (37.0-47.0) % Plt Count 323 (150-375) k/mm3 BMP 10/07/24 12:19 Sodium 135 L Potassium 3.6 Chloride 101 Carbon Dioxide 31 H BUN 14 D Creatinine 0.60 L Glucose 116 H Calcium 8.6 Liver Function 10/07/24 Range/Units 12:19 Total Bilirubin 0.9 (0.2-1.3) mg/dL AST 25 (14-36) U/L ALT 9 (6-35) U/L Alkaline Phosphatase 127 H (38-126) U/L Albumin 3.0 L (3.5-5.1) g/dL Urine 10/07/24 Range/Units 14:19 Urine Color Dark yellow (Yellow) Urine Appearance Cloudy H (Clear) Urine pH 5.0 (5.0-9.0) Ur Specific [place] 1.024 (1.001-1.035) Urine Protein 1+ H (Negative) mg/dL Urine Glucose (UA) Negative (Negative) mg/dL Impressions Chest X-Ray 10/07/24 12:27 IMPRESSION: 1. PICC tip in the superior vena cava. 2. Mild atelectasis at the lung bases. Abdomen/Pelvis CT 10/07/24 14:04 IMPRESSION: 1. Possibly enlarging right lower lobe solitary pulmonary nodule, incompletely evaluated. Consider nonemergent but timely outpatient, low-dose noncontrast CT of the chest. 2. Small left and trace right pleural effusions. 3. Cirrhosis with portal hypertension. 4. Gallbladder hydrops without inflammatory change, may be secondary to fasting or obstruction. Correlate with biliary labs. 5. Severe long segment proximal and mid sigmoid colitis, may be secondary to infectious, inflammatory, or ischemic etiology. 5.8 cm adjacent pericolonic abscess. 6. Endometrial thickening versus endometrial fluid, recommend nonemergent outpatient transabdominal and transvaginal pelvic ultrasound. 7. Fecal impaction. Assessment and Plan Assessment and plan (1) Colitis: Code(s): K52.9 - Noninfective gastroenteritis and colitis, unspecified Status: Acute (2) Pericolonic abscess: Code(s): K63.0 - Abscess of intestine Status: Acute (3) Fecal impaction: Code(s): K56.41 - Fecal impaction Status: Acute (4) Right lower lobe pulmonary nodule: Code(s): R91.1 - Solitary pulmonary nodule Status: Acute (5) Thickened endometrium: Code(s): R93.89 - Abnormal findings on diagnostic imaging of other specified body structures Status: Acute (6) Paroxysmal atrial fibrillation: Code(s): I48.0 - Paroxysmal atrial fibrillation Status: Acute (7) Chronic anemia: Code(s): D64.9 - Anemia, unspecified Status: Acute (8) Chronic anticoagulation: Code(s): Z79.01 - prison (current) use of anticoagulants Status: Acute (9) Cirrhosis: Code(s): K74.60 - Unspecified cirrhosis of liver Status: Acute (10) Diastolic dysfunction: Code(s): I51.89 - Other ill-defined heart diseases Status: Acute (11) Hypertension: Code(s): I10 - Essential (primary) hypertension Status: Acute Plan The patient presented to the emergency department for evaluation of left lower quadrant abdominal pain as detailed in HPI. Labs, imaging, EKG, and all reports were personally reviewed. CT scan shows severe, long segment proximal and mid sigmoid colitis and a 5.8 cm adjacent pericolonic abscess. She has been started on empiric Zosyn and surgery has been consulted for recommendations. Fecal impaction is also noted however will hold on enema at this time given the severity of the colitis. Analgesics and antiemetics are available as needed. CT scan also showed other abnormalities including a possibly enlarging right lower lobe pulmonary nodule and thickened endometrium, both which can be followed up as an outpatient. Anemia stable on review of previous labs. She currently sounds to be in a regular sinus rhythm. Hold apixaban for now in case she requires a procedure. She is euvolemic on exam. Avoid over-hydration. Vital signs were reviewed and they are stable. Her home medications will be reviewed and resumed as appropriate. Findings and treatment plan were discussed with the patient. Questions were solicited and answered to satisfaction. The patient's medical management will be taken over by the hospitalist team in a.m. Quality VTE Prophylaxis VTE prophylaxis: mechanical ordered If No VTE Prophylaxis Answer both mechanical and pharmacologic: Reason no pharmacologic proph: medical contraindication (possible drain placement) The patient has been admitted under observation status. Hospitalist [facility] Advance Care Plan I have confirmed that the patient's Advanced Care Plan is present, code status is documented, or surrogate decision maker is listed in patient medical record.: Yes Medication Reconciliation I have utilized all available resources to obtain, update and review the patients current medications (includes all prescriptions, OTC, herbals, cannabis, and nutritional supplements).: Yes
[2024-10-07] MEDS: PIPERACILLN/TAZ 3.375GM/NS50ML 3.375 GM/50 ML BAG IVPB ×2 (15:59→23:14)
--- NOTE | 2024-10-07 17:20 | ADMGEN ---
This patient, Vero Mcknight, was admitted to Medical Room 347-01. Patient/family oriented to hospital policies and general routines including ID bracelet, bed and alarms, visiting hours, pain management, procedures, bathroom and other care routines, personal items, smoking policy, room service/diet, and visiting hours. Information on how to activate the Rapid Response Team has been discussed. Patient/Family are encouraged to report perceived risks to care and to ask questions if they do not understand what they are told or what they should do.
[2024-10-07 19:10] LABS: MRSA (PCR) NOT DETECTED (NOT DETECTE)
[2024-10-07] MEDS: traZODone HCL 50 MG TABLET PO (23:14)
[2024-10-08] VITALS (10 sets, daily range): BP systolic 108–132; BP diastolic 47–86; PULSE 51–84; RESP 18–20; TEMP 36.1–36.3; O2SAT 97–100
[2024-10-08] MEDS: PIPERACILLN/TAZ 3.375GM/NS50ML 3.375 GM/50 ML BAG IVPB ×4 (05:57→23:36)
[2024-10-08 06:14] LABS: Hematocrit 34.7 % (37.0-47.0); Hemoglobin 10.2 g/dL (12.0-15.0); Mean Corpuscular HGB Conc 29.4 g/dl (32-36); Mean Corpuscular Hemoglobin 26.6 pg (26-34); Mean Corpuscular Volume 90.4 fl (80-100); Mean Platelet Volume 9.2 fl (7.4-10.4); Platelet Count Result 340 k/mm3 (150-375); Red Blood Count 3.84 M/mm3 (4.2-5.4); Red Cell Distribution Width 15.3 % (11.5-14.5); White Blood Count 15.4 K/mm3 (4.5-10.0)
[2024-10-08 06:24] LABS: Anion Gap 2 mmol/L (4-12); Blood Urea Nitrogen 13 mg/dL (7-17); Calcium 8.4 mg/dL (8.4-10.2); Carbon Dioxide 28 mmol/L (22-30); Chloride 106 mmol/L (98-107); Estimated CRCL calculation 76 ml/min; Estimated Glomerular Filt Rate > 60; Glucose 102 mg/dL (65-110); Magnesium 1.9 mg/dL (1.6-2.3); Potassium 3.4 mmol/L (3.4-5.0); Sodium 136 mmol/L (137-145)
--- NOTE | 2024-10-08 08:00 | PC.NURSE ---
RN gave update to Luis F patient's son via telephone on patient status.
[2024-10-08] MEDS: PANTOPRAZOLE 40 MG TABLET PO ×2 (08:55→17:55)
[2024-10-08] MEDS: FOLIC ACID 0.4 MG TABLET PO (08:55)
[2024-10-08] MEDS: FERROUS SULFATE 325 MG TABLET DR PO (08:55)
[2024-10-08] MEDS: DOCUSATE SODIUM 100 MG CAPSULE PO ×2 (08:55→17:55)
--- NOTE | 2024-10-08 11:10 | P.PNIM_ITS ---
Progress Note: A&P Assessment and Plan (1) Colitis: Code(s): K52.9 - Noninfective gastroenteritis and colitis, unspecified Status: Acute Assessment and Plan: * Abdomen/pelvis CT shown enlarging right lower lobe pulmonary nodule, small left and trace right pleural effusions, cirrhosis with portal hypertension, gallbladder hydrops without inflammatory change, severe long segment proximal and mid sigmoid colitis may be secondary to infection versus inflammation versus ischemic etiology, 5.8 cm adjacent pericolonic abscess, endometrial thickening versus endometrial fluid, fecal impaction. * General surgery was consulted and following * Continue pain and nausea control * Patient has history of diverticulitis with perforation in the past * continue Zosyn and Flagyl * Continue NPO status for now per General surgery recommendations (2) Pericolonic abscess: Code(s): K63.0 - Abscess of intestine Status: Acute Assessment and Plan: See above (3) Fecal impaction: Code(s): K56.41 - Fecal impaction Status: Acute Assessment and Plan: See above (4) Right lower lobe pulmonary nodule: Code(s): R91.1 - Solitary pulmonary nodule Status: Acute Assessment and Plan: * Noted on CT scan * Will need follow-up on an outpatient basis (5) Thickened endometrium: Code(s): R93.89 - Abnormal findings on diagnostic imaging of other specified body structures Status: Acute Assessment and Plan: * Noted on CT scan * Will get transpelvic and transvaginal ultrasound today (6) Paroxysmal atrial fibrillation: Code(s): I48.0 - Paroxysmal atrial fibrillation Status: Acute Assessment and Plan: * Eliquis currently on hold (7) Chronic anemia: Code(s): D64.9 - Anemia, unspecified Status: Acute Assessment and Plan: * Hemoglobin 10.2 * Continue resulting (8) Cirrhosis: Code(s): K74.60 - Unspecified cirrhosis of liver Status: Acute Assessment and Plan: * Noted on CT (9) Diastolic dysfunction: Code(s): I51.89 - Other ill-defined heart diseases Status: Acute Assessment and Plan: * Echocardiogram 04/26/2024 shown normal LV systolic function with hyperdynamic EF of greater than 70%, diastolic dysfunction, atrial fibrillation, severe aortic valve sclerosis, moderate aortic valve stenosis Time Spent With Patient Time with patient: Greater than 35 minutes Subjective Date/time seen: 10/08/24 11:10 Interval history: Interval history: This is a 79-year-old female With a significant past medical history of sigmoid diverticulitis with perforation back in April of this year who [facility] the [facility] for [facility] of abdominal pain. Workup in the hospital included a chest x-ray which shown PICC line in the superior vena cava, mild atelectasis at the lung bases. Abdomen/pelvis CT revealed possible enlarging right lower lobes pulmonary nodule, small left and trace right pleural effusion, cirrhosis with portal hypertension, gallbladder hydrops without inflammatory change may be secondary to fasting or obstruction, severe long segment proximal and mid sigmoid colitis infectious versus inf lammatory or ischemic, endometrial thickening versus endometrial fluid with recommendations for nonemergent trans abdominal and transvaginal pelvic ultrasound, fecal impaction. Initial labs showed a white blood cell count of 15.0, RBC 3.90, hemoglobin 10.7, INR 1.8, sodium 135, creatinine 0.60, alkaline phos 127, lipase was normal at 35. UA was obtained which showed cloudy appearance, 1+ urine protein, 1+ urine bili, 2+ leukocyte, greater than 100 urine WBC. MRSA was negative. respiratory panel was negative for influenza a and B, RSV, COVID. Blood and urine cultures were obtained and are pending. EKG showing left anterior fascicular block, right bundle branch block with a rate of 76, QTC 451. Patient was given 2.5 L normal saline, Dilaudid, and Zosyn while in the ED. General surgery was consulted. Subjective: Patient denies any fever, chills, chest pain, shortness of breath. Patient endorses LLQ abdominal pain that she rates at 9/10, nausea and vomiting. Labs and imaging reviewed. Review of Systems Review of Systems: 12 systems were reviewed and are negativ e except for as per HPI. Constitutional: Constitutional: Reports as per HPI and Reports no additional constitutional complaints Eyes: Eyes: Reports as per HPI and Reports no additional eye complaints ENT: Reports system reviewed and no additional complaints, except as documented and Reports as per HPI Cardiovascular: Cardiovascular: Reports as per HPI and Reports no additional cardiovascular complaints Respiratory: Respiratory: Reports as per HPI and Reports no additional respiratory complaints Gastrointestinal: Gastrointestinal: Reports as per HPI and Reports no additional gastrointestinal complaints Genitourinary: Genitourinary: Reports no additional female genitourinary complaints and Reports as per HPI Musculoskeletal: Musculoskeletal: Reports no additional musculoskeletal complaints and Reports as per HPI Integumentary/Breasts: Skin/Breast: Reports system reviewed and no additional complaints, except as docu and Reports as per HPI Neurologic: Reports system reviewed and no additional complaints, except as documented and Reports as per HPI Psychiatric: Psychiatric: Reports no additional psychiatric complaints and Reports as per HPI Exam Narrative: General: In no acute distress, well nourished Head: atraumatic, no encephalopathy Eyes: PERRLA, sclera clear ENT: moist mucous membranes, nasal passages clear Neck: supple, no JVD, no adenopathy, trachea midline Cardiac: Normal S1 and S2. No murmur, gallops or friction rubs, peripheral pulses intact. Respiratory: Lungs clear to auscultation, no adventitious lung sounds, currently on 2L NC Gastrointestinal: soft, non-distended,tender over left lower quadrant, normoactive bowel sounds. : voiding without difficulty. Extremities: moves all extremities well, no edema Skin: clean, dry, intact. No wounds or lesions. Neuro: Alert and oriented x4, cranial nerves intact, no neuro deficits. Psych: normal mood, normal affect, interactive Objective Data Vital Signs Vital Signs: Vital Signs - 24 hr 10/07/24 11:59 10/07/24 14:07 10/07/24 15:56 Temperature 98.3 F 98.6 F Pulse Rate 82 77 72 Respiratory Rate 16 12 14 Blood Pressure 119/61 110/60 103/58 L Pulse Oximetry 97 100 100 Oxygen Delivery Nasal Cannula Oxygen Flow Rate 2 Fraction of Inspired Oxygen 10/07/24 16:18 10/07/24 17:38 10/07/24 20:00 Temperature Pulse Rate 76 Respiratory Rate 19 Blood Pressure 114/64 Pulse Oximetry 99 99 98 Oxygen Delivery Nasal Cannula Nasal Cannula Oxygen Flow Rate 2 2 Fraction of Inspired Oxygen 10/07/24 22:23 10/07/24 20:00 10/08/24 06:22 Temperature 97.6 F Pulse Rate 72 79 79 Respiratory Rate 20 Blood Pressure 112/50 L Pulse Oximetry 99 Oxygen Delivery Oxygen Flow Rate Fraction of Inspired Oxygen 10/08/24 04:00 10/08/24 06:00 10/08/24 09:47 Temperature 97.0 F L Pulse Rate 69 75 Respiratory Rate 20 Blood Pressure 132/78 Pulse Oximetry 98 97 Oxygen Delivery Nasal Cannula Oxygen Flow Rate 2 Fraction of Inspired Oxygen 28 Intake/Output Intake/Output: Intake & Output 10/05/24 10/06/24 10/07/24 10/08/24 23:59 23:59 23:59 23:59 Intake Total 2600 50 Output Total 100 Balance 2500 50 Meds/Results Medications: Active Medications Generic Name Dose Route Start Last Admin Trade Name Freq PRN Reason Stop Dose Admin Acetaminophen 650 mg 10/07/24 21:26 Acetaminophen 325 Mg Tablet PO Q6H PRN Mild Pain (1-3) or Fever Hydrocodone Bitart/Acetaminophen 1 tab 10/07/24 21:26 Hydrocodone/Acetaminophen (*Crx) 5-325 Mg Tablet PO Q6H PRN Pain Rated 4-6 Docusate Sodium 100 mg 10/08/24 09:00 10/08/24 08:55 Docusate Sodium 100 Mg Capsule PO 100 mg BID FELIBERTO Administration Ferrous Sulfate 325 mg 10/08/24 09:00 10/08/24 08:55 Ferrous Sulfate [address] PO 325 mg DAILY FELIBERTO Administration Folic Acid 0.4 mg 10/08/24 09:00 10/08/24 08:55 Folic Acid 0.4 Mg Tablet PO 0.4 mg DAILY FELIBERTO Administration Hydromorphone HCl 0.5 mg 10/07/24 21:15 Hydromorphone Hcl Inj (*Crx) 1 Mg/Ml Syr IV PUSH Q3H PRN Pain Rated 7-10 Piperacillin/Tazobactam/Dextrose 3.375 gm in 50 mls @ 100 mls/hr 10/08/24 00:00 10/08/24 06:27 Zosyn 3.375 Gm/Ns 50 Ml IVPB Infused Q6H FELIBERTO Infusion Lorazepam 0.5 mg 10/07/24 21:26 Lorazepam (*Crx) 0.5 Mg Tablet PO BID PRN Anxiety Ondansetron HCl 4 mg 10/07/24 21:26 Ondansetron Inj 4 Mg/2 Ml Vial IV PUSH Q6H PRN Nausea And Vomiting Pantoprazole Sodium 40 mg 10/08/24 09:00 10/08/24 08:55 Pantoprazole 40 Mg Tablet PO 40 mg BID FELIBERTO Administration Sodium Chloride 20 ml 10/08/24 07:48 Central Line Flush IV PUSH PRN PRN after blood draws Sodium Chloride 10 ml 10/08/24 07:48 Central Line Flush IV PUSH PRN PRN with TPN bag changes Sodium Chloride 10 ml 10/08/24 14:00 Central Line Flush IV PUSH Q8HR FELIBERTO Trazodone HCl 50 mg 10/07/24 21:40 10/07/24 23:14 Trazodone Hcl 50 Mg Tablet PO 50 mg HS FELIBERTO Administration Radiology Results: ITS Impressions Chest X-Ray 10/07/24 12:27 IMPRESSION: 1. PICC tip in the superior vena cava. 2. Mild atelectasis at the lung bases. Abdomen/Pelvis CT 10/07/24 14:04 IMPRESSION: Possibly enlarging right lower lobe solitary pulmonary nodule, incompletely evaluated. Consider nonemergent but timely outpatient, low-dose noncontrast CT of the chest. Small left and trace right pleural effusions. Cirrhosis with portal hypertension. Gallbladder hydrops without inflammatory change, may be secondary to fasting or obstruction. Correlate with biliary labs. Severe long segment proximal and mid sigmoid colitis, may be secondary to infectious, inflammatory, or ischemic etiology. 5.8 cm adjacent pericolonic abscess. Endometrial thickening versus endometrial fluid, recommend nonemergent out patient transabdominal and transvaginal pelvic ultrasound. Fecal impaction. Labs Labs: Laboratory Results - last 24 hr 10/07/24 10/07/24 10/07/24 12:19 12:45 12:50 WBC 15.0 H RBC 3.90 L Hgb 10.7 L Hct 34.6 L MCV 88.7 MCH 27.4 MCHC 30.9 L RDW 15.6 H Plt Count 323 MPV 8.9 Immature Gran % (Auto) 1.0 H Neut % (Auto) 81.5 H Lymph % (Auto) 9.9 L [place] % (Auto) 6.7 Eos % (Auto) 0.5 Baso % (Auto) 0.4 Lymph # (Auto) 1.48 [place] # (Auto) 1.0 H Eos # (Auto) 0.1 Baso # (Auto) 0.1 Abs Immat Gran (auto) 0.15 H Absolute Neuts (auto) 12.2 H Absolute Nucleated RBC 0.000 Nucleated RBC % 0.0 PT 21.1 H INR 1.8 APTT 40.3 H VBG pH 7.396 VBG pCO2 46.8 VBG pO2 33.9 L VBG HCO3 28.1 O2 Delivery Device Nasal cannula O2 Liters/Min 2.0 FiO2 28 Sodium 135 L Potassium 3.6 Chloride 101 Carbon Dioxide 31 H Anion Gap 3 L BUN 14 D Creatinine 0.60 L Estim Creat Clear Calc 76 Estimated GFR > 60 Glucose 116 H Lactic Acid 0.9 Calcium 8.6 Phosphorus 3.3 Magnesium 1.8 Total Bilirubin 0.9 AST 25 ALT 9 Alkaline Phosphatase 127 H Total Protein 6.0 L Albumin 3.0 L Lipase 35 Urine Color Urine Appearance Urine pH Ur Specific [place] Urine Protein Urine Glucose (UA) Urine Ketones Ur Blood (Man) Urine Nitrate Urine Bilirubin Urine Urobilinogen Leukocyte Esterase Rfl Urine RBC Urine WBC Ur Squamous Epith Cells Urine Bacteria Urine Casts Nasal MRSA (PCR) Influenza A (RT-PCR) Influenza B (RT-PCR) RSV (RT-PCR) SARS-CoV-2 RNA (RT-PCR) 10/07/24 10/07/24 10/07/24 13:48 14:19 17:50 WBC RBC Hgb Hct MCV MCH MCHC RDW Plt Count MPV Immature Gran % (Auto) Neut % (Auto) Lymph % (Auto) [place] % (Auto) Eos % (Auto) Baso % (Auto) Lymph # (Auto) [place] # (Auto) Eos # (Auto) Baso # (Auto) Abs Immat Gran (auto) Absolute Neuts (auto) Absolute Nucleated RBC Nucleated RBC % PT INR APTT VBG pH VBG pCO2 VBG pO2 VBG HCO3 O2 Delivery Device O2 Liters/Min FiO2 Sodium Potassium Chloride Carbon Dioxide Anion Gap BUN Creatinine Estim Creat Clear Calc Estimated GFR Glucose Lactic Acid Calcium Phosphorus Magnesium Total Bilirubin AST ALT Alkaline Phosphatase Total Protein Albumin Lipase Urine Color Dark yellow Urine Appearance Cloudy H Urine pH 5.0 Ur Specific [place] 1.024 Urine Protein 1+ H Urine Glucose (UA) Negative Urine Ketones Negative Ur Blood (Man) Negative Urine Nitrate Negative Urine Bilirubin 1+ H Urine Urobilinogen 1.0 Leukocyte Esterase Rfl 2+ H Urine RBC 0-2 Urine WBC >100 H Ur Squamous Epith Cells None seen Urine Bacteria None seen Urine Casts 0-2 Nasal MRSA (PCR) Not detected Influenza A (RT-PCR) Negative Influenza B (RT-PCR) Negative RSV (RT-PCR) Negative SARS-CoV-2 RNA (RT-PCR) Negative 10/08/24 06:03 WBC 15.4 H RBC 3.84 L Hgb 10.2 L Hct 34.7 L MCV 90.4 MCH 26.6 MCHC 29.4 L RDW 15.3 H Plt Count 340 MPV 9.2 Immature Gran % (Auto) Neut % (Auto) Lymph % (Auto) [place] % (Auto) Eos % (Auto) Baso % (Auto) Lymph # (Auto) [place] # (Auto) Eos # (Auto) Baso # (Auto) Abs Immat Gran (auto) Absolute Neuts (auto) Absolute Nucleated RBC Nucleated RBC % PT INR APTT VBG pH VBG pCO2 VBG pO2 VBG HCO3 O2 Delivery Device O2 Liters/Min FiO2 Sodium 136 L Potassium 3.4 Chloride 106 Carbon Dioxide 28 Anion Gap 2 L BUN 13 Creatinine 0.60 L Estim Creat Clear Calc 76 Estimated GFR > 60 Glucose 102 Lactic Acid Calcium 8.4 Phosphorus Magnesium 1.9 Total Bilirubin AST ALT Alkaline Phosphatase Total Protein Albumin Lipase Urine Color Urine Appearance Urine pH Ur Specific [place] Urine Protein Urine Glucose (UA) Urine Ketones Ur Blood (Man) Urine Nitrate Urine Bilirubin Urine Urobilinogen Leukocyte Esterase Rfl Urine RBC Urine WBC Ur Squamous Epith Cells Urine Bacteria Urine Casts Nasal MRSA (PCR) Influenza A (RT-PCR) Influenza B (RT-PCR) RSV (RT-PCR) SARS-CoV-2 RNA (RT-PCR) Quality VTE Prophylaxis VTE prophylaxis: mechanical ordered
[2024-10-08] MEDS: KCL 20MEQ/0.9% SOD CHL 1,000 ML 100 ML IV CONT ×2 (13:00→23:36)
[2024-10-08] MEDS: CENTRAL LINE FLUSH 10 ML IV PUSH ×2 (13:01→23:37)
[2024-10-08] MEDS: HYDROmorphone HCL INJ (*CRX) 1 MG/ML SYR 0.5 MG IV PUSH (13:09)
--- NOTE | 2024-10-08 14:26 | P.CONGS_ITS ---
Assessment and Plan Assessment and plan (1) Diverticulitis of intestine with abscess: Code(s): K57.80 - Diverticulitis of intestine, part unspecified, with perforation and abscess without bleeding Status: Acute Assessment and Plan: CT scan reviewed with the Radiologist and there is evidence of sigmoid diverti culitis and there is some pericolonic fluid with what appears to be multiple fistulous connections from colon to colon in this area. In comparison to her CTA chest/abdomen/pelvis in April of 2024, the appearance of her diverticulitis at that time appears similar to her CT scan on this admission. It sounds like her abdominal pain has never truly resolved and she has been dealing with this chronically for at least the past 6 months or possibly longer. The Radiologist did not feel this would be an area that would benefit from percutaneous drainage at this time. We will continue IV antibiotics for now. She is currently on IV Zosyn, and I will add IV metronidazole. She is still having a lot of abdominal pain and is fairly tender on exam, so I will leave her NPO with ice chips for today. Will start some maintenance IV fluids as well while she is NPO. She does not have any diffuse peritoneal signs on exam, and there is no indication for urgent surgical intervention. It is concerning that she will eventually need surgical resection, but hopefully she will improve with IV antibiotics. We will continue to monitor with serial abdominal exams and labs. (2) Fecal impaction: Code(s): K56.41 - Fecal impaction Status: Acute Assessment and Plan: Her initial CT scan showed a fecal impaction with the rectum dilated to 7.5 cm by formed stool. Enemas initially were deferred due to her perforated diverticulitis. Since admission, she has had multiple good bowel movements. Will continue to monitor. (3) Thickened endometrium: Code(s): R93.89 - Abnormal findings on diagnostic imaging of other specified body structures Status: Acute Assessment and Plan: Incidentally noted on ultrasound. Hospitalist has ordered a transvaginal ultrasound to evaluate further. (4) Right lower lobe pulmonary nodule: Code(s): R91.1 - Solitary pulmonary nodule Status: Acute (5) Chronic anemia: Code(s): D64.9 - Anemia, unspecified Status: Acute Assessment and Plan: Hgb stable at 10. Continue to monitor. 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 Okay to use prophylactic Lovenox from our standpoint. (7) Paroxysmal atrial fibrillation: Code(s): I48.0 - Paroxysmal atrial fibrillation Status: Acute (8) Cirrhosis: Code(s): K74.60 - Unspecified cirrhosis of liver Status: Acute Plan I have discussed the patient's case and plan of care with Dr. Hogan. History of Present Illness Consult details Consult date: 10/08/24 Reason for consult: other (Pericolonic abscess) Requesting physician: Dixon Rosas MD Narrative: This is a 79-year-old female with PMH of perforated diverticulitis, lumbar diskitis, hypertension, paroxysmal atrial fibrillation on Eliquis, diastolic dysfunction, aortic valve stenosis, chronic anemia, cirrhosis, and multiple other medical problems, who we have been asked to see in surgical consultation for pericolonic abscess. She came into the ED via EMS from [facility] for evaluation of abdominal pain. She has been seen by our service for diverticulitis with abscess in April and August of 2024 and treated with IV antibiotics. During her hospitalization in August, she was also found to have an L4/L5 diskitis/osteomyelitis with abscess along the left psoas muscle which was not easily drainable. She was transferred to [place] for difficult biopsy of the lumbar disc an Infectious Disease consult. She has been at [facility] for rehab since that time and has reportedly been getting IV antibiotics through a PICC line. She reports having left lower quadrant abdominal pain for months before her hospitalization in April. She reports that her pain is constant, but typically mild. Her abdominal pain became worse over the past month and was unbearable over the last 3 days, which prompted her coming into the ED yesterday. She was afebrile on arrival with stable vital signs in the ER. Labs showed WBC count of 15.0, hemoglobin 10.7, platelet 323, INR 1.8, sodium 135, lactic acid 0.9, total protein 6.0, albumin 3.0. She is on Eliquis for A.fib but cannot recall her last dose. Urinalysis is positive for 2+ leukocyte esterase and greater than 100 WBCs with no bacteria seen on microscopy. Viral panel was negative. CT of the abdomen and pelvis showed a severe, long segment proximal and mid sigmoid colitis with a 5.8 cm adjacent pericolonic abscess, endometrial thickening versus endometrial fluid, fecal impaction, and possibly enlarging right lower lobe solitary pulmonary nodule. She was admitted and started on IV Zosyn and made NPO. She is now seen on the medical floor. She denies ever having a colonoscopy in the past. She reports only 1 other episode of diverticulitis prior to April that was many years ago and treated at an outlying facility with IV antibiotics. Per nursing, she has had numerous large bowel movements since admission. Review of Systems Review of Systems: All systems reviewed & are unremarkable except as noted in HPI and below PMFSH Past Medical History Medical History (Updated 10/08/24 @ 14:40 by YAW Holt) Anxiety Chronic anticoagulation Cirrhosis Diastolic dysfunction Discitis of lumbar region Diverticulitis Hypertension Liver abscess Osteoarthritis Osteomyelitis Paroxysmal atrial fibrillation Psoriasis Surgical History Surgical History History of appendectomy Family History Family History Other No problems noted. Mother Congestive cardiac failure Social History Social History Social History: Surrogate medical decision maker: Maribell Ramirez, daughter. Code status: Modified code, no CPR. Smoking packs per day: 0.5 Smoking cigarettes per day: 10.0 Years smoked: 50 Smoking pack-years: 25.00 Smoking status: Former smoker Alcohol intake: former Substance use: never Substance use type: does not use Do You Feel Safe in your Home?: Yes Lack of Transportation: No Lack of Food: Never True Current Housing: Decline to Answer Concerned About Future Housing: Decline to Answer Difficulty Paying Gas/Electric Bills: Decline to Answer Difficulty Paying for Meds: Decline to Answer Currently Unemployed: Decline to Answer Education: Decline to Answer Difficulty w/ Childcare or Family Care: Decline to Answer Spiritual care concerns: No Meds Home Medications and Allergies Home Medications Medication Instructions Recorded Confirmed Type aspirin 81 mg tablet 81 mg PO DAILY 04/20/24 10/07/24 History lorazepam 1 mg tablet 0.5 mg PO BID PRN Anxiety 04/20/24 10/07/24 History apixaban 5 mg tablet (Eliquis) 5 mg PO BID 08/17/24 10/07/24 History benzonatate 100 mg capsule 100 mg PO TID PRN Cough 10/07/24 10/07/24 History docusate sodium 100 mg tablet 100 mg PO BID 10/07/24 10/07/24 History ferrous sulfate 325 mg (65 mg 325 mg PO DAILY 10/07/24 10/07/24 History iron) tablet folic acid 400 mcg tablet 0.4 mg PO DAILY 10/07/24 10/07/24 History heparin flush (porcine) 100 5 ml IV BID 10/07/24 10/07/24 History unit/mL in 0.9 % sodium chloride IV kit omeprazole 40 mg capsule,delayed 40 mg PO DAILY 10/07/24 10/07/24 History release ondansetron 4 mg disintegrating 4 mg PO Q8H PRN Nausea 10/07/24 10/07/24 History tablet oxycodone 10 mg tablet 10 mg PO Q4H PRN Pain 10/07/24 10/07/24 History sodium chloride 0.9 % (flush) 10 ml IV BID 10/07/24 10/07/24 History (Normal Saline Flush 0.9 % injection syringe) trazodone 50 mg tablet 50 mg PO HS 10/07/24 10/07/24 History Allergies Allergy/AdvReac Type Severity Reaction Status Date / Time No Known Allergies Allergy Verified 10/07/24 16:48 Vital Signs Vital Signs - 24 hr 10/07/24 15:56 10/07/24 16:18 10/07/24 17:38 Temperature Pulse Rate 72 76 Respiratory Rate 14 19 Blood Pressure 103/58 L 114/64 Pulse Oximetry 100 99 99 Oxygen Delivery Nasal Cannula Oxygen Flow Rate 2 Fraction of Inspired Oxygen 10/07/24 20:00 10/07/24 22:23 10/07/24 20:00 Temperature 97.6 F Pulse Rate 72 79 Respiratory Rate 20 Blood Pressure 112/50 L Pulse Oximetry 98 99 Oxygen Delivery Nasal Cannula Oxygen Flow Rate 2 Fraction of Inspired Oxygen 10/08/24 06:22 10/08/24 04:00 10/08/24 06:00 Temperature 97.0 F L Pulse Rate 79 69 75 Respiratory Rate 20 Blood Pressure 132/78 Pulse Oximetry 98 Oxygen Delivery Oxygen Flow Rate Fraction of Inspired Oxygen 10/08/24 09:47 10/08/24 08:55 10/08/24 08:55 Temperature Pulse Rate 62 Respiratory Rate Blood Pressure Pulse Oximetry 97 100 Oxygen Delivery Nasal Cannula Nasal Cannula Oxygen Flow Rate 2 2 Fraction of Inspired Oxygen 28 10/08/24 12:00 Temperature Pulse Rate 69 Respiratory Rate Blood Pressure Pulse Oximetry Oxygen Delivery Oxygen Flow Rate Fraction of Inspired Oxygen Exam Const: General: comfortable and no acute distress Nutritional Appearance: overweight Orientation/consciousness: patient oriented x3 HENMT: Head: normocephalic and atraumatic Ears: hearing grossly normal bilaterally Mouth: Yes moist mucous membranes Eyes: General: appearance normal, both eyes and all related structures Pupils: Equal, round and reactive pupils present Neck: Neck: normal visual inspection and full ROM Resp: Effort & Inspection: no respiratory distress Auscultation: clear to auscultation bilaterally Cardio: Rate: regular rate Rhythm: regular rhythm Heart sounds: S1 normal heart sound present and S2 normal heart sound present GI: Inspection: non-distended, no scars (no large obvious scars), striae and no visible herniation GI Palp: Yes Soft to palpation, Yes Tenderness to palpation present (GI) (LLQ and suprapubic area), Yes Guarding due to palpation present (GI) (LLQ), Yes No hepatosplenomegaly present, Yes Ascites present and No Rebound tenderness present Auscultation: normal bowel sounds Rectal Exam: deferred Skin: General skin exam: normal color Neuro: General: moves all extremities and no focal motor deficits Speech: normal speech Motor exam (neuro): 5/5 motor strength present throughout Extrem: General: normal to inspection and no edema Psych: Mental Status: mental status grossly normal Attitude: cooperative Insight: Good insight present (Psych) Judgement: Good judgement present (Psych) Results Labs 10/08/24 06:03 10/08/24 06:03 Labs: Abnormal lab results 10/07/24 10/08/24 Range/Units 14:19 06:03 WBC 15.4 H (4.5-10.0) K/mm3 RBC 3.84 L (4.2-5.4) M/mm3 Hgb 10.2 L (12.0-15.0) g/dL Hct 34.7 L (37.0-47.0) % MCHC 29.4 L (32-36) g/dl RDW 15.3 H (11.5-14.5) % Sodium 136 L (137-145) mmol/L Anion Gap 2 L (4-12) mmol/L Creatinine 0.60 L (0.7-1.0) mg/dL Urine Appearance Cloudy H (Clear) Urine Protein 1+ H (Negative) mg/dL Urine Bilirubin 1+ H (Negative) Leukocyte Esterase Rfl 2+ H (Negative) ELIANE/UL Urine WBC >100 H (0-3) /hpf Diabetes panel 10/08/24 Range/Units 06:03 Sodium 136 L (137-145) mmol/L Potassium 3.4 (3.4-5.0) mmol/L Chloride 106 (98-107) mmol/L Carbon Dioxide 28 (22-30) mmol/L BUN 13 (7-17) mg/dL Creatinine 0.60 L (0.7-1.0) mg/dL Glucose 102 (65-110) mg/dL Calcium 8.4 (8.4-10.2) mg/dL Calcium panel 10/08/24 Range/Units 06:03 Calcium 8.4 (8.4-10.2) mg/dL Pituitary panel 10/08/24 Range/Units 06:03 Sodium 136 L (137-145) mmol/L Potassium 3.4 (3.4-5.0) mmol/L Chloride 106 (98-107) mmol/L Carbon Dioxide 28 (22-30) mmol/L BUN 13 (7-17) mg/dL Creatinine 0.60 L (0.7-1.0) mg/dL Glucose 102 (65-110) mg/dL Calcium 8.4 (8.4-10.2) mg/dL Adrenal panel 10/08/24 Range/Units 06:03 Sodium 136 L (137-145) mmol/L Potassium 3.4 (3.4-5.0) mmol/L Chloride 106 (98-107) mmol/L Carbon Dioxide 28 (22-30) mmol/L BUN 13 (7-17) mg/dL Creatinine 0.60 L (0.7-1.0) mg/dL Glucose 102 (65-110) mg/dL Calcium 8.4 (8.4-10.2) mg/dL All other labs normal. Imaging Additional studies: ITS Impressions Chest X-Ray 10/07/24 12:27 IMPRESSION: 1. PICC tip in the superior vena cava. 2. Mild atelectasis at the lung bases. Abdomen/Pelvis CT 10/07/24 14:04 IMPRESSION: Possibly enlarging right lower lobe solitary pulmonary nodule, incompletely evaluated. Consider nonemergent but timely outpatient, low-dose noncontrast CT of the chest. Small left and trace right pleural effusions. Cirrhosis with portal hypertension. Gallbladder hydrops without inflammatory change, may be secondary to fasting or obstruction. Correlate with biliary labs. Severe long segment proximal and mid sigmoid colitis, may be secondary to infectious, inflammatory, or ischemic etiology. 5.8 cm adjacent pericolonic abscess. Endometrial thickening versus endometrial fluid, recommend nonemergent outpatient transabdominal and transvaginal pelvic ultrasound. Fecal impaction.
[2024-10-08] MEDS: ONDANSETRON INJ 4 MG/2 ML VIAL IV PUSH (15:20)
[2024-10-08] MEDS: metroNIDAZOLE 500 MG/ISO 100ML 500 MG/100 ML BAG 100 MG IVPB ×2 (15:21→20:24)
[2024-10-08] MEDS: traZODone HCL 50 MG TABLET PO (20:23)
[2024-10-09] VITALS (11 sets, daily range): BP systolic 127–146; BP diastolic 56–63; PULSE 50–76; RESP 16–20; TEMP 36.1–36.6; O2SAT 98–100
[2024-10-09] MEDS: metroNIDAZOLE 500 MG/ISO 100ML 500 MG/100 ML BAG 100 MG IVPB ×3 (06:08→23:29)
[2024-10-09] MEDS: CENTRAL LINE FLUSH 10 ML IV PUSH ×3 (06:08→20:54)
[2024-10-09] MEDS: PIPERACILLN/TAZ 3.375GM/NS50ML 3.375 GM/50 ML BAG IVPB ×4 (06:08→23:30)
[2024-10-09 06:27] LABS: Basophils Percent Auto 0.4 % (0.2-1.2); Eosinophils Absolute Auto 0.1 K/mm3 (0-0.3); Eosinophils Percent Auto 0.9 % (0-4.4); Hematocrit 31.9 % (37.0-47.0); Hemoglobin 9.4 g/dL (12.0-15.0); Immature Granulocyte Absolute 0.04 K/mm3 (0.00-0.031); Immature Granulocyte Percent A 0.5 % (0-0.5); Lymphocytes Absolute Auto 1.34 K/mm3 (0.9-3.2); Lymphocytes Percent Auto 17.7 % (18.3-44.2); Mean Corpuscular HGB Conc 29.5 g/dl (32-36); Mean Corpuscular Hemoglobin 26.8 pg (26-34); Mean Corpuscular Volume 90.9 fl (80-100); Mean Platelet Volume 9.6 fl (7.4-10.4); Monocytes Absolute Auto 0.5 K/mm3 (0.1-0.6); Neutrophils Absolute Auto 5.5 K/mm3 (1.3-6.7); Neutrophils Percent Auto 73.5 % (45.5-73.1); Platelet Count Result 326 k/mm3 (150-375); Red Blood Count 3.51 M/mm3 (4.2-5.4); Red Cell Distribution Width 15.2 % (11.5-14.5); White Blood Count 7.6 K/mm3 (4.5-10.0)
[2024-10-09 06:34] LABS: Anion Gap 1 mmol/L (4-12); Blood Urea Nitrogen 12 mg/dL (7-17); Calcium 8.4 mg/dL (8.4-10.2); Carbon Dioxide 28 mmol/L (22-30); Chloride 110 mmol/L (98-107); Estimated CRCL calculation 68 ml/min; Estimated Glomerular Filt Rate > 60; Glucose 81 mg/dL (65-110); Potassium 3.2 mmol/L (3.4-5.0); Sodium 139 mmol/L (137-145)
[2024-10-09 07:59] LABS: Anisocytosis 1+; Platelet Estimate Adequate (Adequate)
[2024-10-09 08:00] LABS: Burr Cells 1+; Ovalocytes 1+; Schistocytes None Seen
[2024-10-09] MEDS: FERROUS SULFATE 325 MG TABLET DR PO (09:38)
[2024-10-09] MEDS: PANTOPRAZOLE 40 MG TABLET PO ×2 (09:38→18:24)
[2024-10-09] MEDS: POTASSIUM CHLORIDE 20 MEQ ER TABLET 60 MEQ PO (09:38)
[2024-10-09] MEDS: LINEZOLID 600 MG TABLET PO ×2 (09:38→20:54)
[2024-10-09] MEDS: FOLIC ACID 0.4 MG TABLET PO (09:38)
--- NOTE | 2024-10-09 10:36 | PM.PNGS ---
Progress Note: A&P Assessment and Plan (1) Diverticulitis of intestine with abscess: Code(s): K57.80 - Diverticulitis of intestine, part unspecified, with perforation and abscess without bleeding Status: Acute Assessment and Plan: Recurrent sigmoid diverticulitis with a pericolonic fluid collection that was reviewed with the Radiologist with concern for possible fistulous connections from colon to colon in the sigmoid. She has multiple co-morbidities that increases her risks for surgery. She is very concerned about having a colostomy and actually refused any surgery and multiple procedures on previous hospitalizations. She is at the point that she is tired of having this abdominal pain and is agreeable to appropriate treatment. She seems to be improving with IV antibiotics. WBC normalized and her abdominal pain has improved. Will allow her to have clear liquids today and decrease her IV fluids. Potassium was low and has been replaced. Repeat labs again tomorrow. She may eventually require surgical resection, but this would ideally be avoided in the acute phase of the inflammatory process to have a better chance of avoiding a colostomy. Given her multiple co-morbidities, we would likely refer her to colorectal surgery at [facility] as an outpatient if she is able to improve with conservative management during this hospitalization. She gave me permission to call her son and discuss this with him as well, which I did. She has never had a colonoscopy as she has refused in the past, which we also discussed as there is that risk that this could also be a malignancy. Will continue to follow closely with serial abdominal exams and labs. (2) Fecal impaction: Code(s): K56.41 - Fecal impaction Status: Acute Assessment and Plan: Resolved after having multiple bowel movements since admission. (3) Thickened endometrium: Code(s): R93.89 - Abnormal findings on diagnostic imaging of other specified body structures Status: Acute Assessment and Plan: Pelvic US showed thickened endometrial complex ddx includes endometrial hyperplasia, polyp, or carcinoma. Management per Hospitalist. (4) Right lower lobe pulmonary nodule: Code(s): R91.1 - Solitary pulmonary nodule Status: Acute (5) Chronic anemia: Code(s): D64.9 - Anemia, unspecified Status: Acute Assessment and Plan: Hgb stable at 10. Continue to monitor. 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 Currently prophylactic Lovenox. (7) Paroxysmal atrial fibrillation: Code(s): I48.0 - Paroxysmal atrial fibrillation Status: Acute (8) Cirrhosis: Code(s): K74.60 - Unspecified cirrhosis of liver Status: Acute Plan I have discussed the patient's case and plan of care with Dr. Hogan. Subjective Subjective Date/Time Seen: 10/09/24 10:36 Patient reports: no new complaints, feels better, pain is less, flatus, bowel movement and afebrile Interval history: Patient is feeling better today. Her abdominal pain has improved some. No nausea or vomiting. She is hungry. WBC has normalized. Exam Const: General: comfortable and no acute distress Orientation/consciousness: patient oriented x3 GI: Auscultation: normal bowel sounds Other: Abdomen is obese and soft. She is chain tender in the suprapubic area and LLQ, but it has improved from yesterday. I was able to palpate deeper today as her pain was better and she does have an area of firmness with deep palpation in the LLQ that is similar to an inflammatory mass. No peritoneal signs. Objective Data Vital Signs Vital Signs: Vital Signs - 24 hr 10/08/24 12:00 10/08/24 14:00 10/08/24 16:00 Temperature 97.4 F L Pulse Rate 69 84 71 Respiratory Rate 18 Blood Pressure 115/86 Pulse Oximetry 98 Oxygen Delivery Oxygen Flow Rate 10/08/24 22:10 10/08/24 20:00 10/08/24 20:00 Temperature 97.2 F L Pulse Rate 51 L 60 Respiratory Rate 20 Blood Pressure 108/47 L Pulse Oximetry 99 98 Oxygen Delivery Nasal Cannula Oxygen Flow Rate 2 10/09/24 03:00 10/09/24 00:00 10/09/24 04:00 Temperature Pulse Rate 52 L 59 L Respiratory Rate Blood Pressure Pulse Oximetry 98 Oxygen Delivery Nasal Cannula Oxygen Flow Rate 2 10/09/24 06:00 Temperature 97.0 F L Pulse Rate 54 L Respiratory Rate 20 Blood Pressure 146/63 H Pulse Oximetry 100 Oxygen Delivery Oxygen Flow Rate Intake/Output Intake/Output: Intake & Output 10/06/24 10/07/24 10/08/24 10/09/24 23:59 23:59 23:59 23:59 Intake Total 2600 1350 200 Output Total 100 Balance 2500 1350 200 Meds/Results Medications: Active Medications Generic Name Dose Route Start Last Admin Trade Name Freq PRN Reason Stop Dose Admin Acetaminophen 650 mg 10/07/24 21:26 Acetaminophen 325 Mg Tablet PO Q6H PRN Mild Pain (1-3) or Fever Hydrocodone Bitart/Acetaminophen 1 tab 10/07/24 21:26 Hydrocodone/Acetaminophen (*Crx) 5-325 Mg Tablet PO Q6H PRN Pain Rated 4-6 Docusate Sodium 100 mg 10/08/24 09:00 10/09/24 09:38 Docusate Sodium 100 Mg Capsule PO 100 mg BID FELIBERTO Administration Ferrous Sulfate 325 mg 10/08/24 09:00 10/09/24 09:38 Ferrous Sulfate [address] PO 325 mg DAILY FELIBERTO Administration Folic Acid 0.4 mg 10/08/24 09:00 10/09/24 09:38 Folic Acid 0.4 Mg Tablet PO 0.4 mg DAILY FELIBERTO Administration Hydromorphone HCl 0.5 mg 10/07/24 21:15 10/08/24 13:09 Hydromorphone Hcl Inj (*Crx) 1 Mg/Ml Syr IV PUSH 0.5 mg Q3H PRN Administration Pain Rated 7-10 Piperacillin/Tazobactam/Dextrose 3.375 gm in 50 mls @ 100 mls/hr 10/08/24 00:00 10/09/24 06:38 Zosyn 3.375 Gm/Ns 50 Ml IVPB Infused Q6H FELIBERTO Infusion Potassium Chloride/Sodium Chloride 1,000 mls @ 60 mls/hr 10/08/24 13:00 10/08/24 23:36 Kcl 20 Meq/Ns IV CONT 100 mls/hr .[id number] FELIBERTO Administration Metronidazole 500 mg in 100 mls @ 100 mls/hr 10/08/24 14:45 10/09/24 07:08 Flagyl 500 Mg/Iso Soln 100 Ml IVPB Infused Q8H FELIBERTO Infusion Linezolid 600 mg 10/09/24 09:00 10/09/24 09:38 Linezolid 600 Mg Tablet PO 600 mg Q12HR FELIBERTO Administration Lorazepam 0.5 mg 10/07/24 21:26 Lorazepam (*Crx) 0.5 Mg Tablet PO BID PRN Anxiety Ondansetron HCl 4 mg 10/07/24 21:26 10/08/24 15:20 Ondansetron Inj 4 Mg/2 Ml Vial IV PUSH 4 mg Q6H PRN Administration Nausea And Vomiting Pantoprazole Sodium 40 mg 10/08/24 09:00 10/09/24 09:38 Pantoprazole 40 Mg Tablet PO 40 mg BID FELIBERTO Administration Sodium Chloride 20 ml 10/08/24 07:48 Central Line Flush IV PUSH PRN PRN after blood draws Sodium Chloride 10 ml 10/08/24 07:48 Central Line Flush IV PUSH PRN PRN with TPN bag changes Sodium Chloride 10 ml 10/08/24 14:00 10/09/24 06:08 Central Line Flush IV PUSH 10 ml Q8HR FELIBERTO Administration Trazodone HCl 50 mg 10/07/24 21:40 10/08/24 20:23 Trazodone Hcl 50 Mg Tablet PO 50 mg HS FELIBERTO Administration Radiology Results: ITS Impressions Chest X-Ray 10/07/24 12:27 IMPRESSION: 1. PICC tip in the superior vena cava. 2. Mild atelectasis at the lung bases. Abdomen/Pelvis CT 10/07/24 14:04 IMPRESSION: Possibly enlarging right lower lobe solitary pulmonary nodule, incompletely evaluated. Consider nonemergent but timely outpatient, low-dose noncontrast CT of the chest. Small left and trace right pleural effusions. Cirrhosis with portal hypertension. Gallbladder hydrops without inflammatory change, may be secondary to fasting or obstruction. Correlate with biliary labs. Severe long segment proximal and mid sigmoid colitis, may be secondary to infectious, inflammatory, or ischemic etiology. 5.8 cm adjacent pericolonic abscess. Endometrial thickening versus endometrial fluid, recommend nonemergent outpatient transabdominal and transvaginal pelvic ultrasound. Fecal impaction. Pelvis Ultrasound 10/08/24 16:17 IMPRESSION: 1. Thickened endometrial complex. The differential diagnosis includes endometrial hyperplasia, polyp, and carcinoma. Biopsy is recommended. Labs Labs: Laboratory Results - last 24 hr 10/09/24 06:16 WBC 7.6 RBC 3.51 L Hgb 9.4 L Hct 31.9 L MCV 90.9 MCH 26.8 MCHC 29.5 L RDW 15.2 H Plt Count 326 MPV 9.6 Immature Gran % (Auto) 0.5 Neut % (Auto) 73.5 H Lymph % (Auto) 17.7 L [facility] % (Auto) 7.0 Eos % (Auto) 0.9 Baso % (Auto) 0.4 Lymph # (Auto) 1.34 [facility] # (Auto) 0.5 Eos # (Auto) 0.1 Baso # (Auto) 0.0 Abs Immat Gran (auto) 0.04 H Absolute Neuts (auto) 5.5 Absolute Nucleated RBC 0.000 Nucleated RBC % 0.0 Platelet Estimate Adequate Anisocytosis 1+ Ovalocytes 1+ Jaspreet Cells 1+ Schistocytes None seen Sodium 139 Potassium 3.2 L Chloride 110 H Carbon Dioxide 28 Anion Gap 1 L BUN 12 Creatinine 0.60 L Estim Creat Clear Calc 68 Estimated GFR > 60 Glucose 81 Calcium 8.4
[2024-10-09] MEDS: ENOXAPARIN 40 MG/0.4 ML SYRINGE SUB-Q (11:46)
[2024-10-09] MEDS: DOCUSATE SODIUM 100 MG CAPSULE PO ×2 (11:55→18:24)
[2024-10-09] MEDS: KCL 20MEQ/0.9% SOD CHL 1,000 ML 60 ML IV CONT ×2 (11:58→20:54)
[2024-10-09] MEDS: LORazepam (*CRX) 0.5 MG TABLET PO ×2 (12:00→20:54)
--- NOTE | 2024-10-09 12:07 | PCDIET ---
MAR documentation by this RN. Colace was given with other AM medications. Not 1155. The current bag of fluids was running at 100ml/hr. This RN changed it to 60ml/hr. The same bag of fluids is running at 60 ml/hr now.
--- NOTE | 2024-10-09 16:00 | P.PNIM_ITS ---
Progress Note: A&P Assessment and Plan (1) Colitis: Code(s): K52.9 - Noninfective gastroenteritis and colitis, unspecified Status: Acute Assessment and Plan: * Abdomen/pelvis CT shown enlarging right lower lobe pulmonary nodule, small left and trace right pleural effusions, cirrhosis with portal hypertension, gallbladder hydrops without inflammatory change, severe long segment proximal and mid sigmoid colitis may be secondary to infection versus inflammation versus ischemic etiology, 5.8 cm adjacent pericolonic abscess, endometrial thickening versus endometrial fluid, fecal impaction. * General surgery was consulted and following * Continue pain and nausea control * Patient has history of diverticulitis with perforation in the past * continue Zosyn and Flagyl * Advanced clear liquid diet (2) Pericolonic abscess: Code(s): K63.0 - Abscess of intestine Status: Acute Assessment and Plan: See above (3) Fecal impaction: Code(s): K56.41 - Fecal impaction Status: Acute Assessment and Plan: See above (4) Right lower lobe pulmonary nodule: Code(s): R91.1 - Solitary pulmonary nodule Status: Acute Assessment and Plan: * Noted on CT scan * Will need follow-up on an outpatient basis (5) Thickened endometrium: Code(s): R93.89 - Abnormal findings on diagnostic imaging of other specified body structures Status: Acute Assessment and Plan: * Noted on CT scan * Pelvic ultrasound showed thickened endometrial complex which could be endometrial hyperplasia, polyp, carcinoma. Biopsy is recommended. * Will discuss this with patient and family tomorrow. (6) Paroxysmal atrial fibrillation: Code(s): I48.0 - Paroxysmal atrial fibrillation Status: Acute Assessment and Plan: * Eliquis currently on hold * Will start Lovenox for DVT prophylaxis (7) Chronic anemia: Code(s): D64.9 - Anemia, unspecified Status: Acute Assessment and Plan: * Hemoglobin 9.4 * Continue resulting (8) Cirrhosis: Code(s): K74.60 - Unspecified cirrhosis of liver Status: Acute Assessment and Plan: * Noted on CT (9) Diastolic dysfunction: Code(s): I51.89 - Other ill-defined heart diseases Status: Acute Assessment and Plan: * Echocardiogram 04/26/2024 shown normal LV systolic function with hyperdynamic EF of greater than 70%, diastolic dysfunction, atrial fibrillation, severe aortic valve sclerosis, moderate aortic valve stenosis Time Spent With Patient Time with patient: 25 - 35 minutes Subjective Date/time seen: 10/09/24 16:00 Interval history: Interval history: This is a 79-year-old female With a significant past medical history of sigmoid diverticulitis with perforation back in April of this year who presented to the hospital yesterday from [facility] for evaluation of abdominal pain. Workup in the hospital included a chest x-ray which shown PICC line in the superior vena cava, mild atelectasis at the lung bases. Abdomen/pelvis CT revealed possible enlarging right lower lobes pulmonary nodule, small left and trace right pleural effusion, cirrhosis with portal hypertension, gallbladder hydrops without inflammatory change may be secondary to fasting or obstruction, severe long segment proximal and mid sigmoid colitis infectious versus inflammatory or ischemic, endometrial thickening versus endometrial fluid with recommendations for nonemergent trans abdominal and transvaginal pelvic ultrasound, fecal impaction. Initial labs showed a white blood cell count of 15.0, RBC 3.90, hemoglobin 10.7, INR 1.8, sodium 135, creatinine 0.60, alkaline phos 127, lipase was normal at 35. UA was obtained which showed cloudy appearance, 1+ urine protein, 1+ urine bili, 2+ leukocyte, greater than 100 urine WBC. MRSA was negative. respiratory panel was negative for influenza a and B, RSV, COVID. Blood and urine cultures were obtained and are pending. EKG showing left anterior fascicular block, right bundle branch block with a rate of 76, QTC 451. Patient was given 2.5 L normal saline, Dilaudid, and Zosyn while in the ED. General surgery was consulted. Subjective: Patient is conflicted about having any abdominal surgeries are going hospice. She decided earlier in the day to go full hospice and not do anything else with her abdominal pain however family talked with her and now she is considering having the surgery if it comes down to that. She seems very anxious and torn on what to do. I told her we can discuss this more tomorrow and maybe set up a family meeting with the surgical team that way they can get a better idea of what is involved with this surgical procedure and what may recovery may look like. She still reports quite a bit of abdominal pain and some acid reflux today. Labs and EMR reviewed. Review of Systems Review of Systems: 12 systems were reviewed and are negativ e except for as per HPI. Constitutional: Constitutional: Reports as per HPI and Reports no additional constitutional complaints Eyes: Eyes: Reports as per HPI and Reports no additional eye complaints ENT: Reports system reviewed and no additional complaints, except as documented and Reports as per HPI Cardiovascular: Cardiovascular: Reports as per HPI and Reports no additional cardiovascular complaints Respiratory: Respiratory: Reports as per HPI and Reports no additional respiratory complaints Gastrointestinal: Gastrointestinal: Reports as per HPI and Reports no additional gastrointestinal complaints Genitourinary: Genitourinary: Reports no additional female genitourinary complaints and Reports as per HPI Musculoskeletal: Musculoskeletal: Reports no additional musculoskeletal complaints and Reports as per HPI Integumentary/Breasts: Skin/Breast: Reports system reviewed and no additional complaints, except as docu and Reports as per HPI Neurologic: Reports system reviewed and no additional complaints, except as documented and Reports as per HPI Psychiatric: Psychiatric: Reports no additional psychiatric complaints and Reports as per HPI Exam Narrative: General: In no acute distress, well nourished Cardiac: Normal S1 and S2. No murmur, gallops or friction rubs, peripheral pulses intact. Respiratory: Lungs clear to auscultation, no adventitious lung sounds, currently on 2L NC Gastrointestinal: soft, non-distended,tender over left lower quadrant, normoactive bowel sounds. : voiding without difficulty. Neuro: Alert and oriented x4 Objective Data Vital Signs Vital Signs: Vital Signs - 24 hr 10/08/24 22:10 10/08/24 20:00 10/08/24 20:00 Temperature 97.2 F L Pulse Rate 51 L 60 Respiratory Rate 20 Blood Pressure 108/47 L Pulse Oximetry 99 98 Oxygen Delivery Nasal Cannula Oxygen Flow Rate 2 10/09/24 03:00 10/09/24 00:00 10/09/24 04:00 Temperature Pulse Rate 52 L 59 L Respiratory Rate Blood Pressure Pulse Oximetry 98 Oxygen Delivery Nasal Cannula Oxygen Flow Rate 2 10/09/24 06:00 10/09/24 08:00 10/09/24 12:00 Temperature 97.0 F L Pulse Rate 54 L 50 L 72 Respiratory Rate 20 Blood Pressure 146/63 H Pulse Oximetry 100 Oxygen Delivery Oxygen Flow Rate 10/09/24 09:38 10/09/24 14:00 Temperature 98 F Pulse Rate 76 Respiratory Rate 16 Blood Pressure 127/56 L Pulse Oximetry 100 100 Oxygen Delivery Nasal Cannula Oxygen Flow Rate 2 Intake/Output Intake/Output: Intake & Output 10/06/24 10/07/24 10/08/24 10/09/24 23:59 23:59 23:59 23:59 Intake Total 2600 1350 1490 Output Total 100 Balance 2500 1350 1490 Meds/Results Medications: Active Medications Generic Name Dose Route Start Last Admin Trade Name Freq PRN Reason Stop Dose Admin Acetaminophen 650 mg 10/07/24 21:26 Acetaminophen 325 Mg Tablet PO Q6H PRN Mild Pain (1-3) or Fever Hydrocodone Bitart/Acetaminophen 1 tab 10/07/24 21:26 Hydrocodone/Acetaminophen (*Crx) 5-325 Mg Tablet PO Q6H PRN Pain Rated 4-6 Docusate Sodium 100 mg 10/08/24 09:00 10/09/24 11:55 Docusate Sodium 100 Mg Capsule PO 100 mg BID FELIBERTO Administration Enoxaparin Sodium 40 mg 10/09/24 10:55 10/09/24 11:46 Enoxaparin 40 Mg/0.4 Ml Syringe SUB-Q 40 mg DAILY FELIBERTO Administration Ferrous Sulfate 325 mg 10/08/24 09:00 10/09/24 09:38 Ferrous Sulfate [address] PO 325 mg DAILY FELIBERTO Administration Folic Acid 0.4 mg 10/08/24 09:00 10/09/24 09:38 Folic Acid 0.4 Mg Tablet PO 0.4 mg DAILY FELIBERTO Administration Hydromorphone HCl 0.5 mg 10/07/24 21:15 10/08/24 13:09 Hydromorphone Hcl Inj (*Crx) 1 Mg/Ml Syr IV PUSH 0.5 mg Q3H PRN Administration Pain Rated 7-10 Piperacillin/Tazobactam/Dextrose 3.375 gm in 50 mls @ 100 mls/hr 10/08/24 00:00 10/09/24 12:16 Zosyn 3.375 Gm/Ns 50 Ml IVPB Infused Q6H FELIBERTO Infusion Potassium Chloride/Sodium Chloride 1,000 mls @ 60 mls/hr 10/08/24 13:00 10/09/24 11:58 Kcl 20 Meq/Ns IV CONT 60 mls/hr .[id number] FELIBERTO Administration Metronidazole 500 mg in 100 mls @ 100 mls/hr 10/08/24 14:45 10/09/24 07:08 Flagyl 500 Mg/Iso Soln 100 Ml IVPB Infused Q8H FELIBERTO Infusion Linezolid 600 mg 10/09/24 09:00 10/09/24 09:38 Linezolid 600 Mg Tablet PO 600 mg Q12HR FELIBERTO Administration Lorazepam 0.5 mg 10/07/24 21:26 10/09/24 12:00 Lorazepam (*Crx) 0.5 Mg Tablet PO 0.5 mg BID PRN Administration Anxiety Ondansetron HCl 4 mg 10/07/24 21:26 10/08/24 15:20 Ondansetron Inj 4 Mg/2 Ml Vial IV PUSH 4 mg Q6H PRN Administration Nausea And Vomiting Pantoprazole Sodium 40 mg 10/08/24 09:00 10/09/24 09:38 Pantoprazole 40 Mg Tablet PO 40 mg BID FELIBERTO Administration Sodium Chloride 20 ml 10/08/24 07:48 Central Line Flush IV PUSH PRN PRN after blood draws Sodium Chloride 10 ml 10/08/24 07:48 Central Line Flush IV PUSH PRN PRN with TPN bag changes Sodium Chloride 10 ml 10/08/24 14:00 10/09/24 13:20 Central Line Flush IV PUSH 10 ml Q8HR FELIBERTO Administration Trazodone HCl 50 mg 10/07/24 21:40 10/08/24 20:23 Trazodone Hcl 50 Mg Tablet PO 50 mg HS FELIBERTO Administration Radiology Results: ITS Impressions Chest X-Ray 10/07/24 12:27 IMPRESSION: 1. PICC tip in the superior vena cava. 2. Mild atelectasis at the lung bases. Abdomen/Pelvis CT 10/07/24 14:04 IMPRESSION: Possibly enlarging right lower lobe solitary pulmonary nodule, incompletely evaluated. Consider nonemergent but timely outpatient, low-dose noncontrast CT of the chest. Small left and trace right pleural effusions. Cirrhosis with portal hypertension. Gallbladder hydrops without inflammatory change, may be secondary to fasting or obstruction. Correlate with biliary labs. Severe long segment proximal and mid sigmoid colitis, may be secondary to infectious, inflammatory, or ischemic etiology. 5.8 cm adjacent pericolonic abscess. Endometrial thickening versus endometrial fluid, recommend nonemergent outpatient transabdominal and transvaginal pelvic ultrasound. Fecal impaction. Pelvis Ultrasound 12/02/24 16:17 IMPRESSION: 1. Thickened endometrial complex. The differential diagnosis includes endometrial hyperplasia, polyp, and carcinoma. Biopsy is recommended. Labs Labs: Laboratory Results - last 24 hr 10/09/24 06:16 WBC 7.6 RBC 3.51 L Hgb 9.4 L Hct 31.9 L MCV 90.9 MCH 26.8 MCHC 29.5 L RDW 15.2 H Plt Count 326 MPV 9.6 Immature Gran % (Auto) 0.5 Neut % (Auto) 73.5 H Lymph % (Auto) 17.7 L [place] % (Auto) 7.0 Eos % (Auto) 0.9 Baso % (Auto) 0.4 Lymph # (Auto) 1.34 [place] # (Auto) 0.5 Eos # (Auto) 0.1 Baso # (Auto) 0.0 Abs Immat Gran (auto) 0.04 H Absolute Neuts (auto) 5.5 Absolute Nucleated RBC 0.000 Nucleated RBC % 0.0 Platelet Estimate Adequate Anisocytosis 1+ Ovalocytes 1+ [place] Cells 1+ Schistocytes None seen Sodium 139 Potassium 3.2 L Chloride 110 H Carbon Dioxide 28 Anion Gap 1 L BUN 12 Creatinine 0.60 L Estim Creat Clear Calc 68 Estimated GFR > 60 Glucose 81 Calcium 8.4 Quality VTE Prophylaxis VTE prophylaxis: mechanical ordered and pharmacologic ordered
[2024-10-09] MEDS: HYDROcodone/acetaminophen (*CRX) 5-325 MG TABLET 1 TAB PO (18:25)
[2024-10-09] MEDS: traZODone HCL 50 MG TABLET PO (20:54)
[2024-10-10] VITALS (9 sets, daily range): BP systolic 131–153; BP diastolic 50–69; PULSE 51–86; RESP 14–20; TEMP 36.3–36.7; O2SAT 98–100
[2024-10-10] MEDS: metroNIDAZOLE 500 MG/ISO 100ML 500 MG/100 ML BAG 100 MG IVPB (05:05)
[2024-10-10] MEDS: PIPERACILLN/TAZ 3.375GM/NS50ML 3.375 GM/50 ML BAG IVPB ×4 (05:05→22:45)
[2024-10-10 06:52] LABS: Basophils Percent Auto 0.6 % (0.2-1.2); Eosinophils Absolute Auto 0.1 K/mm3 (0-0.3); Eosinophils Percent Auto 1.7 % (0-4.4); Hemoglobin 9.4 g/dL (12.0-15.0); Immature Granulocyte Absolute 0.03 K/mm3 (0.00-0.031); Immature Granulocyte Percent A 0.5 % (0-0.5); Lymphocytes Absolute Auto 1.27 K/mm3 (0.9-3.2); Lymphocytes Percent Auto 19.8 % (18.3-44.2); Mean Corpuscular HGB Conc 29.4 g/dl (32-36); Mean Corpuscular Hemoglobin 26.7 pg (26-34); Mean Corpuscular Volume 90.9 fl (80-100); Mean Platelet Volume 9.7 fl (7.4-10.4); Monocytes Absolute Auto 0.5 K/mm3 (0.1-0.6); Monocytes Percent Auto 7.3 % (2.6-8.5); Neutrophils Absolute Auto 4.5 K/mm3 (1.3-6.7); Neutrophils Percent Auto 70.1 % (45.5-73.1); Platelet Count Result 341 k/mm3 (150-375); Red Blood Count 3.52 M/mm3 (4.2-5.4); Red Cell Distribution Width 15.3 % (11.5-14.5); White Blood Count 6.4 K/mm3 (4.5-10.0)
[2024-10-10 07:07] LABS: Alanine Aminotransferase 7 U/L (6-35); Albumin Level 2.5 g/dL (3.5-5.1); Alkaline Phosphatase 100 U/L (38-126); Anion Gap 0 mmol/L (4-12); Aspartate Amino Transferase 23 U/L (14-36); Bilirubin,Total 0.5 mg/dL (0.2-1.3); Blood Urea Nitrogen 10 mg/dL (7-17); Calcium 8.1 mg/dL (8.4-10.2); Carbon Dioxide 27 mmol/L (22-30); Chloride 113 mmol/L (98-107); Estimated CRCL calculation 68 ml/min; Estimated Glomerular Filt Rate > 60; Glucose 82 mg/dL (65-110); Potassium 3.2 mmol/L (3.4-5.0); Sodium 140 mmol/L (137-145)
[2024-10-10 07:33] LABS: Anisocytosis 1+; Ovalocytes 1+; Platelet Estimate Adequate (Adequate)
[2024-10-10 07:34] LABS: Schistocytes None Seen
[2024-10-10] MEDS: FOLIC ACID 0.4 MG TABLET PO (08:52)
[2024-10-10] MEDS: ENOXAPARIN 40 MG/0.4 ML SYRINGE SUB-Q (08:52)
[2024-10-10] MEDS: PANTOPRAZOLE 40 MG TABLET PO ×2 (08:52→17:49)
[2024-10-10] MEDS: DOCUSATE SODIUM 100 MG CAPSULE PO ×2 (08:52→17:49)
[2024-10-10] MEDS: LINEZOLID 600 MG TABLET PO ×2 (08:52→20:16)
[2024-10-10] MEDS: FERROUS SULFATE 325 MG TABLET DR PO (08:52)
[2024-10-10] MEDS: HYDROcodone/acetaminophen (*CRX) 5-325 MG TABLET 1 TAB PO ×2 (08:53→15:54)
[2024-10-10] MEDS: LORazepam (*CRX) 0.5 MG TABLET PO ×2 (11:42→20:16)
[2024-10-10] MEDS: MAG HYDROX/AL HYDROX/SIMETH 30 ML UDC PO (11:42)
--- NOTE | 2024-10-10 11:56 | P.PNIM_ITS ---
Progress Note: A&P Assessment and Plan (1) Colitis: Code(s): K52.9 - Noninfective gastroenteritis and colitis, unspecified Status: Acute Assessment and Plan: * Abdomen/pelvis CT shown enlarging right lower lobe pulmonary nodule, small left and trace right pleural effusions, cirrhosis with portal hypertension, gallbladder hydrops without inflammatory change, severe long segment proximal and mid sigmoid colitis may be secondary to infection versus inflammation versus ischemic etiology, 5.8 cm adjacent pericolonic abscess, endometrial thickening versus endometrial fluid, fecal impaction. * General surgery was consulted, however considering that she is not wanting surgery any longer they went ahead and signed off. * [facility] and the [facility] already came out to see patient * Case coordination working on placement * Continue pain and nausea control * Patient has history of diverticulitis with perforation in the past * continue Zosyn and Flagyl for now * Low fiber diet ordered (2) Pericolonic abscess: Code(s): K63.0 - Abscess of intestine Status: Acute Assessment and Plan: See above (3) Fecal impaction: Code(s): K56.41 - Fecal impaction Status: Acute Assessment and Plan: See above (4) Right lower lobe pulmonary nodule: Code(s): R91.1 - Solitary pulmonary nodule Status: Acute Assessment and Plan: * Noted on CT scan * patient going hospice care (5) Thickened endometrium: Code(s): R93.89 - Abnormal findings on diagnostic imaging of other specified body structures Status: Acute Assessment and Plan: * Noted on CT scan * Pelvic ultrasound showed thickened endometrial complex which could be endometrial hyperplasia, polyp, carcinoma. Biopsy is recommended. * will defer as patient is going hospice care (6) Paroxysmal atrial fibrillation: Code(s): I48.0 - Paroxysmal atrial fibrillation Status: Acute Assessment and Plan: * continue Eliquis (7) Chronic anemia: Code(s): D64.9 - Anemia, unspecified Status: Acute Assessment and Plan: * Hemoglobin 9.4 * Continue trending (8) Cirrhosis: Code(s): K74.60 - Unspecified cirrhosis of liver Status: Acute Assessment and Plan: * Noted on CT (9) Diastolic dysfunction: Code(s): I51.89 - Other ill-defined heart diseases Status: Acute Assessment and Plan: * Echocardiogram 04/26/2024 shown normal LV systolic function with hyperdynamic EF of greater than 70%, diastolic dysfunction, atrial fibrillation, severe aortic valve sclerosis, moderate aortic valve stenosis Time Spent With Patient Time: Extensive amount of time was spent at the bedside discussing hospice versus surgical intervention with patient and family. >60 minutes at the bedside for this discussion Time with patient: Greater than 35 minutes Subjective Date/time seen: 10/10/24 11:56 Interval history: Interval history: This is a 79-year-old female With a significant past medical history of sigmoid diverticulitis with perforation back in April of this year who presented to the hospital yesterday from [facility] for evaluation of abdominal pain. Workup in the hospital included a chest x-ray which shown PICC line in the superior vena cava, mild atelectasis at the lung bases. Abdomen/pelvis CT revealed possible enlarging right lower lobes pulmonary nodule, small left and trace right pleural effusion, cirrhosis with portal hypertension, gallbladder hydrops without inflammatory change may be secondary to fasting or obstruction, severe long segment proximal and mid sigmoid colitis infectious versus inflammatory or ischemic, endometrial thickening versus endometrial fluid with recommendations for nonemergent trans abdominal and transvaginal pelvic ultrasound, fecal impaction. Initial labs showed a white blood cell count of 15.0, RBC 3.90, hemoglobin 10.7, INR 1.8, sodium 135, creatinine 0.60, alkaline phos 127, lipase was normal at 35. UA was obtained which showed cloudy appearance, 1+ urine protein, 1+ urine bili, 2+ leukocyte, greater than 100 urine WBC. MRSA was negative. respiratory panel was negative for influenza a and B, RSV, COVID. Blood and urine cultures were obtained and are pending. EKG showing left anterior fascicular block, right bundle branch block with a rate of 76, QTC 451. Patient was given 2.5 L normal saline, Dilaudid, and Zosyn while in the ED. General surgery was consulted. Subjective: Had a long discussion today about surgical intervention versus hospice with family at the bedside today and the patient. Patient is requesting to not have any surgery at this time and would rather be made comfortable/ hospice considering how extensive the surgery is and how long the recovery would be. patient does not feel that she is strong enough to even have the surgery. She stated over and over she just wants to be made comfortable and have quality of life the best she can. She states she has been in and out of the hospital for quite a few months now and that she is just tired. She was sent to [facility] for rehab at one point and time and they ended up terminating her stay due to her willingness to participate in therapy. Considering how deconditioned she is, family has no way of taking care of her at home. The only option is to send her to a group home for hospice care. Family is agreeable to her wishes. She reports that she did not sleep well last night care at the hospital otherwise has no new complaints today. Labs and imaging were reviewed. Review of Systems Review of Systems: 12 systems were reviewed and are negativ e except for as per HPI. Constitutional: Constitutional: Reports as per HPI and Reports no additional constitutional complaints Eyes: Eyes: Reports as per HPI and Reports no additional eye complaints ENT: Reports system reviewed and no additional complaints, except as documented and Reports as per HPI Cardiovascular: Cardiovascular: Reports as per HPI and Reports no additional cardiovascular complaints Respiratory: Respiratory: Reports as per HPI and Reports no additional respiratory complaints Gastrointestinal: Gastrointestinal: Reports as per HPI and Reports no additional gastrointestinal complaints Genitourinary: Genitourinary: Reports no additional female genitourinary complaints and Reports as per HPI Musculoskeletal: Musculoskeletal: Reports no additional musculoskeletal complaints and Reports as per HPI Integumentary/Breasts: Skin/Breast: Reports system reviewed and no additional complaints, except as docu and Reports as per HPI Neurologic: Reports system reviewed and no additional complaints, except as documented and Reports as per HPI Psychiatric: Psychiatric: Reports no additional psychiatric complaints and Reports as per HPI Exam Narrative: General: In no acute distress, well nourished Cardiac: Normal S1 and S2. No murmur, gallops or friction rubs, peripheral pulses intact. Respiratory: Lungs clear to auscultation, no adventitious lung sounds, currently on 2L NC Gastrointestinal: soft, non-distended,tender over left lower quadrant, normoactive bowel sounds. : voiding without difficulty. Neuro: Alert and oriented x4 Objective Data Vital Signs Vital Signs: Vital Signs - 24 hr 10/09/24 12:00 10/09/24 14:00 10/09/24 16:00 Temperature 98 F Pulse Rate 72 76 70 Respiratory Rate 16 Blood Pressure 127/56 L Pulse Oximetry 100 Oxygen Delivery Oxygen Flow Rate 10/09/24 20:00 10/09/24 20:00 10/09/24 22:14 Temperature 97.5 F L Pulse Rate 55 L 60 Respiratory Rate 20 Blood Pressure 139/57 L Pulse Oximetry 98 99 Oxygen Delivery Nasal Cannula Oxygen Flow Rate 2 10/10/24 00:00 10/10/24 04:00 10/10/24 06:00 Temperature 97.3 F L Pulse Rate 51 L 56 L 59 L Respiratory Rate 20 Blood Pressure 153/55 H Pulse Oximetry 100 Oxygen Delivery Oxygen Flow Rate 10/10/24 08:53 10/10/24 08:53 Temperature Pulse Rate 56 L Respiratory Rate Blood Pressure Pulse Oximetry 100 Oxygen Delivery Nasal Cannula Oxygen Flow Rate 2 Intake/Output Intake/Output: Intake & Output 10/07/24 10/08/24 10/09/24 10/10/24 23:59 23:59 23:59 23:59 Intake Total 2600 1350 2656 540 Output Total 100 Balance 2500 1350 2656 540 Meds/Results Medications: Active Medications Generic Name Dose Route Start Last Admin Trade Name Freq PRN Reason Stop Dose Admin Acetaminophen 650 mg 10/07/24 21:26 Acetaminophen 325 Mg Tablet PO Q6H PRN Mild Pain (1-3) or Fever Hydrocodone Bitart/Acetaminophen 1 tab 10/07/24 21:26 10/10/24 08:53 Hydrocodone/Acetaminophen (*Crx) 5-325 Mg Tablet PO 1 tab Q6H PRN Administration Pain Rated 4-6 Al Hydrox/Mg Hydrox/Simethicone 30 ml 10/09/24 18:00 10/10/24 11:42 Mag Hydrox/Al Hydrox/Simeth 30 Ml Udc PO 30 ml Q6H PRN Administration Indigestion Docusate Sodium 100 mg 10/08/24 09:00 10/10/24 08:52 Docusate Sodium 100 Mg Capsule PO 100 mg BID FELIBERTO Administration Enoxaparin Sodium 40 mg 10/09/24 10:55 10/10/24 08:52 Enoxaparin 40 Mg/0.4 Ml Syringe SUB-Q 40 mg DAILY FELIBERTO Administration Ferrous Sulfate 325 mg 10/08/24 09:00 10/10/24 08:52 Ferrous Sulfate [address] PO 325 mg DAILY FELIBERTO Administration Folic Acid 0.4 mg 10/08/24 09:00 10/10/24 08:52 Folic Acid 0.4 Mg Tablet PO 0.4 mg DAILY FELIBERTO Administration Hydromorphone HCl 0.5 mg 10/07/24 21:15 10/08/24 13:09 Hydromorphone Hcl Inj (*Crx) 1 Mg/Ml Syr IV PUSH 0.5 mg Q3H PRN Administration Pain Rated 7-10 Piperacillin/Tazobactam/Dextrose 3.375 gm in 50 mls @ 100 mls/hr 10/08/24 00:00 10/10/24 11:42 Zosyn 3.375 Gm/Ns 50 Ml IVPB 100 mls/hr Q6H FELIBERTO Administration Potassium Chloride/Sodium Chloride 1,000 mls @ 60 mls/hr 10/08/24 13:00 10/09/24 20:54 Kcl 20 Meq/Ns IV CONT 60 mls/hr .[id number] FELIBERTO Administration Metronidazole 500 mg in 100 mls @ 100 mls/hr 10/08/24 14:45 10/10/24 06:05 Flagyl 500 Mg/Iso Soln 100 Ml IVPB Infused Q8H FELIBERTO Infusion Linezolid 600 mg 10/09/24 09:00 10/10/24 08:52 Linezolid 600 Mg Tablet PO 600 mg Q12HR FELIBERTO Administration Lorazepam 0.5 mg 10/07/24 21:26 10/10/24 11:42 Lorazepam (*Crx) 0.5 Mg Tablet PO 0.5 mg BID PRN Administration Anxiety Ondansetron HCl 4 mg 10/07/24 21:26 10/08/24 15:20 Ondansetron Inj 4 Mg/2 Ml Vial IV PUSH 4 mg Q6H PRN Administration Nausea And Vomiting Pantoprazole Sodium 40 mg 10/08/24 09:00 10/10/24 08:52 Pantoprazole 40 Mg Tablet PO 40 mg BID FELIBERTO Administration Sodium Chloride 20 ml 10/08/24 07:48 Central Line Flush IV PUSH PRN PRN after blood draws Sodium Chloride 10 ml 10/08/24 07:48 Central Line Flush IV PUSH PRN PRN with TPN bag changes Sodium Chloride 10 ml 10/08/24 14:00 10/10/24 08:04 Central Line Flush IV PUSH Not Given Q8HR FELIBERTO Trazodone HCl 50 mg 10/07/24 21:40 10/09/24 20:54 Trazodone Hcl 50 Mg Tablet PO 50 mg HS FELIBERTO Administration Radiology Results: ITS Impressions Chest X-Ray 10/07/24 12:27 IMPRESSION: 1. PICC tip in the superior vena cava. 2. Mild atelectasis at the lung bases. Abdomen/Pelvis CT 10/07/24 14:04 IMPRESSION: Possibly enlarging right lower lobe solitary pulmonary nodule, incompletely evaluated. Consider nonemergent but timely outpatient, low-dose noncontrast CT of the chest. Small left and trace right pleural effusions. Cirrhosis with portal hypertension. Gallbladder hydrops without inflammatory change, may be secondary to fasting or obstruction. Correlate with biliary labs. Severe long segment proximal and mid sigmoid colitis, may be secondary to infectious, inflammatory, or ischemic etiology. 5.8 cm adjacent pericolonic abscess. Endometrial thickening versus endometrial fluid, recommend nonemergent outpatient transabdominal and transvaginal pelvic ultrasound. Fecal impaction. Pelvis Ultrasound 10/08/24 16:17 IMPRESSION: 1. Thickened endometrial complex. The differential diagnosis includes endometrial hyperplasia, polyp, and carcinoma. Biopsy is recommended. Labs Labs: Laboratory Results - last 24 hr 10/10/24 06:00 WBC 6.4 RBC 3.52 L Hgb 9.4 L Hct 32.0 L MCV 90.9 MCH 26.7 MCHC 29.4 L RDW 15.3 H Plt Count 341 MPV 9.7 Immature Gran % (Auto) 0.5 Neut % (Auto) 70.1 Lymph % (Auto) 19.8 [place] % (Auto) 7.3 Eos % (Auto) 1.7 Baso % (Auto) 0.6 Lymph # (Auto) 1.27 [place] # (Auto) 0.5 Eos # (Auto) 0.1 Baso # (Auto) 0.0 Abs Immat Gran (auto) 0.03 Absolute Neuts (auto) 4.5 Absolute Nucleated RBC 0.000 Nucleated RBC % 0.0 Platelet Estimate Adequate Anisocytosis 1+ Ovalocytes 1+ Schistocytes None seen Sodium 140 Potassium 3.2 L Chloride 113 H Carbon Dioxide 27 Anion Gap 0 L BUN 10 Creatinine 0.60 L Estim Creat Clear Calc 68 Estimated GFR > 60 Glucose 82 Calcium 8.1 L Total Bilirubin 0.5 AST 23 ALT 7 Alkaline Phosphatase 100 Total Protein 5.0 L Albumin 2.5 L Quality VTE Prophylaxis VTE prophylaxis: mechanical ordered and pharmacologic ordered
[2024-10-10] MEDS: POTASSIUM CHLORIDE 20 MEQ ER TABLET 40 MEQ PO (13:33)
[2024-10-10] MEDS: CENTRAL LINE FLUSH 10 ML IV PUSH ×2 (13:34→20:16)
[2024-10-10] MEDS: KCL 20MEQ/0.9% SOD CHL 1,000 ML 60 ML IV CONT (15:57)
--- NOTE | 2024-10-10 16:38 | P.PNGS_ITS ---
Progress Note: A&P Assessment and Plan (1) Diverticulitis of intestine with abscess: Code(s): K57.80 - Diverticulitis of intestine, part unspecified, with perforation and abscess without bleeding Status: Acute Assessment and Plan: * The patient is refusing any surgical intervention after multiple thorough discussions with her regarding her options. She has decided to go hospice. We will sign off at this point. Plan I have discussed the patient's case and plan of care with Dr. Hogan. Subjective Subjective Date/Time Seen: 10/10/24 16:38 Interval history: Patient has had extensive discussions with her family and the hospitalist today regarding hospice. She has chosen to go hospice and is refusing any surgical intervention. Exam Const: General: comfortable and no acute distress GI: Inspection: non-distended GI Palp: Yes Soft to palpation, Yes Tenderness to palpation present (GI) (Left lower quadrant) and No Guarding due to palpation present (GI) Auscultation: normal bowel sounds Objective Data Vital Signs Vital Signs: Vital Signs - 24 hr 10/09/24 20:00 10/09/24 20:00 10/09/24 22:14 Temperature 97.5 F L Pulse Rate 55 L 60 Respiratory Rate 20 Blood Pressure 139/57 L Pulse Oximetry 98 99 Oxygen Delivery Nasal Cannula Oxygen Flow Rate 2 10/10/24 00:00 10/10/24 04:00 10/10/24 06:00 Temperature 97.3 F L Pulse Rate 51 L 56 L 59 L Respiratory Rate 20 Blood Pressure 153/55 H Pulse Oximetry 100 Oxygen Delivery Oxygen Flow Rate 10/10/24 08:53 10/10/24 08:53 10/10/24 12:00 Temperature Pulse Rate 56 L 80 Respiratory Rate Blood Pressure Pulse Oximetry 100 Oxygen Delivery Nasal Cannula Oxygen Flow Rate 2 10/10/24 14:00 Temperature 97.9 F Pulse Rate 86 Respiratory Rate 19 Blood Pressure 150/50 H Pulse Oximetry 100 Oxygen Delivery Oxygen Flow Rate Intake/Output Intake/Output: Intake & Output 10/07/24 10/08/24 10/09/24 10/10/24 23:59 23:59 23:59 23:59 Intake Total 2600 1350 2656 1560 Output Total 100 Balance 2500 1350 2656 1560 Meds/Results Medications: Active Medications Generic Name Dose Route Start Last Admin Trade Name Freq PRN Reason Stop Dose Admin Acetaminophen 650 mg 10/07/24 21:26 Acetaminophen 325 Mg Tablet PO Q6H PRN Mild Pain (1-3) or Fever Hydrocodone Bitart/Acetaminophen 1 tab 10/07/24 21:26 10/10/24 15:54 Hydrocodone/Acetaminophen (*Crx) 5-325 Mg Tablet PO 1 tab Q6H PRN Administration Pain Rated 4-6 Al Hydrox/Mg Hydrox/Simethicone 30 ml 10/09/24 18:00 10/10/24 11:42 Mag Hydrox/Al Hydrox/Simeth 30 Ml Udc PO 30 ml Q6H PRN Administration Indigestion Docusate Sodium 100 mg 10/08/24 09:00 10/10/24 08:52 Docusate Sodium 100 Mg Capsule PO 100 mg BID FELIBERTO Administration Enoxaparin Sodium 40 mg 10/09/24 10:55 10/10/24 08:52 Enoxaparin 40 Mg/0.4 Ml Syringe SUB-Q 40 mg DAILY FELIBERTO Administration Ferrous Sulfate 325 mg 10/08/24 09:00 10/10/24 08:52 Ferrous Sulfate [address] PO 325 mg DAILY FELIBERTO Administration Folic Acid 0.4 mg 10/08/24 09:00 10/10/24 08:52 Folic Acid 0.4 Mg Tablet PO 0.4 mg DAILY FELIBERTO Administration Hydromorphone HCl 0.5 mg 10/07/24 21:15 10/08/24 13:09 Hydromorphone Hcl Inj (*Crx) 1 Mg/Ml Syr IV PUSH 0.5 mg Q3H PRN Administration Pain Rated 7-10 Piperacillin/Tazobactam/Dextrose 3.375 gm in 50 mls @ 100 mls/hr 10/08/24 00: 00 10/10/24 12:12 Zosyn 3.375 Gm/Ns 50 Ml IVPB Infused Q6H FELIBERTO Infusion Potassium Chloride/Sodium Chloride 1,000 mls @ 60 mls/hr 10/08/24 13:00 10/10/24 15:57 Kcl 20 Meq/Ns IV CONT 60 mls/hr .[id number] FELIBERTO Administration Linezolid 600 mg 10/09/24 09:00 10/10/24 08:52 Linezolid 600 Mg Tablet PO 600 mg Q12HR FELIBERTO Administration Lorazepam 0.5 mg 10/07/24 21:26 10/10/24 11:42 Lorazepam (*Crx) 0.5 Mg Tablet PO 0.5 mg BID PRN Administration Anxiety Ondansetron HCl 4 mg 10/07/24 21:26 10/08/24 15:20 Ondansetron Inj 4 Mg/2 Ml Vial IV PUSH 4 mg Q6H PRN Administration Nausea And Vomiting Pantoprazole Sodium 40 mg 10/08/24 09:00 10/10/24 08:52 Pantoprazole 40 Mg Tablet PO 40 mg BID FELIBERTO Administration Sodium Chloride 20 ml 10/08/24 07:48 Central Line Flush IV PUSH PRN PRN after blood draws Sodium Chloride 10 ml 10/08/24 07:48 Central Line Flush IV PUSH PRN PRN with TPN bag changes Sodium Chloride 10 ml 10/08/24 14:00 10/10/24 13:34 Central Line Flush IV PUSH 10 ml Q8HR FELIBERTO Administration Trazodone HCl 50 mg 10/07/24 21:40 10/09/24 20:54 Trazodone Hcl 50 Mg Tablet PO 50 mg HS FELIBERTO Administration Radiology Results: ITS Impressions Chest X-Ray 10/07/24 12:27 IMPRESSION: 1. PICC tip in the superior vena cava. 2. Mild atelectasis at the lung bases. Abdomen/Pelvis CT 10/07/24 14:04 IMPRESSION: Possibly enlarging right lower lobe solitary pulmonary nodule, incompletely evaluated. Consider nonemergent but timely outpatient, low-dose noncontrast CT of the chest. Small left and trace right pleural effusions. Cirrhosis with portal hypertension. Gallbladder hydrops without inflammatory change, may be secondary to fasting or obstruction. Correlate with biliary labs. Severe long segment proximal and mid sigmoid colitis, may be secondary to infectious, inflammatory, or ischemic etiology. 5.8 cm adjacent pericolonic abscess. Endometrial thickening versus endometrial fluid, recommend nonemergent outpatient transabdominal and transvaginal pelvic ultrasound. Fecal impaction. Pelvis Ultrasound 10/08/24 16:17 IMPRESSION: 1. Thickened endometrial complex. The differential diagnosis includes endometrial hyperplasia, polyp, and carcinoma. Biopsy is recommended. Labs Labs: Laboratory Results - last 24 hr 10/10/24 06:00 WBC 6.4 RBC 3.52 L Hgb 9.4 L Hct 32.0 L MCV 90.9 MCH 26.7 MCHC 29.4 L RDW 15.3 H Plt Count 341 MPV 9.7 Immature Gran % (Auto) 0.5 Neut % (Auto) 70.1 Lymph % (Auto) 19.8 [place] % (Auto) 7.3 Eos % (Auto) 1.7 Baso % (Auto) 0.6 Lymph # (Auto) 1.27 [place] # (Auto) 0.5 Eos # (Auto) 0.1 Baso # (Auto) 0.0 Abs Immat Gran (auto) 0.03 Absolute Neuts (auto) 4.5 Absolute Nucleated RBC 0.000 Nucleated RBC % 0.0 Platelet Estimate Adequate Anisocytosis 1+ Ovalocytes 1+ Schistocytes None seen Sodium 140 Potassium 3.2 L Chloride 113 H Carbon Dioxide 27 Anion Gap 0 L BUN 10 Creatinine 0.60 L Estim Creat Clear Calc 68 Estimated GFR > 60 Glucose 82 Calcium 8.1 L Total Bilirubin 0.5 AST 23 ALT 7 Alkaline Phosphatase 100 Total Protein 5.0 L Albumin 2.5 L
--- NOTE | 2024-10-10 16:45 | PC.NURSE ---
RN called hospitalist Frida. No answer at this time.
[2024-10-10] MEDS: traZODone HCL 50 MG TABLET PO (20:16)
[2024-10-11] VITALS (9 sets, daily range): BP systolic 130–141; BP diastolic 68–75; PULSE 53–77; RESP 18; TEMP 36.5–36.6; O2SAT 97–100
[2024-10-11] MEDS: PIPERACILLN/TAZ 3.375GM/NS50ML 3.375 GM/50 ML BAG IVPB (04:42)
[2024-10-11 05:04] LABS: Basophils Absolute Auto 0.1 K/mm3 (0.0-0.1); Basophils Percent Auto 0.8 % (0.2-1.2); Eosinophils Absolute Auto 0.1 K/mm3 (0-0.3); Hematocrit 32.7 % (37.0-47.0); Hemoglobin 9.8 g/dL (12.0-15.0); Immature Granulocyte Absolute 0.07 K/mm3 (0.00-0.031); Immature Granulocyte Percent A 1.1 % (0-0.5); Lymphocytes Absolute Auto 1.42 K/mm3 (0.9-3.2); Lymphocytes Percent Auto 21.8 % (18.3-44.2); Mean Corpuscular Hemoglobin 26.8 pg (26-34); Mean Corpuscular Volume 89.6 fl (80-100); Mean Platelet Volume 8.7 fl (7.4-10.4); Monocytes Absolute Auto 0.5 K/mm3 (0.1-0.6); Monocytes Percent Auto 7.8 % (2.6-8.5); Neutrophils Absolute Auto 4.3 K/mm3 (1.3-6.7); Neutrophils Percent Auto 66.5 % (45.5-73.1); Platelet Count Result 321 k/mm3 (150-375); Red Blood Count 3.65 M/mm3 (4.2-5.4); Red Cell Distribution Width 15.4 % (11.5-14.5); White Blood Count 6.5 K/mm3 (4.5-10.0)
[2024-10-11 05:15] LABS: Alanine Aminotransferase 8 U/L (6-35); Albumin Level 2.5 g/dL (3.5-5.1); Alkaline Phosphatase 91 U/L (38-126); Anion Gap 3 mmol/L (4-12); Aspartate Amino Transferase 27 U/L (14-36); Bilirubin,Total 0.5 mg/dL (0.2-1.3); Blood Urea Nitrogen 6 mg/dL (7-17); Calcium 8.1 mg/dL (8.4-10.2); Carbon Dioxide 25 mmol/L (22-30); Chloride 113 mmol/L (98-107); Estimated CRCL calculation 68 ml/min; Estimated Glomerular Filt Rate > 60; Glucose 86 mg/dL (65-110); Potassium 3.3 mmol/L (3.4-5.0); Sodium 141 mmol/L (137-145)
[2024-10-11] MEDS: FERROUS SULFATE 325 MG TABLET DR PO (09:20)
[2024-10-11] MEDS: LINEZOLID 600 MG TABLET PO ×2 (09:20→21:33)
[2024-10-11] MEDS: DOCUSATE SODIUM 100 MG CAPSULE PO ×2 (09:20→17:56)
[2024-10-11] MEDS: ENOXAPARIN 40 MG/0.4 ML SYRINGE SUB-Q (09:20)
[2024-10-11] MEDS: PANTOPRAZOLE 40 MG TABLET PO ×2 (09:20→17:56)
[2024-10-11] MEDS: FOLIC ACID 0.4 MG TABLET PO (09:20)
[2024-10-11] MEDS: HYDROcodone/acetaminophen (*CRX) 5-325 MG TABLET 1 TAB PO ×2 (09:20→17:56)
[2024-10-11] MEDS: LORazepam (*CRX) 0.5 MG TABLET PO ×2 (09:23→21:33)
--- NOTE | 2024-10-11 13:27 | PM.IMPN ---
Progress Note: A&P Assessment and Plan (1) Pericolonic abscess: Code(s): K63.0 - Abscess of intestine Status: Acute (2) Intra-abdominal abscess: Code(s): K65.1 - Peritoneal abscess Status: Acute (3) Colitis: Code(s): K52.9 - Noninfective gastroenteritis and colitis, unspecified Status: Acute Plan 79-year-old female with history of perforated diverticulitis, lumbar diskitis, hypertension, paroxysmal atrial fibrillation on Eliquis, diastolic dysfunction, aortic valve stenosis, chronic anemia, cirrhosis, sciatica, arthritis, psoriasis, and anxiety who presented to the emergency department via EMS from [facility] for evaluation of abdominal pain.CT of the abdomen and pelvis showed a severe, long segment proximal and mid sigmoid colitis with a 5.8 cm adjacent pericolonic abscess, endometrial thickening versus endometrial fluid, fecal impaction, and possibly enlarging right lower lobe solitary pulmonary nodule. She was started on piperacillin/tazobactam. General surgery was consulted. Patient refused for any surgical intervention on multiple occasions, and has decided to go on hospice. 1. Acute abdominal abscess: Pain control Will stop Zosyn Will continue with Cipro and Flagyl orally Low-fiber diet Will stop checking blood work 2. Enterococcus UTI: Continue with Zyvox 3. History of AFib: Will resume home dose Eliquis as there is no plans for surgical intervention 4. Code status: Limited 5. Due to prophylaxis: Eliquis 6. Disposition: Anticipate discharge within next 24 hours with hospice care Time Spent With Patient Time with patient: 15 - 25 minutes Subjective Date/time seen: 10/11/24 13:27 Interval history: No acute events overnight Review of Systems Review of Systems: 12 systems were reviewed and are negative except for as per HPI. Exam Narrative: General: In no acute distress, well nourished Cardiac: Normal S1 and S2. No murmur, gallops or friction rubs, peripheral pulses intact. Respiratory: Lungs clear to auscultation, no adventitious lung sounds, currently on 2L [place] Gastrointestinal: soft, non-distended,tender over left lower quadrant, normoactive bowel sounds. : voiding without difficulty. Neuro: Alert and oriented x4 Objective Data Vital Signs Vital Signs: Vital Signs - 24 hr 10/10/24 14:00 10/10/24 16:00 10/10/24 20:00 Temperature 97.9 F Pulse Rate 86 68 Respiratory Rate 19 Blood Pressure 150/50 H Pulse Oximetry 100 98 Oxygen Delivery Nasal Cannula Oxygen Flow Rate 2 10/10/24 22:00 10/10/24 20:00 10/11/24 00:00 Temperature 98.1 F Pulse Rate 65 68 53 L Respiratory Rate 14 Blood Pressure 131/69 Pulse Oximetry 100 Oxygen Delivery Oxygen Flow Rate 10/11/24 04:00 10/11/24 06:00 10/11/24 09:20 Temperature 97.7 F Pulse Rate 68 73 Respiratory Rate 18 Blood Pressure 140/70 Pulse Oximetry 97 97 Oxygen Delivery Nasal Cannula Oxygen Flow Rate 2 10/11/24 09:20 10/11/24 12:00 Temperature Pulse Rate 66 77 Respiratory Rate Blood Pressure Pulse Oximetry Oxygen Delivery Oxygen Flow Rate Intake/Output Intake/Output: Intake & Output 10/08/24 10/09/24 10/10/24 10/11/24 23:59 23:59 23:59 23:59 Intake Total 1350 2656 2019 650 Balance 1350 2656 2019 Meds/Results Medications: Active Medications Generic Name Dose Route Start Last Admin Trade Name Freq PRN Reason Stop Dose Admin Acetaminophen 650 mg 10/07/24 21:26 Acetaminophen 325 Mg Tablet PO Q6H PRN Mild Pain (1-3) or Fever Hydrocodone Bitart/Acetaminophen 1 tab 10/07/24 21:26 10/11/24 09:20 Hydrocodone/Acetaminophen (*Crx) 5-325 Mg Tablet PO 1 tab Q6H PRN Administration Pain Rated 4-6 Al Hydrox/Mg Hydrox/Simethicone 30 ml 10/09/24 18:00 10/10/24 11:42 Mag Hydrox/Al Hydrox/Simeth 30 Ml Udc PO 30 ml Q6H PRN Administration Indigestion Ciprofloxacin 500 mg 10/11/24 21:00 Ciprofloxacin 500 Mg Tab PO 10/16/24 23:00 Q12HR FELIBERTO Docusate Sodium 100 mg 10/08/24 09:00 10/11/24 09:20 Docusate Sodium 100 Mg Capsule PO 100 mg BID FELIBERTO Administration Enoxaparin Sodium 40 mg 10/09/24 10:55 10/11/24 09:20 Enoxaparin 40 Mg/0.4 Ml Syringe SUB-Q 40 mg DAILY FELIBERTO Administration Hydromorphone HCl 0.5 mg 10/07/24 21:15 10/08/24 13:09 Hydromorphone Hcl Inj (*Crx) 1 Mg/Ml Syr IV PUSH 0.5 mg Q3H PRN Administration Pain Rated 7-10 Linezolid 600 mg 10/09/24 09:00 10/11/24 09:20 Linezolid 600 Mg Tablet PO 10/13/24 23:00 600 mg Q12HR FELIBERTO Administration Lorazepam 0.5 mg 10/07/24 21:26 10/11/24 09:23 Lorazepam (*Crx) 0.5 Mg Tablet PO 0.5 mg BID PRN Administration Anxiety Metronidazole 500 mg 10/11/24 14:00 Metronidazole 500 Mg Tablet PO 10/16/24 23:00 Q8HR FELIBERTO Ondansetron HCl 4 mg 10/07/24 21:26 10/08/24 15:20 Ondansetron Inj 4 Mg/2 Ml Vial IV PUSH 4 mg Q6H PRN Administration Nausea And Vomiting Pantoprazole Sodium 40 mg 10/08/24 09:00 10/11/24 09:20 Pantoprazole 40 Mg Tablet PO 40 mg BID FELIBERTO Administration Sodium Chloride 20 ml 10/08/24 07:48 Central Line Flush IV PUSH PRN PRN after blood draws Sodium Chloride 10 ml 10/08/24 07:48 Central Line Flush IV PUSH PRN PRN with TPN bag changes Sodium Chloride 10 ml 10/08/24 14:00 10/11/24 08:37 Central Line Flush IV PUSH Not Given Q8HR FELIBERTO Trazodone HCl 50 mg 10/07/24 21:40 10/10/24 20:16 Trazodone Hcl 50 Mg Tablet PO 50 mg HS FELIBERTO Administration Radiology Results: ITS Impressions Chest X-Ray 10/07/24 12:27 IMPRESSION: 1. PICC tip in the superior vena cava. 2. Mild atelectasis at the lung bases. Abdomen/Pelvis CT 10/07/24 14:04 IMPRESSION: Possibly enlarging right lower lobe solitary pulmonary nodule, incompletely evaluated. Consider nonemergent but timely outpatient, low-dose noncontrast CT of the chest. Small left and trace right pleural effusions. Cirrhosis with portal hypertension. Gallbladder hydrops without inflammatory change, may be secondary to fasting or obstruction. Correlate with biliary labs. Severe long segment proximal and mid sigmoid colitis, may be secondary to infectious, inflammatory, or ischemic etiology. 5.8 cm adjacent pericolonic abscess. Endometrial thickening versus endometrial fluid, recommend nonemergent outpatient transabdominal and transvaginal pelvic ultrasound. Fecal impaction. Pelvis Ultrasound 10/08/24 16:17 IMPRESSION: 1. Thickened endometrial complex. The differential diagnosis includes endometrial hyperplasia, polyp, and carcinoma. Biopsy is recommended. Labs Labs: Laboratory Results - last 24 hr 10/11/24 04:59 WBC 6.5 RBC 3.65 L Hgb 9.8 L Hct 32.7 L MCV 89.6 MCH 26.8 MCHC 30.0 L RDW 15.4 H Plt Count 321 MPV 8.7 Immature Gran % (Auto) 1.1 H Neut % (Auto) 66.5 Lymph % (Auto) 21.8 [place] % (Auto) 7.8 Eos % (Auto) 2.0 Baso % (Auto) 0.8 Lymph # (Auto) 1.42 [place] # (Auto) 0.5 Eos # (Auto) 0.1 Baso # (Auto) 0.1 Abs Immat Gran (auto) 0.07 H Absolute Neuts (auto) 4.3 Absolute Nucleated RBC 0.000 Nucleated RBC % 0.0 Sodium 141 Potassium 3.3 L Chloride 113 H Carbon Dioxide 25 Anion Gap 3 L BUN 6 L Creatinine 0.60 L Estim Creat Clear Calc 68 Estimated GFR > 60 Glucose 86 Calcium 8.1 L Total Bilirubin 0.5 AST 27 ALT 8 Alkaline Phosphatase 91 Total Protein 6.0 L Albumin 2.5 L
[2024-10-11] MEDS: POTASSIUM CHLORIDE 20 MEQ PACKET (FOR LIQUID) 40 MEQ PO (14:27)
[2024-10-11] MEDS: MAG HYDROX/AL HYDROX/SIMETH 30 ML UDC PO (14:27)
[2024-10-11] MEDS: CENTRAL LINE FLUSH 10 ML IV PUSH ×2 (14:28→21:33)
[2024-10-11] MEDS: metroNIDAZOLE 500 MG TABLET PO ×2 (14:28→21:33)
[2024-10-11] MEDS: APIXABAN 5 MG TABLET PO (17:56)
[2024-10-11] MEDS: traZODone HCL 50 MG TABLET PO (21:33)
[2024-10-11] MEDS: CIPROFLOXACIN 500 MG TAB PO (21:33)
[2024-10-12] VITALS (10 sets, daily range): BP systolic 125–140; BP diastolic 62–80; PULSE 56–78; RESP 14–18; TEMP 36.3–36.7; O2SAT 98–100
[2024-10-12] MEDS: metroNIDAZOLE 500 MG TABLET PO ×3 (05:22→21:00)
[2024-10-12] MEDS: CENTRAL LINE FLUSH 10 ML IV PUSH ×3 (05:22→21:00)
[2024-10-12] MEDS: CIPROFLOXACIN 500 MG TAB PO ×2 (09:34→20:58)
[2024-10-12] MEDS: APIXABAN 5 MG TABLET PO ×2 (09:34→20:58)
[2024-10-12] MEDS: DOCUSATE SODIUM 100 MG CAPSULE PO ×2 (09:34→17:19)
[2024-10-12] MEDS: HYDROcodone/acetaminophen (*CRX) 5-325 MG TABLET 1 TAB PO ×2 (09:35→14:31)
[2024-10-12] MEDS: PANTOPRAZOLE 40 MG TABLET PO ×2 (09:35→17:19)
[2024-10-12] MEDS: LINEZOLID 600 MG TABLET PO ×2 (09:35→20:58)
[2024-10-12] MEDS: LORazepam (*CRX) 0.5 MG TABLET PO (09:36)
--- NOTE | 2024-10-12 11:00 | P.PNIM_ITS ---
Progress Note: A&P Assessment and Plan (1) Pericolonic abscess: Code(s): K63.0 - Abscess of intestine Status: Acute (2) Intra-abdominal abscess: Code(s): K65.1 - Peritoneal abscess Status: Acute (3) Colitis: Code(s): K52.9 - Noninfective gastroenteritis and colitis, unspecified Status: Acute Plan 79-year-old female with history of perforated diverticulitis, lumbar diskitis, hypertension, paroxysmal atrial fibrillation on Eliquis, diastolic dysfunction, aortic valve stenosis, chronic anemia, cirrhosis, sciatica, arthritis, psoriasis, and anxiety who presented to the emergency department via EMS from [facility] for evaluation of abdominal pain.CT of the abdomen and pelvis showed a severe, long segment proximal and mid sigmoid colitis with a 5.8 cm adjacent pericolonic abscess, endometrial thickening versus endometrial fluid, fecal impaction, and possibly enlarging right lower lobe solitary pulmonary nodule. She was started on piperacillin/tazobactam. General surgery was consulted. Patient refused for any surgical intervention on multiple occasions, and has decided to go on hospice. #Acute abdominal abscess: Pain control Will stop Zosyn Will continue with Cipro and Flagyl orally Low-fiber diet Will stop checking blood work- transitioning to hospice 2. Enterococcus UTI: Continue with Zyvox 3. History of AFib: Will resume home dose Eliquis as there is no plans for surgical intervention continue Eliquis Anticipate discharge within next 24 hours with hospice care Time Spent With Patient Time with patient: Greater than 35 minutes Subjective Date/time seen: 10/12/24 11:00 Interval history: 79-year-old female with history of perforated diverticulitis, lumbar diskitis, hypertension, paroxysmal atrial fibrillation on Eliquis, diastolic dysfunction, aortic valve stenosis, chronic anemia, cirrhosis, sciatica, arthritis, psoriasis, and anxiety who presented to the emergency department via EMS from [facility] for evaluation of abdominal pain.CT of the abdomen and pelvis showed a severe, long segment proximal and mid sigmoid colitis with a 5.8 cm adjacent pericolonic abscess, endometrial thickening versus endometrial fluid, fecal impaction, and possibly enlarging right lower lobe solitary pulmonary nodule. She was started on piperacillin/tazobactam. General surgery was consulted. Patient refused for any surgical intervention on multiple occasions, and has decided to go on hospice. very likely discharge tomorrow as bed and o2 cannot be set up until then. Pt is alert, in good spirit, denies any acute issues-no n/v/d. Review of Systems Review of Systems: 12 systems were reviewed and are negativ e except for as per HPI. Constitutional: Constitutional: Reports as per HPI and Reports no additional constitutional complaints Eyes: Eyes: Reports as per HPI and Reports no additional eye complaints ENT: Reports system reviewed and no additional complaints, except as documented and Reports as per HPI Cardiovascular: Cardiovascular: Reports as per HPI and Reports no additional cardiovascular complaints Respiratory: Respiratory: Reports as per HPI and Reports no additional respiratory complaints Gastrointestinal: Gastrointestinal: Reports as per HPI and Reports no additional gastrointestinal complaints Genitourinary: Genitourinary: Reports no additional female genitourinary complaints and Reports as per HPI Musculoskeletal: Musculoskeletal: Reports no additional musculoskeletal complaints and Reports as per HPI Integumentary/Breasts: Skin/Breast: Reports system reviewed and no additional complaints, except as docu and Reports as per HPI Neurologic: Reports system reviewed and no additional complaints, except as documented and Reports as per HPI Psychiatric: Psychiatric: Reports no additional psychiatric complaints and Reports as per HPI Exam Narrative: General: In no acute distress, well nourished Cardiac: Normal S1 and S2. No murmur, gallops or friction rubs, peripheral pulses intact. Respiratory: Lungs clear to auscultation, no adventitious lung sounds, currently on 2L [place] Gastrointestinal: soft, non-distended,tender over left lower quadrant, normoactive bowel sounds. : voiding without difficulty. Neuro: Alert and oriented x4 Objective Data Vital Signs Vital Signs: Vital Signs - 24 hr 10/11/24 12:00 10/11/24 14:58 10/11/24 16:00 Temperature 97.9 F Pulse Rate 77 71 69 Respiratory Rate 18 Blood Pressure 130/68 Pulse Oximetry 100 Oxygen Delivery Oxygen Flow Rate 10/11/24 21:55 10/11/24 21:00 10/11/24 20:00 Temperature 97.7 F Pulse Rate 67 62 Respiratory Rate 18 Blood Pressure 141/75 H Pulse Oximetry 100 Oxygen Delivery Nasal Cannula Oxygen Flow Rate 2 10/12/24 00:00 10/12/24 04:00 10/12/24 06:00 Temperature 98.1 F Pulse Rate 56 L 65 66 Respiratory Rate 16 Blood Pressure 140/73 Pulse Oximetry 99 Oxygen Delivery Oxygen Flow Rate 10/12/24 08:39 10/12/24 08:00 Temperature Pulse Rate Respiratory Rate Blood Pressure Pulse Oximetry 98 Oxygen Delivery Nasal Cannula Nasal Cannula Oxygen Flow Rate 2 1 Intake/Output Intake/Output: Intake & Output 10/09/24 10/10/24 10/11/24 10/12/24 23:59 23:59 23:59 23:59 Intake Total 2655 2019 2500 736 Balance 2655 2019 2500 736 Meds/Results Medications: Active Medications Generic Name Dose Route Start Last Admin Trade Name Freq PRN Reason Stop Dose Admin Acetaminophen 650 mg 10/07/24 21:26 Acetaminophen 325 Mg Tablet PO Q6H PRN Mild Pain (1-3) or Fever Hydrocodone Bitart/Acetaminophen 1 tab 10/07/24 21:26 10/12/24 09:35 Hydrocodone/Acetaminophen (*Crx) 5-325 Mg Tablet PO 1 tab Q6H PRN Administration Pain Rated 4-6 Al Hydrox/Mg Hydrox/Simethicone 30 ml 10/09/24 18:00 10/11/24 14:27 Mag Hydrox/Al Hydrox/Simeth 30 Ml Udc PO 30 ml Q6H PRN Administration Indigestion Apixaban 5 mg 10/11/24 17:00 10/12/24 09:34 Apixaban 5 Mg Tablet PO 5 mg Q12HR FELIBERTO Administration Ciprofloxacin 500 mg 10/11/24 21:00 10/12/24 09:34 Ciprofloxacin 500 Mg Tab PO 10/16/24 23:00 500 mg Q12HR FELIBERTO Administration Docusate Sodium 100 mg 10/08/24 09:00 10/12/24 09:34 Docusate Sodium 100 Mg Capsule PO 100 mg BID FELIBERTO Administration Linezolid 600 mg 10/09/24 09:00 10/12/24 09:35 Linezolid 600 Mg Tablet PO 10/13/24 23:00 600 mg Q12HR FELIBERTO Administration Lorazepam 0.5 mg 10/07/24 21:26 10/12/24 09:36 Lorazepam (*Crx) 0.5 Mg Tablet PO 0.5 mg BID PRN Administration Anxiety Metronidazole 500 mg 10/11/24 14:00 10/12/24 05:22 Metronidazole 500 Mg Tablet PO 10/16/24 23:00 500 mg Q8HR FELIBERTO Administration Ondansetron HCl 4 mg 10/07/24 21:26 10/08/24 15:20 Ondansetron Inj 4 Mg/2 Ml Vial IV PUSH 4 mg Q6H PRN Administration Nausea And Vomiting Pantoprazole Sodium 40 mg 10/08/24 09:00 10/12/24 09:35 Pantoprazole 40 Mg Tablet PO 40 mg BID FELIBERTO Administration Sodium Chloride 20 ml 10/08/24 07:48 Central Line Flush IV PUSH PRN PRN after blood draws Sodium Chloride 10 ml 10/08/24 07:48 Central Line Flush IV PUSH PRN PRN with TPN bag changes Sodium Chloride 10 ml 10/08/24 14:00 10/12/24 05:22 Central Line Flush IV PUSH 10 ml Q8HR FELIBERTO Administration Trazodone HCl 50 mg 10/07/24 21:40 10/11/24 21:33 Trazodone Hcl 50 Mg Tablet PO 50 mg HS FELIBERTO Administration Radiology Results: ITS Impressions Chest X-Ray 10/07/24 12:27 IMPRESSION: 1. PICC tip in the superior vena cava. 2. Mild atelectasis at the lung bases. Abdomen/Pelvis CT 10/07/24 14:04 IMPRESSION: Possibly enlarging right lower lobe solitary pulmonary nodule, incompletely evaluated. Consider nonemergent but timely outpatient, low-dose noncontrast CT of the chest. Small left and trace right pleural effusions. Cirrhosis with portal hypertension. Gallbladder hydrops without inflammatory change, may be secondary to fasting or obstruction. Correlate with biliary labs. Severe long segment proximal and mid sigmoid colitis, may be secondary to infectious, inflammatory, or ischemic etiology. 5.8 cm adjacent pericolonic abscess. Endometrial thickening versus endometrial fluid, recommend nonemergent outpatient transabdominal and transvaginal pelvic ultrasound. Fecal impaction. Pelvis Ultrasound 10/08/24 16:17 IMPRESSION: 1. Thickened endometrial complex. The differential diagnosis includes endometrial hyperplasia, polyp, and carcinoma. Biopsy is recommended. Quality VTE Prophylaxis VTE prophylaxis: mechanical ordered and pharmacologic ordered
[2024-10-12] MEDS: traZODone HCL 50 MG TABLET PO (20:58)
[2024-10-12] MEDS: LORazepam (*CRX) 1 MG TABLET PO (20:58)
[2024-10-13] VITALS (9 sets, daily range): BP systolic 119–143; BP diastolic 64–73; PULSE 61–84; RESP 18–20; TEMP 36.3–36.9; O2SAT 94–99
[2024-10-13] MEDS: CENTRAL LINE FLUSH 10 ML IV PUSH ×3 (05:15→21:00)
[2024-10-13] MEDS: metroNIDAZOLE 500 MG TABLET PO ×3 (05:15→21:00)
--- NOTE | 2024-10-13 07:52 | PM.IMPN ---
Progress Note: A&P Assessment and Plan (1) Pericolonic abscess: Code(s): K63.0 - Abscess of intestine Status: Acute (2) Intra-abdominal abscess: Code(s): K65.1 - Peritoneal abscess Status: Acute (3) Colitis: Code(s): K52.9 - Noninfective gastroenteritis and colitis, unspecified Status: Acute Plan 79-year-old female with history of perforated diverticulitis, lumbar diskitis, hypertension, paroxysmal atrial fibrillation on Eliquis, diastolic dysfunction, aortic valve stenosis, chronic anemia, cirrhosis, sciatica, arthritis, psoriasis, and anxiety who presented to the emergency department via EMS from [facility] for evaluation of abdominal pain.CT of the abdomen and pelvis showed a severe, long segment proximal and mid sigmoid colitis with a 5.8 cm adjacent pericolonic abscess, endometrial thickening versus endometrial fluid, fecal impaction, and possibly enlarging right lower lobe solitary pulmonary nodule. She was started on piperacillin/tazobactam. General surgery was consulted. Patient refused for any surgical intervention on multiple occasions, and has decided to go on hospice. #Acute abdominal abscess: Pain control Will stop Zosyn Will continue with Cipro and Flagyl orally Low-fiber diet Will stop checking blood work- transitioning to hospice #Enterococcus UTI: Continue with Zyvox-last dose 12/7 pm # History of AFib: Will resume home dose Eliquis as there is no plans for surgical intervention continue Eliquis Anticipate discharge within next 24 hours with hospice care Subjective Date/time seen: 10/13/24 07:52 Interval history: 79-year-old female with history of perforated diverticulitis, lumbar diskitis, hypertension, paroxysmal atrial fibrillation on Eliquis, diastolic dysfunction, aortic valve stenosis, chronic anemia, cirrhosis, sciatica, arthritis, psoriasis, and anxiety who presented to the emergency department via EMS from [facility] for evaluation of abdominal pain.CT of the abdomen and pelvis showed a severe, long segment proximal and mid sigmoid colitis with a 5.8 cm adjacent pericolonic abscess, endometrial thickening versus endometrial fluid, fecal impaction, and possibly enlarging right lower lobe solitary pulmonary nodule. She was started on piperacillin/tazobactam. General surgery was consulted. Patient refused for any surgical intervention on multiple occasions, and has decided to go on hospice. very likely discharge tomorrow as bed and o2 cannot be set up until then. Pt is alert, in good spirit, denies any acute issues-no n/v/d. equipment is to be delivered today and she should be able to be discharged tomorrow. no acute issues overnight. pain is an issue- will increase pain meds Review of Systems Review of Systems: 12 systems were reviewed and are negative except for as per HPI. Constitutional: Constitutional: Reports as per HPI and Reports no additional constitutional complaints Eyes: Eyes: Reports as per HPI and Reports no additional eye complaints ENT: Reports system reviewed and no additional complaints, except as documented and Reports as per HPI Cardiovascular: Cardiovascular: Reports as per HPI and Reports no additional cardiovascular complaints Respiratory: Respiratory: Reports as per HPI and Reports no additional respiratory complaints Gastrointestinal: Gastrointestinal: Reports as per HPI and Reports no additional gastrointestinal complaints Genitourinary: Genitourinary: Reports no additional female genitourinary complaints and Reports as per HPI Musculoskeletal: Musculoskeletal: Reports no additional musculoskeletal complaints and Reports as per HPI Integumentary/Breasts: Skin/Breast: Reports system reviewed and no additional complaints, except as docu and Reports as per HPI Neurologic: Reports system reviewed and no additional complaints, except as documented and Reports as per HPI Psychiatric: Psychiatric: Reports no additional psychiatric complaints and Reports as per HPI Exam Narrative: General: In no acute distress, well nourished Cardiac: Normal S1 and S2. No murmur, gallops or friction rubs, peripheral pulses intact. Respiratory: Lungs clear to auscultation, no adventitious lung sounds, currently on 2L [place] Gastrointestinal: soft, non-distended,tender over left lower quadrant, normoactive bowel sounds. : voiding without difficulty. Neuro: Alert and oriented x4 Objective Data Vital Signs Vital Signs: Vital Signs - 24 hr 10/12/24 08:39 10/12/24 08:00 10/12/24 14:00 Temperature 97.4 F L Pulse Rate 78 Respiratory Rate 14 Blood Pressure 125/80 Pulse Oximetry 98 98 Oxygen Delivery Nasal Cannula Nasal Cannula Oxygen Flow Rate 2 1 10/12/24 08:00 10/12/24 12:00 10/12/24 16:00 Temperature Pulse Rate 72 74 75 Respiratory Rate Blood Pressure Pulse Oximetry Oxygen Delivery Oxygen Flow Rate 10/12/24 20:58 10/12/24 20:00 10/13/24 00:00 Temperature 97.4 F L Pulse Rate 69 60 61 Respiratory Rate 18 Blood Pressure 135/62 Pulse Oximetry 100 Oxygen Delivery Oxygen Flow Rate 10/13/24 04:00 10/13/24 05:51 Temperature 97.6 F Pulse Rate 72 75 Respiratory Rate 18 Blood Pressure 137/73 Pulse Oximetry 99 Oxygen Delivery Oxygen Flow Rate Intake/Output Intake/Output: Intake & Output 10/10/24 10/11/24 10/12/24 10/13/24 23:59 23:59 23:59 23:59 Intake Total 2019 2500 1426 250 Balance 2019 2500 1426 250 Meds/Results Medications: Active Medications Generic Name Dose Route Start Last Admin Trade Name Freq PRN Reason Stop Dose Admin Acetaminophen 650 mg 10/07/24 21:26 Acetaminophen 325 Mg Tablet PO Q6H PRN Mild Pain (1-3) or Fever Hydrocodone Bitart/Acetaminophen 1 tab 10/07/24 21:26 10/12/24 14:31 Hydrocodone/Acetaminophen (*Crx) 5-325 Mg Tablet PO 1 tab Q6H PRN Administration Pain Rated 4-6 Al Hydrox/Mg Hydrox/Simethicone 30 ml 10/09/24 18:00 10/11/24 14:27 Mag Hydrox/Al Hydrox/Simeth 30 Ml Udc PO 30 ml Q6H PRN Administration Indigestion Apixaban 5 mg 10/11/24 17:00 10/12/24 20:58 Apixaban 5 Mg Tablet PO 5 mg Q12HR FELIBERTO Administration Ciprofloxacin 500 mg 10/11/24 21:00 10/12/24 20:58 Ciprofloxacin 500 Mg Tab PO 10/16/24 23:00 500 mg Q12HR FELIBERTO Administration Docusate Sodium 100 mg 10/08/24 09:00 10/12/24 17:19 Docusate Sodium 100 Mg Capsule PO 100 mg BID FELIBERTO Administration Linezolid 600 mg 10/09/24 09:00 10/12/24 20:58 Linezolid 600 Mg Tablet PO 10/13/24 23:00 600 mg Q12HR FELIBERTO Administration Lorazepam 1 mg 10/12/24 15:13 10/12/24 20:58 Lorazepam (*Crx) 1 Mg Tablet PO 1 mg BID PRN Administration Anxiety Metronidazole 500 mg 10/11/24 14:00 10/13/24 05:15 Metronidazole 500 Mg Tablet PO 10/16/24 23:00 500 mg Q8HR FELIBERTO Administration Ondansetron HCl 4 mg 10/07/24 21:26 10/08/24 15:20 Ondansetron Inj 4 Mg/2 Ml Vial IV PUSH 4 mg Q6H PRN Administration Nausea And Vomiting Pantoprazole Sodium 40 mg 10/08/24 09:00 10/12/24 17:19 Pantoprazole 40 Mg Tablet PO 40 mg BID FELIBERTO Administration Sodium Chloride 20 ml 10/08/24 07:48 Central Line Flush IV PUSH PRN PRN after blood draws Sodium Chloride 10 ml 10/08/24 07:48 Central Line Flush IV PUSH PRN PRN with TPN bag changes Sodium Chloride 10 ml 10/08/24 14:00 10/13/24 05:15 Central Line Flush IV PUSH 10 ml Q8HR FELIBERTO Administration Trazodone HCl 50 mg 10/07/24 21:40 10/12/24 20:58 Trazodone Hcl 50 Mg Tablet PO 50 mg HS FELIBERTO Administration Radiology Results: ITS Impressions Chest X-Ray 10/07/24 12:27 IMPRESSION: 1. PICC tip in the superior vena cava. 2. Mild atelectasis at the lung bases. Abdomen/Pelvis CT 10/07/24 14:04 IMPRESSION: Possibly enlarging right lower lobe solitary pulmonary nodule, incompletely evaluated. Consider nonemergent but timely outpatient, low-dose noncontrast CT of the chest. Small left and trace right pleural effusions. Cirrhosis with portal hypertension. Gallbladder hydrops without inflammatory change, may be secondary to fasting or obstruction. Correlate with biliary labs. Severe long segment proximal and mid sigmoid colitis, may be secondary to infectious, inflammatory, or ischemic etiology. 5.8 cm adjacent pericolonic abscess. Endometrial thickening versus endometrial fluid, recommend nonemergent outpatient transabdominal and transvaginal pelvic ultrasound. Fecal impaction. Pelvis Ultrasound 10/08/24 16:17 IMPRESSION: 1. Thickened endometrial complex. The differential diagnosis includes endometrial hyperplasia, polyp, and carcinoma. Biopsy is recommended. Quality VTE Prophylaxis VTE prophylaxis: mechanical ordered and pharmacologic ordered
[2024-10-13] MEDS: DOCUSATE SODIUM 100 MG CAPSULE PO ×2 (09:46→18:02)
[2024-10-13] MEDS: APIXABAN 5 MG TABLET PO ×2 (09:46→20:55)
[2024-10-13] MEDS: CIPROFLOXACIN 500 MG TAB PO ×2 (09:47→20:55)
[2024-10-13] MEDS: PANTOPRAZOLE 40 MG TABLET PO ×2 (09:47→18:02)
[2024-10-13] MEDS: LORazepam (*CRX) 1 MG TABLET PO ×2 (09:47→20:55)
[2024-10-13] MEDS: LINEZOLID 600 MG TABLET PO ×2 (09:47→20:55)
[2024-10-13] MEDS: HYDROcodone/acetaminophen (*CRX) 5-325 MG TABLET 1 TAB PO ×2 (09:47→18:03)
[2024-10-13] MEDS: traZODone HCL 50 MG TABLET PO (20:55)
[2024-10-14 05:30] VITALS: BP 144/62; PULSE 68; RESP 18; TEMP 36.4; O2SAT 97
[2024-10-14] MEDS: CENTRAL LINE FLUSH 10 ML IV PUSH ×2 (05:35→13:09)
[2024-10-14] MEDS: metroNIDAZOLE 500 MG TABLET PO ×2 (05:35→13:09)
[2024-10-14 09:10] VITALS: O2SAT 97
[2024-10-14] MEDS: LORazepam (*CRX) 1 MG TABLET PO ×2 (09:10→17:15)
[2024-10-14] MEDS: HYDROcodone/acetaminophen (*CRX) 5-325 MG TABLET 1 TAB PO ×2 (09:10→17:15)
[2024-10-14] MEDS: CIPROFLOXACIN 500 MG TAB PO ×2 (09:11→20:37)
[2024-10-14] MEDS: DOCUSATE SODIUM 100 MG CAPSULE PO ×2 (09:11→17:12)
[2024-10-14] MEDS: APIXABAN 5 MG TABLET PO ×2 (09:11→20:37)
[2024-10-14] MEDS: PANTOPRAZOLE 40 MG TABLET PO ×2 (09:11→17:12)
--- NOTE | 2024-10-14 13:31 | P.DS_ITS ---
DS: Admitting Diagnosis Discharge Date 10/14 Admitting Diagnosis abd pain DS: Discharge Diagnosis Discharge Diagnosis (1) Pericolonic abscess: Code(s): K63.0 - Abscess of intestine Status: Acute (2) Intra-abdominal abscess: Code(s): K65.1 - Peritoneal abscess Status: Acute (3) Colitis: Code(s): K52.9 - Noninfective gastroenteritis and colitis, unspecified Status: Acute DS: Summary Hospital Course Hospital Course: 79-year-old female with history of perforated diverticulitis, lumbar diskitis, hypertension, paroxysmal atrial fibrillation on Eliquis, diastolic dysfunction, aortic valve stenosis, chronic anemia, cirrhosis, sciatica, arthritis, psoriasis, and anxiety who presented to the emergency department via EMS from [facility] for evaluation of abdominal pain.CT of the abdomen and pelvis showed a severe, long segment proximal and mid sigmoid colitis with a 5.8 cm adjacent pericolonic abscess, endometrial thickening versus endometrial fluid, fecal impaction, and possibly enlarging right lower lobe solitary pulmonary nodule. She was started on piperacillin/tazobactam. General surgery was consulted. Patient refused for any surgical intervention on multiple occasions, and has decided to go on hospice. #Acute abdominal abscess: Pain control Will continue with Cipro and Flagyl orally Low-fiber diet Will stop checking blood work- transitioning to hospice #Enterococcus UTI: Continue with Zyvox-last dose 12/7 pm-completed # History of AFib: Will resume home dose Eliquis as there is no plans for surgical intervention continue Eliquis Status at Discharge Functional status at discharge: wheelchair bound Overall status at discharge: patient is not back to baseline Time Spent with Patient Time attestation: Total time spent providing and/or coordinating discharge services: Time spent: Greater than 30 minutes Exam Narrative: General: In no acute distress, well nourished Cardiac: Normal S1 and S2. No murmur, gallops or friction rubs, peripheral pulses intact. Respiratory: Lungs clear to auscultation, no adventitious lung sounds, currently on 2L NC Gastrointestinal: soft, non-distended,tender over left lower quadrant, normoactive bowel sounds. : voiding without difficulty. Neuro: Alert and oriented x4 Discharge Plan Discharge Attending physician on discharge: Chavez Gonzales Discharging Clinician: Celsa Ford Patient Disposition: Hospice - Home Activity: may shower Diet: as tolerated and regular Discharge Instructions: Further medication management per Hospice. Per Care Coordination, patient to discharge home with [facility] ( T- [phone]). Please fax discharge instructions and medication sheets to fax #[phone]. Patient Instructions: Apixaban (By mouth), Heart Failure (DC) Stand Alone Forms: General Discharge Information Discharge Medications: New ciprofloxacin HCl 500 mg Tablet 500 mg PO Q12HR Qty: 7 0RF Continued trazodone 50 mg tablet 50 mg PO HS omeprazole 40 mg Capsule,Delayed Release(Dr/Ec) 40 mg PO DAILY benzonatate 100 mg Capsule 100 mg PO TID PRN (Reason: Cough) ondansetron 4 mg Tablet,Disintegrating 4 mg PO Q8H PRN (Reason: Nausea) docusate sodium 100 mg Tablet 100 mg PO BID lorazepam 1 mg tablet 0.5 mg PO BID PRN (Reason: Anxiety) Qty: 12 0RF oxycodone 10 mg Tablet 10 mg PO Q4H PRN (Reason: Pain) Qty: 24 0RF Rx Instructions: every 4 hours while awake. Eliquis 5 mg tablet 5 mg PO BID Discontinued folic acid 400 mcg Tablet 0.4 mg PO DAILY ferrous sulfate 325 mg (65 mg iron) tablet 325 mg PO DAILY heparin flush(porcine)-0.9NaCl 100 unit/mL Kit 5 ml IV BID sodium chloride 0.9 % (flush) [Normal Saline Flush] Syringe 10 ml IV BID Rx Instructions: use with heparin following sash technique aspirin 81 mg Tablet 81 mg PO DAILY Date of admission: 10/08/24 10:53 Primary Care Provider: DebraAleksandr Admitting Provider: Cleopatra Addison Attending physician on admission: Frida Bui Condition: Stable Quality VTE Prophylaxis VTE prophylaxis: mechanical ordered and pharmacologic ordered Hospitalist MIPS Heart Failure (Exclusion) Patient has history of Heart Transplant or Left Ventricular Assistive Device?: No IF YES, STOP HERE Heart Failure (Qualifier) Patient has current or prior documentation of LVEF less than or equal to 40%, or mod/servere depressed LVSF?: No IF NO, STOP HERE
[2024-10-14 14:00] VITALS: BP 130/61; PULSE 79; RESP 17; TEMP 36.4; O2SAT 95
[2024-10-14] MEDS: traZODone HCL 50 MG TABLET PO (20:37)
[2024-10-14 20:55] VITALS: BP 147/65; PULSE 64; RESP 20; TEMP 36.6; O2SAT 95
--- NOTE | 2024-10-14 21:37 | PC.NURSE ---
called patient daughter, Maribell, to inform of [facility] delay. new eta is now 2230. Maribell is unhappy with times, states if patient is bumped again, could she just come home in the morning.
--- NOTE | 2024-10-14 23:16 | PC.NURSE ---
Patient transferred at this time to daughters home. DaughterMaribell was notified of transfer.
== END 2024-10-14 23:16 | disposition hospice, home (50) | DRG 391 ==
LOC: ANHED 15:30 → ANH3MED 17:08
PROVIDERS: Nurse Practitioner Acute Care; Nurse Practitioner Family; Physician Assistant; Student in an Organized Health Care Education/Training Program; Admitting Provider Internal Medicine; Emergency Provider Emergency Medicine; PCP Internal Medicine; Visit Provider Internal Medicine
DX: K52.9 Noninfective gastroenteritis and colitis, unspecified (principal); K65.1 Peritoneal abscess; K57.20 Diverticulitis of large intestine with perforation and abscess without bleeding; N39.0 Urinary tract infection, site not specified; I71.40 Abdominal aortic aneurysm, without rupture, unspecified; I10 Essential (primary) hypertension; J44.9 Chronic obstructive pulmonary disease, unspecified; Z99.81 Dependence on supplemental oxygen; Z66 Do not resuscitate; I48.0 Paroxysmal atrial fibrillation; F41.9 Anxiety disorder, unspecified; M46.46 Discitis, unspecified, lumbar region; M19.90 Unspecified osteoarthritis, unspecified site; L40.9 Psoriasis, unspecified; Z79.01 Long term (current) use of anticoagulants; Z79.82 Long term (current) use of aspirin; D64.9 Anemia, unspecified; I35.0 Nonrheumatic aortic (valve) stenosis; K74.60 Unspecified cirrhosis of liver; K56.41 Fecal impaction; R91.1 Solitary pulmonary nodule; R93.89 Abnormal findings on diagnostic imaging of other specified body structures; I51.89 Other ill-defined heart diseases; B95.2 Enterococcus as the cause of diseases classified elsewhere; Z53.29 Procedure and treatment not carried out because of patient's decision for other reasons; Z51.5 Encounter for palliative care
CPT/HCPCS: 36415; 71045; 74177; 76856; 80048; 80053; 81001; 82803; 83605; 83690; 83735; 84100; 85025; 85027; 85610; 85730; 87040; 87077; 87086; 87088; 87181; 87637; 87641; 93005; 96361; 96365; 96375; 96376; 99285; A9270; G0378; J1171; J1650; J1836; J2405; J2543; J3480; J7030; Q9967